=== PATIENT | male | born 1995 | race African-American/Black ===

== ENCOUNTER 2023-08-28 15:26 | Inpatient (IN) | payer OTHER, SELFPAY ==
[2023-08-28 09:14] VITALS: BP 115/60
--- NOTE | 2023-08-28 09:21 | ED.GENMED ---
History of Present Illness
General
Chief Complaint: Chest Pain
Time Seen by Provider: 08/28/23 09:08
History of Present Illness
History of Present Illness:
27-year-old male with history of sickle cell presents to the emergency via [facility] chest pain, back pain, and extremity pain that began last night. He states the symptoms are comparable to past sickle cell crises. He has
been an inmate at the correctional facility for the past 2 weeks, reports he previously been compliant with his hydroxyurea. He is from out of [facility], outside property agent is located in [place]. No recent fevers or chills. Denies any history of IV drug
abuse or illicit substance use
Review of Systems
Review of Systems
Allergies reviewed?: Yes
All Other Systems: ROS reviewed and negative except as documented in HPI and ROS
Phy Exam
Physical Exam
Physical Exam:
GEN: Well appearing, NAD, WDWN
Eyes: PERRLA, EOMs intact, no scleral icterus
HENT: NCAT, oral mucosa moist, no JVD, no cervical adenopathy.
Lungs: CTAB, no wheezes, rales, rhonchi, normal chest wall excursion
Cardiac: RRR, no M/R/G, no peripheral edema. Radial pulses 2+ bilat
Abdomen: S, NT, ND, NABS, no masses or hepatosplenomegaly
Neuro: AO x 3
MSK: Forearm and lower leg compartments soft bilaterally with no tenderness
Skin: No rashes, petechiae. Normal color, no pallor or jaundice.
Psych: Calm, cooperative, proper hygiene
Scores
Heart Score for Chest Pain Patients
STEMI patient?: Not applicable
Course
Orders/Labs/Results
Orders:
Orders
08/28/23 09:17
EKG [Electrocardiogram (*1)] Urgent
Reason for Study: Chest Pain
EKG- Treatment ONCE
08/28/23 09:19
HYDROmorphone [Dilaudid] 1 mg IV NOW STA
08/28/23 09:20
Urinalysis Reflex To Culture Urgent
Date Specimen was Collected: 08/28/23
Time Specimen was Collected: 11:20
CR Chest - 2 Views Urgent
Comment:
Reason For Exam: chest pain
08/28/23 11:48
HYDROmorphone [Dilaudid] 1 mg .ROUTE .STK-MED ONE
08/28/23 12:20
CBC/With Reticulocyte Count Urgent
Comprehensive Metabolic Panel Urgent
Direct Bilirubin Urgent
Haptoglobin [S] Urgent
Comment: ADD ON
LDH Urgent
08/28/23 12:52
HYDROmorphone [Dilaudid] 1 mg IV NOW STA
08/28/23 15:01
Admit/Transfer Patient As Directed
Co-Sign Provider:
Level of Care: Inpatient admission
Assign to:: Telemetry
Physician / Group: hospitalist
Diagnosis: Sickle cell Crises
Reason for Telemetry: Chest Pain syndromes
Date to Stop Telemetry: 08/30/23
Time to Stop Telemetry: 11:00
Reason for Hospitalization: Sickle cell crises
Expected length of stay greater than two midnights?: Yes
ELOS- Estimated Length of Stay in days: 3
I certify the patient meets the requirements for IP care: Yes
08/28/23 15:04
HYDROmorphone [Dilaudid] 2 mg IV NOW STA
08/28/23 15:07
Code Status As Directed
Resuscitation Status: Full Code
08/28/23 15:15
Urine Drug Abuse Screen Routine
08/30/23 11:00
DC Protocol for Telemetry ONCE
Abnormal Lab Results
08/28/23
12:20
WBC 13.1 H 10^3/uL
(4.8-10.8)
RBC 3.44 L 10^6/uL
(4.70-6.10)
Hgb 8.3 L g/dL
(13.0-18.0)
Hct 22.9 L %
(39.0-52.0)
MCV 66.6 L fL
(80.0-94.0)
MCH 24.1 L pg
(27.0-31.0)
RDW 25.8 H %
(11.5-14.5)
Abs Immat Gran (auto) 0.1 H 10^3/uL
(0-0.05)
Absolute Monos (auto) 1.7 H 10^3/uL
(0.1-0.6)
Absolute Eos (auto) 1.4 H 10^3/uL
(0-0.7)
Immature Gran % 0.9 H %
(0-0.5)
Monocytes % 12.8 H %
(1.7-9.3)
Eosinophils % 10.9 H %
(0-6)
Retic Count 7.7 H %
(0.4-2.8)
Carbon Dioxide 21 L mmol/L
(22-30)
BUN 7 L mg/dl
(9-20)
Total Bilirubin 3.9 H mg/dl
(0.2-1.3)
Lactate Dehydrogenase 469 H U/L
(120-246)
08/28/23 12:20
08/28/23 12:20
Vital Signs
Initial and Last Documented VS:
Initial Vital Signs
Temp Pulse Resp Pulse Ox
98.7 F 70 16 95
08/28/23 09:13 08/28/23 09:13 08/28/23 09:13 08/28/23 09:13
Last Documented Vital Signs
Temp Pulse Resp BP Pulse Ox
98.7 F 61 11 116/59 95
08/28/23 09:13 08/28/23 14:00 08/28/23 14:00 08/28/23 12:00 08/28/23 14:00
MDM/Problems Addressed
MDM/Problems Addressed:
Patient was quite challenging IV placement thus there was a delay and obtaining labs. He has anemia with a hemoglobin of 8.3 as well as elevated reticulocyte count and LDH as well as total bilirubin. At this time it is not clear whether this truly
represents an acute crisis as I do not have access to prior labs given that [place]. Given the multiple required doses of IV opioids will admit to the hospitalist service for further management of a presumed acute sickle cell
syndrome, chest x-ray is clear, no evidence for acute chest syndrome
*Critical Care Note
Total Time (30-74mins, 75-104mins- exclusive of procedures): Not Applicable
ED Attending Note
-
Portions of this chart may have been created with voice recognition software.� Occasional wrong word or��sound alike� substitutions may have occurred due to the inherent limitations of voice recognition software.
Discharge Plan
Departure
Patient Disposition: Admit
Date of Disposition: 08/28/23
Time of Disposition: 12:52
Presentation/result/management discussed w/ accepting MD/DO: Hospitalist
Discharge Problem:
Sickle cell anemia with crisis
Interventions
Interventions:
*Risk Screen - Suicide Last Done: 08/28/23 09:08
*General Assessment Last Done: 08/28/23 09:08
*Neglect/Abuse Screening Last Done: 08/28/23 09:08
*ED COVID-19 Vaccine History Last Done: 08/28/23 09:08
ED- Cardiac Assessment Last Done: 08/28/23 09:08
[2023-08-28] MEDS: DILAUDID 1 MG IV ×5 (10:16→22:55)
[2023-08-28 11:00] VITALS: BP 118/58
[2023-08-28 12:00] VITALS: BP 116/59
[2023-08-28 12:36] LABS: % Basophils 0.6 % (0-2); % Eosinophils 10.9 % (0-6); % Immature Granulocytes 0.9 % (0-0.5); % Lymphocytes 25.2 % (20.5-51.1); % Monocytes 12.8 % (1.7-9.3); % Neutrophils 49.6 % (42.2-75.2); Absolute Basophils 0.1 10^3/uL (0-0.2); Absolute Eosinophils 1.4 10^3/uL (0-0.7); Absolute Immature Granulocytes 0.1 10^3/uL (0-0.05); Absolute Lymphocytes 3.3 10^3/uL (1.2-3.4); Absolute Monocytes 1.7 10^3/uL (0.1-0.6); Absolute Neutrophils 6.5 10^3/uL (1.4-6.5); Hematocrit 22.9 % (39.0-52.0); Hemoglobin 8.3 g/dL (13.0-18.0); Mean Corp Hgb Conc. 36.2 g/dL (33.0-37.0); Mean Corpuscular Hgb 24.1 pg (27.0-31.0); Mean Corpuscular Volume 66.6 fL (80.0-94.0); Mean Platelet Volume 9.1 fL (7.4-10.4); Nucleated Red Blood Cells % 2.1 % (-); Platelet Count 192 10^3/uL (130-400); Red Blood Cell Count 3.44 10^6/uL (4.70-6.10); Red Cell Dist. Width 25.8 % (11.5-14.5); Reticulocyte Count 7.7 % (0.4-2.8); White Blood Cell Count 13.1 10^3/uL (4.8-10.8)
[2023-08-28 12:45] LABS: ALT (SGPT) 20 U/L (0-50); AST (SGOT) 58 U/L (17-59); Albumin 4.4 g/dl (3.5-5.0); Alkaline Phosphatase 87 U/L (38-126); Blood Urea Nitrogen 7 mg/dl (9-20); Calcium 9.3 mg/dl (8.4-10.2); Carbon Dioxide 21 mmol/L (22-30); Chloride 105 mmol/L (98-107); Direct Bilirubin 0.2 mg/dl (0.0-0.4); Estimated Creatinine Clearance > 125 ml/min; Glucose 89 mg/dl (70-99); LDH 469 U/L (120-246); Potassium 4.4 mmol/L (3.5-5.1); Sodium 135 mmol/L (135-145); Total Bilirubin 3.9 mg/dl (0.2-1.3); Total Protein 6.9 g/dl (6.3-8.2); eGFR > 60.00
[2023-08-28 13:24] LABS: Anisocytosis 1+; Hypochromasia 2+; Normal RBC Morphology No; Polychromasia 1+; Target Cells 1+
[2023-08-28 13:25] LABS: Acanthocytes 1+; Ovalocytes 2+; Schistocytes FEW; Sickled Red Blood Cells 1+
--- NOTE | 2023-08-28 14:38 | HPS.HSE ---
Addendum entered and electronically signed by Nael Herman MD 08/28/23 22:13:
Attending Addendum-
I performed a history and physical exam of the patient and discussed his management with the resident. I reviewed the resident's note and agree with the documented findings and plan of care CC/HPI-Patient presents from [facility] correction with
correctional officers secondary to severe pain. Per patient state pain has been at its worst today and located on back arm and chest. Has had sickle cell crisis multiple times before. dx @ 5y/old. Patient given diludid with some relief. Full 12
point ROS reviewed and negative except as documented Exam- vitals reviewed in EMR GEN-mild distress heart RRR lungs clear abd soft NT LE no edema back TTP right side back Skin Dry
Plan:
# Sickle Cell Crisis-
- elevated retic and LDH
- no previous records present to confirm dx
- check periph smear
- start IVF
- treat pain aggressively attempt control over next 24 hours
- will need f/u heme as OP
- cont hydroxyurea and folic acid
- start ibuprofen ATC add PPI
# Leukocytosis-
- likely related to SCC
- trend and repeat CBC in am
# Anemia-
- transfuse for HB < 7
- repeat CBC in am
DVT proph- lovenox
Time spent coordinating care, review of plan of care with resident, personally reviewed previous records in EMR, med rec, labs, radiology, d/w nursing, family, correctional officers �- 75 mins
Original Note:
Family Physician
-
Family Physician: Facility [facility]. Correction
Chief Complaint
-
Right Chest pain, Back pain and B/l Hip pain
History of Present Illness
27-year-old male with history of sickle cell disease since procedure for presenting to the emergency from [facility] ( inmate for last 2 weeks) with chest pain, back pain, bilateral hip pain. He had multiple similar episodes
in the past and reported he received IV Dilaudid 2 mg which helped. He reportedly is compliant with the use of hydroxyurea. 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 Reports no recent fever or chills. Denies history of smoking/alcohol
abuse/drug abuse or any other illicit substance. PDMP was queried and confirmed that he was receiving Percocet 10/325 in [place]. He was given 1 mg IV Dilaudid 3 doses in ED and reports minimal benefit, additional dose of 2mg IV was ordered and he
was admitted to medicine floor for further evaluation and treatment.
Medical History
Past Medical History
Past Medical History: Reports Other (Sickle Cell Disease)
Past Surgical History: Reports Cholecystectomy
Social History
Tobacco: Non-smoker
Alcohol: None
Drug: None
Living: Alone
Family History
Family History: Not pertinent (Mother- Breast CA)
Allergies / Home Medications
Allergies reflects when Allergies were last updated in [facility].
Home Medications with original date entered in [facility]
Allergy/Medication List:
Morphine- Hives/ swelling
Review of Systems
-
History Source: Patient
EENT: Denies Sore Throat
Respiratory: Denies Cough
Cardiac: Reports Chest Pain
Abdomen/GI: Denies Abdominal Pain
: Denies Dysuria, Flank Pain or Difficulty Voiding
Musculoskeletal: Reports Joint Pain (B/l Hip pain)
Neurological: Denies Headache, Weakness or Numbness
Endocrine: Denies Polyuria
Hematologic/Lymphatic: Denies Bleeding
Psych: Reports Calm
Physical Exam
Vital Signs
Vital Signs
Temp Pulse Resp BP Pulse Ox
98.7 F 61 11 116/59 95
08/28/23 09:13 08/28/23 14:00 08/28/23 14:00 08/28/23 12:00 08/28/23 14:00
Physical Exam
General: Well Developed, Well Nourished and Comfortable
HEENT: NormoCephalic and Anicteric
Respiratory: Clear; No Wheezes or Rales
Cardiac: S1/S2 and Regular Rhythm
GI: Soft, Non Tender, Non Distended and Normal Bowel Sounds
Skin: Warm and Dry
Neuro: Awake, Alert and Oriented
Psych: Calm
Laboratory Results
-
08/28/23 12:20
08/28/23 12:20
Laboratory Results
Total Bilirubin 3.9 mg/dl (0.2-1.3) H 08/28/23 12:20
AST 58 U/L (17-59) 08/28/23 12:20
ALT 20 U/L (0-50) 08/28/23 12:20
Alkaline Phosphatase 87 U/L (38-126) 08/28/23 12:20
Data Reviewed
-
Diagnostic Radiology: Report Reviewed by me, Discussed with Physician and Discussed with Patient
Lab Data: Labs Reviewed by me, Discussed with Physician and Discussed with Patient
Impression/Plan
-
27 Y.o Male with PmHx of sickle cell disease, presented with severe Right sided Chest pain, Back pain, and B/l Hip pain.
#Sickle Cell Crises
- LDH 469, retic 7.7, hb 8.3
- Iv dialudid 2mg Q4h and 1mg Q6 prn for breakthrough pain
- IVF 125ml/hr
- check Smear
-Check malaria, haptoglobin
# Chest pain
- Check trops
- Ekg normal
- CXR unremarkable
Code: Full
DVT prophylaxis:
[2023-08-28] MEDS: DILAUDID IV (16:06)
--- NOTE | 2023-08-28 16:12 | EDRN ---
Attempted to give patient ordered dose of dilaudid 2mg IVP, upon assessing the IV site found it to be no longer patent and saline flush caused discomfort. Removed the IV with catheter intact, wasted dose of dilaudid per protocol, and contacted VAT
to establish new IV site prior to sending the patient to the inpatient assigned room
[2023-08-28 17:27] LABS: Urine Albumin Negative (Neg - Trace); Urine Bilirubin Negative (Negative); Urine Character Clear (Clear); Urine Color Yellow; Urine Glucose Negative (Negative); Urine Ketone Negative (Negative); Urine Leukocyte Negative (Negative); Urine Nitrite Negative (Negative); Urine Occult Blood Negative (Negative); Urine Urobilinogen Negative (Neg - 1+); Urine pH 6.5 (5.0-9.0)
[2023-08-28 17:40] LABS: Amphetamines Negative (Negative); Barbiturates Negative (Negative); Benzodiazepines Negative (Negative); Buprenorphine Positive (Negative); Cocaine Negative (Negative); Marijuana Negative (Negative); Methadone Negative (Negative); Methamphetamines Negative (Negative); Opiates Positive (Negative); Phencyclidine Negative (Negative); Tricyclic Antidepressants Negative (Negative)
[2023-08-28 17:58] LABS: Fentanyl, Urine Negative (Negative)
[2023-08-28] MEDS: DILAUDID 2 MG IV ×2 (17:59→21:05)
--- NOTE | 2023-08-28 18:08 | VATNOTE ---
Callled by ER for Midline. No accessable veins noted in left arm. Attempted on the rt. basilic vein, able to cannulate vein, but unable to thread wire. Pt. states, 'That always happens with a Midline or Picc.' Attempted peripheral IV's x 3, without
success. Recommend EJ or TLC. party plan sales agent aware.
--- NOTE | 2023-08-28 18:33 | EDRN ---
Vascular access team unable to establish IV on patient. Contacted the ordering physcian via TT without it being read. Then contacted the [facility] hospitalist Mehnaz but not on duty yet. Have now sent the same message to Admitting physcian Hernan
with no response.
[2023-08-28 19:17] VITALS: BP 126/73
[2023-08-28] MEDS: DILAUDID 2 MG IM (19:30)
[2023-08-28 20:46] VITALS: BP 136/72
--- NOTE | 2023-08-28 20:54 | PTCARENOTE ---
Received pt from ED RN. Pt is AAOx3. NSR on the monitor. On RA O2 sat 94%, lungs clear. Pt using the urinal. Pt c/o pain, PRN Dilaudid given (see MAR). ED RN placed IV in right medial ankle, able to push medications through, unable to use this line
for IVF due to occlusion, IVF on standby (DRUG SAFETY DATA MANAGEMENT SPECIALIST [employer] notified). CV PA ED called and visited the pt, pt refusing lines, PA was able to get blood for labs. EKG provided, per order. Two guards @ bedside. Pt is laying comfortable in bed with call
jarvis in reach.
[2023-08-28] MEDS: NSS 1000 IV (21:05)
[2023-08-28] MEDS: ZOFRAN 4 MG PO (21:07)
[2023-08-28] MEDS: COLACE 100 MG PO (21:07)
[2023-08-28] MEDS: TYLENOL 650 MG PO (21:07)
[2023-08-28 23:31] LABS: Hematocrit 22.8 % (39.0-52.0); Hemoglobin 8.2 g/dL (13.0-18.0); Mean Corpuscular Hgb 23.9 pg (27.0-31.0); Mean Corpuscular Volume 66.5 fL (80.0-94.0); Mean Platelet Volume 9.4 fL (7.4-10.4); Platelet Count 241 10^3/uL (130-400); Red Blood Cell Count 3.43 10^6/uL (4.70-6.10); Red Cell Dist. Width 26.6 % (11.5-14.5); White Blood Cell Count 13.8 10^3/uL (4.8-10.8)
[2023-08-28 23:43] LABS: Blood Urea Nitrogen 6 mg/dl (9-20); Calcium 9.5 mg/dl (8.4-10.2); Carbon Dioxide 26 mmol/L (22-30); Chloride 103 mmol/L (98-107); Estimated Creatinine Clearance > 125 ml/min; Glucose 93 mg/dl (70-99); Sodium 138 mmol/L (135-145); eGFR > 60.00
[2023-08-28 23:48] LABS: Troponin I < 0.012 ng/ml
[2023-08-28 23:52] LABS: INR 1.13; PT 14.5 Sec (11.4-14.6)
[2023-08-28 23:55] LABS: APTT 22.8 Sec (23.4-35.0)
[2023-08-29] VITALS (12 sets, daily range): BP systolic 98–131; BP diastolic 46–74; BMI 21.9
[2023-08-29] MEDS: MOTRIN 600 MG PO ×4 (00:30→23:06)
[2023-08-29] MEDS: TYLENOL 650 MG PO ×6 (00:30→23:05)
[2023-08-29] MEDS: DILAUDID 2 MG IV ×6 (01:02→22:00)
[2023-08-29] MEDS: DILAUDID 1 MG IV ×6 (02:48→23:00)
[2023-08-29] MEDS: TYLENOL PO (03:43)
[2023-08-29] MEDS: NSS IV ×2 (07:14→15:06)
[2023-08-29] MEDS: PROTONIX 40 MG PO (07:16)
[2023-08-29] MEDS: ZOFRAN 4 MG PO ×2 (07:16→19:46)
[2023-08-29] MEDS: SENOKOT 8.6 MG PO ×2 (07:17→19:46)
[2023-08-29] MEDS: HYDREA 500 MG PO (07:17)
[2023-08-29] MEDS: COLACE 100 MG PO ×2 (07:17→19:46)
[2023-08-29] MEDS: FOLVITE 1 MG PO (07:17)
--- NOTE | 2023-08-29 10:09 | W.PN.HOSP.TC ---
Addendum entered and electronically signed by Nael Herman MD 08/29/23 22:01:
Attending Addendum-
I saw and evaluated the patient. I reviewed the resident�s note and agree with findings and plan as documented in the resident�s note. S- IV line blew yesterday, patient did not receive pain meds for a period of time. refusing PO meds. IVF line
placed in foot. Feels pain is controlled with IV diladid. 'I feel little better' Full 12 point ROS reviewed and negative except as documented Exam- vitals reviewed in EMR GEN-NAD heart RRR lungs clear abd soft NT LE no edema back TTP right side back
Skin Dry
Plan:
# Sickle Cell Crisis-
- acute hemolysis
- c/s IR to place PICC
- elevated retic and LDH
- diff with sickle cells
- cont IVF
- treat pain aggressively attempt control over next 24 hours, T/C HOLLOW HANDLE BENCH WORKER if needed
- will need f/u heme as OP
- cont hydroxyurea and folic acid
- cont ibuprofen ATC and PPI
- transfuse for < 8
# Hypoxia
- mild
- start o2
# Unconjugated Hyperbilirubinemia
- due to chronic hemolysis
- haptoglobin pend
- elevated retic/elevated LDH
- fractionate
- cont to monitor
# Leukocytosis-
- likely related to SCC
- resolved
- trend and repeat CBC in am
# Anemia-
- transfuse for HB < 7
- repeat CBC in am
DVT proph- lovenox
Dispo- eventual DC back to [facility] facility- c/s CM
Time spent coordinating care, review of plan of care with resident, personally reviewed previous records in EMR, med rec, labs, radiology, d/w nursing, family, correctional officers �- 59 mins
Original Note:
Today's Communication/Plan
-
- Continue IVF
- Continue IV dilaudid
- recheck labs
Assessment / Plan
Assessment / Plan
27 Y.o Male with PmHx of sickle cell disease, presented with severe Right sided Chest pain, Back pain, and B/l Hip pain.
#Sickle Cell Crises
- LDH 469, retic 7.7, hb 8.3- 08/27/23
- Iv dialudid 2mg Q4h and 1mg Q6 prn for breakthrough pain
- IVF 125ml/hr
- IR: LUE PICC placed via prox brachial vein under US and fluoro guidance.
- pending peripheral Smear
- pending haptoglobin
- Will need follow-up heme as outpatient
- Continue hydroxyurea and folic acid
- Continue ibuprofen
# Chest pain
- Check trops
- Ekg normal
- CXR unremarkable
# Anemia
- Transfuse for hemoglobin less than 7
- daily cbc
Code: Full
DVT prophylaxis: Lovenox
Anticipated Discharge: 24 - 48 hours
Subjective/Interval History
-
Date of Service: August 29, 2023
Objective Data
-
Labs:
Laboratory Results
08/28/23 08/28/23 08/29/23
23:15 23:22 06:00
WBC 13.8 H Pending
Hgb 8.2 L Pending
Hct 22.8 L Pending
Plt Count 241 D Pending
PT 14.5
INR 1.13
APTT 22.8 L
Sodium 138 Pending
Potassium 4.0 Pending
Chloride 103 Pending
Carbon Dioxide 26 Pending
BUN 6 L Pending
Creatinine 0.7 Pending
Glucose 93 Pending
Calcium 9.5 Pending
Total Bilirubin Pending
AST Pending
ALT Pending
Alkaline Phosphatase Pending
Vital Signs:
Vital Signs
Temp Pulse Resp BP Pulse Ox
98.0 F 76 12 98/55 92
08/29/23 07:43 08/29/23 06:00 08/29/23 06:00 08/29/23 06:00 08/29/23 06:00
I&O
08/28/23 08/29/23 08/30/23
06:59 06:59 06:59
Intake Total 410 / 410
Output Total 600 / 600
Balance -190 / -190
Review of Systems
-
History Source: Patient
Constitutional: Denies Fever
Respiratory: Denies Cough
Cardiac: Denies Palpitations
Abdomen/GI: Denies Abdominal Pain
Genitourinary: Denies Dysuria
Musculoskeletal: Denies Joint Swelling
Neuro: Denies Dizzy or Headache
Hematologic / Lymphatic: Denies Bleeding
Physical Exam
-
General: Well Developed
Respiratory: Clear to Auscultation
Cardiac: Regular Rhythm and S1/S2
GI: Soft and Nontender
Skin: Warm and Dry
Neuro: Awake, Alert and Oriented
Psych: Calm
Data Reviewed
-
Labs: Labs Reviewed by me, Discussed with Physician and Discussed with Patient
--- NOTE | 2023-08-29 17:32 | W.PN.IRAD.PR ---
Procedure Note
-
LUE PICC placed via prox brachial vein under US and fluoro guidance. The catheter is ready for use. US showed bilat venous abnormalities, initial attempt RUE placement unsuccessful.
[2023-08-29] MEDS: NSS 1000 IV (18:00)
[2023-08-29 18:18] LABS: % Basophils 0.7 % (0-2); % Eosinophils 10.1 % (0-6); % Immature Granulocytes 0.5 % (0-0.5); % Lymphocytes 32.7 % (20.5-51.1); % Monocytes 11.9 % (1.7-9.3); % Neutrophils 44.1 % (42.2-75.2); Absolute Basophils 0.1 10^3/uL (0-0.2); Absolute Immature Granulocytes 0.1 10^3/uL (0-0.05); Absolute Lymphocytes 3.3 10^3/uL (1.2-3.4); Absolute Monocytes 1.2 10^3/uL (0.1-0.6); Absolute Neutrophils 4.4 10^3/uL (1.4-6.5); Mean Corp Hgb Conc. 36.4 g/dL (33.0-37.0); Mean Corpuscular Hgb 24.5 pg (27.0-31.0); Mean Corpuscular Volume 67.3 fL (80.0-94.0); Mean Platelet Volume 9.6 fL (7.4-10.4); Nucleated Red Blood Cells % 2.5 % (-); Platelet Count 233 10^3/uL (130-400); Red Blood Cell Count 3.27 10^6/uL (4.70-6.10); Red Cell Dist. Width 27.2 % (11.5-14.5)
--- NOTE | 2023-08-29 18:34 | PTCARENOTE ---
Pt sent to IR for line placement under fluoroscopy; L PICC placed and placement confirmed before returning to room; Labs drawn and IVF started, as per orders; Will continue to monitor and assess.
[2023-08-29 18:41] LABS: ALT (SGPT) 19 U/L (0-50); AST (SGOT) 49 U/L (17-59); Albumin 4.2 g/dl (3.5-5.0); Alkaline Phosphatase 76 U/L (38-126); Blood Urea Nitrogen 6 mg/dl (9-20); Calcium 9.3 mg/dl (8.4-10.2); Carbon Dioxide 27 mmol/L (22-30); Chloride 102 mmol/L (98-107); Estimated Creatinine Clearance > 125 ml/min; Glucose 96 mg/dl (70-99); Potassium 4.5 mmol/L (3.5-5.1); Sodium 137 mmol/L (135-145); Total Protein 6.7 g/dl (6.3-8.2); eGFR > 60.00
[2023-08-29 18:42] LABS: Anisocytosis 1+; Hypochromasia 2+; Normal RBC Morphology No
[2023-08-29 18:43] LABS: Poikilocytosis 1+; Polychromasia 1+; Target Cells 1+
[2023-08-29 18:44] LABS: Ovalocytes 2+; Schistocytes Slight
[2023-08-29 18:45] LABS: Acanthocytes Slight; Sickled Red Blood Cells 2+
[2023-08-29 18:49] LABS: Microcytosis 1+
--- NOTE | 2023-08-29 20:20 | PTCARENOTE ---
Received pt from gretchen RICCI. Pt is AAOx3, uncooperative/withdrawn. Pt c/o whole body pain, PRN Dilaudid given (see MAR). Pt refusing hygiene. Pt is laying comfortable in bed with call jarvis in reach.
[2023-08-30] VITALS (16 sets, daily range): BP systolic 90–131; BP diastolic 40–81; BMI 22.4
--- NOTE | 2023-08-30 00:59 | PTCARENOTE ---
Addendum entered by Layne Maravilla RN 08/30/23 02:28:
Pt with another run of vtach, ANA Umaña notified. EKG provided. Mag added to AM labs.
Original Note:
Pt with a run of vtach, HR 126 (strip in the chart). ANA Umaña notified, IV Mag ordered.
[2023-08-30] MEDS: NSS 1000 IV ×3 (01:32→18:21)
[2023-08-30] MEDS: MAGNESIUM SULFATE 100 IV (01:32)
[2023-08-30] MEDS: DILAUDID 2 MG IV ×3 (02:00→10:09)
[2023-08-30] MEDS: DILAUDID 1 MG IV ×2 (03:19→07:41)
[2023-08-30] MEDS: TYLENOL 650 MG PO ×5 (03:19→21:05)
[2023-08-30 03:44] LABS: % Basophils 0.9 % (0-2); % Eosinophils 9.2 % (0-6); % Immature Granulocytes 0.6 % (0-0.5); % Lymphocytes 30.4 % (20.5-51.1); % Monocytes 10.8 % (1.7-9.3); % Neutrophils 48.1 % (42.2-75.2); Absolute Basophils 0.1 10^3/uL (0-0.2); Absolute Immature Granulocytes 0.1 10^3/uL (0-0.05); Absolute Lymphocytes 3.2 10^3/uL (1.2-3.4); Absolute Monocytes 1.1 10^3/uL (0.1-0.6); Hematocrit 21.7 % (39.0-52.0); Hemoglobin 7.7 g/dL (13.0-18.0); Mean Corp Hgb Conc. 35.5 g/dL (33.0-37.0); Mean Corpuscular Hgb 24.3 pg (27.0-31.0); Mean Corpuscular Volume 68.5 fL (80.0-94.0); Mean Platelet Volume 9.5 fL (7.4-10.4); Nucleated Red Blood Cells % 2.5 % (-); Platelet Count 228 10^3/uL (130-400); Red Blood Cell Count 3.17 10^6/uL (4.70-6.10); White Blood Cell Count 10.4 10^3/uL (4.8-10.8)
[2023-08-30 04:06] LABS: ALT (SGPT) 22 U/L (0-50); AST (SGOT) 54 U/L (17-59); Albumin 3.9 g/dl (3.5-5.0); Alkaline Phosphatase 76 U/L (38-126); Blood Urea Nitrogen 5 mg/dl (9-20); Carbon Dioxide 27 mmol/L (22-30); Chloride 103 mmol/L (98-107); Estimated Creatinine Clearance > 125 ml/min; Glucose 99 mg/dl (70-99); Potassium 4.6 mmol/L (3.5-5.1); Sodium 136 mmol/L (135-145); Total Bilirubin 3.9 mg/dl (0.2-1.3); Total Protein 6.3 g/dl (6.3-8.2); eGFR > 60.00
[2023-08-30] MEDS: MOTRIN 600 MG PO ×2 (07:40→16:44)
[2023-08-30] MEDS: PROTONIX 40 MG PO (07:41)
[2023-08-30] MEDS: ZOFRAN 4 MG PO ×2 (07:41→21:05)
[2023-08-30] MEDS: COLACE 100 MG PO ×2 (07:41→21:05)
[2023-08-30] MEDS: FOLVITE 1 MG PO (07:41)
[2023-08-30] MEDS: HYDREA 500 MG PO (07:41)
[2023-08-30] MEDS: FLUSH (NSS) 2 FLUSH IV (07:42)
--- NOTE | 2023-08-30 07:51 | CON.CAR ---
Addendum entered and electronically signed by Martin Estrada MD 08/30/23 11:47:
I saw and examined the patient.
The KST OPERATOR or PA's note was reviewed and I agree with the note.
Comment: General: Well developed, well nourished in NAD.
Neck: Supple, no JVD, HJR, carotids +2 B/L, no bruits bilaterally.
Heart: Non displaced PMI, RRR, no murmurs, No S3, S4, no rubs.
Lungs: Clear to auscultation bilaterally, no wheeze, rhonchi, rubs bilaterally,
normal expiratory phase.
Extremities: No clubbing, cyanosis or edema bilaterally.
Neuro: Grossly nonfocal, awake, alert and oriented x3.
Vikram has a history of sickle cell disease with chronic anemia. He is currently incarcerated. He presented with sickle cell crisis. Cardiology is consulted for possible nonsustained V. tach. He denies any chest pain or shortness of breath. He had
palpitations but not correlating with the arrhythmia.
Unclear if this is aberrancy versus nonsustained V. tach. Will check echocardiogram. Will check electrolytes as well as magnesium. No treatment will be needed if ejection fraction is normal.
Original Note:
Consultation
Consultation Request
Date/Time Consultation Requested: 08/30/2023
Date/Time Consultation Performed: 08/30/2023
Requesting Provider: ANA Gallego
Performing Provider: Martita Cates PA-C for Dr. Estrada
Reason for Consultation: NSVT/arrhythmia
Medical History
-
History of Present Illness:
HPI 08/30/2023:
Patient is a 27-year-old male who lives in [place] who is currently incarcerated at [facility] with past medical history significant for sickle cell crisis maintained on hydroxyurea and chronic anemia who presented to
emergency department on 08/28/2023 with complaints of acute severe right-sided chest pain, back pain and hip pain. Symptoms were consistent with his prior sickle cell crisis. ECG showed sinus rhythm without ischemic changes, troponin was negative.
CXR was unremarkable. Patient receiving IV pain medications, IVF and hydroxyurea. Cardiology being asked to see patient after he developed runs of NSVT longest 8 beats on morning of 08/30/2023. Electrolytes stable K+ 4.6, Mag 2.0 on 08/30/23. Admits he
felt palpitations but denied chest pain, SOB or dizziness. Denies history of syncope or prior arrhythmia. Denies family history or cardiac issues, arrhythmia or sudden .
PMH:
Sickle cell disease
Chronic anemia
Cholecystectomy
Past Medical History
Past Medical History: Other (See HPI)
Past Surgical History: Cholecystectomy
Social History
Tobacco: Non-Smoker
Alcohol: None
Drug: None
Personal: Single
Living: Group Home ([facility])
Family History
Family History: Cancer (Mother had breast cancer)
Allergies / Home Medications
Allergy/AdvReac Type Severity Reaction Status Date / Time
morphine Allergy Severe Anaphylaxis Verified 08/28/23 09:19
�Medication �Instructions �Recorded �Confirmed �Type
acetaminophen 325 mg tablet 650 mg PO BIDPRN PRN mild 08/28/23 08/28/23 History
pain/fever
buprenorphine HCl 8 mg sublingual 8 mg sublingual .TAPER JERALD 08/28/23 08/28/23 History
tablet
folic acid 1 mg tablet 1 mg PO DAILY Supplement 08/28/23 08/28/23 History
hydroxyurea 500 mg capsule 500 mg PO DAILY UTI 08/28/23 08/28/23 History
ibuprofen 600 mg tablet 600 mg PO BIDPRN PRN mild pain 08/28/23 08/28/23 History
ondansetron HCl 4 mg tablet 4 mg PO BID NAUSSEA/VOMITING 08/28/23 08/28/23 History
Review of Systems
-
History Source: Patient
All other systems: Negative unless noted
Physical Exam
Vital Signs
Temp Pulse Resp BP Pulse Ox
97.9 F 60 11 90/55 97
08/30/23 03:39 08/30/23 06:00 08/30/23 05:15 08/30/23 06:00 08/29/23 12:35
GEN: No distress, awake, Ox3, lying in bed
HEENT: supple, anicteric, mmm
LUNGS: CTA, no wheezes/rales
CV: Reg, S1/S2, 1/6 murmur at apex
ABD: soft, BS+, NT/ND
EXT: No edema, clubbing or cyanosis
NEURO: Gross non-focal
SKIN: No rash, warm, dry
Lab Results
08/30/23 03:19
08/30/23 03:19
Troponin I Cancelled 08/29/23 06:30
Impression / Plan
-
PCP: Unknown
Dyeing Machine Back Tender: None
Impression:
Presented 08/28/2023 with back and right-sided chest pain
Sickle cell crisis
Leukocytosis
Hyperbilirubinemia
Acute on chronic anemia
NSVT
Sickle cell disease
Chronic anemia
Cholecystectomy
Echo 08/30/2023: ordered
Plan:
-Presented 08/28/2023 with back and right-sided chest pain and found to be in sickle cell crisis
-Troponin negative with non-ischemic ECG
-Runs of NSVT noted on tele 08/30/2023, longest 8 beats
-Electrolytes stable, K+ 4.6, Mag 2.0 on 08/30/23
-Check echocardiogram
-Could consider addition of low dose beta-isreal if BP allows
-Continue to monitor on telemetry
-Sickle cell crisis continue treatment per primary service with IV fluids, pain control, hydroxyurea and folic acid
-Acute on chronic anemia, continue to monitor and trend hgb, transfuse if Hgb <7
HPI 08/30/2023:
Patient is a 27-year-old male who lives in [place] who is currently incarcerated at [facility] with past medical history significant for sickle cell crisis maintained on hydroxyurea and chronic anemia who presented to
emergency department on 08/28/2023 with complaints of acute severe right-sided chest pain, back pain and hip pain. Symptoms were consistent with his prior sickle cell crisis. ECG showed sinus rhythm without ischemic changes, troponin was negative.
CXR was unremarkable. Patient receiving IV pain medications, IVF and hydroxyurea. Cardiology being asked to see patient after he developed runs of NSVT longest 8 beats on morning of 08/30/2023. Electrolytes stable K+ 4.6, Mag 2.0 on 08/30/23. Admits he
felt palpitations but denied chest pain, SOB or dizziness. Denies history of syncope or prior arrhythmia. Denies family history or cardiac issues, arrhythmia or sudden .
Data Reviewed
-
EKG: Report Reviewed by me, Discussed with Physician, Discussed with Nurse and Discussed with Patient
Radiology: Report Reviewed by me, Discussed with Physician, Discussed with Nurse and Discussed with Patient
Labs: Labs Reviewed by me, Discussed with Physician and Discussed with Nurse
Old Records: Reviewed
--- NOTE | 2023-08-30 09:31 | W.PN.HOSP.TC ---
Addendum entered and electronically signed by Wolf Sy MD 08/30/23 18:20:
I saw and evaluated the patient. I reviewed the resident�s note and agree with findings and plan as documented in the resident�s note.
Patient not verbalizing much complaint except having diffuse shoulder/joint ache. At times patient is evasive about answering probing questions and was not interested in providing further history.
1. Sickle cell crisis
-Patient came in with elevated LDH of 469, Hbg 8.3 and retic count of 7.7
-Having some chest discomfort although not hypoxic
-Admission chest x-ray did not show any pulmonary infiltrates.
-Cardiology involved for concern of venoocclusive disease involving heart, echocardiogram did not show any acute wall motion defect. Troponin negative for
-Patient getting high-dose of IV Dilaudid 1 to 2 mg every 4 hour and has been adamant about decreasing pain medication. Had lengthy discussion with patient that patient will not even able to get narcotic as incarcerated at this point and would
benefit with trial of oral narcotic. Patient remains adamant and demanding of being given ' IV Dilaudid as I am having sickle cell crisis'
-Patient have-been in the hospital more than 48 hours and bedside pain and some baseline lab abnormality no other clinical signs showing active sickle cell crisis. I will change patient to oral oxycodone 5/10 mg for moderate-severe pain and later
increased to 10/15 mg.
IV Dilaudid still ordered as a breakthrough use for every 4 hour.
-Repeat CBC/LDH/reticulocyte count to be followed
2. Microcytic anemia
-Reported baseline of 9.5. Currently 7.7, drifted down from 8.3 in ER and component of dilutional anemia there
-Follow-up repeat hemoglobin tomorrow may require transfusion if dips down further
Case discussed with hematology services
Original Note:
Today's Communication/Plan
-
- check iron profile, b12, folate
- continue IVF and start oxy PO for pain
- t/c [employer]
Assessment / Plan
Assessment / Plan
27 Y.o Male with PmHx of sickle cell disease, presented with severe Right sided Chest pain, Back pain, and B/l Hip pain.
#Sickle Cell Crises
- LDH 469, retic 7.7, hb 8.3- 08/27/23
- Oxycodone 10mg Q4H prn for severe pain
- Oxycodone 5 mg every 4 hours for moderate pain
- Hydromorphone 0.5 mg IV every 4 for breakthrough pain
- IVF 115ml/hr
- pending peripheral Smear
- pending haptoglobin
- Will need follow-up heme as outpatient
- Continue hydroxyurea and folic acid
- Continue ibuprofen
# Chest pain
- Check trops
- Ekg normal
- NSVT noted on telemetry 08/30/2023, longest 8 beats
- Echocardiogram: Unremarkable
- Continue to monitor on telemetry
- Consideration of low-dose beta-isreal if blood pressure allows per cardio
- CXR unremarkable
# Anemia
- Transfuse for hemoglobin less than 7 per cardio
- daily cbc
Code: Full
DVT prophylaxis: Lovenox
Anticipated Discharge: 24 - 48 hours
Subjective/Interval History
-
Date of Service: August 30, 2023
Objective Data
-
Labs:
Laboratory Results
08/30/23
03:19
WBC 10.4
Hgb 7.7 L
Hct 21.7 L
Plt Count 228
Sodium 136
Potassium 4.6
Chloride 103
Carbon Dioxide 27
BUN 5 L
Creatinine 0.6 L
Glucose 99
Calcium 9.0
Total Bilirubin 3.9 H
AST 54
ALT 22
Alkaline Phosphatase 76
Vital Signs:
Vital Signs
Temp Pulse Resp BP Pulse Ox
98.1 F 60 11 90/55 95
08/30/23 07:34 08/30/23 06:00 08/30/23 05:15 08/30/23 06:00 08/30/23 07:53
I&O
08/29/23 08/30/23 08/31/23
06:59 06:59 06:59
Intake Total 410 / 410 2280 / 2280 60 / 60
Output Total 600 / 600 2450 / 2450 980 / 980
Balance -190 / -190 -170 / -170 -920 / -920
Review of Systems
-
History Source: Patient
Constitutional: Denies Fever
Respiratory: Denies Trouble Breathing
Cardiac: Reports Palpitations
Abdomen/GI: Denies Abdominal Pain
Musculoskeletal: Denies Joint Pain
Neuro: Denies Dizzy or Headache
Physical Exam
-
General: Well Developed, Well Nourished and Comfortable
HEENT: Normocephalic and Atraumatic
Respiratory: Clear to Auscultation
Cardiac: Regular Rhythm
GI: Soft and Nontender
Skin: Warm and Dry
Neuro: Awake, Alert and Oriented
Psych: Calm
Data Reviewed
-
Labs: Labs Reviewed by me, Discussed with Physician and Discussed with Patient
[2023-08-30] MEDS: SENOKOT 8.6 MG PO ×2 (10:09→21:06)
[2023-08-30 10:27] LABS: Reticulocyte Count 8.7 % (0.4-2.8)
--- NOTE | 2023-08-30 10:34 | CON.ONC ---
Impression
Impression
- Acute vaso-occlusive crisis without alarming features
- atypical chest pain
- acute on chronic anemia
- sickle cell disease
Plan
Plan
- pt presenting with back, hip and chest pain. trop pending and cardiology consulted. EKG, CXR unremarkable and he has no O2 requirements, low suspicion for acute chest syndrome.
- continue standing IV fluids.
- current pain regimen: Diluadid 1-2 mg every 4 hours prn. Agree with restarting home regimen of percocet 10/325 mg every 4 hours standing to wean IV needs.
- monitor CBC daily, transfuse for hgb < 6.5 g/dl or if clinical status with chest pain, O2 requirements, fevers more concerning for acute chest.
- pt usually on Voxelotor at home however unable to get since leaving [place]. Continue Hydrea 500 mg daily (prior dosing per pt).
- pt would benefit from outpt hematology follow up however notes not planning to stay in this area for prolonged period of time.
Patient History
History of Present Illness
Pravin is a 27-year-old male with history of sickle cell disease who presented to the emergency from [facility] ( inmate for last 2 weeks) with chest pain, back pain, bilateral hip pain c/w acute vaso-occlusive crisis. He
notes mild productive cough over for 48 hours preceding pain onset which may have been trigger. He also noted dehydration and warm weather as triggers for crisis. CXR unremarkable. He has no O2 requirements. Troponin pending. He usually resides in
[place], [place] and has registry np there, Dr. Ball, who he last saw 1.5 months ago. He gets admitted ~ 4 times a year with crises. his baseline hgb is ~ 9.5-10.0. He was on hydrea in the past however was switched to Voxelotor ~ 1.5 years ago
however has not been able to get since leaving [place]. He takes folic acid 1 mg daily. He takes Percocet 10/325 every 4 hours prn during crises at home (this was confirmed with PDMP). He usually receives transfusions if hgb < 6.5 g/dl, no known hx of
allo-antibodies/difficulty finding blood products. Hgb today is 7.7 g/dl, retic 7.7, T bili 4.0.
Past-Medical/Surgical History
- Sickle cell anemia
- hx of acute chest syndrome
- hx of hip osteonecrosis
Patient Medication
�Medication �Instructions �Recorded �Confirmed �Last Taken �Type
acetaminophen 325 mg tablet 650 mg PO BIDPRN PRN mild 08/28/23 08/28/23 Unknown History
pain/fever
buprenorphine HCl 8 mg sublingual 8 mg sublingual .TAPER JERALD 08/28/23 08/28/23 Unknown History
tablet
folic acid 1 mg tablet 1 mg PO DAILY Supplement 08/28/23 08/28/23 Unknown History
hydroxyurea 500 mg capsule 500 mg PO DAILY UTI 08/28/23 08/28/23 Unknown History
ibuprofen 600 mg tablet 600 mg PO BIDPRN PRN mild pain 08/28/23 08/28/23 Unknown History
ondansetron HCl 4 mg tablet 4 mg PO BID NAUSSEA/VOMITING 08/28/23 08/28/23 Unknown History
Active Medications
Generic Name Dose Route Start Last Admin
Trade Name Freq PRN Reason Stop Dose Admin
Acetaminophen 650 mg 08/28/23 20:00 08/30/23 07:41
Acetaminophen 325 Mg Tablet PO 09/25/23 19:59 650 mg
Q4HWA SKYLER Administration
Acetaminophen 650 mg 08/28/23 20:41
Acetaminophen 325 Mg Tablet PO 09/25/23 20:40
BIDPRN PRN
mild pain/fever
Docusate Sodium 100 mg 08/28/23 20:00 08/30/23 07:41
Docusate Sodium 100 Mg Capsule PO 09/25/23 19:59 100 mg
BID SKYLER Administration
Enoxaparin Sodium 40 mg 08/28/23 20:41 08/29/23 18:01
Enoxaparin Sodium 40 Mg/0.4 Ml Syringe SC 09/25/23 20:40 Not Given
QPM SKYLER
Folic Acid 1 mg 08/29/23 08:00 08/30/23 07:41
Folic Acid 1 Mg Tablet PO 09/26/23 07:59 1 mg
DAILY SKYLER Administration
Hydromorphone HCl 1 mg 08/28/23 19:55 08/30/23 07:41
Hydromorphone 1 Mg/Ml Carpuject IV 09/11/23 19:50 1 mg
Q2HPRN PRN Administration
For breakthrough pain
Hydromorphone HCl 2 mg 08/28/23 19:55 08/30/23 10:09
Hydromorphone 1 Mg/Ml Carpuject IV 09/11/23 19:59 2 mg
Q4H PRN Administration
Severe Pain
Hydromorphone HCl 1 mg 08/28/23 19:55
Hydromorphone 1 Mg/Ml Carpuject IV 09/11/23 19:54
Q4HPRN PRN
Moderate pain
Hydroxyurea 500 mg 08/29/23 08:00 08/30/23 07:41
Hydroxyurea 500 Mg Capsule PO 09/26/23 07:59 500 mg
DAILY SKYLER Administration
Sodium Chloride 1,000 mls @ 115 mls/hr 08/28/23 20:41 08/30/23 01:32
Nss IV 1,000 mls
.Q8H42M SYKLER Administration
Ibuprofen 600 mg 08/29/23 00:00 08/30/23 07:40
Ibuprofen 600 Mg Tablet PO 09/26/23 00:00 600 mg
Q8 SKYLER Administration
Naloxone HCl 0.4 mg 08/28/23 19:17
Naloxone (0.4 Mg/Ml) 1 Ml Injection IV 09/25/23 19:16
Q4HPRN PRN
For somnolence
Ondansetron HCl 4 mg 08/28/23 20:41 08/30/23 07:41
Ondansetron 4 Mg Tablet PO 09/25/23 20:40 4 mg
BID SKYLER Administration
Pantoprazole Sodium 40 mg 08/29/23 08:00 08/30/23 07:41
Pantoprazole 40 Mg Delayed Release Tablet PO 09/26/23 07:59 40 mg
DAILY SKYLER Administration
Sennosides 8.6 mg 08/29/23 08:00 08/30/23 10:09
Sennosides (Senokot) 8.6 Mg Tablet PO 09/26/23 07:59 8.6 mg
BID SKYLER Administration
Sodium Chloride 0 flush 08/28/23 21:00 08/30/23 07:42
Sodium Chloride 0.9% (Flush) Syringe IV 09/25/23 20:59 2 flush
PER PROTOCOL SKYLER Administration
Sodium Chloride 0 flush 08/28/23 22:00
Sodium Chloride 0.9% (Flush) Syringe IV 09/25/23 21:59
PER PROTOCOL SKYLER
Review of Systems
-
History Source: Patient
Constitutional: Denies Fever
Respiratory: Reports Cough; Denies Trouble Breathing or Wheezing
Cardiac: Reports Chest Pain and Palpitations
GI: Denies Abdominal Pain or Nausea
Musculoskeletal: Reports Joint Pain
Neuro: Denies Headache or Lightheadedness
Physical Exam
-
General: Well Developed, Well Nourished and No Apparent Distress
HEENT: Negative Jaundice
Cardiology: Normal Sinus Rhythm
Pulmonary: Clear
Musculoskeletal: No Clubbing and No Edema
Neurology: Non Focal
Labs
Lab Results
WBC 10.4 10^3/uL (4.8-10.8) 08/30/23 03:19
RBC 3.17 10^6/uL (4.70-6.10) L 08/30/23 03:19
Hgb 7.7 g/dL (13.0-18.0) L 08/30/23 03:19
Hct 21.7 % (39.0-52.0) L 08/30/23 03:19
MCV 68.5 fL (80.0-94.0) L 08/30/23 03:19
MCH 24.3 pg (27.0-31.0) L 08/30/23 03:19
MCHC 35.5 g/dL (33.0-37.0) 08/30/23 03:19
RDW 27.0 % (11.5-14.5) H 08/30/23 03:19
Plt Count 228 10^3/uL (130-400) 08/30/23 03:19
MPV 9.5 fL (7.4-10.4) 08/30/23 03:19
Abs Immat Gran (auto) 0.1 10^3/uL (0-0.05) H 08/30/23 03:19
Absolute Neuts (auto) 5.0 10^3/uL (1.4-6.5) 08/30/23 03:19
Absolute Lymphs (auto) 3.2 10^3/uL (1.2-3.4) 08/30/23 03:19
Absolute Monos (auto) 1.1 10^3/uL (0.1-0.6) H 08/30/23 03:19
Absolute Eos (auto) 1.0 10^3/uL (0-0.7) H 08/30/23 03:19
Absolute Basos (auto) 0.1 10^3/uL (0-0.2) 08/30/23 03:19
Immature Gran % 0.6 % (0-0.5) H 08/30/23 03:19
Neutrophils % 48.1 % (42.2-75.2) 08/30/23 03:19
Lymphocytes % 30.4 % (20.5-51.1) 08/30/23 03:19
Monocytes % 10.8 % (1.7-9.3) H 08/30/23 03:19
Eosinophils % 9.2 % (0-6) H 08/30/23 03:19
Basophils % 0.9 % (0-2) 08/30/23 03:19
Creatinine 0.6 mg/dL (0.7-1.3) L 08/30/23 03:19
Vital Signs
Vital Signs
Temp Pulse Resp BP Pulse Ox
98.1 F 70 9 117/64 95
08/30/23 07:34 08/30/23 10:00 08/30/23 10:00 08/30/23 10:00 08/30/23 07:53
--- NOTE | 2023-08-30 12:04 | PTCARENOTE ---
Patient refusing troponin and ECG. Patient uncooperative and argumentative, giving staff a difficult time. Patient is from [facility] so 2 guards in the room and patient left ankle shackled to bed. Patient complaining of
severe pain throughout whole body. Have been medicating patient with IV dilaudid as ordered. Not clear if this helping patient's pain. Patient is not good at communicating.
[2023-08-30] MEDS: ROXICODONE 10 MG PO ×2 (12:29→16:44)
[2023-08-30] MEDS: DILAUDID 0.5 MG IV ×3 (14:13→22:22)
--- NOTE | 2023-08-30 15:58 | PTCARENOTE ---
Patient demanding MD to come back to room in regards to pain medication change. Dr. Sy notified and to room to see patient. Patient continues to be rude and arguing with staff. Vital signs stable. SR on monitor.
--- NOTE | 2023-08-30 16:48 | CM ---
Addendum entered by Erin Luis RN 08/30/23 17:00:
Spoke with nurse Babatunde
Original Note:
Patient from [facility] with Dx sickle cell crisis, hypoxia, hyperbilirubinemia, anemia. Room air. PICC line. Receiving IVF, IV Dilaudid prn, Roxicodone prn.
Spoke with , nurse [facility]; the phone # for nurse report is [phone], fax [phone] (regular fax [phone] not currently working).
Plan return to [facility] when medically ready.
[2023-08-30] MEDS: ROXICODONE 15 MG PO (21:06)
--- NOTE | 2023-08-30 22:39 | PTCARENOTE ---
Addendum entered by Joslyn Martinez RN 08/31/23 03:41:
Pt had incident with Guard's, code purple called. Pt stating the guards 'wont ring call jarvis' pt got upset, guards got up set situation escalated requiring guards to put pt in more restrains. Pt eventually calmed and able to have short conversation
with RN.
Original Note:
During report a RN noticed Pt's TV appeared to have porn on it. Same RN approached Pt saying ' turn that off'. Guards in room did not see what had been on TV. TV turned off and remote taken away by guards, per their protocol. [facility] vacuum metalizing supervisor aware
of incident.
--- NOTE | 2023-08-30 22:47 | W.PN.UPDATE ---
Update Note
Progress Note Update
Responded to code purple. Patient with 2 guards in room already along with him being shackled x2 limbs to bed. He began screaming, spitting and flailing. Patient eventually settled down after about half our of belligerent behavior. No antipsychotics
administered.
[2023-08-31] VITALS (8 sets, daily range): BP systolic 102–129; BP diastolic 52–70
[2023-08-31] MEDS: TYLENOL 650 MG PO ×5 (00:09→19:57)
[2023-08-31] MEDS: MOTRIN 600 MG PO ×3 (00:09→15:28)
[2023-08-31] MEDS: ROXICODONE 10 MG PO (00:42)
[2023-08-31] MEDS: NSS 1000 IV ×3 (03:18→18:31)
[2023-08-31] MEDS: DILAUDID 0.5 MG IV ×5 (03:18→21:14)
--- NOTE | 2023-08-31 03:36 | PTCARENOTE ---
During report a RN noticed Pt's TV appeared to have porn on it. Same RN approached Pt saying ' turn that off'. Guards in room did not see what had been on TV. TV turned off and remote taken away by guards, per their protocol. [employer] supervisor made
aware of incident.
--- NOTE | 2023-08-31 04:13 | PTCARENOTE ---
Pt appears to be resting comfortably, respiration even, unlabored. Pt remaining respectful with RN and less agitated UNTIL third guard came for check and required 2 remaining guards to shackle Pt to bed in 4 points. Pain medication as needed (see
mar).
[2023-08-31] MEDS: ROXICODONE 15 MG PO ×4 (05:23→19:57)
[2023-08-31 05:28] LABS: Reticulocyte Count 7.8 % (0.4-2.8)
[2023-08-31 05:49] LABS: ALT (SGPT) 30 U/L (0-50); AST (SGOT) 54 U/L (17-59); Albumin 3.6 g/dl (3.5-5.0); Alkaline Phosphatase 80 U/L (38-126); Blood Urea Nitrogen 6 mg/dl (9-20); Calcium 8.9 mg/dl (8.4-10.2); Carbon Dioxide 26 mmol/L (22-30); Chloride 105 mmol/L (98-107); Estimated Creatinine Clearance > 125 ml/min; Glucose 84 mg/dl (70-99); Iron 107 ug/dl (49-181); LDH 419 U/L (120-246); Potassium 4.6 mmol/L (3.5-5.1); Sodium 137 mmol/L (135-145); Total Bilirubin 3.5 mg/dl (0.2-1.3); eGFR > 60.00
[2023-08-31 05:59] LABS: Percent Saturation 37 % (20-50); Total Iron Binding Capacity 283 ug/dl (261-462)
[2023-08-31 06:54] LABS: Folate 13.4 ng/ml (2.76-20); Vitamin B12 531 pg/ml (239-931)
[2023-08-31] MEDS: PROTONIX 40 MG PO (08:51)
[2023-08-31] MEDS: HYDREA 500 MG PO (08:51)
[2023-08-31] MEDS: SENOKOT 8.6 MG PO ×2 (08:51→19:57)
[2023-08-31] MEDS: ZOFRAN 4 MG PO ×2 (08:51→19:57)
[2023-08-31] MEDS: COLACE 100 MG PO ×2 (08:51→19:57)
[2023-08-31] MEDS: FOLVITE 1 MG PO (08:51)
--- NOTE | 2023-08-31 09:16 | W.PN.HOSP.TC ---
Addendum entered and electronically signed by Wolf Sy MD 08/31/23 15:39:
I saw and evaluated the patient. I reviewed the resident�s note and agree with findings and plan as documented in the resident�s note.
Patient not verbalizing much complaint except having diffuse shoulder/joint ache. At times patient is evasive about answering probing questions and was not interested in providing further history.
1. Sickle cell crisis
-Patient came in with elevated LDH of 469, Hbg 8.3 and retic count of 7.7 at admission.
-Having some chest discomfort although not hypoxic, Admission chest x-ray did not show any pulmonary infiltrates.
-Cardiology involved for concern of arterial-occlusive disease involving heart, echocardiogram did not show any acute wall motion defect. Troponin negative.
-Hemoglobin remains stable at 7.7. Reticulocyte count/bilirubin trending down slowly
-Patient pain medication was adjusted to oral pain medication yesterday and patient was agitated and was demanding IV Dilaudid. Clinically not supportive of ongoing severe sickle cell crisis thus transition to oral narcotic nonetheless. Patient
planning to be discharged to correctional facility where patient will not likely able to get any pain medication.
-Hematology reviewed and clinically stable for discharge.
2. Microcytic anemia
-Ferritin 162, Saturation 37%, TIBC 283
-possibly related with sickle cell disease
Patient has a pain medication seeking behavior unfortunately and will not be able to get pain medication in correction facility.
Unfortunately remains high risk for readmission for presumed sickle cell crisis and pain management.
Original Note:
Today's Communication/Plan
-
- continue IVF and oxy PO for pain
- downgrade to med/surg
Assessment / Plan
Assessment / Plan
27 Y.o Male with PmHx of sickle cell disease, presented with severe Right sided Chest pain, Back pain, and B/l Hip pain.
#Sickle Cell Crises
- 08/31/23 LDH 419, retic 7.8( down from 8.7 yesterday)
- Oxycodone 10mg Q4H prn for severe pain
- Oxycodone 5 mg every 4 hours for moderate pain
- Hydromorphone 0.5 mg IV every 4 for breakthrough pain
- Continue IVF 115ml/hr
- Blood parasite smear negative
- pending haptoglobin
- Will need follow-up heme as outpatient
- Continue hydroxyurea and folic acid
- Continue ibuprofen
- MRSA +
# Atypical Chest pain
- 08/28/23 trop negative
- Ekg normal
- NSVT noted on telemetry 08/30/2023, longest 8 beats
- Echocardiogram: Unremarkable
- Continue to monitor on telemetry
- Consideration of low-dose beta-isreal if blood pressure allows per cardio
- CXR unremarkable
# Anemia
- reported baseline 9.5
- Transfuse for hemoglobin less than 6.5 per heme
- daily cbc
Code: Full
DVT prophylaxis: Lovenox
Anticipated Discharge: Within 24 hours
Subjective/Interval History
-
Date of Service: August 31, 2023
Objective Data
-
Labs:
Laboratory Results
08/31/23 08/31/23
04:57 08:59
WBC Pending
Hgb Pending
Hct Pending
Plt Count Pending
Sodium 137
Potassium 4.6
Chloride 105
Carbon Dioxide 26
BUN 6 L
Creatinine 0.8
Glucose 84
Calcium 8.9
Total Bilirubin 3.5 H
AST 54
ALT 30
Alkaline Phosphatase 80
Vital Signs:
Vital Signs
Temp Pulse Resp BP Pulse Ox
98.3 F 71 23 102/64 97
08/31/23 07:30 08/31/23 08:15 08/31/23 08:15 08/31/23 08:15 08/30/23 21:30
I&O
08/30/23 08/31/23 09/01/23
06:59 06:59 06:59
Intake Total 2280 / 2280 5590 / 5590
Output Total 2450 / 2450 3210 / 3210
Balance -170 / -170 2380 / 2380
Review of Systems
-
History Source: Patient
Constitutional: Denies Fever
EENT: Denies Sore Throat
Respiratory: Denies Cough
Cardiac: Denies Palpitations
Abdomen/GI: Denies Abdominal Pain
Musculoskeletal: Denies Joint Pain
Neuro: Denies Headache
Hematologic / Lymphatic: Denies Bleeding
Physical Exam
-
General: Well Developed, Well Nourished and No Apparent Distress
HEENT: Normocephalic and Atraumatic
Respiratory: Clear to Auscultation
Cardiac: Regular Rhythm and S1/S2
GI: Soft and Nontender
Skin: Warm and Dry
Psych: Agitated
Data Reviewed
-
Labs: Labs Reviewed by me, Discussed with Physician and Discussed with Patient
--- NOTE | 2023-08-31 09:27 | W.PN.CARDCBS ---
Today's Communication / Plan
-
Will start Toprol 12.5 mg daily and follow on telemetry
Echo has preserved ejection fraction but still having some nonsustained VT
Continue treatment for sickle cell disease
Impression / Plan
-
PCP: Unknown
[place] [facility]: None
Impression:
Presented 08/28/2023 with back and right-sided chest pain
Sickle cell crisis
Leukocytosis
Hyperbilirubinemia
Acute on chronic anemia
NSVT
Sickle cell disease
Chronic anemia
Cholecystectomy
Echo 08/30/2023: EF 60%, no significant valve abnormalities
Plan:
-Still with some brief nonsustained VT. Echo with preserved ejection fraction. Electrolytes are stable
-Will add low-dose Toprol 12.5 mg daily. Follow on telemetry
-Sickle cell crisis continue treatment per primary service with IV fluids, pain control, hydroxyurea and folic acid
-Acute on chronic anemia, continue to monitor and trend hgb, transfuse if Hgb <7
HPI 08/30/2023:
Patient is a 27-year-old male who lives in [place] who is currently incarcerated [facility] with past medical history significant for sickle cell crisis maintained on hydroxyurea and chronic anemia who presented to
emergency department on 08/28/2023 with complaints of acute severe right-sided chest pain, back pain and hip pain. Symptoms were consistent with his prior sickle cell crisis. ECG showed sinus rhythm without ischemic changes, troponin was negative.
CXR was unremarkable. Patient receiving IV pain medications, IVF and hydroxyurea. Cardiology being asked to see patient after he developed runs of NSVT longest 8 beats on morning of 08/30/2023. Electrolytes stable K+ 4.6, Mag 2.0 on 08/30/23. Admits he
felt palpitations but denied chest pain, SOB or dizziness. Denies history of syncope or prior arrhythmia. Denies family history or cardiac issues, arrhythmia or sudden .
Progress Note - Ferry [facility]
Subjective
Date of Service: August 31, 2023
Still with some brief nonsustained VT overnight. Continues to have sickle cell pain.
Objective
Labs:
08/31/23 04:57
Labs
Hgb 7.7 g/dL (13.0-18.0) L 08/30/23 03:19
Hct 21.7 % (39.0-52.0) L 08/30/23 03:19
Plt Count 228 10^3/uL (130-400) 08/30/23 03:19
PT 14.5 Sec (11.4-14.6) 08/28/23 23:15
INR 1.13 08/28/23 23:15
APTT 22.8 Sec (23.4-35.0) L 08/28/23 23:15
Sodium 137 mmol/L (135-145) 08/31/23 04:57
Potassium 4.6 mmol/L (3.5-5.1) 08/31/23 04:57
BUN 6 mg/dl (9-20) L 08/31/23 04:57
Creatinine 0.8 mg/dL (0.7-1.3) 08/31/23 04:57
Glucose 84 mg/dl (70-99) 08/31/23 04:57
Troponins
08/28/23 08/28/23 08/29/23
20:41 23:15 06:30
Troponin I Cancelled < 0.012 Cancelled
08/30/23
09:30
Troponin I Cancelled
Vital Signs and I&O:
Vital Signs
Temp Pulse Resp BP Pulse Ox
98.3 F 71 23 102/64 97
08/31/23 07:30 08/31/23 08:15 08/31/23 08:15 08/31/23 08:15 08/30/23 21:30
Vital Signs
Temp Pulse Resp BP Pulse Ox
98.3 F 71 23 102/64 97
08/31/23 07:30 08/31/23 08:15 08/31/23 08:15 08/31/23 08:15 08/30/23 21:30
Intake & Output
08/29/23 08/30/23 08/31/23 09/01/23
06:59 06:59 06:59 06:59
Intake Total 410 / 410 2280 / 2280 5590 / 5590
Output Total 600 / 600 2450 / 2450 3210 / 3210
Balance -190 / -190 -170 / -170 2380 / 2380
Physical Exam
Physical Exam
GEN: No distress, awake, Ox3
HEENT: supple, anicteric, mmm
LUNGS: CTA, no wheezes/rales
CV: Reg, S1/S2, no murmur
ABD: soft, BS+, NT/ND
EXT: No edema
NEURO: Gross non-focal
SKIN: No rash
[2023-08-31 09:33] LABS: % Basophils 0.6 % (0-2); % Immature Granulocytes 0.7 % (0-0.5); % Lymphocytes 37.6 % (20.5-51.1); % Monocytes 11.3 % (1.7-9.3); % Neutrophils 36.8 % (42.2-75.2); Absolute Basophils 0.1 10^3/uL (0-0.2); Absolute Eosinophils 1.3 10^3/uL (0-0.7); Absolute Immature Granulocytes 0.1 10^3/uL (0-0.05); Absolute Lymphocytes 3.7 10^3/uL (1.2-3.4); Absolute Monocytes 1.1 10^3/uL (0.1-0.6); Absolute Neutrophils 3.6 10^3/uL (1.4-6.5); Hematocrit 21.5 % (39.0-52.0); Hemoglobin 7.7 g/dL (13.0-18.0); Mean Corp Hgb Conc. 35.8 g/dL (33.0-37.0); Mean Corpuscular Hgb 25.2 pg (27.0-31.0); Mean Corpuscular Volume 70.3 fL (80.0-94.0); Nucleated Red Blood Cells % 2.1 % (-); Platelet Count 270 10^3/uL (130-400); Red Blood Cell Count 3.06 10^6/uL (4.70-6.10); Red Cell Dist. Width 26.8 % (11.5-14.5); White Blood Cell Count 9.8 10^3/uL (4.8-10.8)
[2023-08-31] MEDS: TOPROL XL 12.5 MG PO (10:52)
--- NOTE | 2023-08-31 12:40 | W.PN.ONC ---
Today's Communication / Plan
-
Clinically stable. Pain management as per primary service. Would avoid transfusion unless he really drops significantly below 7 g.
Impression
Impression
- Acute vaso-occlusive crisis without alarming features
- atypical chest pain
- acute on chronic anemia
- sickle cell disease
Plan
Plan
- pt presenting with back, hip and chest pain. trop pending and cardiology consulted. EKG, CXR unremarkable and he has no O2 requirements, low suspicion for acute chest syndrome.
- continue standing IV fluids.
- current pain regimen: Diluadid 1-2 mg every 4 hours prn. Agree with restarting home regimen of percocet 10/325 mg every 4 hours standing to wean IV needs.
- monitor CBC daily, transfuse for hgb < 6.5 g/dl or if clinical status with chest pain, O2 requirements, fevers more concerning for acute chest.
- pt usually on Voxelotor at home however unable to get since leaving [place]. Continue Hydrea 500 mg daily (prior dosing per pt).
- pt would benefit from outpt hematology follow up however notes not planning to stay in this area for prolonged period of time.
Subjective/Objective
Subjective/Objective
He is still having right-sided chest and back pain. Physical examination is unchanged.
Vital Signs:
Vital Signs
Temp Pulse Resp BP Pulse Ox
98 F 74 23 129/70 97
08/31/23 11:18 08/31/23 10:52 08/31/23 08:15 08/31/23 10:52 08/30/23 21:30
Lab Results:
Laboratory Data
WBC 9.8 10^3/uL (4.8-10.8) 08/31/23 08:59
Hgb 7.7 g/dL (13.0-18.0) L 08/31/23 08:59
Plt Count 270 10^3/uL (130-400) 07/09/24 08:59
PT 14.5 Sec (11.4-14.6) 08/28/23 23:15
INR 1.13 08/28/23 23:15
APTT 22.8 Sec (23.4-35.0) L 08/28/23 23:15
eGFR > 60.00 08/31/23 04:57
--- NOTE | 2023-08-31 13:15 | PTCARENOTE ---
Pt rec'd this am from [facility]en[facility] admin, no issues with RN, care ongoing. Requesting PRN and breakthrough pain meds frequently stating 'it's not helping'. Plan discussed with care team. Pt was downgraded to , VSS, safe environment maintained. No
behavior issues so far, DON updated by this RN.
--- NOTE | 2023-08-31 15:06 | PTCARENOTE ---
pt assigned room [id number]-attempted to call report but RN busy, will call back when available.
[2023-08-31] MEDS: TYLENOL PO (15:28)
--- NOTE | 2023-08-31 17:36 | W.DCSUMMARY ---
Documented by User: Elvis Becerra MD, Resident 09/01/23 16:28
Discharge Summary
Discharge Data
Date of Admission: 08/28/23
Date of Discharge: 09/01/23
-
Pending Results: No
Hospital Course
Discharging Physician : Elvis Becerra MD ; Wolf Sy MD
Disposition : [facility]
Primary care physician : n/a
Principal Discharge diagnosis : Sickle cell crisis
Chronic Discharge diagnosis : Chronic anemia
Hospital Course : 27-year-old male with known history of sickle cell disease, presented with severe right-sided chest pain, back pain, bilateral hip pain. Further evaluation revealed high reticulocyte count high LDH. EKG came back negative, chest
x-ray was unremarkable. Initially he was given IV fluids, IV Dilaudid as needed every 2-4 for pain control but switched to p.o. oxycodone. Patient reported decrease pain with opioids. Echocardiogram was also done given an episode of and NSVT but
the results were unremarkable. Daily labs showed decrease in hemoglobin. He was given 1 packed RBCs and oral pain medications were discontinued. Patient reported that he is on buprenorphine in [facility]. Patient discharged after blood transfusion.
Important imaging findings : CXR: No acute cardiopulmonary process
Procedure findings : Ultrasound and fluoroscopy-guided PICC placement.
Discharge Plan
-
Patient Disposition: Senior Living
Discharge Diagnosis/Procedures: Sickle Cell Crises
Condition: Good
Diet: No restrictions
Activity: No restrictions
Driving Restrictions: As prior to admission
Bathing Restrictions: OK to Shower
Blood Work: Check CBC in 1 week
Referrals:
[facility],Facility [Family Provider] -
Prescriptions:
Continued
hydroxyurea 500 mg Capsule
500 mg PO DAILY
acetaminophen 325 mg Tablet
650 mg PO BIDPRN PRN (Reason: mild pain/fever)
ondansetron HCl 4 mg Tablet
4 mg PO BID
folic acid 1 mg Tablet
1 mg PO DAILY
ibuprofen 600 mg Tablet
600 mg PO BIDPRN PRN (Reason: mild pain)
buprenorphine HCl 8 mg Tablet, Sublingual
8 mg SUBLINGUAL .TAPER
Patient Comments:
08/28/2023: 8mg Daily from 08/26-08/27; 4mg (2mg x 2 tabs) Daily from 08/28-08/29; 2mg Daily from 08/30-08/31
Discharge Orders:
Discharge Patient (As Directed); Ordered 09/01/23
Ordered By: Zia Estrada
Discharge Date and Time
Print Language: CROATIAN

Documented by User: Zia Estrada MD, Resident 09/01/23 18:01
Discharge Summary
Discharge Data
Date of Admission: 08/28/23
Date of Discharge: 09/01/23
Discharge Plan
-
Patient Disposition: Senior Living
Discharge Diagnosis/Procedures: Sickle Cell Crises
Condition: Good
Diet: No restrictions
Activity: No restrictions
Driving Restrictions: As prior to admission
Bathing Restrictions: OK to Shower
Blood Work: Check CBC in 1 week
Referrals:
[facility],Facility [Family Provider] -
Prescriptions:
Continued
hydroxyurea 500 mg Capsule
500 mg PO DAILY
acetaminophen 325 mg Tablet
650 mg PO BIDPRN PRN (Reason: mild pain/fever)
ondansetron HCl 4 mg Tablet
4 mg PO BID
folic acid 1 mg Tablet
1 mg PO DAILY
ibuprofen 600 mg Tablet
600 mg PO BIDPRN PRN (Reason: mild pain)
buprenorphine HCl 8 mg Tablet, Sublingual
8 mg SUBLINGUAL .TAPER
Patient Comments:
08/28/2023: 8mg Daily from 08/26-08/27; 4mg (2mg x 2 tabs) Daily from 08/28-08/29; 2mg Daily from 08/30-08/31
Discharge Orders:
Discharge Patient (As Directed); Ordered 09/01/23
Ordered By: Zia Estrada
Discharge Date and Time
Print Language: CROATIAN
[2023-08-31 22:36] LABS: Haptoglobin <10 mg/dL (30-200)
[2023-09-01] MEDS: MOTRIN 600 MG PO ×3 (00:03→15:09)
[2023-09-01] MEDS: NSS 1000 IV ×3 (00:04→15:10)
[2023-09-01] MEDS: TYLENOL 650 MG PO ×4 (00:04→15:09)
[2023-09-01] MEDS: ROXICODONE 15 MG PO ×4 (00:04→17:04)
[2023-09-01] MEDS: DILAUDID 0.5 MG IV ×5 (01:21→18:19)
[2023-09-01] MEDS: TYLENOL PO (04:30)
[2023-09-01 06:21] LABS: % Basophils 0.5 % (0-2); % Eosinophils 12.5 % (0-6); % Immature Granulocytes 0.6 % (0-0.5); % Lymphocytes 29.8 % (20.5-51.1); % Monocytes 9.4 % (1.7-9.3); % Neutrophils 47.2 % (42.2-75.2); Absolute Basophils 0.1 10^3/uL (0-0.2); Absolute Eosinophils 1.4 10^3/uL (0-0.7); Absolute Immature Granulocytes 0.1 10^3/uL (0-0.05); Absolute Lymphocytes 3.4 10^3/uL (1.2-3.4); Absolute Monocytes 1.1 10^3/uL (0.1-0.6); Absolute Neutrophils 5.4 10^3/uL (1.4-6.5); Hemoglobin 7.2 g/dL (13.0-18.0); Mean Corp Hgb Conc. 35.5 g/dL (33.0-37.0); Mean Corpuscular Hgb 24.7 pg (27.0-31.0); Mean Corpuscular Volume 69.8 fL (80.0-94.0); Mean Platelet Volume 9.6 fL (7.4-10.4); Nucleated Red Blood Cells % 1.8 % (-); Platelet Count 264 10^3/uL (130-400); Red Blood Cell Count 2.91 10^6/uL (4.70-6.10); Red Cell Dist. Width 27.3 % (11.5-14.5); White Blood Cell Count 11.4 10^3/uL (4.8-10.8)
[2023-09-01 06:35] LABS: Hematocrit 20.3 % (39.0-52.0)
[2023-09-01 06:49] LABS: Blood Urea Nitrogen 5 mg/dl (9-20); Carbon Dioxide 25 mmol/L (22-30); Chloride 105 mmol/L (98-107); Estimated Creatinine Clearance > 125 ml/min; Glucose 88 mg/dl (70-99); Potassium 4.5 mmol/L (3.5-5.1); Sodium 138 mmol/L (135-145); eGFR > 60.00
[2023-09-01 07:05] VITALS: BP 108/54
--- NOTE | 2023-09-01 07:21 | W.PN.HOSP.TC ---
Addendum entered and electronically signed by Wolf Sy MD 09/01/23 15:17:
I saw and evaluated the patient. I reviewed the resident�s note and agree with findings and plan as documented in the resident�s note.
Patient remains uninterested in communicating any true medical concern beside pain. No acute issues reported overnight by nursing staff
Hemoglobin is drifted down to 7.2 today. Hematology recommended transfusion below 7 although with patient ongoing pain symptoms drifting down hemoglobin will provide 1 unit PRBC
I have discussed concern of patient probably will require some pain control patient have stated he is on buprenorphine in nursing home.
No other ongoing acute issues and patient can be discharged after blood transfusion.
Original Note:
Today's Communication/Plan
-
- d/c to correctional facility
- 1 bag PRBC
Assessment / Plan
Assessment / Plan
27 Y.o Male with PmHx of sickle cell disease, presented with severe Right sided Chest pain, Back pain, and B/l Hip pain.
#Sickle Cell Crises
- 08/31/23 LDH 419, retic 7.8( down from 8.7 yesterday)
- Oxycodone 10mg Q4H prn for severe pain
- Oxycodone 5 mg every 4 hours for moderate pain
- Hydromorphone 0.5 mg IV every 4 for breakthrough pain
- Continue IVF 115ml/hr
- Blood parasite smear negative
- haptoglobin <10
- Will need follow-up heme as outpatient
- Continue hydroxyurea and folic acid
- Continue ibuprofen
- MRSA +
- d/c pain medications after transfusion and d/c
# Atypical Chest pain
- 08/28/23 trop negative
- Ekg normal
- NSVT noted on telemetry 08/30/2023, longest 8 beats
- Echocardiogram: Unremarkable
- Continue to monitor on telemetry
- Consideration of low-dose beta-isreal if blood pressure allows per cardio
- CXR unremarkable
# Anemia
- Hb 7.2 on 09/01/2023 (reported baseline 9.5)
- Transfuse 1 PRBC
Code: Full
DVT prophylaxis: Lovenox
Anticipated Discharge: Today
Subjective/Interval History
-
Date of Service: September 01, 2023
Objective Data
-
Labs:
Laboratory Results
09/01/23 09/01/23
05:58 05:59
WBC 11.4 H
Hgb 7.2 L
Hct 20.3 L*
Plt Count 264
Sodium 138
Potassium 4.5
Chloride 105
Carbon Dioxide 25
BUN 5 L
Creatinine 0.7
Glucose 88
Calcium 9.0
Vital Signs:
Vital Signs
Temp Pulse Resp BP Pulse Ox
98 F 62 16 109/56 95
08/31/23 23:59 08/31/23 23:59 08/31/23 23:59 08/31/23 23:59 08/31/23 23:59
I&O
08/31/23 09/01/23 09/02/23
06:59 06:59 06:59
Intake Total 5590 / 5590 4011 / 4011
Output Total 3210 / 3210 2625 / 2625
Balance 2380 / 2380 1386 / 1386
Review of Systems
-
History Source: Patient
Constitutional: Denies Fever
Respiratory: Denies Cough
Cardiac: Denies Chest Pain
Abdomen/GI: Denies Abdominal Pain
Musculoskeletal: Denies Joint Pain
Neuro: Denies Headache
Physical Exam
-
General: Well Developed and Well Nourished
HEENT: Normocephalic and Atraumatic
Respiratory: Clear to Auscultation
Cardiac: Regular Rhythm
GI: Soft and Nontender
Skin: Warm and Dry
Psych: Calm
Data Reviewed
-
Labs: Labs Reviewed by me, Discussed with Physician and Discussed with Patient
[2023-09-01] MEDS: HYDREA 500 MG PO (08:08)
[2023-09-01] MEDS: PROTONIX 40 MG PO (08:08)
[2023-09-01] MEDS: SENOKOT 8.6 MG PO (08:09)
[2023-09-01] MEDS: TOPROL XL 12.5 MG PO (08:09)
[2023-09-01] MEDS: FOLVITE 1 MG PO (08:09)
[2023-09-01] MEDS: ZOFRAN 4 MG PO (08:09)
[2023-09-01] MEDS: COLACE 100 MG PO (08:10)
--- NOTE | 2023-09-01 10:54 | W.PN.CARDCBS ---
Addendum entered and electronically signed by Martin Estrada MD 09/01/23 11:49:
I saw and examined the patient.
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
Comment: General: Well developed, well nourished in NAD.
Neck: Supple, no JVD, HJR, carotids +2 B/L, no bruits bilaterally.
Heart: Non displaced PMI, RRR, no murmurs, No S3, S4, no rubs.
Lungs: Clear to auscultation bilaterally, no wheeze, rhonchi, rubs bilaterally,
normal expiratory phase.
Extremities: No clubbing, cyanosis or edema bilaterally.
Neuro: Grossly nonfocal, awake, alert and oriented x3.
Stable cardiology status for discharge. Continue low-dose Toprol.
Original Note:
Today's Communication / Plan
-
Cont Toprol XL
Impression / Plan
-
PCP: Unknown
Almond Sorter: None
Impression:
Presented 08/28/2023 with back and right-sided chest pain
Sickle cell crisis
Leukocytosis
Hyperbilirubinemia
Acute on chronic anemia
NSVT
Sickle cell disease
Chronic anemia
Cholecystectomy
Echo 08/30/2023: EF 60%, no significant valve abnormalities
Plan:
-Tele was stopped when patient was moved from [facility] to [facility] on 4W. No reports of palpitations.
-BP and HR stable on Toprol XL 12.5 mg daily
-Labs reviewed by me on 09/01/23 and potassium is 4.5, magnesium was 2.0 on 08/30/23
-Will add low-dose Toprol 12.5 mg daily. Follow on telemetry
-EF was normal on echo without significant valve disease.
HPI 08/30/2023:
Patient is a 27-year-old male who lives in [place] who is currently incarcerated at [facility] with past medical history significant for sickle cell crisis maintained on hydroxyurea and chronic anemia who presented to
emergency department on 08/28/2023 with complaints of acute severe right-sided chest pain, back pain and hip pain. Symptoms were consistent with his prior sickle cell crisis. ECG showed sinus rhythm without ischemic changes, troponin was negative.
CXR was unremarkable. Patient receiving IV pain medications, IVF and hydroxyurea. Cardiology being asked to see patient after he developed runs of NSVT longest 8 beats on morning of 08/30/2023. Electrolytes stable K+ 4.6, Mag 2.0 on 08/30/23. Admits he
felt palpitations but denied chest pain, SOB or dizziness. Denies history of syncope or prior arrhythmia. Denies family history or cardiac issues, arrhythmia or sudden .
Progress Note - Almond Sorter
Subjective
Date of Service: September 01, 2023
He feels fine
Objective
Labs:
09/01/23 05:58
09/01/23 05:59
Labs
Hgb 7.2 g/dL (13.0-18.0) L 09/01/23 05:58
Hct 20.3 % (39.0-52.0) L* 09/01/23 05:58
Plt Count 264 10^3/uL (130-400) 09/01/23 05:58
PT 14.5 Sec (11.4-14.6) 08/28/23 23:15
INR 1.13 08/28/23 23:15
APTT 22.8 Sec (23.4-35.0) L 08/28/23 23:15
Sodium 138 mmol/L (135-145) 09/01/23 05:59
Potassium 4.5 mmol/L (3.5-5.1) 09/01/23 05:59
BUN 5 mg/dl (9-20) L 09/01/23 05:59
Creatinine 0.7 mg/dL (0.7-1.3) 09/01/23 05:59
Glucose 88 mg/dl (70-99) 09/01/23 05:59
Troponins
08/29/23 08/30/23
06:30 09:30
Troponin I Cancelled Cancelled
Vital Signs and I&O:
Vital Signs
Temp Pulse Resp BP Pulse Ox
97.9 F 78 18 108/54 95
09/01/23 07:05 09/01/23 07:05 09/01/23 07:05 09/01/23 07:05 09/01/23 07:05
Vital Signs
Temp Pulse Resp BP Pulse Ox
97.9 F 78 18 108/54 95
09/01/23 07:05 09/01/23 07:05 09/01/23 07:05 09/01/23 07:05 09/01/23 07:05
Intake & Output
08/30/23 08/31/23 09/01/23 09/02/23
06:59 06:59 06:59 06:59
Intake Total 2280 / 2280 5590 / 5590 4011 / 4011
Output Total 2450 / 2450 3210 / 3210 2625 / 2625
Balance -170 / -170 2380 / 2380 1386 / 1386
--- NOTE | 2023-09-01 11:04 | W.PN.ONC2 ---
Addendum entered and electronically signed by Nidia Jason MD 09/01/23 12:07:
agree w/ A&P as outlined below
Original Note:
Today's Communication / Plan
-
Clinically stable.
Pain management as per primary service.
Would avoid transfusion unless he really drops significantly below 7g/dL.
continue Hydrea
Impression
Impression
- Acute vaso-occlusive crisis without alarming features
- atypical chest pain
- acute on chronic anemia
- sickle cell disease
-Echo has preserved ejection fraction but still having some nonsustained VT
Plan
Plan
- pt presenting with back, hip and chest pain. EKG, CXR unremarkable and he has no O2 requirements, low suspicion for acute chest syndrome.
- ensure adequate hydration, if unable to push oral fluids then would utilize IVF
- transition IV pain medications to oral home regimen
- monitor CBC daily, transfuse for hgb < 6.5 g/dl or if clinical status with chest pain, O2 requirements, fevers more concerning for acute chest.
- pt usually on Voxelotor at home however unable to get since leaving [place]. Continue Hydrea 500 mg daily (prior dosing per pt).
- pt would benefit from outpt hematology follow up however notes not planning to stay in this area for prolonged period of time.
-VT per cardiology
Subjective/Objective
Chief Complaint
no new complaints
Subjective
'typical' vaso-occlusive pain unchanged in right-side pf chest and back pain
Vital Signs:
Vital Signs
Temp Pulse Resp BP Pulse Ox
97.9 F 78 18 108/54 95
09/01/23 07:05 09/01/23 07:05 09/01/23 07:05 09/01/23 07:05 09/01/23 07:05
Lab Results:
Laboratory Data
WBC 11.4 10^3/uL (4.8-10.8) H 09/01/23 05:58
Hgb 7.2 g/dL (13.0-18.0) L 09/01/23 05:58
Plt Count 264 10^3/uL (130-400) 09/01/23 05:58
PT 14.5 Sec (11.4-14.6) 08/28/23 23:15
INR 1.13 08/28/23 23:15
APTT 22.8 Sec (23.4-35.0) L 08/28/23 23:15
eGFR > 60.00 09/01/23 05:59
Physical Exam
General: Well Developed, Well Nourished and No Apparent Distress
HEENT: Negative Jaundice
Cardiology: Normal Sinus Rhythm
Pulmonary: Clear
Musculoskeletal: No Clubbing and No Edema
Neurology: Non Focal
Review of Systems
Review of Systems
Review of systems notable for subjective otherwise negative
--- NOTE | 2023-09-01 12:47 | CM ---
Patient from [facility].
Plan; back to [facility] when stable.
[facility]
report is [phone]
fax [phone] (regular fax [phone] not currently working).
Plan return to [facility] when medically ready.
[2023-09-01 15:42] VITALS: BP 117/60
[2023-09-01 16:02] VITALS: BP 117/60
[2023-09-01 18:10] VITALS: BP 120/68
[2023-09-01 18:13] VITALS: BP 120/68
== END 2023-09-01 19:52 | DRG 812 ==
LOC: 4 WEST ACU 15:26
PROVIDERS: Nurse Practitioner Gerontology; Physician Assistant; Radiology Vascular & Interventional Radiology; Student in an Organized Health Care Education/Training Program; ADMITTING PHYSICIAN Family Medicine; ATTENDING PHYSICIAN Hospitalist; CONSULT PHYSICIAN Internal Medicine Hematology & Oncology; EMERGENCY PHYSICIAN Emergency Medicine; OTHER PHYSICIAN Internal Medicine Cardiovascular Disease
PROC: 02HV33Z Insertion of Infusion Device into Superior Vena Cava, Percutaneous Approach (ICD-10-PCS; 2023-08-29)
PROC: 30233N1 Transfusion of Nonautologous Red Blood Cells into Peripheral Vein, Percutaneous Approach (ICD-10-PCS; 2023-09-01)
DX: D57.00 Hb-SS disease with crisis, unspecified (principal); I47.20 Ventricular tachycardia, unspecified; D72.829 Elevated white blood cell count, unspecified; E80.6 Other disorders of bilirubin metabolism; R09.02 Hypoxemia; Z76.5 Malingerer [conscious simulation]
CPT/HCPCS: 36573; 71046; 80048; 80053; 80306; 80307; 81003; 82248; 82607; 82728; 82746; 83010; 83540; 83550; 83615; 83735; 84484; 85025; 85027; 85045; 85610; 85730; 86850; 86900; 86901; 86902; 86920; 87015; 87070; 87147; 87207; 93005; 93306; 96374; 96376; 99285; C1751; C1769; P9016

== ENCOUNTER 2023-09-02 22:27 | Inpatient (IN) | payer OTHER, SELFPAY ==
[2023-09-02 17:28] VITALS: BP 133/77; BMI 22.4
[2023-09-02 18:09] LABS: % Basophils 0.6 % (0-2); % Eosinophils 10.7 % (0-6); % Immature Granulocytes 0.8 % (0-0.5); % Lymphocytes 21.6 % (20.5-51.1); % Monocytes 7.6 % (1.7-9.3); % Neutrophils 58.7 % (42.2-75.2); Absolute Basophils 0.1 10^3/uL (0-0.2); Absolute Eosinophils 1.2 10^3/uL (0-0.7); Absolute Immature Granulocytes 0.1 10^3/uL (0-0.05); Absolute Lymphocytes 2.5 10^3/uL (1.2-3.4); Absolute Monocytes 0.9 10^3/uL (0.1-0.6); Absolute Neutrophils 6.8 10^3/uL (1.4-6.5); Hematocrit 26.4 % (39.0-52.0); Hemoglobin 9.3 g/dL (13.0-18.0); Mean Corp Hgb Conc. 35.2 g/dL (33.0-37.0); Mean Corpuscular Hgb 25.1 pg (27.0-31.0); Mean Corpuscular Volume 71.4 fL (80.0-94.0); Mean Platelet Volume 9.6 fL (7.4-10.4); Nucleated Red Blood Cells % 2.1 % (-); Platelet Count 351 10^3/uL (130-400); Red Cell Dist. Width 27.4 % (11.5-14.5); Reticulocyte Count 5.4 % (0.4-2.8); White Blood Cell Count 11.6 10^3/uL (4.8-10.8)
[2023-09-02 18:34] LABS: Blood Urea Nitrogen 6 mg/dl (9-20); Calcium 9.5 mg/dl (8.4-10.2); Carbon Dioxide 26 mmol/L (22-30); Chloride 102 mmol/L (98-107); Estimated Creatinine Clearance > 125 ml/min; Glucose 92 mg/dl (70-99); Sodium 136 mmol/L (135-145); eGFR > 60.00
[2023-09-02 18:47] LABS: Normal RBC Morphology No
[2023-09-02 18:49] LABS: Polychromasia 1+; Sickled Red Blood Cells 3+; Target Cells 2+
[2023-09-02] MEDS: DILAUDID 2 MG IV (19:40)
[2023-09-02 20:34] VITALS: BP 124/63
--- NOTE | 2023-09-02 21:34 | ED.GENMED ---
History of Present Illness
General
Chief Complaint: Generalized Pain
Source: patient
Exam Limitations: none
Time Seen by Provider: 09/02/23 19:01
History of Present Illness
History of Present Illness:
27-year-old male with history of sickle cell disease who was just released yesterday. Patient presents back complaint chest pain, bilateral hip pain and a little bit of cough. Also feels like he has swollen lymph nodes. Patient states he just
does not feel well. He has been given Subutex and ibuprofen for pain control at the shelter. No vomiting. 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 Patient is from [place]
Past History
Past History
ED Past Medical History: Other (Sickle cell disease)
Phy Exam
Physical Exam
Physical Exam:
CONSTITUTIONAL Patient alert and oriented to person, place and time. Well-appearing. Vital signs reviewed.
HEAD atraumatic, normocephalic.
EYES eyelids normal to inspection, Pupils equally round and reactive to light, Extraocular muscles intact, Conjunctiva normal, Sclera normal.
NECK normal range of motion, Trachea midline, no jugular venous distention.
RESPIRATORY CHEST No respiratory distress noted, Chest expansion equal, few crackles at bilateral bases
CARDIOVASCULAR regular rate and rhythm, Heart sounds normal.
ABDOMEN abdomen nontender, Bowel sounds normal. No distention.
BACK normal inspection, no obvious deformities
UPPER EXTREMITY range of motion normal, Motor strength normal, no cyanosis, no edema.
LOWER EXTREMITY range of motion normal, Motor strength normal, no cyanosis, no edema.
NEURO Speech normal, No focal motor deficits, Willis coma scale 15, Memory normal, Cranial Nerves intact to screening exam.
SKIN skin warm, dry, and normal in color.
PSYCHIATRIC patient oriented to person place and time, Normal affect.
Course
Orders/Labs/Results
Orders:
Orders
09/02/23 18:02
Basic Metabolic Panel Urgent
Complete Blood Count/With Diff Urgent
Reticulocyte Count Urgent
09/02/23 19:23
CR Chest - 2 Views Urgent
Comment:
Reason For Exam: Sickel cell, cp
09/02/23 19:24
HYDROmorphone [Dilaudid] 2 mg IV NOW STA
09/02/23 21:19
Blood Culture Urgent
QUINN Source: Blood/Venous
Specimen Description:
09/02/23 21:20
Blood Culture Urgent
QUINN Source: Blood/Venous
Specimen Description:
Cefepime HCl [Maxipime] 2,000 mg IV NOW STA
Vancomycin 1 Gram/200 ml [Vancocin] 1 gram in 200 ml IV NOW
09/02/23 21:27
Sterile Water [Sterile Water For Injection] 10 ml .ROUTE .K-MED ONE
09/02/23 21:30
Lactic Acid Q4H
Comment: CANCEL 2nd LACTIC ACID IF 1st LACTIC ACID IS LESS THAN 2
09/03/23 01:30
Lactic Acid Q4H
Comment: CANCEL 2nd LACTIC ACID IF 1st LACTIC ACID IS LESS THAN 2
Abnormal Lab Results
09/02/23
18:02
WBC 11.6 H 10^3/uL
(4.8-10.8)
RBC 3.70 L 10^6/uL
(4.70-6.10)
Hgb 9.3 L D g/dL
(13.0-18.0)
Hct 26.4 L %
(39.0-52.0)
MCV 71.4 L fL
(80.0-94.0)
MCH 25.1 L pg
(27.0-31.0)
RDW 27.4 H %
(11.5-14.5)
Abs Immat Gran (auto) 0.1 H 10^3/uL
(0-0.05)
Absolute Neuts (auto) 6.8 H 10^3/uL
(1.4-6.5)
Absolute Monos (auto) 0.9 H 10^3/uL
(0.1-0.6)
Absolute Eos (auto) 1.2 H 10^3/uL
(0-0.7)
Immature Gran % 0.8 H %
(0-0.5)
Eosinophils % 10.7 H %
(0-6)
Retic Count 5.4 H %
(0.4-2.8)
BUN 6 L mg/dl
(9-20)
Creatinine 0.6 L mg/dL
(0.7-1.3)
09/02/23 18:02
09/02/23 18:02
Vital Signs
Initial and Last Documented VS:
Initial Vital Signs
Temp Pulse Resp BP Pulse Ox
99.3 F 71 12 133/77 99
09/02/23 17:28 09/02/23 17:28 09/02/23 17:28 09/02/23 17:28 09/02/23 17:28
Last Documented Vital Signs
Temp Pulse Resp BP Pulse Ox
99.3 F 71 19 124/63 95
09/02/23 17:28 09/02/23 20:00 09/02/23 20:00 09/02/23 20:34 09/02/23 21:30
MDM/Problems Addressed
MDM/Problems Addressed:
Sickle cell disease, pneumonia
*Radiology
Radiology exam reviewed: preliminary read by ED provider and radiology read reviewed
*Pulse Oximetry
Patient hypoxic: no
*Scientific Advisor Interpretation
Rate: normal
Interpretation: normal
Rhythm: sinus
*Critical Care Note
Total Time (30-74mins, 75-104mins- exclusive of procedures): Not Applicable
Data Reviewed
Review of Other/Old Records Reveals: Discharge Summary (Discharge summary reviewed)
Source: patient and police ([facility] nursing)
Prescriptions/Medications Considered But Not Given:
Considered ceftriaxone and azithromycin but recently hospitalized. Cover for hospital-acquired pneumonia
Patient Management
Discussion with other providers: Hospitalist
Escalation/DeEscalation of care consider admission/obs:
Patient does have cough and chest pain. Given his history of sickle cell and recent hospitalization, admit for IV antibiotics
ED Attending Note
-
Portions of this chart may have been created with voice recognition software.� Occasional wrong word or��sound alike� substitutions may have occurred due to the inherent limitations of voice recognition software.
Discharge Plan
Departure
Patient Disposition: Admit
Date of Disposition: 09/02/23
Time of Disposition: 21:36
Admit to: Med/Surg
Presentation/result/management discussed w/ accepting MD/DO: Hospitalist
Discharge Problem:
Pneumonia, Sickle cell disease
Prescriptions:
No Action
hydroxyurea 500 mg Capsule
500 mg PO DAILY
acetaminophen 325 mg Tablet
650 mg PO BIDPRN PRN (Reason: mild pain/fever)
ondansetron HCl 4 mg Tablet
4 mg PO BID
folic acid 1 mg Tablet
1 mg PO DAILY
ibuprofen 600 mg Tablet
600 mg PO BIDPRN PRN (Reason: mild pain)
buprenorphine HCl 8 mg Tablet, Sublingual
8 mg SUBLINGUAL .TAPER
Patient Comments:
08/28/2023: 8mg Daily from 08/26-08/27; 4mg (2mg x 2 tabs) Daily from 08/28-08/29; 2mg Daily from 08/30-08/31
Referrals:
[facility],Facility [Family Provider] -
Interventions
Interventions:
*Risk Screen - Suicide Last Done: 09/02/23 17:28
*General Assessment Last Done: 09/02/23 17:18
*Neglect/Abuse Screening Last Done: 09/02/23 17:28
ED- Fall Risk Assessment Last Done: 09/02/23 17:28
*ED COVID-19 Vaccine History Last Done: 09/02/23 17:28
Discharge Date and Time
Print Language: BENGALI
--- NOTE | 2023-09-02 21:42 | HPS.HSE ---
Family Physician
-
Family Physician: Facility [facility]
Chief Complaint
-
Not feeling well, pain
History of Present Illness
27-year-old man who was recently admitted with right-sided chest pain back pain and bilateral hip pain. Chest x-ray at that time was unremarkable. Patient was treated and discharged . He also got a unit of blood transfusion. Comes back with
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 Has sore throat and also Phlegm when coughs /spits.
Medical History
Past Medical History
Past Medical History: Reports Other
Additional Past Medical History:
Sickle cell disease, H/O Acute chest syndrome before.
Past Surgical History: Reports None
Social History
Tobacco: Non-smoker
Alcohol: None
Drug: None
Living: Half-Way
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
Family History
Family History: Cancer (mom Breast ca)
Allergies / Home Medications
Allergies reflects when Allergies were last updated in [employer]
Home Medications with original date entered in [employer]
Allergy/Medication List:
Allergies
Allergy/AdvReac Type Severity Reaction Status Date / Time
morphine Allergy Anaphylaxis Verified 09/02/23 21:08
Home Medications
acetaminophen 325 mg tablet 650 mg PO BIDPRN PRN mild pain/fever 08/28/23
folic acid 1 mg tablet 1 mg PO DAILY Supplement 08/28/23
hydroxyurea 500 mg capsule 500 mg PO DAILY sickle cell anemia 08/28/23
ibuprofen 600 mg tablet 600 mg PO BIDPRN PRN mild pain 08/28/23
ondansetron HCl 4 mg tablet 4 mg PO BID NAUSSEA/VOMITING 08/28/23
Review of Systems
-
A 12 point ROS was completed and negative except as noted: Yes
Cardiac: Reports Chest Pain (right sided )
Abdomen/GI: Denies Abdominal Pain, Nausea or Vomiting
Musculoskeletal: Denies Muscle Pain
Physical Exam
Vital Signs
Vital Signs
Temp Pulse Resp BP Pulse Ox
99.3 F 71 19 124/63 95
09/02/23 17:28 09/02/23 20:00 09/02/23 20:00 09/02/23 20:34 09/02/23 21:30
Physical Exam
General: Conversant
Respiratory: Clear and Rales (few scattered right base)
Cardiac: S1/S2 and Regular Rhythm
GI: Soft, Non Tender and Normal Bowel Sounds
Skin: Other (scar left calf)
Neuro: AO x 3 and Nonfocal/grossly intact
Psych: Intact Judgment/Insight
Laboratory Results
-
09/02/23 18:02
09/02/23 18:02
Laboratory Results
Total Bilirubin Cancelled 09/02/23 18:02
AST Cancelled 09/02/23 18:02
ALT Cancelled 09/02/23 18:02
Alkaline Phosphatase Cancelled 09/02/23 18:02
Data Reviewed
-
Diagnostic Radiology: Image Personally Visualized and interpreted (Chest x-ray reviewed by me-right lower lobe infiltrate)
Medical Tests (Nuc Med, Echo, EKG etc): Report Reviewed by me (Echo 08/30/2023-normal LV size, wall thickness and systolic function. No regional wall motion abnormalities. Ejection fraction 60%. Normal diastolic function. Normal RV size and
function.)
Impression/Plan
-
IMPRESSION/PLAN:
# Right-sided pneumonia-treat as community-acquired pneumonia with ceftriaxone and doxycycline
Sputum cultures if possible
Await Blood CX
No hypoxia
# Sickle cell disease with recent vaso-occlusive crisis
Patient reports history of acute chest syndrome in the past
Was on Voxelotor while in [place]
Continue hydroxyurea 500 mg daily
Got 1 unit of packed red blood cells last hospitalization
Normal hemoglobin runs in the mid nines per patient
Pain control
Hematology evaluation
# NSVT-started on metoprolol 12.5 mg daily trial if blood pressure-allows
# MRSA colonization
# DVT prophylaxis-Lovenox
# Full code
[2023-09-02] MEDS: DILAUDID 1 MG IV (21:48)
[2023-09-02] MEDS: MAXIPIME 2000 MG IV (21:49)
[2023-09-02] MEDS: VANCOCIN 200 IV (21:55)
[2023-09-02 22:03] LABS: Lactic Acid 1.3 mmol/L (0.7-2.0)
[2023-09-02 22:32] VITALS: BP 119/66
[2023-09-02 23:30] VITALS: BP 119/66
[2023-09-02 23:50] VITALS: BP 137/68; BMI 22.7
--- NOTE | 2023-09-03 | PTCARENOTE ---
Pt arrived to room 432-01. Pt ambulated from stretcher to bed. Pt AAOx3, VSS. Assisted guards in room with pt. Pt c/o 6/10 generalized pain. Pt in no signs of acute distress, respirations regular. Pt oriented to room, call jarvis placed within reach.
[2023-09-03] MEDS: PEPCID 20 MG PO ×3 (00:11→20:59)
[2023-09-03] MEDS: COLACE 100 MG PO ×3 (00:11→20:59)
[2023-09-03] MEDS: SENOKOT 8.6 MG PO ×3 (00:11→20:59)
[2023-09-03] MEDS: VIBRAMYCIN 100 MG PO ×3 (00:11→20:58)
[2023-09-03] MEDS: NSS 1000 IV ×2 (00:12→10:09)
[2023-09-03] MEDS: DILAUDID 1 MG IV ×3 (01:45→10:03)
[2023-09-03 02:59] VITALS: BP 126/71
[2023-09-03 04:38] LABS: % Basophils 0.6 % (0-2); % Eosinophils 9.7 % (0-6); % Immature Granulocytes 0.6 % (0-0.5); % Monocytes 7.4 % (1.7-9.3); % Neutrophils 52.7 % (42.2-75.2); Absolute Basophils 0.1 10^3/uL (0-0.2); Absolute Eosinophils 1.1 10^3/uL (0-0.7); Absolute Immature Granulocytes 0.1 10^3/uL (0-0.05); Absolute Lymphocytes 3.3 10^3/uL (1.2-3.4); Absolute Monocytes 0.8 10^3/uL (0.1-0.6); Absolute Neutrophils 5.9 10^3/uL (1.4-6.5); Hematocrit 24.5 % (39.0-52.0); Hemoglobin 8.7 g/dL (13.0-18.0); Mean Corp Hgb Conc. 35.5 g/dL (33.0-37.0); Mean Corpuscular Hgb 25.8 pg (27.0-31.0); Mean Corpuscular Volume 72.7 fL (80.0-94.0); Mean Platelet Volume 9.6 fL (7.4-10.4); Platelet Count 321 10^3/uL (130-400); Red Blood Cell Count 3.37 10^6/uL (4.70-6.10); Red Cell Dist. Width 26.8 % (11.5-14.5); White Blood Cell Count 11.3 10^3/uL (4.8-10.8)
[2023-09-03 05:03] LABS: Blood Urea Nitrogen 7 mg/dl (9-20); Calcium 9.2 mg/dl (8.4-10.2); Carbon Dioxide 26 mmol/L (22-30); Chloride 103 mmol/L (98-107); Estimated Creatinine Clearance > 125 ml/min; Glucose 110 mg/dl (70-99); Potassium 4.1 mmol/L (3.5-5.1); Sodium 137 mmol/L (135-145); eGFR > 60.00
[2023-09-03 05:14] LABS: Magnesium 1.6 mg/dl (1.6-2.3)
[2023-09-03] MEDS: ROCEPHIN 1000 MG IV (05:41)
[2023-09-03] MEDS: STERILE WATER FOR INJECTION 10 ML IV (05:41)
[2023-09-03 07:35] VITALS: BP 124/72
[2023-09-03] MEDS: MIRALAX 17 GRAMS PO ×2 (08:57→18:02)
[2023-09-03] MEDS: HYDREA 500 MG PO (08:58)
[2023-09-03] MEDS: TOPROL XL 12.5 MG PO (08:58)
[2023-09-03] MEDS: TYLENOL 650 MG PO (09:00)
[2023-09-03 09:44] LABS: Procalcitonin < 0.05 ng/ml (0.0-0.25)
--- NOTE | 2023-09-03 10:13 | CON.ONC ---
Documented by User: ANA Benoit 09/03/23 11:29
Impression
Impression
- a/w PNA
- acute on chronic anemia
- sickle cell disease
Plan
Plan
PNA management per primary service
- no O2 requirements, low suspicion for acute chest syndrome.
- ensure adequate hydration.
- pain management
- monitor CBC daily, transfuse for hgb < 6.5 g/dl or if clinical status with chest pain, O2 requirements, fevers more concerning for acute chest.
- pt usually on Voxelotor at home however unable to get since leaving [place]. Continue Hydrea 500 mg daily (prior dosing per pt) and folic acid 1mg daily
- pt would benefit from outpt hematology follow up however notes not planning to stay in this area for prolonged period of time.
Patient History
History of Present Illness
Pravin is a 27-year-old male with history of sickle cell disease who is readmitted to the emergency from [facility] ( inmate for last 3 weeks) with for sore throat, headache, and productive cough. Prior admission for
vaso-occlusive pain in chest, back, and bilateral hip have improved. He feels crisis earlier this week is much improved and was triggered by dehydration and warm weather. He has no O2 requirements.
He usually resides in [place], [place] and has electronic warfare officer there, Dr. Ball, who he last saw 1.5 months ago. He gets admitted ~ 4 times a year with crises. his baseline hgb is ~ 9.5-10.0. He was on Hydrea in the past however was switched to
Voxelotor ~ 1.5 years ago however has not been able to get since leaving [place]. He takes folic acid 1 mg daily. He takes Percocet 10/325 every 4 hours prn during crises at home (this was confirmed with PDMP).
He usually receives transfusions if hgb < 6.5 g/dl, no known hx of allo-antibodies/difficulty finding blood products. Hgb today is 8.7 g/dl, retic 5.4. He received 1unit prbc 09/01/2023.
CXR 09/02/2023 shows probable mild RLL PNA and mild cardiomegaly. Bcx pending
Afebrile, no hypoxia or hypotension.
Past-Medical/Surgical History
PMH: sickle cell anemia, hx of acute chest syndrome, hx of hip osteonecrosis
Surgical denies
Social denies smoking, ETOH, or recreational drugs. inmate
Family sickle cell
Patient Medication
�Medication �Instructions �Recorded �Confirmed �Last Taken �Type
acetaminophen 325 mg tablet 650 mg PO BIDPRN PRN mild 08/28/23 09/02/23 Unknown History
pain/fever
folic acid 1 mg tablet 1 mg PO DAILY Supplement 08/28/23 09/02/23 09/02/23 08:00 History
hydroxyurea 500 mg capsule 500 mg PO DAILY sickle cell anemia 08/28/23 09/02/23 09/02/23 08:00 History
ibuprofen 600 mg tablet 600 mg PO BIDPRN PRN mild pain 08/28/23 09/02/23 09/02/23 08:00 History
ondansetron HCl 4 mg tablet 4 mg PO BID NAUSSEA/VOMITING 08/28/23 09/02/23 Unknown History
Active Medications
Generic Name Dose Route Start Last Admin
Trade Name Freq PRN Reason Stop Dose Admin
Acetaminophen 650 mg 09/02/23 23:29 09/03/23 09:00
Acetaminophen 325 Mg Tablet PO 09/30/23 23:28 650 mg
BIDPRN PRN Administration
mild pain/fever
Bisacodyl 10 mg 09/02/23 23:29
Bisacodyl 10 Mg Rectal Suppository RECTAL 09/30/23 23:28
[id number] PRN
constipation
Ceftriaxone Sodium 1,000 mg 09/03/23 06:00 09/03/23 05:41
Ceftriaxone 1000 Mg / 10 Ml Vial IV 1,000 mg
Q24H SKYLER Administration
Docusate Sodium 100 mg 09/02/23 23:29 09/03/23 08:59
Docusate Sodium 100 Mg Capsule PO 09/30/23 23:28 100 mg
BID SKYLER Administration
Doxycycline Hyclate 100 mg 09/02/23 23:29 09/03/23 08:58
Doxycycline 100 Mg Capsule PO 100 mg
Q12 SKYLER Administration
Enoxaparin Sodium 40 mg 09/03/23 18:00
Enoxaparin Sodium 40 Mg/0.4 Ml Syringe SC 10/01/23 17:59
QPM SKYELR
Famotidine 20 mg 09/02/23 23:29 09/03/23 08:59
Famotidine 20 Mg Tablet PO 09/30/23 23:28 20 mg
BID SKYLER Administration
Hydromorphone HCl 1 mg 09/02/23 23:37 09/03/23 10:03
Hydromorphone 1 Mg/Ml Carpuject IV 09/16/23 23:36 1 mg
Q4HPRN PRN Administration
severe pain
Hydroxyurea 500 mg 09/03/23 08:00 09/03/23 08:58
Hydroxyurea 500 Mg Capsule PO 10/01/23 07:59 500 mg
DAILY SKYLER Administration
Sodium Chloride 1,000 mls @ 100 mls/hr 09/02/23 23:29 09/03/23 10:09
Nss IV 1,000 mls
.Q10H SKYLER Administration
Ibuprofen 600 mg 09/02/23 23:29
Ibuprofen 600 Mg Tablet PO 09/30/23 23:28
BIDPRN PRN
mild pain
Metoprolol Succinate 12.5 mg 09/03/23 08:00 09/03/23 08:58
Metoprolol 12.5 Mg Extended Release Dose (1/2 Of 25 Mg Xl Tablet) PO 10/01/23 07:59 12.5 mg
DAILY SKYLER Administration
Oxycodone HCl 10 mg 09/02/23 23:29
Oxycodone 5 Mg Regular Release Tablet PO 09/16/23 23:28
Q4HPRN PRN
moderate pain
Polyethylene Glycol 17 grams 09/02/23 23:29
Polyethylene Glycol Powder 17 Grams Packet PO 09/30/23 23:28
DAILYPRN PRN
constipation
Polyethylene Glycol 17 grams 09/03/23 08:00 09/03/23 08:57
Polyethylene Glycol Powder 17 Grams Packet PO 10/01/23 07:59 17 grams
DAILY SKYLER Administration
Senna/Docusate Sodium 1 tablet 09/02/23 23:29
Docusate W/Senna (Lulu-Colace) Tablet PO 09/30/23 23:28
BIDPRN PRN
constipation
Sennosides 8.6 mg 09/02/23 23:29 09/03/23 08:59
Sennosides (Senokot) 8.6 Mg Tablet PO 09/30/23 23:28 8.6 mg
BID SKYLER Administration
Sodium Chloride 0 flush 09/02/23 23:00
Sodium Chloride 0.9% (Flush) Syringe IV 09/30/23 22:59
PER PROTOCOL SKYLER
Sterile Water 10 ml 09/03/23 06:00 09/03/23 05:41
Sterile Water For Injection 10 Ml Vial IV 10/01/23 05:59 10 ml
Q24H SKYLER Administration
Review of Systems
-
Review of systems notable for subjective, otherwise negative
Physical Exam
-
General: Well Developed, Well Nourished and No Apparent Distress
HEENT: Negative Jaundice
Cardiology: Normal Sinus Rhythm
Pulmonary: Clear
Musculoskeletal: No Clubbing and No Edema
Neurology: Non Focal
Labs
Lab Results
WBC 11.3 10^3/uL (4.8-10.8) H 09/03/23 04:06
RBC 3.37 10^6/uL (4.70-6.10) L 09/03/23 04:06
Hgb 8.7 g/dL (13.0-18.0) L 09/03/23 04:06
Hct 24.5 % (39.0-52.0) L 09/03/23 04:06
MCV 72.7 fL (80.0-94.0) L 09/03/23 04:06
MCH 25.8 pg (27.0-31.0) L 09/03/23 04:06
MCHC 35.5 g/dL (33.0-37.0) 09/03/23 04:06
RDW 26.8 % (11.5-14.5) H 09/03/23 04:06
Plt Count 321 10^3/uL (130-400) 09/03/23 04:06
MPV 9.6 fL (7.4-10.4) 09/03/23 04:06
Abs Immat Gran (auto) 0.1 10^3/uL (0-0.05) H 09/03/23 04:06
Absolute Neuts (auto) 5.9 10^3/uL (1.4-6.5) 09/03/23 04:06
Absolute Lymphs (auto) 3.3 10^3/uL (1.2-3.4) 09/03/23 04:06
Absolute Monos (auto) 0.8 10^3/uL (0.1-0.6) H 09/03/23 04:06
Absolute Eos (auto) 1.1 10^3/uL (0-0.7) H 09/03/23 04:06
Absolute Basos (auto) 0.1 10^3/uL (0-0.2) 09/03/23 04:06
Immature Gran % 0.6 % (0-0.5) H 09/03/23 04:06
Neutrophils % 52.7 % (42.2-75.2) 09/03/23 04:06
Lymphocytes % 29.0 % (20.5-51.1) 09/03/23 04:06
Monocytes % 7.4 % (1.7-9.3) 09/03/23 04:06
Eosinophils % 9.7 % (0-6) H 09/03/23 04:06
Basophils % 0.6 % (0-2) 09/03/23 04:06
Creatinine 0.7 mg/dL (0.7-1.3) 09/03/23 04:06
Vital Signs
Vital Signs
Temp Pulse Resp BP Pulse Ox
98.4 F 65 18 124/72 98
09/03/23 07:35 09/03/23 07:35 09/03/23 07:35 09/03/23 07:35 09/03/23 07:35

Documented by User: Martin Tobar MD 09/03/23 12:25
Plan
Plan
PNA management per primary service
- no O2 requirements, low suspicion for acute chest syndrome.
- ensure adequate hydration.
- pain management
- monitor CBC daily, transfuse for hgb < 6.5 g/dl or if clinical status with chest pain, O2 requirements, fevers more concerning for acute chest.
- pt usually on Voxelotor at home however unable to get since leaving [place]. Continue Hydrea 500 mg daily (prior dosing per pt) and folic acid 1mg daily
- pt would benefit from outpt hematology follow up however notes not planning to stay in this area for prolonged period of time.
Hematology Addendum:
Patient seen and evaluated and agree w/ INFORMATION MANAGEMENT SPECIALIST note and plan as outlined
-cont supportive care for sickle cell - hydration/hydrea
-cont current analgesia for pain
-monitor CBC
-pneumonia - antibiotics as per primary service
will continue to follow with you
[2023-09-03 11:20] VITALS: BP 109/62
--- NOTE | 2023-09-03 11:52 | CM ---
product management manager reviewed patient's chart and patient was admitted from [facility], guards are present and plan is for patient to return to [facility] at discharger.
[facility]
Report [phone]
[2023-09-03 15:30] VITALS: BP 116/65
[2023-09-03] MEDS: ROXICODONE 15 MG PO ×2 (16:09→20:58)
--- NOTE | 2023-09-03 17:38 | W.PN.HOSP.TC ---
Today's Communication/Plan
-
Adjusted pain medication
Maintain on Rocephin/doxycycline
Assessment / Plan
Assessment / Plan
1. Community acquired pneumonia
-Chest x-ray showing mild right lower lobe infiltrate
-Minimal chronic leukocytosis. Afebrile
-Procal is negative
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
-Check urinary strep antigen
-Maintain on rocephin and doxycycline
2. Sickle cell disease with recent vaso-occlusive crisis
-Patient reports history of acute chest syndrome in the past
-Was on Voxelotor while in [place]
-Continue hydroxyurea 500 mg daily
-Got 1 unit of packed red blood cells last hospitalization
3. chronic pain narcotic dependent
-Patient continued to have chronic pain despite being out of sickle cell crisis
-At times manipulative and demanding high-dose of IV Dilaudid
-Maintain on oral [place] with small dose of Dilaudid only
4. NSVT
-started on metoprolol 12.5 mg daily trial if blood pressure-allows
MRSA colonization
DVT prophylaxis-Lovenox
Full code
Anticipated Discharge: Within 24 hours
Subjective/Interval History
-
Date of Service: September 03, 2023
Has some dry cough
Afebrile overnight
Objective Data
-
Vital Signs:
Vital Signs
Temp Pulse Resp BP Pulse Ox
98.1 F 69 18 116/65 96
09/03/23 15:30 09/03/23 15:30 09/03/23 15:30 09/03/23 15:30 09/03/23 15:30
I&O
09/02/23 09/03/23 09/04/23
06:59 06:59 06:59
Intake Total 500 / 500
Output Total 500 / 500 1400 / 1400
Balance -500 / -500 -900 / -900
Review of Systems
-
Respiratory: Reports Cough
Cardiac: Reports No Symptoms
Abdomen/GI: Reports No Symptoms
Physical Exam
-
General: Well Developed and Well Nourished; Negative Obese
HEENT: Negative Oxygen
Respiratory: Clear to Auscultation
Cardiac: Regular Rhythm and S1/S2; Negative Murmur
GI: Soft, Nontender and Nondistended
Neuro: Awake, Alert, Oriented and No Motor Deficits
Psych: Calm
[2023-09-03] MEDS: DILAUDID 0.5 MG IV ×2 (17:55→22:34)
--- NOTE | 2023-09-03 19:30 | PTCARENOTE ---
Pt tele seen to be off, upon entering room pt told leads have to be adjusted as it was not showing up on monitor. Pt refused to have tele placed back on. Pt educated on need to have tele on and that it is important to be able to view heart activity.
Pt continued to refuse and pulled sheets up over torso. ASSISTANT CENTER DIRECTOR Sandra Castro made aware- told to educate pt- no further orders.
[2023-09-03 19:34] VITALS: BP 101/55
[2023-09-03] MEDS: COMPAZINE 5 MG IV (23:02)
[2023-09-03 23:11] VITALS: BP 111/53
[2023-09-04] MEDS: ROXICODONE 15 MG PO ×4 (00:58→14:10)
[2023-09-04] MEDS: DILAUDID 0.5 MG IV ×3 (03:52→12:08)
[2023-09-04 04:00] VITALS: BP 110/59
[2023-09-04] MEDS: STERILE WATER FOR INJECTION 10 ML IV (05:39)
[2023-09-04] MEDS: ROCEPHIN 1000 MG IV (05:39)
[2023-09-04 07:51] VITALS: BP 131/48
[2023-09-04] MEDS: VIBRAMYCIN 100 MG PO (08:36)
[2023-09-04] MEDS: MIRALAX 17 GRAMS PO (08:36)
[2023-09-04] MEDS: HYDREA 500 MG PO (08:37)
[2023-09-04] MEDS: SENOKOT 8.6 MG PO (08:37)
[2023-09-04] MEDS: TOPROL XL 12.5 MG PO (08:37)
[2023-09-04] MEDS: PEPCID 20 MG PO (08:38)
[2023-09-04] MEDS: COLACE 100 MG PO (08:38)
[2023-09-04 11:57] VITALS: BP 106/58
--- NOTE | 2023-09-04 12:01 | W.PN.HOSP.TC ---
Today's Communication/Plan
-
d/c [facility]
Assessment / Plan
Assessment / Plan
1. Community acquired pneumonia
-Chest x-ray showing mild right lower lobe infiltrate
-Minimal chronic leukocytosis. Afebrile
-Procal is negative
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
-Urine strep antigen neg
-Patient to get 3 more days of Omnicef and doxycycline
2. Sickle cell disease with recent vaso-occlusive crisis
-Patient reports history of acute chest syndrome in the past
-Was on Voxelotor while in [place]
-Continue hydroxyurea 500 mg daily
-Got 1 unit of packed red blood cells last hospitalization
3. chronic pain narcotic dependent
-Patient continued to have chronic pain despite being out of sickle cell crisis
-At times manipulative and demanding high-dose of IV Dilaudid
-Maintain on oral [place] with small dose of Dilaudid only
4. NSVT
-started on metoprolol 12.5 mg daily trial if blood pressure-allows
5. Narcotic induced constipation
-Provide 1 dose of milk of magnesia
MRSA colonization
DVT prophylaxis-Lovenox
Full code
More than 30 minutes spent in discharge including
Final examination of the patient
Summarizing hospital stay
Instructions for continuing care to all relevant caregivers
Preparation of discharge records, prescriptions, and referral forms
Total time spent (in minutes): 38 mins
Anticipated Discharge: Today
Subjective/Interval History
-
Date of Service: September 04, 2023
Denies of having any excessive shortness of breath/productive cough
No new issues overnight
Remains vitally stable
Objective Data
-
Vital Signs:
Vital Signs
Temp Pulse Resp BP Pulse Ox
98.0 F 72 16 106/58 94
09/04/23 11:57 09/04/23 11:57 09/04/23 11:57 09/04/23 11:57 09/04/23 11:57
I&O
09/03/23 09/04/23 09/05/23
06:59 06:59 06:59
Intake Total 980 / 980
Output Total 500 / 500 3750 / 3750
Balance -500 / -500 -2770 / -2770
Review of Systems
-
Respiratory: Reports No Symptoms
Cardiac: Reports No Symptoms
Abdomen/GI: Reports No Symptoms
Physical Exam
-
General: No Apparent Distress
HEENT: Negative Oxygen
Neuro: Awake, Alert, Oriented and No Motor Deficits
[2023-09-04] MEDS: MILK OF MAGNESIA 30 ML PO (12:08)
--- NOTE | 2023-09-04 14:26 | CM ---
Plan: Back to [facility] today.
[facility]
Report [phone]
--- NOTE | 2023-09-05 15:55 | W.DCSUMMARY ---
Discharge Summary
Discharge Data
Date of Admission: 09/02/23
Date of Discharge: 09/04/23
-
Pending Results: No
Hospital Course
Discharging Physician : Dr Wolf Sy
Disposition : [facility]
Primary care physician : [facility]
Principal Discharge diagnosis :
Community-acquired pneumonia
Narcotic induced constipation
Chronic Discharge diagnosis :
Sickle cell disease
Chronic pain and narcotic dependence
Nonsustained ventricular tachycardia
Hospital Course :
Patient is a 27-year-old male with above-mentioned past medical history came to ER with new right-sided chest tightness and some dry cough. Chest x-ray showing a new right lower lobe infiltrate. Patient has some minimal chronic leukocytosis and
was afebrile. Patient Pro-Luis is negative. Although patient have history of sickle cell disease and at risk of increased infection with capsulated organism. Urinary strep antigen was checked and is negative. Patient was transitioned to Omnicef
and doxycycline 3 days after discharge.
Important imaging findings :
None
Procedure findings :
None
Discharge Plan
-
Patient Disposition: Assisted
Discharge Diagnosis/Procedures: Right lower lobe pneumonia
Condition: Fair
Diet: Regular
Activity: As tolerated
Driving Restrictions: No driving
Bathing Restrictions: OK to Shower
Referrals:
[facility] [Family Provider] -
Prescriptions:
New
polyethylene glycol 3350 [Gavilax] 17 gram powder in packet
17 g PO DAILY PRN (Reason: Constipation) Qty: 30 0RF
cefdinir 300 mg capsule
300 mg PO BID Qty: 6 0RF
Rx Instructions:
Last dose 7/15 Evening
doxycycline hyclate 100 mg capsule
100 mg PO BID Qty: 6 0RF
Rx Instructions:
Last dose 7/15 Evening
Continued
hydroxyurea 500 mg Capsule
500 mg PO DAILY
acetaminophen 325 mg Tablet
650 mg PO BIDPRN PRN (Reason: mild pain/fever)
folic acid 1 mg Tablet
1 mg PO DAILY
ibuprofen 600 mg Tablet
600 mg PO BIDPRN PRN (Reason: mild pain)
Discontinued
ondansetron HCl 4 mg Tablet
4 mg PO BID
Discharge Orders:
Discharge Patient (As Directed); Ordered 09/04/23
Ordered By: Wolf Sy
Discharge Date and Time
Discharge Date/Time: 09/04/23 14:45
Print Language: BRAZILIAN
== END 2023-09-04 14:45 | DRG 194 ==
LOC: 4 WEST ACU 22:27
PROVIDERS: Nurse Practitioner; ADMITTING PHYSICIAN Hospitalist; ATTENDING PHYSICIAN Hospitalist; CONSULT PHYSICIAN Internal Medicine Hematology & Oncology; EMERGENCY PHYSICIAN Emergency Medicine
DX: J18.9 Pneumonia, unspecified organism (principal); I47.20 Ventricular tachycardia, unspecified; K59.03 Drug induced constipation; T40.605A Adverse effect of unspecified narcotics, initial encounter; D57.1 Sickle-cell disease without crisis; G89.29 Other chronic pain
CPT/HCPCS: 71046; 80048; 83605; 83735; 84145; 85025; 85045; 87040; 87899; 96365; 96375; 96376; 99285

== ENCOUNTER 2023-09-25 15:32 | Emergency (ER) | payer OTHER, SELFPAY ==
[2023-09-25] VITALS (9 sets, daily range): BP systolic 96–130; BP diastolic 50–71; BMI 23.0
--- NOTE | 2023-09-25 16:48 | ED.GENMED ---
Addendum entered and electronically signed by Murali Avila DO 09/25/23 21:57:
Update, signout pending D-dimer show getting labs test, thus a delay, D-dimer up CT noted patient appears comfortable eating a turkey sandwich
Troponin noted, I do not believe this represents acute coronary syndrome,
Original Note:
History of Present Illness
General
Chief Complaint: Generalized Pain
Time Seen by Provider: 09/25/23 16:30
History of Present Illness
History of Present Illness:
Patient is a 27-year-old male with history of sickle cell disease presenting to the emergency department with pain. Per chart review it appears that patient was admitted for pneumonia in August. Patient states that he is having his typical crisis
pain that is in his hip as well as in his back. Is also had a residual cough since pneumonia though now it has changed color and the sputum is more green. Denies any fevers or chills. No shortness of breath. He does state that he is having chest
pain that is pleuritic in nature. He has had history of DVT but he is not on any blood thinners anymore. He is unsure if he was supposed to stop it. No nausea vomiting. No diarrhea. He is compliant with his hydroxyurea. Unfortunately he is
incarcerated so is unable to receive oxycodone but he is on Subutex. He has had acute chest before but this does not feel similar. He denies any leg swelling hemoptysis.
Past History
Past History
ED Past Medical History: Other (Sickle cell disease)
Phy Exam
Physical Exam
Physical Exam:
GENERAL: in no acute distress
HEENT: normocephalic, extraocular movements intact, moist oral mucosa
NECK: normal inspection
RESPIRATORY: no respiratory distress, clear to auscultation bilaterally
CARDIOVASCULAR: regular rate and rhythm
ABDOMEN/: soft, non-distended, non-tender to palpation, no rebound or guarding
EXTREMITIES: non-tender, no edema/swelling
NEUROLOGIC: awake and alert, moves all extremities
SKIN: warm
Course
Orders/Labs/Results
Orders:
Orders
09/25/23 15:40
Electrocardiogram (*1) Urgent
Reason for Study: Chest Pain
EKG- Treatment ONCE
09/25/23 16:34
CMP [Comprehensive Metabolic Panel] Urgent
Complete Blood Count/With Diff Urgent
Reticulocyte Count Urgent
Troponin I Urgent
09/25/23 16:48
CR Chest - 2 Views Urgent
Comment:
Reason For Exam: cough
09/25/23 16:49
HYDROmorphone [Dilaudid] 2 mg IV NOW STA
Ondansetron Injectable [Zofran] 4 mg IV NOW STA
09/25/23 16:50
Diphenhydramine [Benadryl] 25 mg IV NOW STA
09/25/23 17:38
CT Chest Pe Study Urgent
Comment:
Reason For Exam: pleuritic chest pain, hx of dvt
09/25/23 17:39
HYDROmorphone [Dilaudid] 1 mg IV NOW STA
09/25/23 17:45
HYDROmorphone [Dilaudid] 1 mg IM NOW ONE
09/25/23 18:30
Troponin I Routine
Abnormal Lab Results
09/25/23
16:34
WBC 14.2 H 10^3/uL
(4.8-10.8)
RBC 3.02 L 10^6/uL
(4.70-6.10)
Hgb 8.3 L g/dL
(13.0-18.0)
Hct 22.7 L %
(39.0-52.0)
MCV 75.2 L fL
(80.0-94.0)
RDW 24.0 H %
(11.5-14.5)
Abs Immat Gran (auto) 0.1 H 10^3/uL
(0-0.05)
Absolute Neuts (auto) 7.5 H 10^3/uL
(1.4-6.5)
Absolute Monos (auto) 1.4 H 10^3/uL
(0.1-0.6)
Absolute Eos (auto) 1.9 H 10^3/uL
(0-0.7)
Immature Gran % 0.8 H %
(0-0.5)
Monocytes % 9.7 H %
(1.7-9.3)
Eosinophils % 13.5 H %
(0-6)
Retic Count 3.6 H %
(0.4-2.8)
BUN 7 L mg/dl
(9-20)
Total Bilirubin 3.8 H mg/dl
(0.2-1.3)
09/25/23 16:34
09/25/23 16:34
Vital Signs
Initial and Last Documented VS:
Initial Vital Signs
Pulse Ox
95
09/25/23 15:44
Last Documented Vital Signs
Temp Pulse Resp BP Pulse Ox
99.6 F 114 42 115/64 95
09/25/23 15:46 09/25/23 16:15 09/25/23 16:15 09/25/23 16:00 09/25/23 16:15
MDM/Problems Addressed
Differential Diagnosis Includes:
27-year-old male with history of sickle cell disease presenting to the emergency department with body wide pain as well as a change in his cough. Vitals here are notable for tachycardia and exam does show clear breath sounds bilaterally. Concern
for vaso-occlusive crisis. Given the cough could be acute chest especially given his recent pneumonia. Doubt splenic sequestration stroke or other emergent complications of his sickle cell disease. The body wide pain is likely to be fractures or
MSK pain or infections. Will obtain blood work including reticulocyte count, EKG chest x-ray. Given the pleuritic chest pain and tachycardia and history of DVT will obtain dimer given wells of 3. Per chart it appears the patient was receiving 2
mg of Dilaudid. Will give that to him here. He does state that he has had history of anaphylaxis to morphine so he does receive Benadryl. Will also give Zofran
*Critical Care Note
Total Time (30-74mins, 75-104mins- exclusive of procedures): Not Applicable
Update Note
Update Note:
On reevaluation patient states that his ultrasound-guided IV has infiltrated. It was confirmed. Will reach out to IR for PICC placement as it appears as what occurred last time.
Blood work is notable for white count of 14.2. Hemoglobin is 8.3. He does get transfuse for hemoglobin less than 8 so we will hold off at this time. Reticulocyte blood cell count is elevated. BMP otherwise shows an elevated total bilirubin which
is similar to prior.
Chest x-ray per my interpretation is similar to prior. Repeat troponin pending. Patient signed out to oncoming attending for follow-up on delta troponin, dimer, as well as pain reassessment.
ED Attending Note
-
Portions of this chart may have been created with voice recognition software.� Occasional wrong word or��sound alike� substitutions may have occurred due to the inherent limitations of voice recognition software.
Discharge Plan
Departure
Prescriptions:
No Action
hydroxyurea 500 mg Capsule
500 mg PO DAILY
acetaminophen 325 mg Tablet
650 mg PO BIDPRN PRN (Reason: mild pain/fever)
folic acid 1 mg Tablet
1 mg PO DAILY
ibuprofen 600 mg Tablet
600 mg PO BIDPRN PRN (Reason: mild pain)
cyclobenzaprine 10 mg Tablet
10 mg PO BIDPRN PRN (Reason: muscle spasms)
azithromycin 250 mg Tablet
250 mg PO HS
guaifenesin 200 mg Tablet
400 mg PO BID
tolnaftate [Antifungal (tolnaftate)] 1 % Cream
1 applic TOPICAL BID
Patient Comments:
09/25/2023: mix with Hydrocortisone 1% and apply to tip of penis
famotidine 20 mg Tablet
20 mg PO BIDPRN PRN (Reason: acid reflux/heartburn/gi issues)
hydrocortisone 1 % Cream
1 applic TOPICAL BID
Patient Comments:
09/25/2023: mix with Antifungal 1% and apply to tip of penis
mirtazapine 15 mg Tablet
15 mg PO HS
buprenorphine HCl 8 mg Tablet, Sublingual
16 mg SUBLINGUAL DAILY
polyethylene glycol 3350 [Gavilax] 17 gram powder in packet
17 g PO DAILYPRN PRN (Reason: Constipation)
Referrals:
[facility] [Family Provider] -
Interventions
Interventions:
*Risk Screen - Suicide Last Done: 09/25/23 15:40
*General Assessment Last Done: 09/25/23 15:39
*Neglect/Abuse Screening Last Done: 09/25/23 15:40
ED- Fall Risk Assessment Last Done: 09/25/23 15:36
*ED COVID-19 Vaccine History Last Done: 09/25/23 15:39
Discharge Date and Time
Print Language: LAO
[2023-09-25 16:49] LABS: Hematocrit 22.7 % (39.0-52.0); Hemoglobin 8.3 g/dL (13.0-18.0); Mean Corp Hgb Conc. 36.6 g/dL (33.0-37.0); Mean Corpuscular Hgb 27.5 pg (27.0-31.0); Mean Corpuscular Volume 75.2 fL (80.0-94.0); Mean Platelet Volume 9.7 fL (7.4-10.4); Platelet Count 284 10^3/uL (130-400); Red Blood Cell Count 3.02 10^6/uL (4.70-6.10); White Blood Cell Count 14.2 10^3/uL (4.8-10.8)
[2023-09-25 16:53] LABS: ALT (SGPT) 24 U/L (0-50); AST (SGOT) 55 U/L (17-59); Albumin 4.4 g/dl (3.5-5.0); Alkaline Phosphatase 67 U/L (38-126); Blood Urea Nitrogen 7 mg/dl (9-20); Calcium 9.5 mg/dl (8.4-10.2); Carbon Dioxide 28 mmol/L (22-30); Chloride 104 mmol/L (98-107); Estimated Creatinine Clearance > 125 ml/min; Glucose 91 mg/dl (70-99); Potassium 4.6 mmol/L (3.5-5.1); Sodium 137 mmol/L (135-145); Total Bilirubin 3.8 mg/dl (0.2-1.3); Total Protein 6.8 g/dl (6.3-8.2); eGFR > 60.00
[2023-09-25 17:01] LABS: % Basophils 0.7 % (0-2); % Eosinophils 13.5 % (0-6); % Immature Granulocytes 0.8 % (0-0.5); % Lymphocytes 22.4 % (20.5-51.1); % Monocytes 9.7 % (1.7-9.3); % Neutrophils 52.9 % (42.2-75.2); Absolute Basophils 0.1 10^3/uL (0-0.2); Absolute Eosinophils 1.9 10^3/uL (0-0.7); Absolute Immature Granulocytes 0.1 10^3/uL (0-0.05); Absolute Lymphocytes 3.2 10^3/uL (1.2-3.4); Absolute Monocytes 1.4 10^3/uL (0.1-0.6); Absolute Neutrophils 7.5 10^3/uL (1.4-6.5); Nucleated Red Blood Cells % 1.4 % (-)
[2023-09-25 17:02] LABS: Anisocytosis 3+; Normal RBC Morphology No; Sickled Red Blood Cells 2+
[2023-09-25] MEDS: ZOFRAN 4 MG IV (17:02)
[2023-09-25 17:03] LABS: Target Cells 1+
[2023-09-25] MEDS: DILAUDID 2 MG IV ×2 (17:03→20:39)
[2023-09-25] MEDS: BENADRYL 25 MG IV ×2 (17:03→20:37)
[2023-09-25 17:04] LABS: Poikilocytosis 2+; Polychromasia Slight
[2023-09-25 17:08] LABS: Reticulocyte Count 3.6 % (0.4-2.8)
[2023-09-25] MEDS: DILAUDID 1 MG IM (18:30)
--- NOTE | 2023-09-25 19:25 | EDRN ---
VAT unable to obtain PICC access which they say is same thing happened with pt's last visit. VAT member reports pt is agreeable to EJ insertion. Dr Avila informed of IV access issues and said will wait for d-dimer result to determine plan of care.
--- NOTE | 2023-09-25 19:30 | VATNOTE ---
Called by staff interpreter for a Midline. The US guided IV placed in the ER, infiltrated. Prior visit to ER, with failed midline attempt, unable to thread wire. Pt. was sent to IR. This visit attempted brachial and basilic access, able to cannulate veins,
unable to thread wires. plater printed circuit board panels aware, will need IR.
[2023-09-25 19:47] LABS: D-Dimer 1.87 ug/mlFEU (0.00-0.50)
--- NOTE | 2023-09-25 20:24 | EDRN ---
Alex ESPINOSA inserted #20g upper L arm using US guidance. Pt argumentative with this RN about ordered pain medication 'She ordered it' Explained to pt that the previous physician is no longer here and he will be seen by Dr Avila going forward.
Explained there are no pain medications ordered by Dr De Santiago that were not given. Pt argumentative insisting the medication was ordered and he needed it. After three repeated explanations, this RN informed pt will not argue with him about this.
Austin will be in to see him kalpesh. Explained this RN sending repeat troponin, then will wrap IV site. Troponin sent. Alex ESPINOSA asked that pt keep his arm straight, do not flex his arm at all and asked that moiz wrap be applied. This RN went in
with Dr Avila. He explained plan of care to pt. This RN applied moiz wrap to pt's iv site and tried to explain why however pt repeatedly spoke over this RN saying he has had a lot of ivs and knows what to do not wanting to listen to this RN.
--- NOTE | 2023-09-25 20:30 | EDRN ---
Called and confirmed with pharmacy that it is alright to administer 2mg IV dilaudid
[2023-09-25 20:46] LABS: Troponin I 0.021 ng/ml
--- NOTE | 2023-09-25 20:51 | ED.GENMED ---
History of Present Illness
General
Chief Complaint: Generalized Pain
Time Seen by Provider: 09/25/23 16:30
Past History
Past History
ED Past Medical History: Other (Sickle cell disease)
Course
Orders/Labs/Results
Orders:
Orders
09/25/23 15:40
Electrocardiogram (*1) Urgent
Reason for Study: Chest Pain
EKG- Treatment ONCE
09/25/23 16:34
CMP [Comprehensive Metabolic Panel] Urgent
Complete Blood Count/With Diff Urgent
Reticulocyte Count Urgent
Troponin I Urgent
09/25/23 16:48
CR Chest - 2 Views Urgent
Comment:
Reason For Exam: cough
09/25/23 16:49
HYDROmorphone [Dilaudid] 2 mg IV NOW STA
Ondansetron Injectable [Zofran] 4 mg IV NOW STA
09/25/23 16:50
Diphenhydramine [Benadryl] 25 mg IV NOW STA
09/25/23 17:39
HYDROmorphone [Dilaudid] 1 mg IV NOW STA
09/25/23 17:45
HYDROmorphone [Dilaudid] 1 mg IM NOW ONE
09/25/23 19:14
DDimer [D-Dimer] Urgent
09/25/23 20:15
Diphenhydramine [Benadryl] 25 mg IV NOW STA
HYDROmorphone [Dilaudid] 2 mg IV NOW STA
09/25/23 20:16
CT Chest Pe Study Urgent
Comment:
Reason For Exam: cpddimer up
09/25/23 20:17
Troponin I Routine
Abnormal Lab Results
09/25/23 09/25/23
16:34 19:14
WBC 14.2 H 10^3/uL
(4.8-10.8)
RBC 3.02 L 10^6/uL
(4.70-6.10)
Hgb 8.3 L g/dL
(13.0-18.0)
Hct 22.7 L %
(39.0-52.0)
MCV 75.2 L fL
(80.0-94.0)
RDW 24.0 H %
(11.5-14.5)
Abs Immat Gran (auto) 0.1 H 10^3/uL
(0-0.05)
Absolute Neuts (auto) 7.5 H 10^3/uL
(1.4-6.5)
Absolute Monos (auto) 1.4 H 10^3/uL
(0.1-0.6)
Absolute Eos (auto) 1.9 H 10^3/uL
(0-0.7)
Immature Gran % 0.8 H %
(0-0.5)
Monocytes % 9.7 H %
(1.7-9.3)
Eosinophils % 13.5 H %
(0-6)
Retic Count 3.6 H %
(0.4-2.8)
D-Dimer 1.87 H ug/mlFEU
(0.00-0.50)
BUN 7 L mg/dl
(9-20)
Total Bilirubin 3.8 H mg/dl
(0.2-1.3)
09/25/23 16:34
09/25/23 16:34
Vital Signs
Initial and Last Documented VS:
Initial Vital Signs
Pulse Ox
95
09/25/23 15:44
Last Documented Vital Signs
Temp Pulse Resp BP Pulse Ox
99.6 F 99 20 96/71 97
09/25/23 15:46 09/25/23 21:02 09/25/23 21:02 09/25/23 21:02 09/25/23 21:02
Update Note
Update Note:
Update evening ER physician signout pending D-dimer results with IV access earlier PA was able to place a ultrasound
INT, D-dimer result, will send for CT scan to try to get comfortable troponin noted, I believe ACS is not likely
[address] noted no PE
Patient appears comfortable eating a turkey sandwich
ED Attending Note
-
Portions of this chart may have been created with voice recognition software.� Occasional wrong word or��sound alike� substitutions may have occurred due to the inherent limitations of voice recognition software.
Discharge Plan
Departure
Patient Disposition: Skilled Nursing
Date of Disposition: 09/25/23
Time of Disposition: 21:55
Patient with high blood pressure during this ER visit?: No
Condition: Good
Discharge Problem:
Sickle cell anemia with crisis, Sickle cell disease
Instructions: Sickle Cell Disease Pain ED, Sickle cell disease pain in adults - Discharge instructions
Prescriptions:
No Action
hydroxyurea 500 mg Capsule
500 mg PO DAILY
acetaminophen 325 mg Tablet
650 mg PO BIDPRN PRN (Reason: mild pain/fever)
folic acid 1 mg Tablet
1 mg PO DAILY
ibuprofen 600 mg Tablet
600 mg PO BIDPRN PRN (Reason: mild pain)
cyclobenzaprine 10 mg Tablet
10 mg PO BIDPRN PRN (Reason: muscle spasms)
azithromycin 250 mg Tablet
250 mg PO HS
guaifenesin 200 mg Tablet
400 mg PO BID
tolnaftate [Antifungal (tolnaftate)] 1 % Cream
1 applic TOPICAL BID
Patient Comments:
09/25/2023: mix with Hydrocortisone 1% and apply to tip of penis
famotidine 20 mg Tablet
20 mg PO BIDPRN PRN (Reason: acid reflux/heartburn/gi issues)
hydrocortisone 1 % Cream
1 applic TOPICAL BID
Patient Comments:
09/25/2023: mix with Antifungal 1% and apply to tip of penis
mirtazapine 15 mg Tablet
15 mg PO HS
buprenorphine HCl 8 mg Tablet, Sublingual
16 mg SUBLINGUAL DAILY
polyethylene glycol 3350 [Gavilax] 17 gram powder in packet
17 g PO DAILYPRN PRN (Reason: Constipation)
Referrals:
[facility] [Family Provider] -
Interventions
Interventions:
*Risk Screen - Suicide Last Done: 09/25/23 15:40
*General Assessment Last Done: 09/25/23 15:39
*Neglect/Abuse Screening Last Done: 09/25/23 15:40
ED- Fall Risk Assessment Last Done: 09/25/23 15:36
*ED COVID-19 Vaccine History Last Done: 09/25/23 15:39
Discharge Date and Time
Print Language: GEORGIAN
--- NOTE | 2023-09-25 22:15 | EDRN ---
Pt requested PO pain medication - informed Dr Avila who denied pt request - [facility] and [facility] informed and are preparing pt for discharge - wheelchair in pt room
== END 2023-09-25 22:18 ==
LOC: EMR 15:32
PROVIDERS: Student in an Organized Health Care Education/Training Program; EMERGENCY PHYSICIAN Emergency Medicine
DX: R05.9 Cough, unspecified (principal); D57.1 Sickle-cell disease without crisis; Z86.718 Personal history of other venous thrombosis and embolism
CPT/HCPCS: 99284; 96374; 96375; 96376; 71046; 71275; 80053; 84484; 85025; 85045; 85379; 93005; Q9967

== ENCOUNTER 2023-10-02 18:51 | Emergency (ER) | payer OTHER, SELFPAY ==
[2023-10-02 18:58] VITALS: BP 120/69; BMI 22.8
[2023-10-02] MEDS: BENADRYL 12.5 MG IV (20:11)
[2023-10-02] MEDS: NSS 1000 IV (20:11)
[2023-10-02] MEDS: DILAUDID 1 MG IV ×2 (20:12→22:18)
--- NOTE | 2023-10-02 20:14 | ED.GENMED ---
History of Present Illness
General
Chief Complaint: Generalized Pain
Source: patient
Time Seen by Provider: 10/02/23 19:27
Nursing documentation reviewed up to this point in time: agreed with
History of Present Illness
History of Present Illness:
Patient with history of sickle cell disease, from [facility] presents to ED secondary to ongoing generalized body ache, despite taking medications consisting of hydroxyurea, Tylenol, Motrin, and Subutex. Prior to entering
alf, patient has been taking oxycodone as well as Percocet, as prescribed by his loss prevention lead in [place]. Patient states that he was driving through [place], when he was arrested. He does not know how long he will be in alf.
Unfortunately, patient has been seen in ED on multiple occasions recently for similar pain complaint. Denies fever or chills. Denies chest pain or shortness of breath. However, patient is complaining of ongoing cough, despite finishing
antibiotics for 'pneumonia'. Denies loss of appetite. Denies vomiting.
Past History
Past History
ED Past Medical History: Other (Sickle cell disease)
Review of Systems
Review of Systems
Allergies reviewed?: Yes
All Other Systems: ROS reviewed and negative except as documented in HPI and ROS
Constitutional: Reports no symptoms; Denies fever
EENT: Reports no symptoms
Respiratory: Reports cough; Denies trouble breathing
Cardiac: Reports no symptoms; Denies chest pain
ABD/GI: Reports no symptoms
: Reports no symptoms
Musculoskeletal: Reports muscle pain
Skin: Reports no symptoms
Neurological: Reports no symptoms
Phy Exam
Physical Exam
Physical Exam:
Physical Exam
General: no apparent distress, not acutely ill. afebrile
Head: nc/at. eomi
Neck: supple. no meningeal signs.
Heart: s1/s2 regular rate and rhythm, no murmur. equal radial pulses.
Lungs: no acute respiratory distress. clear bilaterally
Abdomen: normal bowel sounds. not tender.
Neuro: alert and oriented. no focal neurological deficits
Skin: no rash
Psychiatric: well kept. interactive and cooperative
Extremities: no edema. no calf tenderness
Course
Orders/Labs/Results
Orders:
Orders
10/02/23 19:26
0.9% Sodium Chloride 1000 ml [Nss] 1,000 ml IV BOLUS
Diphenhydramine [Benadryl] 12.5 mg IV NOW STA
HYDROmorphone [Dilaudid] 1 mg IV NOW STA
10/02/23 20:14
CBC/With Reticulocyte Count Urgent
10/02/23 22:08
Acetaminophen [Tylenol] 1,000 mg PO NOW STA
HYDROmorphone [Dilaudid] 1 mg IV NOW STA
Ketorolac [Toradol] 15 mg IV NOW STA
Abnormal Lab Results
10/02/23
20:14
WBC 11.5 H 10^3/uL
(4.8-10.8)
RBC 2.85 L 10^6/uL
(4.70-6.10)
Hgb 7.9 L g/dL
(13.0-18.0)
Hct 21.3 L %
(39.0-52.0)
MCV 74.7 L fL
(80.0-94.0)
MCHC 37.1 H g/dL
(33.0-37.0)
RDW 23.2 H %
(11.5-14.5)
Absolute Lymphs (auto) 3.5 H 10^3/uL
(1.2-3.4)
Absolute Monos (auto) 1.5 H 10^3/uL
(0.1-0.6)
Absolute Eos (auto) 1.2 H 10^3/uL
(0-0.7)
Monocytes % 13.1 H %
(1.7-9.3)
Eosinophils % 10.8 H %
(0-6)
Retic Count 4.6 H %
(0.4-2.8)
10/02/23 20:14
Vital Signs
Initial and Last Documented VS:
Initial Vital Signs
Temp Pulse Resp BP Pulse Ox
98.8 F 84 16 120/69 95
10/02/23 18:58 10/02/23 18:58 10/02/23 18:58 10/02/23 18:58 10/02/23 18:58
Last Documented Vital Signs
Temp Pulse Resp BP Pulse Ox
98.8 F 78 20 114/66 95
10/02/23 18:58 10/02/23 22:00 10/02/23 22:00 10/02/23 22:00 10/02/23 22:00
MDM/Problems Addressed
MDM/Problems Addressed:
Reviewed patient's admission records from last month, including hematology consultation note which recommended at that patient only received blood transfusion if hemoglobin is less than 6.5.
Blood work reviewed today, including hemoglobin 7.9 as well as appropriate reticulocyte count. Otherwise, patient remains afebrile, hemodynamically stable, and nontoxic-appearing.
Patient given pain medication with mild improvement in symptoms. Discussed with infirmary at [facility], in regards to patient's frequent return trip to ED for pain management. Provider at [facility]
will have discussion with patient upon discharge, to formulate different treatment plan for his ongoing pain.
*Critical Care Note
Total Time (30-74mins, 75-104mins- exclusive of procedures): Not Applicable
ED Attending Note
-
Portions of this chart may have been created with voice recognition software.� Occasional wrong word or��sound alike� substitutions may have occurred due to the inherent limitations of voice recognition software.
Discharge Plan
Departure
Patient Disposition: Home (Routine Discharge)
Date of Disposition: 10/02/23
Time of Disposition: 22:09
Patient with high blood pressure during this ER visit?: Yes
Discharge Problem:
Sickle cell pain crisis
Instructions: Sickle Cell Disease Pain ED
Prescriptions:
No Action
hydroxyurea 500 mg Capsule
500 mg PO DAILY
acetaminophen 325 mg Tablet
650 mg PO BIDPRN PRN (Reason: mild pain/fever)
folic acid 1 mg Tablet
1 mg PO DAILY
ibuprofen 600 mg Tablet
600 mg PO BIDPRN PRN (Reason: mild pain)
cyclobenzaprine 10 mg Tablet
10 mg PO BIDPRN PRN (Reason: muscle spasms)
azithromycin 250 mg Tablet
250 mg PO HS
guaifenesin 200 mg Tablet
400 mg PO BID
tolnaftate [Antifungal (tolnaftate)] 1 % Cream
1 applic TOPICAL BID
Patient Comments:
09/25/2023: mix with Hydrocortisone 1% and apply to tip of penis
famotidine 20 mg Tablet
20 mg PO BIDPRN PRN (Reason: acid reflux/heartburn/gi issues)
hydrocortisone 1 % Cream
1 applic TOPICAL BID
Patient Comments:
09/25/2023: mix with Antifungal 1% and apply to tip of penis
mirtazapine 15 mg Tablet
15 mg PO HS
buprenorphine HCl 8 mg Tablet, Sublingual
16 mg SUBLINGUAL DAILY
polyethylene glycol 3350 [Gavilax] 17 gram powder in packet
17 g PO DAILYPRN PRN (Reason: Constipation)
Referrals:
[facility] [Family Provider] -
Activity Restrictions/Additional Instructions:
As discussed, you are being discharged back to [facility] for continual evaluation and treatment.
Interventions
Interventions:
*Risk Screen - Suicide Last Done: 10/02/23 18:58
*General Assessment Last Done: 10/02/23 18:58
*Neglect/Abuse Screening Last Done: 10/02/23 18:58
ED- Fall Risk Assessment Last Done: 10/02/23 22:56
*ED COVID-19 Vaccine History Last Done: 10/02/23 18:58
*Nursing Disposition Last Done: 10/02/23 22:56
Discharge Date and Time
Discharge Date/Time: 10/02/23 22:57
Print Language: FRENCH
[2023-10-02 20:27] LABS: % Basophils 0.6 % (0-2); % Eosinophils 10.8 % (0-6); % Immature Granulocytes 0.3 % (0-0.5); % Lymphocytes 30.2 % (20.5-51.1); % Monocytes 13.1 % (1.7-9.3); Absolute Basophils 0.1 10^3/uL (0-0.2); Absolute Eosinophils 1.2 10^3/uL (0-0.7); Absolute Lymphocytes 3.5 10^3/uL (1.2-3.4); Absolute Monocytes 1.5 10^3/uL (0.1-0.6); Absolute Neutrophils 5.2 10^3/uL (1.4-6.5); Hematocrit 21.3 % (39.0-52.0); Hemoglobin 7.9 g/dL (13.0-18.0); Mean Corp Hgb Conc. 37.1 g/dL (33.0-37.0); Mean Corpuscular Hgb 27.7 pg (27.0-31.0); Mean Corpuscular Volume 74.7 fL (80.0-94.0); Mean Platelet Volume 9.5 fL (7.4-10.4); Nucleated Red Blood Cells % 2.2 % (-); Platelet Count 274 10^3/uL (130-400); Red Blood Cell Count 2.85 10^6/uL (4.70-6.10); Red Cell Dist. Width 23.2 % (11.5-14.5); Reticulocyte Count 4.6 % (0.4-2.8); White Blood Cell Count 11.5 10^3/uL (4.8-10.8)
[2023-10-02 20:44] LABS: Anisocytosis 2+; Hypochromasia 1+; Microcytosis 2+; Normal RBC Morphology No; Ovalocytes 1+; Polychromasia Slight
[2023-10-02 22:00] VITALS: BP 114/66
[2023-10-02] MEDS: TYLENOL 1000 MG PO (22:18)
[2023-10-02] MEDS: TORADOL 15 MG IV (22:18)
== END 2023-10-02 22:57 | disposition home or self-care (01) ==
LOC: EMR 18:51
PROVIDERS: EMERGENCY PHYSICIAN Emergency Medicine
DX: D57.00 Hb-SS disease with crisis, unspecified (principal); Z65.3 Problems related to other legal circumstances
CPT/HCPCS: 99282; 96374; 96375; 96376; 96361; 85025; 85045

== ENCOUNTER 2023-10-13 05:42 | Inpatient (IN) | payer OTHER, SELFPAY ==
[2023-10-13] VITALS (8 sets, daily range): BP systolic 116–164; BP diastolic 63–95; BMI 22.4
[2023-10-13] MEDS: DILAUDID 1 MG IM (04:26)
--- NOTE | 2023-10-13 04:26 | ED.GENMED ---
History of Present Illness
<WILLIAM Mcnulty - Last Filed: 10/13/23 06:00>
General
Chief Complaint: Generalized Pain
Source: patient
Time Seen by Provider: 10/13/23 04:14
History of Present Illness
History of Present Illness:
Patient is a 28 y/o male with PMHx of sickle cell disease presenting from [facility] due to generalized pain. Exam is limited due to patient moaning in pain. He states he has pain everywhere. He states he has been taking his
hydroxyurea as prescribed. He states pain started a couple hours ago. He states pain is worse in his legs and chest. He also admits to subjective fever. He denies any cough or shortness of breath.
Past History
<Bandar Marvin DO - Last Filed: 10/13/23 05:51>
Past History
ED Past Medical History: Other (Sickle cell disease)
Phy Exam
<WILLIAM Mcnulty - Last Filed: 10/13/23 06:00>
Physical Exam
Physical Exam:
GENERAL: Alert , in distress
EYE: pupils equal and reactive
Throat: Airway intact, no exudates
NECK: Supple, no significant adenopathy.
CARDIAC: Tachycardic. Regular rhythm . Pain with palpitation to the chest wall.
LUNGS: Clear breath sounds bilaterally, no acute respiratory distress, no wheezes/rales/rhonchi
ABDOMEN: Soft, nondistended, nontender,
: Mild discomfort to mid suprapubic region. Bladder is nondistended.
NEUROLOGICAL: Alert and oriented, no focal neuro deficits
SKIN: Warm and dry, skin intact.
MUSCULOSKELETAL: Patient is moving all extremities. No edema, well perfused.
PSYCH: Normal and appropriate interaction.
Course
<WILLIAM Mcnulty - Last Filed: 10/13/23 06:00>
Orders/Labs/Results
Orders:
Orders
10/13/23 04:26
HYDROmorphone [Dilaudid] 1 mg IV NOW STA
10/13/23 04:32
CMP [Comprehensive Metabolic Panel] Urgent
10/13/23 04:33
CBC/With Diff [Complete Blood Count/With Diff] Urgent
Reticulocyte Count Urgent
10/13/23 04:53
HYDROmorphone [Dilaudid] 1 mg IM NOW STA
10/13/23 04:54
Type+Screen Urgent
10/13/23 04:59
0.9% Sodium Chloride 1000 ml [Nss] 1,000 ml IV BOLUS
10/13/23 05:00
HYDROmorphone [Dilaudid] 1 mg IV NOW STA
CR Chest - 2 Views Urgent
Comment:
Reason For Exam: cp
10/13/23 05:12
O2 Therapy [RESP] Urgent
Nasal Cannula Liter Flow: 2 LPM
Titrate/Wean O2 to maintain O2 sat greater than (%): 92
10/13/23 05:16
Procalcitonin Urgent
PCT Algorithmm Indication: Sepsis
10/13/23 05:27
Admit/Transfer Patient As Directed
Co-Sign Provider:
Level of Care: Inpatient admission
Assign to:: Telemetry
Physician / Group: htay
Diagnosis: Acute sickle cell pain crisis
Reason for Telemetry: Other
Other Reason for Telemetry: tachycardia , HX NSVT
Date to Stop Telemetry: 10/15/23
Time to Stop Telemetry: 11:00
Reason for Hospitalization: Acute sickle cell pain crisis
Expected length of stay greater than two midnights?: Yes
ELOS- Estimated Length of Stay in days: 4
I certify the patient meets the requirements for IP care: Yes
10/13/23 05:29
Code Status As Directed
Resuscitation Status: Full Code
10/15/23 11:00
DC Protocol for Telemetry ONCE
Abnormal Lab Results
10/13/23 10/13/23
04:32 04:33
WBC 23.4 H 10^3/uL
(4.8-10.8)
RBC 3.41 L 10^6/uL
(4.70-6.10)
Hgb 9.0 L g/dL
(13.0-18.0)
Hct 25.9 L %
(39.0-52.0)
MCV 76.0 L fL
(80.0-94.0)
MCH 26.4 L pg
(27.0-31.0)
RDW 19.7 H %
(11.5-14.5)
Plt Count 578 H 10^3/uL
(130-400)
BUN 8 L mg/dl
(9-20)
Creatinine 0.6 L mg/dL
(0.7-1.3)
Total Bilirubin 2.5 H mg/dl
(0.2-1.3)
10/13/23 04:33
10/13/23 04:32
Vital Signs
Initial and Last Documented VS:
Initial Vital Signs
Temp Pulse Resp BP Pulse Ox
99.4 F 101 22 164/95 97
10/13/23 04:17 10/13/23 04:17 10/13/23 04:17 10/13/23 04:17 10/13/23 04:17
Last Documented Vital Signs
Temp Pulse Resp BP Pulse Ox
99.9 F 89 20 164/95 100
10/13/23 04:56 10/13/23 05:45 10/13/23 05:45 10/13/23 04:23 10/13/23 05:45
Gladyslt;Bandar Marvin, - Last Filed: 10/13/23 05:51>
Orders/Labs/Results
Orders:
Orders
10/13/23 04:26
HYDROmorphone [Dilaudid] 1 mg IV NOW STA
10/13/23 04:32
CMP [Comprehensive Metabolic Panel] Urgent
10/13/23 04:33
CBC/With Diff [Complete Blood Count/With Diff] Urgent
Reticulocyte Count Urgent
10/13/23 04:53
HYDROmorphone [Dilaudid] 1 mg IM NOW STA
10/13/23 04:54
Type+Screen Urgent
10/13/23 04:59
0.9% Sodium Chloride 1000 ml [Nss] 1,000 ml IV BOLUS
10/13/23 05:00
HYDROmorphone [Dilaudid] 1 mg IV NOW STA
CR Chest - 2 Views Urgent
Comment:
Reason For Exam: cp
10/13/23 05:12
O2 Therapy [RESP] Urgent
Nasal Cannula Liter Flow: 2 LPM
Titrate/Wean O2 to maintain O2 sat greater than (%): 92
10/13/23 05:16
Procalcitonin Urgent
PCT Algorithmm Indication: Sepsis
10/13/23 05:27
Admit/Transfer Patient As Directed
Co-Sign Provider:
Level of Care: Inpatient admission
Assign to:: Telemetry
Physician / Group: htay
Diagnosis: Acute sickle cell pain crisis
Reason for Telemetry: Other
Other Reason for Telemetry: tachycardia , HX NSVT
Date to Stop Telemetry: 10/15/23
Time to Stop Telemetry: 11:00
Reason for Hospitalization: Acute sickle cell pain crisis
Expected length of stay greater than two midnights?: Yes
ELOS- Estimated Length of Stay in days: 4
I certify the patient meets the requirements for IP care: Yes
10/13/23 05:29
Code Status As Directed
Resuscitation Status: Full Code
10/15/23 11:00
DC Protocol for Telemetry ONCE
Abnormal Lab Results
10/13/23 10/13/23
04:32 04:33
WBC 23.4 H 10^3/uL
(4.8-10.8)
RBC 3.41 L 10^6/uL
(4.70-6.10)
Hgb 9.0 L g/dL
(13.0-18.0)
Hct 25.9 L %
(39.0-52.0)
MCV 76.0 L fL
(80.0-94.0)
MCH 26.4 L pg
(27.0-31.0)
RDW 19.7 H %
(11.5-14.5)
Plt Count 578 H 10^3/uL
(130-400)
BUN 8 L mg/dl
(9-20)
Creatinine 0.6 L mg/dL
(0.7-1.3)
Total Bilirubin 2.5 H mg/dl
(0.2-1.3)
10/13/23 04:33
10/13/23 04:32
Vital Signs
Initial and Last Documented VS:
Initial Vital Signs
Temp Pulse Resp BP Pulse Ox
99.4 F 101 22 164/95 97
10/13/23 04:17 10/13/23 04:17 10/13/23 04:17 10/13/23 04:17 10/13/23 04:17
Last Documented Vital Signs
Temp Pulse Resp BP Pulse Ox
99.9 F 89 20 164/95 100
10/13/23 04:56 10/13/23 05:45 10/13/23 05:45 10/13/23 04:23 10/13/23 05:45
<WILLIAM Mcnulty - Last Filed: 10/13/23 06:00>
*Pulse Oximetry
Patient hypoxic: no
*EKG
Interpreted by ED Provider?: NA
*Continuing Education Dean Interpretation
Rate: Continuing Education Dean- N/A
*Critical Care Note
Total Time (30-74mins, 75-104mins- exclusive of procedures): Not Applicable
ED Attending Note
<Bandar Marvin DO - Last Filed: 10/13/23 05:51>
ED Attending Note
Patient seen and examined by attending physician: Yes
I performed the substantive portion of visit, reviewed & personally made and approve the management plan that is documented in note by myself or SIENNA.: Yes
ED Attending Note:
28-year-old male from [facility] with acute sickle cell crisis. Patient complaining of generalized pain. He does have a history of sickle cell. Symptoms began around 4 AM. He does take hydroxyurea and has not missed any
doses. History is limited due to patient condition. Patient was seen in conjunction with the PA student. I have reviewed and agree with the history and treatment plan presented. On my independent physical exam, patient is awake in severe pain.
He is tearful and crying out in pain. Heart is tachycardic. Lungs are clear to auscultation bilaterally without wheezes rales or rhonchi present. Patient is curled in the position. Skin is warm dry and as shaped. Abdomen is not
accessible. Patient is moving all 4 extremities. Good distal pulses in the upper extremities.
Patient was given multiple doses of pain medication as well as fluids and oxygen. Given his elevated white blood cell count, severe pain, patient to be admitted for continued observation. Discussed with hospitalist who is aware.
10/13/2023 0551 AM: Patient in moderate to severe distress despite 2 previous doses of pain medication. Will give another dose of Dilaudid.
-
Portions of this chart may have been created with voice recognition software.� Occasional wrong word or��sound alike� substitutions may have occurred due to the inherent limitations of voice recognition software.
Discharge Plan
Departure
Patient Disposition: Admit
Date of Disposition: 10/13/23
Time of Disposition: 05:15
Admit to: Telemetry
Presentation/result/management discussed w/ accepting MD/DO: Hospitalist
Condition: Serious
Discharge Problem:
Sickle cell anemia with crisis, Sickle cell disease
Interventions
Interventions:
*Risk Screen - Suicide Last Done: 10/13/23 04:17
*General Assessment Last Done: 10/13/23 04:17
*Neglect/Abuse Screening Last Done: 10/13/23 04:17
*ED COVID-19 Vaccine History Last Done: 10/13/23 04:17
[2023-10-13 04:51] LABS: Hematocrit 25.9 % (39.0-52.0); Mean Corp Hgb Conc. 34.7 g/dL (33.0-37.0); Mean Corpuscular Hgb 26.4 pg (27.0-31.0); Mean Platelet Volume 9.7 fL (7.4-10.4); Platelet Count 578 10^3/uL (130-400); Red Blood Cell Count 3.41 10^6/uL (4.70-6.10); Red Cell Dist. Width 19.7 % (11.5-14.5); White Blood Cell Count 23.4 10^3/uL (4.8-10.8)
[2023-10-13 04:59] LABS: ALT (SGPT) 31 U/L (0-50); AST (SGOT) 51 U/L (17-59); Albumin 4.6 g/dl (3.5-5.0); Alkaline Phosphatase 74 U/L (38-126); Blood Urea Nitrogen 8 mg/dl (9-20); Calcium 9.4 mg/dl (8.4-10.2); Carbon Dioxide 25 mmol/L (22-30); Chloride 103 mmol/L (98-107); Glucose 93 mg/dl (70-99); Potassium 4.1 mmol/L (3.5-5.1); Sodium 138 mmol/L (135-145); Total Bilirubin 2.5 mg/dl (0.2-1.3); Total Protein 7.2 g/dl (6.3-8.2); eGFR > 60.00
[2023-10-13] MEDS: DILAUDID 1 MG IV ×2 (05:03→08:27)
[2023-10-13] MEDS: NSS 1000 IV ×3 (05:08→17:31)
--- NOTE | 2023-10-13 05:21 | HPS.HSE ---
Addendum entered and electronically signed by Rah Soria MD 10/13/23 12:26:
Laboratory Tests
08/28/23
17:07
Urine Clarity Clear
Urine Nitrite (Reflex) Negative
Leukocyte Esterase Rfl Negative
CXR:
Stable mild cardiomegaly. No acute pulmonary process.
Original Note:
Family Physician
-
Family Physician: Facility [facility]
Chief Complaint
-
sickle cell pain
History of Present Illness
28AAM from [facility] HX sickle cell disease pw generalized severe pain.
- a couple of hrs since onset
- compliance with hydroxyurea as prescribed.
- pain is worse in his legs and chest.
- subjective fever.
He denies any cough or shortness of breath
Medical History
Past Medical History
Past Medical History: Reports Other
Additional Past Medical History:
Sickle cell disease, H/O Acute chest syndrome before.
Past Surgical History: Reports None
Social History
Tobacco: Non-smoker
Alcohol: None
Drug: None
Living: [facility]
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
Family History
Family History: Cancer (mom Breast ca) and Other (sickle cell )
Allergies / Home Medications
Allergies reflects when Allergies were last updated in [facility].
Home Medications with original date entered in [facility]
Allergy/Medication List:
Allergies
Allergy/AdvReac Type Severity Reaction Status Date / Time
morphine Allergy Anaphylaxis Verified 09/02/23 21:08
Home Medications
acetaminophen 325 mg tablet 650 mg PO BIDPRN PRN mild pain/fever 08/28/23
folic acid 1 mg tablet 1 mg PO DAILY Supplement 08/28/23
hydroxyurea 500 mg capsule 500 mg PO DAILY sickle cell anemia 08/28/23
ibuprofen 600 mg tablet 600 mg PO BIDPRN PRN mild pain 08/28/23
ondansetron HCl 4 mg tablet 4 mg PO BID NAUSSEA/VOMITING 08/28/23
Review of Systems
-
Constitutional: Reports No Symptoms
EENT: Reports No Symptoms
Respiratory: Reports No Symptoms
Cardiac: Reports No Symptoms
Abdomen/GI: Reports No Symptoms
: Reports No Symptoms
Musculoskeletal: Reports See HPI
Skin: Reports No Symptoms
Neurological: Reports No Symptoms
Endocrine: Reports No Symptoms
Hematologic/Lymphatic: Reports No Symptoms
Psych: Reports No Symptoms
Physical Exam
Vital Signs
Vital Signs
Temp Pulse Resp BP Pulse Ox
99.9 F 101 22 164/95 97
10/13/23 04:56 10/13/23 04:17 10/13/23 04:17 10/13/23 04:17 10/13/23 04:17
Physical Exam
General: Conversant
Respiratory: Clear and Rales (few scattered right base)
Cardiac: S1/S2 and Regular Rhythm
GI: Soft, Non Tender and Normal Bowel Sounds
Skin: Other (scar left calf)
Neuro: AO x 3 and Nonfocal/grossly intact
Psych: Intact Judgment/Insight
Laboratory Results
-
10/13/23 04:33
10/13/23 04:32
Laboratory Results
Total Bilirubin 2.5 mg/dl (0.2-1.3) H 10/13/23 04:32
AST 51 U/L (17-59) 10/13/23 04:32
ALT 31 U/L (0-50) 10/13/23 04:32
Alkaline Phosphatase 74 U/L (38-126) 10/13/23 04:32
Data Reviewed
-
Diagnostic Radiology: Other (pending )
Lab Data: Labs Reviewed by me
Old Records: Reviewed
Impression/Plan
-
Vital Signs
Temp Pulse Resp BP Pulse Ox
99.9 F 101 22 164/95 97
10/13/23 04:56 10/13/23 04:17 10/13/23 04:17 10/13/23 04:17 10/13/23 04:17
Data
Laboratory Tests
09/25/23 10/02/23 10/13/23
16:34 20:14 04:32
WBC 11.5 H 23.4
Hgb 7.9 L 9.0
MCV
Creatinine 0.6 L
Total Bilirubin 3.8 H 2.5 H
Last hospitalist admission: 09/02/23 - 09/04/23 PDX : CAP, Narc associate constipation
ASSESSMENT & PLAN
Pending Rx reconciliation
Acute sickle cell pain crisis
- TB is less than last admission : less likely hemolytic crisis
- POx at hi 90s on RA : low suspicion for acute chest syndrome
- Eval for acute infection: CXR, UA
- check Retic count
- Adequate hydration with IVF
- Narcotic analgesia PRN
- O2 PRN if POx is less than 94
- daily CBC: , transfuse for hgb < 6.5 g/dl or if clinical status with chest pain, O2 requirements, fevers
- Continue Hydrea 500 mg daily (prior dosing per pt) and folic acid 1mg daily
- Heme consult
HX NSVT
HX MRSA colonization
DVT Px: LMWH
Code: Full
IP TLM
[2023-10-13] MEDS: DILAUDID 0.5 MG IV (05:54)
[2023-10-13 06:07] LABS: Procalcitonin < 0.05 ng/ml (0.0-0.25)
[2023-10-13 06:14] LABS: % Basophils 0.3 % (0-2); % Eosinophils 1.1 % (0-6); % Immature Granulocytes 0.6 % (0-0.5); % Lymphocytes 29.4 % (20.5-51.1); % Monocytes 11.4 % (1.7-9.3); % Neutrophils 57.2 % (42.2-75.2); Absolute Basophils 0.1 10^3/uL (0-0.2); Absolute Eosinophils 0.3 10^3/uL (0-0.7); Absolute Immature Granulocytes 0.1 10^3/uL (0-0.05); Absolute Lymphocytes 6.9 10^3/uL (1.2-3.4); Absolute Monocytes 2.7 10^3/uL (0.1-0.6); Absolute Neutrophils 13.4 10^3/uL (1.4-6.5); Nucleated Red Blood Cells % 1.4 % (-)
[2023-10-13] MEDS: FOLVITE 1 MG PO (07:46)
[2023-10-13] MEDS: HYDREA 500 MG PO (07:46)
[2023-10-13] MEDS: DILAUDID 2 MG IV ×5 (11:24→23:39)
--- NOTE | 2023-10-13 13:21 | CON.ONC ---
Impression
Impression
sickle cell disease
sickle cell pain crisis
anemia
Plan
Plan
1. Sickle cell disease w/ pain crisis
-hemoglobin is holding at 9g/dl today w/ retic count 6
-check CBC and retic count daily
-cont supportive care w/ oxygen / hydration
-cont analgesia - dilaudid - 2mg q3 prn
-hydrea/ folic acid
-monitor respiratory symptoms closely
Will continue to follow with you.
Patient History
History of Present Illness
28y/o male seen in hematology consultation today regarding sickle cell disease, now w/ pain crisis.
He usually resides in [place], [place] but is curerntly incarcerated in [facility]. He last saw his librarian in [place], Dr. Ball, about 3-4 months ago. He apparently gets admitted about 4 times a year with crises, w/ his baseline hgb is ~
9.5-10.0. He is currently on hydrea; however, was on Voxelotor in the past, while resding in [place]. he has not been able to get Voxelotor since leaving [place]. He takes folic acid 1 mg daily.
He presented yesterday to the [facility] acute pain crisis. He notes pain is slightly better controlled today on dilaudid 2mg every 3 hours.
He denies SOB at rest or chest pain. His pain is primarily in his legs and hips/ back. CXR in the ER was unremarkable. No fevers or chills.
Past-Medical/Surgical History
PMH:
sickle cell disease
DVT - not on anticoagulation
pneumonia - DH 09/14
SH: no tobacco, no ETOH
FH: sickle cell
Allergies: morphine
Patient Medication
�Medication �Instructions �Recorded �Confirmed �Last Taken �Type
folic acid 1 mg tablet 1 mg PO DAILY Supplement 08/28/23 10/13/23 09/02/23 08:00 History
hydroxyurea 500 mg capsule 500 mg PO DAILY sickle cell anemia 08/28/23 10/13/23 09/02/23 08:00 History
ibuprofen 600 mg tablet 600 mg PO BIDPRN PRN mild pain 08/28/23 10/13/23 09/02/23 08:00 History
buprenorphine HCl 8 mg sublingual 16 mg sublingual DAILY 09/25/23 10/13/23 Unknown History
tablet
cyclobenzaprine 10 mg tablet 10 mg PO BIDPRN PRN muscle spasms 09/25/23 10/13/23 Unknown History
famotidine 20 mg tablet 20 mg PO BIDPRN PRN acid 09/25/23 10/13/23 Unknown History
reflux/heartburn/gi issues
hydrocortisone 1 % topical cream 1 applic topical BID 09/25/23 10/13/23 Unknown History
mirtazapine 15 mg tablet 15 mg PO HS 09/25/23 10/13/23 Unknown History
polyethylene glycol 3350 17 gram 17 g PO DAILYPRN PRN Constipation 09/25/23 10/13/23 Unknown History
oral powder packet (Gavilax)
tolnaftate 1 % topical cream 1 applic topical BID 09/25/23 10/13/23 Unknown History
(Antifungal (tolnaftate))
acetaminophen 500 mg tablet 1,000 mg PO TID PRN pain 10/13/23 10/13/23 Unknown History
bisacodyl 10 mg rectal suppository 10 mg OR DAILY PRN constipation 10/13/23 10/13/23 Unknown History
(Dulcolax (bisacodyl))
fluconazole 150 mg tablet 150 mg PO HS 10/13/23 10/13/23 Unknown History
omeprazole 20 mg tablet,delayed 20 mg PO BID 10/13/23 10/13/23 Unknown History
release
prednisone 10 mg tablet 10 mg PO DAILY 10/13/23 10/13/23 Unknown History
triamcinolone acetonide 0.1 % 1 applic topical BID 10/13/23 10/13/23 Unknown History
topical ointment
Active Medications
Generic Name Dose Route Start Last Admin
Trade Name Freq PRN Reason Stop Dose Admin
Acetaminophen 1,000 mg 10/13/23 06:29
Acetaminophen 500 Mg Tablet PO 11/10/23 06:28
TID PRN
pain
Acetaminophen 650 mg 10/13/23 06:29
Acetaminophen 325 Mg Tablet PO 11/10/23 06:28
Q4HPRN PRN
mild pain/BRYANT/temp> 100.4F
Bisacodyl 10 mg 10/13/23 06:29
Bisacodyl 10 Mg Rectal Suppository RECTAL 11/10/23 06:28
[id number] PRN
constipation
Enoxaparin Sodium 40 mg 10/13/23 18:00
Enoxaparin Sodium 40 Mg/0.4 Ml Syringe SC 11/10/23 17:59
QPM SKYLER
Folic Acid 1 mg 10/13/23 08:00 10/13/23 07:46
Folic Acid 1 Mg Tablet PO 11/10/23 07:59 1 mg
DAILY SKYLER Administration
Hydromorphone HCl 2 mg 10/13/23 09:30 10/13/23 11:24
Hydromorphone 1 Mg/Ml Carpuject IV 10/27/23 06:28 2 mg
Q3HPRN PRN Administration
severe pain
Hydroxyurea 500 mg 10/13/23 08:00 10/13/23 07:46
Hydroxyurea 500 Mg Capsule PO 11/10/23 07:59 500 mg
DAILY SKYLER Administration
Sodium Chloride 1,000 mls @ 100 mls/hr 10/13/23 06:29 10/13/23 06:44
Nss IV 1,000 mls
.Q10H SKYLER Administration
Ibuprofen 600 mg 10/13/23 06:29
Ibuprofen 600 Mg Tablet PO 11/10/23 06:28
BIDPRN PRN
mild pain
Mirtazapine 15 mg 10/13/23 22:00
Mirtazapine 15 Mg Regular Release Tablet PO 11/10/23 21:59
HS SKYLER
Ondansetron HCl 4 mg 10/13/23 06:29
Ondansetron 4 Mg/2 Ml Vial IV 11/10/23 06:28
Q6HPRN PRN
nausea and vomiting
Polyethylene Glycol 17 grams 10/13/23 06:29
Polyethylene Glycol Powder 17 Grams Packet PO 11/10/23 06:28
DAILYPRN PRN
constipation
Senna/Docusate Sodium 1 tablet 10/13/23 06:29
Docusate W/Senna (Lulu-Colace) Tablet PO 11/10/23 06:28
BIDPRN PRN
constipation
Sodium Chloride 0 flush 10/13/23 06:00
Sodium Chloride 0.9% (Flush) Syringe IV 11/10/23 05:59
PER PROTOCOL SKYLER
Review of Systems
-
A ROS was performed w/ pertinent findings as per HPI.
Physical Exam
-
General: Well Developed and No Apparent Distress
HEENT: Negative Jaundice
Cardiology: Normal Sinus Rhythm
Pulmonary: Clear
Extremities: Negative Edema
Neurology: Non Focal
Labs
Lab Results
WBC 23.4 10^3/uL (4.8-10.8) H 10/13/23 04:33
RBC 3.41 10^6/uL (4.70-6.10) L 10/13/23 04:33
Hgb 9.0 g/dL (13.0-18.0) L 10/13/23 04:33
Hct 25.9 % (39.0-52.0) L 10/13/23 04:33
MCV 76.0 fL (80.0-94.0) L 10/13/23 04:33
MCH 26.4 pg (27.0-31.0) L 10/13/23 04:33
MCHC 34.7 g/dL (33.0-37.0) 10/13/23 04:33
RDW 19.7 % (11.5-14.5) H 10/13/23 04:33
Plt Count 578 10^3/uL (130-400) H 10/13/23 04:33
MPV 9.7 fL (7.4-10.4) 10/13/23 04:33
Abs Immat Gran (auto) 0.1 10^3/uL (0-0.05) H 10/13/23 04:33
Absolute Neuts (auto) 13.4 10^3/uL (1.4-6.5) H 10/13/23 04:33
Absolute Lymphs (auto) 6.9 10^3/uL (1.2-3.4) H 10/13/23 04:33
Absolute Monos (auto) 2.7 10^3/uL (0.1-0.6) H 10/13/23 04:33
Absolute Eos (auto) 0.3 10^3/uL (0-0.7) 10/13/23 04:33
Absolute Basos (auto) 0.1 10^3/uL (0-0.2) 10/13/23 04:33
Immature Gran % 0.6 % (0-0.5) H 10/13/23 04:33
Neutrophils % 57.2 % (42.2-75.2) 10/13/23 04:33
Lymphocytes % 29.4 % (20.5-51.1) 10/13/23 04:33
Monocytes % 11.4 % (1.7-9.3) H 10/13/23 04:33
Eosinophils % 1.1 % (0-6) 10/13/23 04:33
Basophils % 0.3 % (0-2) 10/13/23 04:33
Creatinine 0.6 mg/dL (0.7-1.3) L 10/13/23 04:32
Vital Signs
Vital Signs
Temp Pulse Resp BP Pulse Ox
99.0 F 75 18 124/63 100
10/13/23 11:05 10/13/23 11:05 10/13/23 11:05 10/13/23 11:05 10/13/23 11:05
--- NOTE | 2023-10-13 13:49 | W.PN.HOSP.TC ---
Addendum entered and electronically signed by Priya Liriano MD 10/13/23 14:37:
Patient is a poor IV access and currently abnormalities foot, and he is calvin be for few days requiring more IV fluid and IV medication therefore we will try to put a PICC or central line, IV team they said they try midline before they could not do a
midline, we will ask for PICC line.
Original Note:
Today's Communication/Plan
-
All discussed with the patient and
Assessment / Plan
Assessment / Plan
Physical exam: 2 money manager at the bed
General: Awake, alert and oriented x3, in pain, but not in any acute distress and holds appropriate conversation. His right leg splint To the bed
HEENT: No active discharge, ecchymosis or bruising, moist lips, tongue and mucous membrane.
Eyes: No discharge or red conjunctiva, no nystagmus, pupils are reactive and equal
Neck:Supple, no JVD no bruit no goiter.
Respiratory: Normal AP contour and diameter, normal chest wall movement, normal respiratory effort, no respiratory distress,
Lungs: Good air entry bilaterally, no wheezing or rhonchi, no rales or crackles
Heart: S1, S2 regular, normal rate, no added sound.
Gastrointestinal: Positive bowel sounds, soft, nontender, no guarding or rigidity or organomegaly
Musculoskeletal: , no chest wall abnormality or tenderness. All joints and extremities have good range of motion, no muscle tenderness or any joint swelling or tenderness.
Extremities: No pitting edema, good peripheral pulses
Neurological: Awake, alert and oriented x3, speech clear and comprehensive, good muscle tone, moves extremities freely,
Psychiatric: Normal mood, normal thought and judgment, normal affect,
28-year-old male with history of sickle cell anemia presented to the hospital with sickle cell painful crisis, spinal well-controlled on 1 mg Dilaudid.
Sickle cell painful crisis:
Hemoglobin around 9 and reticulocyte around 6,
Hematology consulted but appreciated
Continue IV fluid
Increase Dilaudid to 2 mg every 3 hour
Continue hydroxyurea
Folic acid
Recheck lab
Supportive care with oxygen.
Leukocytosis: Likely reactive no evidence of infection.
Will get a chest x-ray, UA and blood culture
Monitor off antibiotic
Recheck labs
Mood disorder:
On Remeron 50 mg at the bedside will continue
Discussed with the patient in detail expressed understanding
Discussed with the nurse
CODE STATUS full code
DVT prophylaxis: Lovenox
Anticipated Discharge: > 48 hours
Subjective/Interval History
-
Date of Service: October 13, 2023
Seen and examined, awake and alert, his legs cuffed to the bed and he is in police custody and there is a tube placement in the room.
Still complaining of excruciating and severe pain in the both leg and pelvis area, denied any nausea vomiting fever or chill or any chest pain or shortness of breath, no bleeding event or change in stool or urine color, he is on IV fluid and
Dilaudid.
Objective Data
-
Labs:
Laboratory Results
10/13/23 10/13/23
04:32 04:33
WBC 23.4 H
Hgb 9.0 L
Hct 25.9 L
Plt Count 578 H
Sodium 138
Potassium 4.1
Chloride 103
Carbon Dioxide 25
BUN 8 L
Creatinine 0.6 L
Glucose 93
Calcium 9.4
Total Bilirubin 2.5 H
AST 51
ALT 31
Alkaline Phosphatase 74
Vital Signs:
Vital Signs
Temp Pulse Resp BP Pulse Ox
99.0 F 75 18 124/63 100
10/13/23 11:05 10/13/23 11:05 10/13/23 11:05 10/13/23 11:05 10/13/23 11:05
Review of Systems
-
All other systems: Reviewed and negative
Data Reviewed
-
Labs: Labs Reviewed by me and Discussed with Patient
Old Records: Reviewed
--- NOTE | 2023-10-13 14:47 | CM ---
Patient was admitted from [facility], guards are present and plan is for patient to return to [facility] at discharge.
[facility]
Report [phone]
--- NOTE | 2023-10-13 14:55 | VATNOTE ---
10/12 [address] order [address] by dr Liriano. Based on previous admission notes and report, we recommend PICC to be placed in IR. prior attempt failed d/t unable to advance wire in right arm & lack of viable access in the left arm. Patient had IR place PICC
in left arm prior admission after they were unsuccessful in the right. aware.
[2023-10-13 15:04] LABS: Urine Albumin Negative (Neg - Trace); Urine Bilirubin Negative (Negative); Urine Character Clear (Clear); Urine Color Yellow; Urine Glucose Negative (Negative); Urine Ketone Negative (Negative); Urine Leukocyte Negative (Negative); Urine Nitrite Negative (Negative); Urine Occult Blood Negative (Negative); Urine Specific Gravity 1.005 (<1.030); Urine Urobilinogen Negative (Neg - 1+)
--- NOTE | 2023-10-13 16:53 | VATNOTE ---
10/12 Left single lumen 4fr picc placed at bedside under sterile procedure. brachial vein accessed after 2 attempts. TCL 38cm ECL 0. x-ray pending for tip placement.
--- NOTE | 2023-10-13 17:16 | PTCARENOTE ---
Consent received from patient on source patient testing for possible blood exposure to an RN. SPT blood work ordered.
[2023-10-13] MEDS: REMERON 15 MG PO (20:43)
--- NOTE | 2023-10-13 23:53 | PTCARENOTE ---
Spoke with correction RN [phone] for update. patient is receiving Subutex 16mg daily at the skilled nursing, provider notified.
[2023-10-14] VITALS (7 sets, daily range): BP systolic 105–141; BP diastolic 62–91
[2023-10-14] MEDS: MOTRIN 600 MG PO (00:33)
[2023-10-14] MEDS: NSS 1000 IV ×3 (04:09→22:51)
[2023-10-14] MEDS: DILAUDID 2 MG IV ×7 (04:14→21:11)
[2023-10-14 04:58] LABS: % Basophils 0.4 % (0-2); % Eosinophils 3.2 % (0-6); % Immature Granulocytes 0.5 % (0-0.5); % Lymphocytes 27.9 % (20.5-51.1); % Monocytes 13.5 % (1.7-9.3); % Neutrophils 54.5 % (42.2-75.2); Absolute Basophils 0.1 10^3/uL (0-0.2); Absolute Eosinophils 0.4 10^3/uL (0-0.7); Absolute Immature Granulocytes 0.1 10^3/uL (0-0.05); Absolute Lymphocytes 3.8 10^3/uL (1.2-3.4); Absolute Monocytes 1.8 10^3/uL (0.1-0.6); Absolute Neutrophils 7.4 10^3/uL (1.4-6.5); Hematocrit 24.5 % (39.0-52.0); Hemoglobin 8.5 g/dL (13.0-18.0); Mean Corp Hgb Conc. 34.7 g/dL (33.0-37.0); Mean Corpuscular Hgb 27.2 pg (27.0-31.0); Mean Corpuscular Volume 78.5 fL (80.0-94.0); Mean Platelet Volume 9.7 fL (7.4-10.4); Nucleated Red Blood Cells % 1.7 % (-); Platelet Count 469 10^3/uL (130-400); Red Blood Cell Count 3.12 10^6/uL (4.70-6.10); Red Cell Dist. Width 18.8 % (11.5-14.5); White Blood Cell Count 13.6 10^3/uL (4.8-10.8)
[2023-10-14 05:25] LABS: ALT (SGPT) 35 U/L (0-50); AST (SGOT) 51 U/L (17-59); Albumin 3.7 g/dl (3.5-5.0); Alkaline Phosphatase 86 U/L (38-126); Blood Urea Nitrogen 5 mg/dl (9-20); Calcium 9.3 mg/dl (8.4-10.2); Carbon Dioxide 30 mmol/L (22-30); Chloride 102 mmol/L (98-107); Estimated Creatinine Clearance > 125 ml/min; Glucose 88 mg/dl (70-99); LDH 374 U/L (120-246); Potassium 4.1 mmol/L (3.5-5.1); Sodium 140 mmol/L (135-145); Total Bilirubin 1.9 mg/dl (0.2-1.3); Total Protein 6.2 g/dl (6.3-8.2); eGFR > 60.00
[2023-10-14 05:56] LABS: Hepatitis B Surface Antigen Negative (Negative)
[2023-10-14 06:05] LABS: HIV Combo Negative (Negative)
[2023-10-14 06:13] LABS: Hepatitis C Antibody Negative (Negative)
[2023-10-14] MEDS: HYDREA 500 MG PO (07:20)
[2023-10-14] MEDS: FOLVITE 1 MG PO (07:20)
--- NOTE | 2023-10-14 08:45 | W.PN.ONC ---
Today's Communication / Plan
-
10/13 WBC 13.6, Hgb 8.5, Hct 24.5, PLT 469
Monitor CBC and retic count daily
Transfuse PRN to maintain Hgb >7.5
Reticulocyte count is pending this AM
Supportive care: oxygen, hydration
Pain management: Dilaudid - 2mg q3 prn
Continue Hydrea 500mg daily
Continue folic acid 1mg daily
Monitor respiratory symptoms closely
We will follow.
Impression
Impression
sickle cell disease
sickle cell pain crisis
anemia
tachycardia
Subjective/Objective
Subjective/Objective
patient is resting in bed. he appears visibly uncomfortable and reports pain in his legs. he notes he can feel his heart racing at times. denies chest pain or short of breath. guard at bedside.
Vital Signs:
Vital Signs
Temp Pulse Resp BP Pulse Ox
98.4 F 78 18 117/62 100
10/14/23 03:55 10/14/23 03:55 10/14/23 03:55 10/14/23 03:55 10/14/23 03:55
physical exam:
aaox3, scleral icterus
oxygen via nasal cannula
tachycardia HRR ~106
Lab Results:
Laboratory Data
WBC 13.6 10^3/uL (4.8-10.8) H 10/14/23 04:21
Hgb 8.5 g/dL (13.0-18.0) L 10/14/23 04:21
Plt Count 469 10^3/uL (130-400) H 10/14/23 04:21
eGFR > 60.00 10/14/23 04:20
10/13/23 CXR: No acute disease of the chest. Mild cardiomegaly. Improved.
[2023-10-14 10:05] LABS: Reticulocyte Count 5.5 % (0.4-2.8)
--- NOTE | 2023-10-14 11:49 | W.PN.HOSP.TC ---
Today's Communication/Plan
-
All discussed with the patient
Discussed with the nurse
Assessment / Plan
Assessment / Plan
Physical exam: 2 call worker person at the bed
General: Awake, alert and oriented x3, in pain, but not in any acute distress and holds appropriate conversation. His right leg splint To the bed
HEENT: No active discharge, ecchymosis or bruising, moist lips, tongue and mucous membrane.
Eyes: No discharge or red conjunctiva, no nystagmus, pupils are reactive and equal
Neck:Supple, no JVD no bruit no goiter.
Respiratory: Normal AP contour and diameter, normal chest wall movement, normal respiratory effort, no respiratory distress,
Genitourinary: No active discharge
Depigmentation of the part of the glans penis with no ulceration or discharge or pain or tenderness,
Lungs: Good air entry bilaterally, no wheezing or rhonchi, no rales or crackles
Heart: S1, S2 regular, normal rate, no added sound.
Gastrointestinal: Positive bowel sounds, soft, nontender, no guarding or rigidity or organomegaly
Musculoskeletal: , no chest wall abnormality or tenderness. All joints and extremities have good range of motion, no muscle tenderness or any joint swelling or tenderness.
Extremities: No pitting edema, good peripheral pulses
Neurological: Awake, alert and oriented x3, speech clear and comprehensive, good muscle tone, moves extremities freely,
28-year-old male with history of sickle cell anemia presented to the hospital with sickle cell painful crisis, spinal well-controlled on 1 mg Dilaudid.
Sickle cell painful crisis:
Hemoglobin around 9 yesterday and today is 8.5
Hematology input appreciated
Continue IV fluid
Continue Dilaudid to 2 mg every 3 hour for severe and moderate pain
Tylenol as
Continue hydroxyurea
Folic acid
Recheck lab
Supportive care
Oxygen.
Leukocytosis: Improving down to 13,000, yesterday was 20 likely reactive no evidence of infection.Chest x-ray showed no evidence of infection, UA clear and cultures are pending
Will get a chest x-ray, UA and blood culture
Monitor off antibiotic
Recheck labs
Depigmentation of glans penis, likely secondary to prior infection, no signs symptom of active infection or ulceration, patient follow with dermatology
Mood disorder:
Continue Remeron 50 mg at the bedside
Discussed with the patient in detail expressed understanding
Discussed with the nurse
CODE STATUS full code
DVT prophylaxis: Lovenox
Anticipated Discharge: > 48 hours
Subjective/Interval History
-
Date of Service: October 14, 2023
Seen and examined, awake and alert, still complaining of generalized body ache mostly in the in his leg and pelvis area, reveals same but looks calm and comfortable, not in distress. No fever or chill cough or congestion, denies any bleeding event
or change in stool or urine color, no shortness of breath.
Complaining of chronic skin demarcation of his glans penis which has been treated before with oral and local antifungal which does not look like active fungal infection just skin demarcation. No ulceration no active discharge or pain or burning
He has 2 call worker person in his room and he is left leg has been cuffed to the bed.
Objective Data
-
Labs:
Laboratory Results
10/14/23 10/14/23
04:20 04:21
WBC 13.6 H
Hgb 8.5 L
Hct 24.5 L
Plt Count 469 H
Sodium 140
Potassium 4.1
Chloride 102
Carbon Dioxide 30
BUN 5 L
Creatinine 0.7
Glucose 88
Calcium 9.3
Total Bilirubin 1.9 H
AST 51
ALT 35
Alkaline Phosphatase 86
Vital Signs:
Vital Signs
Temp Pulse Resp BP Pulse Ox
98.3 F 91 16 110/64 100
10/14/23 07:05 10/14/23 07:05 10/14/23 07:05 10/14/23 07:05 10/14/23 07:05
I&O
10/13/23 10/14/23 10/15/23
07:59 07:59 07:59
Intake Total 2400 / 2400
Output Total 3550 / 3550
Balance -1150 / -1150
Review of Systems
-
All other systems: Reviewed and negative
--- NOTE | 2023-10-14 12:29 | CM ---
Addendum entered by Chelsea Castillo 10/14/23 12:30:
[facility]
NURSE TO NURSE REPORT # [phone]
FAX # [phone]
Original Note:
Monitoring labs daily, managing pain. Discharge Plan of Care: Return to correctional facility.
[2023-10-14] MEDS: FLUSH (NSS) 2 FLUSH IV (13:28)
--- NOTE | 2023-10-14 15:38 | PTCARENOTE ---
Pt having c/o of chest tightness/ heaviness radiating to back. Pt. c.o of SOB. 100% on 2 L. Bp is 141/91. Patient ST on tele monitor, HR going up to 150s. Cross coverage made aware. EKG completed in chart, troponin drawn, 2 mg IV dilaudid ordered
and administered.
[2023-10-14] MEDS: TYLENOL 650 MG PO (15:48)
[2023-10-14 16:01] LABS: Troponin I < 0.012 ng/ml
[2023-10-14] MEDS: SENOKOT-S 1 TABLET PO (16:49)
[2023-10-14] MEDS: REMERON 15 MG PO (21:08)
[2023-10-14] MEDS: TYLENOL 1000 MG PO (22:52)
[2023-10-15] MEDS: DILAUDID 2 MG IV ×8 (00:15→23:14)
[2023-10-15 03:46] VITALS: BP 98/57
[2023-10-15 05:09] LABS: % Basophils 0.3 % (0-2); % Eosinophils 6.7 % (0-6); % Immature Granulocytes 0.5 % (0-0.5); % Lymphocytes 24.1 % (20.5-51.1); % Monocytes 18.9 % (1.7-9.3); % Neutrophils 49.5 % (42.2-75.2); Absolute Eosinophils 0.8 10^3/uL (0-0.7); Absolute Immature Granulocytes 0.1 10^3/uL (0-0.05); Absolute Lymphocytes 2.9 10^3/uL (1.2-3.4); Absolute Monocytes 2.2 10^3/uL (0.1-0.6); Absolute Neutrophils 5.9 10^3/uL (1.4-6.5); Hematocrit 24.5 % (39.0-52.0); Hemoglobin 8.6 g/dL (13.0-18.0); Mean Corp Hgb Conc. 35.1 g/dL (33.0-37.0); Mean Corpuscular Hgb 26.4 pg (27.0-31.0); Mean Corpuscular Volume 75.2 fL (80.0-94.0); Mean Platelet Volume 9.6 fL (7.4-10.4); Nucleated Red Blood Cells % 1.1 % (-); Platelet Count 538 10^3/uL (130-400); Red Blood Cell Count 3.26 10^6/uL (4.70-6.10); Red Cell Dist. Width 18.4 % (11.5-14.5); White Blood Cell Count 11.8 10^3/uL (4.8-10.8)
[2023-10-15 05:30] LABS: Magnesium 1.9 mg/dl (1.6-2.3)
[2023-10-15 07:05] VITALS: BP 112/74
[2023-10-15] MEDS: FOLVITE 1 MG PO (08:38)
[2023-10-15] MEDS: HYDREA 500 MG PO (08:38)
[2023-10-15] MEDS: NSS 1000 IV ×3 (09:39→23:20)
--- NOTE | 2023-10-15 11:44 | W.PN.HOSP.TC ---
Addendum entered and electronically signed by Priya Liriano MD 10/15/23 11:48:
Did not move his bowels in the last few day but passes gas,
Getting a dose of MiraLAX and have Colace and MiraLAX as needed. If not moves his bowel then may consider make those medications scheduled
Original Note:
Today's Communication/Plan
-
All discussed with the patient
Discussed with the nurse
Assessment / Plan
Assessment / Plan
Physical exam: 2 cert pharmacy tech at the bed
General: Awake, alert and oriented x3, in pain, but not in any acute distress and holds appropriate conversation. His right leg splint To the bed
HEENT: No active discharge, ecchymosis or bruising, moist lips, tongue and mucous membrane.
Eyes: No discharge or red conjunctiva, no nystagmus, pupils are reactive and equal
Neck:Supple, no JVD no bruit no goiter.
Respiratory: Normal AP contour and diameter, normal chest wall movement, normal respiratory effort, no respiratory distress,
Genitourinary: No active discharge
Depigmentation of the part of the glans penis with no ulceration or discharge or pain or tenderness,
Lungs: Good air entry bilaterally, no wheezing or rhonchi, no rales or crackles
Heart: S1, S2 regular, normal rate, no added sound.
Gastrointestinal: Positive bowel sounds, soft, nontender, no guarding or rigidity or organomegaly
Musculoskeletal: , no chest wall abnormality or tenderness. All joints and extremities have good range of motion, no muscle tenderness or any joint swelling or tenderness.
Extremities: No pitting edema, good peripheral pulses
28-year-old male with history of sickle cell anemia presented to the hospital with sickle cell painful crisis, spinal well-controlled on 1 mg Dilaudid.
Sickle cell painful crisis:
Hemoglobin around 9 yesterday and today is 8.6, stable
Hematology input appreciated
Continue IV fluid
Continue Dilaudid to 2 mg every 3 hour for severe and moderate pain
Tylenol as needed
Continue hydroxyurea
Folic acid
Recheck lab
Supportive care
Oxygen.
PT
Leukocytosis: Improving down to 11,000, yesterday was 20 likely reactive no evidence of infection.Chest x-ray showed no evidence of infection, UA clear and cultures are pending
Will get a chest x-ray, UA and blood culture
Monitor off antibiotic
Recheck labs
Depigmentation of glans penis, likely secondary to prior infection, no signs symptom of active infection or ulceration, patient follow with dermatology
Mood disorder:
Continue Remeron 50 mg at the bedside
Discussed with the patient in detail expressed understanding
Discussed with the nurse
CODE STATUS full code
DVT prophylaxis: Lovenox
Anticipated Discharge: > 48 hours
Subjective/Interval History
-
Date of Service: October 15, 2023
Seen and examined, awake and alert, feels his leg and back pain better but still requiring Dilaudid frequently, denies any nausea or vomiting passing gas but no bowel movement yet.
He asked for physical therapy to help him to get around and go to the bathroom. No bleeding event, no fever or chill or cough or congestion, denies shortness of breath.
He is still in police custody.
Objective Data
-
Labs:
Laboratory Results
10/15/23
04:57
WBC 11.8 H
Hgb 8.6 L
Hct 24.5 L
Plt Count 538 H
Vital Signs:
Vital Signs
Temp Pulse Resp BP Pulse Ox
100 F 102 16 112/74 100
10/15/23 07:05 10/15/23 07:05 10/15/23 07:05 10/15/23 07:05 10/15/23 07:05
I&O
10/14/23 10/15/23 10/16/23
07:59 07:59 07:59
Intake Total 2400 / 2400 2940 / 2940
Output Total 3550 / 3550 4995 / 4995
Balance -1149 / -1149 -2054 /
Review of Systems
-
All other systems: Reviewed and negative
[2023-10-15 11:52] VITALS: BP 125/81
[2023-10-15] MEDS: MIRALAX 17 GRAMS PO (12:05)
[2023-10-15 14:00] VITALS: BP 119/75; PULSE 101; O2SAT 100
[2023-10-15 15:05] VITALS: BP 110/73
[2023-10-15] MEDS: TYLENOL 650 MG PO (15:38)
[2023-10-15 19:00] VITALS: BP 118/66
--- NOTE | 2023-10-15 20:11 | PTCARENOTE ---
Patient admittedly refusing nursing assessment, becoming increasingly agitated and verbally abusive to this RN and guards. [facility] made aware.
--- NOTE | 2023-10-15 21:20 | PTCARENOTE ---
IV notified that patient pulled Left PICC.
--- NOTE | 2023-10-15 21:36 | PTCARENOTE ---
Patient requested a different RN. Patient transferred to Pod 2, Room 2131 under the care of KEIRY Greer.
[2023-10-15] MEDS: REMERON 15 MG PO (23:13)
--- NOTE | 2023-10-15 23:33 | VATNOTE ---
called to assess picc line removal. This VAT RN noted that when arrived, left picc line out 37 cm. Removed rest of picc line per protocol. Total removed catheter length was 38cm which was same length inserted. Left midline placed by this VAT RN as
pt. stated right arm could not be used since wire would not thread in that arm. 3 guards at bedside while midline placed.
--- NOTE | 2023-10-15 23:40 | PTCARENOTE ---
With security, two [facility] half-way guards, and nursing supervisor last model department at bedside, pt became increasingly violent and agitated. Pt ultimately restrained by security and two [facility] half-way guards. Per [facility]
Corrections supervisor last model department, would like pt to be remained four point restraint at least through this shift. Per MD order, Pt will be transferred to ICU for appropriate restraint monitoring.
[2023-10-16] VITALS (11 sets, daily range): BP systolic 107–133; BP diastolic 62–80
--- NOTE | 2023-10-16 00:24 | PTCARENOTE ---
pt transferred from 2121 to ICU for 4 point restraints. 3 nursing home guards and security at bedside to transport pt over to ICU. pt AAOx3, c/o generalized discomfort, denies chest pain and SOB, pt ST on the monitor, RA 99%, L upper arm midline, PRN pain
meds given before arrival, see APR.
[2023-10-16] MEDS: DILAUDID 2 MG IV ×3 (02:19→08:26)
--- NOTE | 2023-10-16 03:50 | PTCARENOTE ---
on reassessment of 4 point restraints pt unable to give reassurance of good behavior, high risk for continued violent behavior, no remorse for the aggressive and assaultive actions shown towards hospital staff, avoiding chemical restraints if
possible, will continue with violent restraints at this time per [employer] order, offered PRN medications and repositioning to alleviate pain, pt appears to be resting comfortably at this time.
[2023-10-16 05:04] LABS: % Basophils 0.3 % (0-2); % Eosinophils 8.9 % (0-6); % Immature Granulocytes 0.6 % (0-0.5); % Lymphocytes 22.8 % (20.5-51.1); % Monocytes 17.2 % (1.7-9.3); % Neutrophils 50.2 % (42.2-75.2); Absolute Eosinophils 0.9 10^3/uL (0-0.7); Absolute Immature Granulocytes 0.1 10^3/uL (0-0.05); Absolute Lymphocytes 2.3 10^3/uL (1.2-3.4); Absolute Monocytes 1.8 10^3/uL (0.1-0.6); Absolute Neutrophils 5.1 10^3/uL (1.4-6.5); Hematocrit 24.5 % (39.0-52.0); Hemoglobin 8.5 g/dL (13.0-18.0); Mean Corp Hgb Conc. 34.7 g/dL (33.0-37.0); Mean Corpuscular Hgb 25.8 pg (27.0-31.0); Mean Corpuscular Volume 74.5 fL (80.0-94.0); Mean Platelet Volume 9.6 fL (7.4-10.4); Nucleated Red Blood Cells % 0.8 % (-); Platelet Count 505 10^3/uL (130-400); Red Blood Cell Count 3.29 10^6/uL (4.70-6.10); White Blood Cell Count 10.2 10^3/uL (4.8-10.8)
[2023-10-16] MEDS: NSS 1000 IV (05:11)
[2023-10-16 05:14] LABS: INR 1.19; PT 14.9 Sec (11.4-14.6)
[2023-10-16 05:15] LABS: APTT 42.2 Sec (23.4-35.0)
[2023-10-16 05:28] LABS: Blood Urea Nitrogen 9 mg/dl (9-20); Calcium 9.8 mg/dl (8.4-10.2); Carbon Dioxide 28 mmol/L (22-30); Chloride 100 mmol/L (98-107); Estimated Creatinine Clearance > 125 ml/min; Glucose 107 mg/dl (70-99); Magnesium 1.9 mg/dl (1.6-2.3); Phosphorus 4.4 mg/dl (2.5-4.5); Potassium 4.8 mmol/L (3.5-5.1); Sodium 139 mmol/L (135-145); eGFR > 60.00
[2023-10-16] MEDS: HYDREA 500 MG PO (08:26)
[2023-10-16] MEDS: FOLVITE 1 MG PO (08:26)
--- NOTE | 2023-10-16 08:37 | CON.INTV ---
Consultation
Consultation Request
Date/Time Consultation Requested: 10/16/2023113
Date/Time Consultation Performed: 10/16/2023832
Requesting Provider: ANA Niño
Performing Provider: Nils Mooney MD
Reason for Consultation: Worsening agitation/need for 4 point restraints
Medical History
-
Chief Complaint: Whole body pain
History of Present Illness:
28-year-old male with a past medical history of sickle cell disease complicated by acute chest syndrome who presents with generalized body pain. Pain worse in the legs and chest. He endorses subjective fever. Pain started a few hours prior to
coming to the hospital. Patient currently a prisoner. Initially he was afebrile to 99.4 �F, slightly tachycardic to 101 bpm, initially tachypneic to 22 b/min, BP 164/95 and saturating 97% on room air. Initial labs showed leukocytosis to 23.4,
anemia to 9, platelet count 578, elevated T. bili of 2.5, negative procalcitonin <0.05, and urinalysis negative for UTI. Blood cultures were collected. CXR showed no acute cardiopulmonary process. He was given Dilaudid 1 mg in the ER +1 L bolus
of NS 0.9% and admitted to the hospitalist service. He was given hydroxyurea + folic acid. Hematology/oncology consulted. Of note, reticulocyte index was adequate at 2.47 on beginning of admission. On the evening of 10/14, patient became
increasingly violent and agitated and was transferred to ICU with 4 point restraints. Critical care services consulted for additional management/recommendations.
When I saw the patient this morning he was in no acute distress, still endorsing generalized body pain, hemodynamically stable with BP 115/64, tachycardic to 104 bpm, breathing at 17 breaths/min and saturating 98% on room air. Requesting pain
medications. He is interested in leaving AMA.
PMHx: Sickle cell disease, history of acute chest syndrome
PSHx: Noncontributory
Past Medical History
Past Medical History: Other (Above as per HPI)
Past Surgical History: Other (Above as per HPI)
Social History
Tobacco: Non-smoker
Alcohol: None
Drug: None
Living: [facility]
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
Family History
Family History: Cancer (Mother: Breast cancer) and Other (Family history of sickle cell disease)
Allergies / Home Medications
Allergies
Allergy/AdvReac Type Severity Reaction Status Date / Time
morphine Allergy Anaphylaxis Verified 09/25/23 15:35
Home Medications
�Medication �Instructions �Recorded �Confirmed �Last Taken �Type
folic acid 1 mg tablet 1 mg PO DAILY Supplement 08/28/23 10/13/23 09/02/23 08:00 History
hydroxyurea 500 mg capsule 500 mg PO DAILY sickle cell anemia 08/28/23 10/13/23 09/02/23 08:00 History
ibuprofen 600 mg tablet 600 mg PO BIDPRN PRN mild pain 08/28/23 10/13/23 09/02/23 08:00 History
buprenorphine HCl 8 mg sublingual 16 mg sublingual DAILY OPIATE 09/25/23 10/13/23 Unknown History
tablet MANAGEMENT
cyclobenzaprine 10 mg tablet 10 mg PO BIDPRN PRN muscle spasms 09/25/23 10/13/23 Unknown History
famotidine 20 mg tablet 20 mg PO BIDPRN PRN acid 09/25/23 10/13/23 Unknown History
reflux/heartburn/gi issues
hydrocortisone 1 % topical cream 1 applic topical BID Skin Issues 09/25/23 10/13/23 Unknown History
mirtazapine 15 mg tablet 15 mg PO HS Mental Health/Anxiety 09/25/23 10/13/23 Unknown History
polyethylene glycol 3350 17 gram 17 g PO DAILYPRN PRN Constipation 09/25/23 10/13/23 Unknown History
oral powder packet (Gavilax)
tolnaftate 1 % topical cream 1 applic topical BID Skin Issues 09/25/23 10/13/23 Unknown History
(Antifungal (tolnaftate))
acetaminophen 500 mg tablet 1,000 mg PO TID PRN pain 10/13/23 10/13/23 Unknown History
bisacodyl 10 mg rectal suppository 10 mg MD DAILY PRN constipation 10/13/23 10/13/23 Unknown History
(Dulcolax (bisacodyl))
fluconazole 150 mg tablet 150 mg PO HS Infection 10/13/23 10/13/23 Unknown History
omeprazole 20 mg tablet,delayed 20 mg PO BID Gastrointestinal Issue 10/13/23 10/13/23 Unknown History
release
prednisone 10 mg tablet 10 mg PO DAILY Anti-Inflammatory 10/13/23 10/13/23 Unknown History
triamcinolone acetonide 0.1 % 1 applic topical BID Skin Issues 10/13/23 10/13/23 Unknown History
topical ointment
buprenorphine HCl 8 mg sublingual 16 mg sublingual DAILY 10/14/23 10/14/23 Unknown History
tablet
Review of Systems
-
History Source: Patient
All other systems: Negative unless noted (12 point ROS performed and is negative unless mentioned above.)
Vitals / Labs / Diagnostic Testing
Vital Signs
Temp Pulse Resp BP Pulse Ox
99.4 F 104 19 121/72 95
10/15/23 19:00 10/16/23 06:00 10/16/23 06:00 10/16/23 06:00 10/16/23 06:00
Lab Data
10/16/23 04:49
10/16/23 04:49
Laboratory Results
10/16/23
04:49
PT 14.9 H
INR 1.19
APTT 42.2 H
Microbiology
10/13/23 16:42 Blood/Venous Blood Culture - Preliminary
No Growth in 48 hours- Final report to follow
Diagnostic Testing:
Physical Exam
-
HEENT: Normocephalic and Anicteric
Cardiovascular: S1/S2 and Peripheral Edema (negative)
Respiratory: Clear, Wheeze (negative), Rales (negative), Rhonchi (negative) and Non-Labored Respirations
GI: Soft, Non Distended, Non Tender and Normal Bowel Sounds
Neurology: Awake, Alert and Tremors (negative)
Skin: Warm and Dry
General: Respiratory Distress (negative), Comfortable, Chills (negative) and Sweats (negative)
Assessment
-
Assessment: 28-year-old male with a past medical history of sickle cell disease complicated by acute chest syndrome who presents with generalized body pain. Pain worse in the legs and chest. He endorses subjective fever. Pain started a few hours
prior to coming to the hospital. Patient currently a prisoner. Initially he was afebrile to 99.4 �F, slightly tachycardic to 101 bpm, initially tachypneic to 22 b/min, BP 164/95 and saturating 97% on room air. Initial labs showed leukocytosis to
23.4, anemia to 9, platelet count 578, elevated T. bili of 2.5, negative procalcitonin <0.05, and urinalysis negative for UTI. Blood cultures were collected. CXR showed no acute cardiopulmonary process. He was given Dilaudid 1 mg in the ER +1 L
bolus of NS 0.9% and admitted to the hospitalist service. He was given hydroxyurea + folic acid. Hematology/oncology consulted. Of note, reticulocyte index was adequate at 2.47 on beginning of admission. On the evening of 10/14, patient became
increasingly violent and agitated and was transferred to ICU with 4 point restraints. Critical care services consulted for additional management/recommendations.
Chronic conditions PROCUREMENT ANALYST: Sickle cell disease, history of acute chest syndrome
Impression:
#Generalized body pain suspicious for sickle cell crisis
#Chronic anemia (baseline Hb 7.5-9g/dL)
#Transaminitis with elevated T. bili + LDH
#Hx of sickle cell disease c/b acute chest syndrome (no current concern for ACS at this time)
#Inadequate IV access s/p PICC line
Plan:
- Pain control with prn dilaudid
- Continue with hydroxyurea + IV fluids with NS 0.9% at 150cc/hr
- Maintain SpO2 >90-94%
- Bowel regimen while on narcotics
- Remeron with sleep
- Folic acid
- Continue restraints and remove if pt calms down; 1:1 at bedside
- Maintain MAP>65
- Replete electrolytes with K>4, Mg>2
- Maintain euglycemia with goal BG 140-180
- prn nebulized bronchodilators
- Incentive spirometer encouraged
- DVT ppx: LMWH
Patient wants to leave the hospital AMA. He understands the risks involved with leaving against medical advice including inadequate pain control, possible escalation of his sickle cell crisis, and worsening tachycardia with development of
hemodynamic instability. This was also reviewed with the primary hospitalist, Dr. Jurado.
Total time spent today was 75 minutes for this encounter. Time includes reviewing laboratory test/imaging results, reviewing pertinent medical records, obtaining and reviewing medical history, performing an appropriate exam, ordering medications,
tests and procedures. Time also includes documentation of this encounter, coordinating patient care and communicating with other healthcare professionals. Total time does not include separately billed tests performed on this date of service.
Data:
CXR 10/13/2023:
No acute disease of the chest.
Mild cardiomegaly. Improved.
--- NOTE | 2023-10-16 08:45 | PTCARENOTE ---
Assumed care of pt at 0715 following shift report. Pt received in bed, 4 point locked neoprene restraints per order for violent behavior. Keyon noted from pt to bed frame. Two correction officers in room w/ pt in addition to PCT providing 1:1
supervision. Pt awake and oriented x3. Physical assessment completed as documented. PO meds administered as ordered. Pt increasingly agitated during interaction and demanding restraints be removed 'I was told they were coming off at 7:00'. Pt
argumentative and even more agitated when this RN attempted to explain rationale for restraints and criteria for removal. Pt demanding to speak to hospital supervisor spring up- notified of pt request. IVF increased to 150ml/hr per order. Pt refusing to have
ordered COVID test completed. Call jarvis remains w/in pt reach and comfort care provided as much as allowed by pt. Breakfast tray at bedside- PCT in room assisted pt w/ eating breakfast.
--- NOTE | 2023-10-16 10:15 | PTCARENOTE ---
Addendum entered by Rajani Melo RN 10/16/23 10:33:
Hospital security to bedside w/ pt increased agitation and assisting w/ providing secure environment
Original Note:
Hospital utilities and maintenance supervisor to room to talk w/ pt. Pt agitated and argumentative. After utilities and maintenance supervisor left room, pt began thrashing in bed and managed to loosen left wrist restraint. Upon attempting to resecure restraint, pt began verbally threatening staff
and attempting to strike staff and spit at staff. Spit isaac applied. Pt yelling and demanding to leave AMA, continuing to thrash around in bed. 'I have rights' 'I demand to leave AMA'. Dr Rhiannon vega texted to come to room. Correction officers
stating that pt has ability to leave AMA and transport back to correction facility has been arranged. Pt refusing to sign AMA paperwork.
--- NOTE | 2023-10-16 10:52 | W.PN.HOSP.TC ---
Today's Communication/Plan
-
patient requested to leave AMA. Great deal of time was spent explaining his condition, consequences of him leaving without finalizing the treatment and explaining further plans, but he was persistent in his choice. AAOx3 and appropriate cognition.
Can leave AMA - paper will be provided for signature. Discussed by nurse payroll accounting manager with loan administrator bessemer converter operator
Assessment / Plan
Assessment / Plan
28yo M with P<Mhx of opiod dependency on Subutex, Hx of sickle cell disease, curently incarcerated sent from [facility] with concern for worsening pain and development of sickle cell crisis. In the hospital found with fevers, however chest XR was clear.
Managed with IVF and pain control. Became violent and threatening staff, so was placed in restraints. WHen restraints were extended due to perisstent violence - he demanded to leave hospital and declined alloffered treatment such as IVF, repeated
chest XR or COVID-19 swab. Patient was not in distress, however on admission had mild bilirubinemia, that pointed toward sickle cell flare.
As per further conversation with AOD - patient is able to decline treatment and leave AMA. Risks were explained in details. Patient himself is knowleagable of them and accepting them. Hemodynamically stable with stable Hgb
A/P:
#Sickle cell crisis
#Anemia 2/2 SSD
#Thrombocytosis 2/2 SSD
#
IVF
Pain mgmt
Hem consult
cont Hydroxyurea
#Fever
possible viral infection
no pneumonia on XR
Procal neg
#mood d/o
cont home meds
DVT ppx lovenox
Fulkl code
I have spent at least 58min reviewing chart, test results and providing direct patient care
Anticipated Discharge: Within 24 hours
Subjective/Interval History
-
Date of Service: October 16, 2023
Objective Data
-
Labs:
Laboratory Results
10/16/23
04:49
WBC 10.2
Hgb 8.5 L
Hct 24.5 L
Plt Count 505 H
PT 14.9 H
INR 1.19
APTT 42.2 H
Sodium 139
Potassium 4.8
Chloride 100
Carbon Dioxide 28
BUN 9
Creatinine 0.7
Glucose 107 H
Calcium 9.8
Vital Signs:
Vital Signs
Temp Pulse Resp BP Pulse Ox
99.4 F 104 19 121/72 95
10/15/23 19:00 10/16/23 06:00 10/16/23 06:00 10/16/23 06:00 10/16/23 06:00
I&O
10/15/23 10/16/23 10/17/23
06:59 06:59 06:59
Intake Total 2940 / 2940 2172 / 2172
Output Total 4995 / 4995 2525 / 2525
Balance -2054 / -2054 -353 / -353
Review of Systems
-
History Source: Patient
All other systems: Reviewed and negative
Physical Exam
-
General: No Apparent Distress
HEENT: Normocephalic and Atraumatic
Respiratory: Clear to Auscultation
Cardiac: Regular Rhythm
GI: Soft, Nontender and Nondistended
Neuro: Awake, Alert, Oriented and AO x 3
Psych: Agitated
--- NOTE | 2023-10-16 10:56 | W.DCSUMMARY ---
Discharge Summary
Discharge Data
Date of Admission: 10/13/23
Date of Discharge: 10/16/23
-
Pending Results: No
Hospital Course
28yo M with P<Mhx of opiod dependency on Subutex, Hx of sickle cell disease, curently incarcerated sent from correction with concern for worsening pain and development of sickle cell crisis. In the hospital found with fevers, however chest XR was clear.
Managed with IVF and pain control. Became violent and threatening staff, so was placed in restraints. WHen restraints were extended due to perisstent violence - he demanded to leave hospital and declined alloffered treatment such as IVF, repeated
chest XR or COVID-19 swab. Patient was not in distress, however on admission had mild bilirubinemia, that pointed toward sickle cell flare.
As per further conversation with AOD - patient is able to decline treatment and leave AMA. Risks were explained in details. Patient himself is knowleagable of them and accepting them. Hemodynamically stable with stable Hgb. Patient has a capacity
to make decisions about his medical care
A/P:
#Sickle cell crisis
#Anemia 2/2 SSD
#Thrombocytosis 2/2 SSD
#Mood d/o
#Fever
Discharge Plan
-
Patient Disposition: Against Medical Advice
Referrals:
[facility] [Family Provider] -
Prescriptions:
No Action
hydroxyurea 500 mg Capsule
500 mg PO DAILY
folic acid 1 mg Tablet
1 mg PO DAILY
ibuprofen 600 mg Tablet
600 mg PO BIDPRN PRN (Reason: mild pain)
cyclobenzaprine 10 mg Tablet
10 mg PO BIDPRN PRN (Reason: muscle spasms)
tolnaftate [Antifungal (tolnaftate)] 1 % Cream
1 applic TOPICAL BID
Patient Comments:
09/25/2023: mix with Hydrocortisone 1% and apply to tip of penis
famotidine 20 mg Tablet
20 mg PO BIDPRN PRN (Reason: acid reflux/heartburn/gi issues)
hydrocortisone 1 % Cream
1 applic TOPICAL BID
Patient Comments:
09/25/2023: mix with Antifungal 1% and apply to tip of penis
mirtazapine 15 mg Tablet
15 mg PO HS
buprenorphine HCl 8 mg Tablet, Sublingual
16 mg SUBLINGUAL DAILY
polyethylene glycol 3350 [Gavilax] 17 gram powder in packet
17 g PO DAILYPRN PRN (Reason: Constipation)
prednisone 10 mg Tablet
10 mg PO DAILY
fluconazole 150 mg Tablet
150 mg PO HS
acetaminophen 500 mg Tablet
1,000 mg PO TID PRN (Reason: pain)
triamcinolone acetonide 0.1 % Ointment
1 applic TOPICAL BID
omeprazole 20 mg Tablet,Delayed Release (Dr/Ec)
20 mg PO BID
bisacodyl [Dulcolax (bisacodyl)] 10 mg Suppository
10 mg WI DAILY PRN (Reason: constipation)
buprenorphine HCl [Subutex] 8 mg Tablet, Sublingual
16 mg SUBLINGUAL DAILY
Discharge Date and Time
Discharge Date/Time: 10/16/23 11:01
Print Language: YI
--- NOTE | 2023-10-16 11:00 | PTCARENOTE ---
Toñito Jurado and Lu in room to see pt. Longterm transport arrived to provide transportation back to correctional facility. Nursing security supervisor in contact w/ hospital administration re: pt leaving AMA. I asked the pt repeatedly at different times
to sign AMA paperwork and pt refused. Telemetry and Midline IV removed. Pt cooperative w/ guards in dressing into jail garb. Hospital security provided assistance w/ transporting pt to discharge area. Pt left via WC. No changes from previous
assessment findings or new complaints received prior to pt departure. Transport report called to 'Angie' at [phone]. Angie reported having already been notified of pt's imminent return to [facility].
[2023-10-16 13:02] LABS: ALT (SGPT) 81 U/L (0-50); AST (SGOT) 69 U/L (17-59); Albumin 4.3 g/dl (3.5-5.0); Alkaline Phosphatase 180 U/L (38-126); Direct Bilirubin 0.8 mg/dl (0.0-0.4); Total Bilirubin 4.2 mg/dl (0.2-1.3); Total Protein 7.2 g/dl (6.3-8.2)
== END 2023-10-16 11:01 | disposition left against medical advice (07) | DRG 812 ==
LOC: ICU 05:42
PROVIDERS: Internal Medicine; Nurse Practitioner Family; ADMITTING PHYSICIAN Internal Medicine; ATTENDING PHYSICIAN Internal Medicine; CONSULT PHYSICIAN Internal Medicine Critical Care Medicine; EMERGENCY PHYSICIAN Student in an Organized Health Care Education/Training Program; OTHER PHYSICIAN Internal Medicine Hematology & Oncology
PROC: 02HV33Z Insertion of Infusion Device into Superior Vena Cava, Percutaneous Approach (ICD-10-PCS; 2023-10-13)
DX: D57.00 Hb-SS disease with crisis, unspecified (principal); F11.20 Opioid dependence, uncomplicated; Z53.29 Procedure and treatment not carried out because of patient's decision for other reasons; F39 Unspecified mood [affective] disorder; R45.6 Violent behavior; R45.1 Restlessness and agitation; R74.01 Elevation of levels of liver transaminase levels; D72.829 Elevated white blood cell count, unspecified; D75.838 Other thrombocytosis; R50.81 Fever presenting with conditions classified elsewhere; Z78.1 Physical restraint status; Z86.14 Personal history of Methicillin resistant Staphylococcus aureus infection; Z83.2 Family history of diseases of the blood and blood-forming organs and certain disorders involving the immune mechanism; Z79.899 Other long term (current) drug therapy
CPT/HCPCS: 71045; 71046; 80053; 81003; 82248; 83615; 83735; 84100; 84145; 84484; 85025; 85045; 85610; 85730; 86803; 86850; 86900; 86901; 87040; 87340; 87389; 93005; 96361; 96372; 96374; 97162; 99285

== ENCOUNTER 2023-11-02 13:23 | Emergency (ER) | payer OTHER, SELFPAY ==
[2023-11-02 13:29] VITALS: BMI 22.4
[2023-11-02 13:30] VITALS: BP 137/110
[2023-11-02 14:00] VITALS: BP 127/64
[2023-11-02] MEDS: NSS 1000 IV (14:08)
[2023-11-02] MEDS: DILAUDID 1 MG IV ×2 (14:08→15:12)
--- NOTE | 2023-11-02 14:19 | ED.GENMED ---
History of Present Illness
General
Chief Complaint: Generalized Pain
Source: patient and records
Exam Limitations: none
Time Seen by Provider: 11/02/23 13:41
Nursing documentation reviewed up to this point in time: agreed with
History of Present Illness
History of Present Illness:
28-year-old male presents emergency room complaining of generalized pain from sickle cell. No fevers. He has left-sided chest pain, but no difficulty breathing.
Past History
Past History
ED Past Medical History: Other (Sickle cell disease)
ED Past Surgical History: Cholecystectomy
Social History
Tobacco: Non-smoker
Alcohol: None
Drug: None
Living: detention
Review of Systems
Review of Systems
Allergies reviewed?: Yes
All Other Systems: Not applicable
Constitutional: Reports no symptoms; Denies fever
EENT: Reports no symptoms
Respiratory: Reports no symptoms
Cardiac: Reports chest pain
ABD/GI: Reports no symptoms
: Reports no symptoms
Musculoskeletal: Reports joint pain
Skin: Reports no symptoms
Neurological: Reports no symptoms
Endocrine: Reports no symptoms
Hematologic/Lymphatic: Reports no symptoms
Psychiatric: Reports no symptoms
Phy Exam
Physical Exam
Physical Exam:
Physical Exam
General: no apparent distress, not acutely ill
Neck: supple. no meningeal signs. normal posterior pharynx
Heart: s1/s2 regular rate and rhythm, no murmur. equal radial
pulses.
HEENT: Pupils equal round reactive to light, EOMI
Lungs: no acute respiratory distress. clear bilaterally
Abdomen: normal bowel sounds. not tender. no CVAT
Neuro: alert and oriented. no focal neurological deficits cranial nerves II through XII intact
Skin: no rash
Psychiatric: well kept. interactive and cooperative
Extremities: no edema. no calf tenderness. negative homans. good distal pulses
Course
Orders/Labs/Results
Orders:
Orders
11/02/23 13:55
IV Insert/Care/Rem.- Treatment PRN
0.9% Sodium Chloride 1000 ml [Nss] 1,000 ml IV BOLUS
HYDROmorphone [Dilaudid] 1 mg IV NOW STA
11/02/23 14:03
CR Chest - 2 Views Urgent
Comment:
Reason For Exam: left side chest pain
11/02/23 14:04
CBC/With Reticulocyte Count Urgent
Comprehensive Metabolic Panel Urgent
11/02/23 15:11
HYDROmorphone [Dilaudid] 1 mg IV NOW STA
Abnormal Lab Results
11/02/23
14:04
RBC 3.66 L 10^6/uL
(4.70-6.10)
Hgb 9.5 L g/dL
(13.0-18.0)
Hct 27.2 L %
(39.0-52.0)
MCV 74.3 L fL
(80.0-94.0)
MCH 26.0 L pg
(27.0-31.0)
RDW 19.8 H %
(11.5-14.5)
Plt Count 615 H 10^3/uL
(130-400)
Absolute Monos (auto) 0.9 H 10^3/uL
(0.1-0.6)
Monocytes % 9.9 H %
(1.7-9.3)
Eosinophils % 8.4 H %
(0-6)
Retic Count 5.3 H %
(0.4-2.8)
BUN 6 L mg/dl
(9-20)
Glucose 105 H mg/dl
(70-99)
Total Bilirubin 2.4 H mg/dl
(0.2-1.3)
11/02/23 14:04
11/02/23 14:04
Vital Signs
Initial and Last Documented VS:
Initial Vital Signs
BP
137/110
11/02/23 13:30
Last Documented Vital Signs
Temp Pulse Resp BP Pulse Ox
99.0 F 76 18 127/64 97
11/02/23 13:35 11/02/23 14:00 11/02/23 14:00 11/02/23 14:00 11/02/23 14:00
MDM/Problems Addressed
Differential Diagnosis Includes:
Aplastic pain crisis, chest syndrome
MDM/Problems Addressed:
28-year-old male with sickle cell pain. No signs of chest syndrome or aplastic crisis. Stable for discharge.
Chronic conditions affecting care: Other (Sickle cell)
Acute Exacerbation and/or Progression of Chronic Illness: Other (Sickle cell)
*Radiology
Radiology exam reviewed: preliminary read by ED provider (Chest x-ray no acute findings)
*Pulse Oximetry
Patient hypoxic: no
*First Aid Teacher Interpretation
Rate: normal
Interpretation: normal
Heart Rate: 75
Rhythm: sinus
*Critical Care Note
Total Time (30-74mins, 75-104mins- exclusive of procedures): Not Applicable
Data Reviewed
Review of Other/Old Records Reveals: Labs
Patient Management
Social determinants of health affecting care: Living situation
Escalation/DeEscalation of care consider admission/obs:
admit not indicated
ED Attending Note
-
Portions of this chart may have been created with voice recognition software.� Occasional wrong word or��sound alike� substitutions may have occurred due to the inherent limitations of voice recognition software.
Discharge Plan
Departure
Patient Disposition: Residential
Date of Disposition: 11/02/23
Time of Disposition: 15:37
Patient with high blood pressure during this ER visit?: Yes
Condition: Good
Discharge Problem:
Sickle cell pain crisis
Instructions: Chronic Pain (DC), BLOOD PRESSURE
Prescriptions:
No Action
hydroxyurea 500 mg Capsule
500 mg PO DAILY
folic acid 1 mg Tablet
1 mg PO DAILY
ibuprofen 600 mg Tablet
600 mg PO BIDPRN PRN (Reason: mild pain)
cyclobenzaprine 10 mg Tablet
10 mg PO BIDPRN PRN (Reason: muscle spasms)
tolnaftate [Antifungal (tolnaftate)] 1 % Cream
1 applic TOPICAL BID
Patient Comments:
09/25/2023: mix with Hydrocortisone 1% and apply to tip of penis
famotidine 20 mg Tablet
20 mg PO BIDPRN PRN (Reason: acid reflux/heartburn/gi issues)
hydrocortisone 1 % Cream
1 applic TOPICAL BID
Patient Comments:
09/25/2023: mix with Antifungal 1% and apply to tip of penis
mirtazapine 15 mg Tablet
15 mg PO HS
buprenorphine HCl 8 mg Tablet, Sublingual
16 mg SUBLINGUAL DAILY
polyethylene glycol 3350 [Gavilax] 17 gram powder in packet
17 g PO DAILYPRN PRN (Reason: Constipation)
prednisone 10 mg Tablet
10 mg PO DAILY
fluconazole 150 mg Tablet
150 mg PO HS
acetaminophen 500 mg Tablet
1,000 mg PO TID PRN (Reason: pain)
triamcinolone acetonide 0.1 % Ointment
1 applic TOPICAL BID
omeprazole 20 mg Tablet,Delayed Release (Dr/Ec)
20 mg PO BID
bisacodyl [Dulcolax (bisacodyl)] 10 mg Suppository
10 mg MD DAILY PRN (Reason: constipation)
buprenorphine HCl [Subutex] 8 mg Tablet, Sublingual
16 mg SUBLINGUAL DAILY
Referrals:
[facility] [Family Provider] - Call in 1-3 days for appt
Interventions
Interventions:
*Risk Screen - Suicide Last Done: 11/02/23 13:29
*General Assessment Last Done: 11/02/23 13:29
*Neglect/Abuse Screening Last Done: 11/02/23 13:29
ED- Fall Risk Assessment Last Done: 11/02/23 13:29
*ED COVID-19 Vaccine History Last Done: 11/02/23 13:29
Discharge Date and Time
Print Language: ARABIC
[2023-11-02 14:26] LABS: % Basophils 0.6 % (0-2); % Eosinophils 8.4 % (0-6); % Immature Granulocytes 0.3 % (0-0.5); % Lymphocytes 30.7 % (20.5-51.1); % Monocytes 9.9 % (1.7-9.3); % Neutrophils 50.1 % (42.2-75.2); Absolute Basophils 0.1 10^3/uL (0-0.2); Absolute Eosinophils 0.7 10^3/uL (0-0.7); Absolute Lymphocytes 2.7 10^3/uL (1.2-3.4); Absolute Monocytes 0.9 10^3/uL (0.1-0.6); Absolute Neutrophils 4.4 10^3/uL (1.4-6.5); Hematocrit 27.2 % (39.0-52.0); Hemoglobin 9.5 g/dL (13.0-18.0); Mean Corp Hgb Conc. 34.9 g/dL (33.0-37.0); Mean Corpuscular Volume 74.3 fL (80.0-94.0); Mean Platelet Volume 9.1 fL (7.4-10.4); Nucleated Red Blood Cells % 0.6 % (-); Platelet Count 615 10^3/uL (130-400); Red Blood Cell Count 3.66 10^6/uL (4.70-6.10); Red Cell Dist. Width 19.8 % (11.5-14.5); Reticulocyte Count 5.3 % (0.4-2.8); White Blood Cell Count 8.7 10^3/uL (4.8-10.8)
[2023-11-02 14:38] LABS: ALT (SGPT) 28 U/L (0-50); AST (SGOT) 53 U/L (17-59); Albumin 4.3 g/dl (3.5-5.0); Alkaline Phosphatase 105 U/L (38-126); Blood Urea Nitrogen 6 mg/dl (9-20); Calcium 9.7 mg/dl (8.4-10.2); Carbon Dioxide 27 mmol/L (22-30); Chloride 102 mmol/L (98-107); Estimated Creatinine Clearance > 125 ml/min; Glucose 105 mg/dl (70-99); Potassium 4.6 mmol/L (3.5-5.1); Sodium 138 mmol/L (135-145); Total Bilirubin 2.4 mg/dl (0.2-1.3); Total Protein 7.1 g/dl (6.3-8.2); eGFR > 60.00
== END 2023-11-02 16:04 ==
LOC: EMR 13:23
PROVIDERS: EMERGENCY PHYSICIAN Emergency Medicine
DX: D57.00 Hb-SS disease with crisis, unspecified (principal); Z90.49 Acquired absence of other specified parts of digestive tract
CPT/HCPCS: 99284; 96374; 96376; 96361; 71046; 80053; 85025; 85045

== ENCOUNTER 2023-11-04 16:22 | Emergency (ER) | payer OTHER, SELFPAY ==
[2023-11-04 16:25] VITALS: BMI 21.1
[2023-11-04 16:27] VITALS: BP 132/68
[2023-11-04 16:29] VITALS: BP 132/68
[2023-11-04 17:00] VITALS: BP 125/67
[2023-11-04] MEDS: NSS 1000 IV (17:23)
[2023-11-04] MEDS: DILAUDID 1 MG IV ×2 (17:23→18:58)
[2023-11-04 17:33] LABS: ALT (SGPT) 26 U/L (0-50); AST (SGOT) 51 U/L (17-59); Albumin 4.8 g/dl (3.5-5.0); Alkaline Phosphatase 114 U/L (38-126); Blood Urea Nitrogen 7 mg/dl (9-20); Carbon Dioxide 23 mmol/L (22-30); Chloride 104 mmol/L (98-107); Estimated Creatinine Clearance > 125 ml/min; Glucose 110 mg/dl (70-99); Potassium 4.7 mmol/L (3.5-5.1); Sodium 142 mmol/L (135-145); Total Bilirubin 2.6 mg/dl (0.2-1.3); Total Protein 7.9 g/dl (6.3-8.2); eGFR > 60.00
[2023-11-04 17:35] LABS: % Basophils 0.7 % (0-2); % Eosinophils 1.9 % (0-6); % Immature Granulocytes 0.4 % (0-0.5); % Lymphocytes 21.1 % (20.5-51.1); % Monocytes 7.4 % (1.7-9.3); % Neutrophils 68.5 % (42.2-75.2); Absolute Basophils 0.1 10^3/uL (0-0.2); Absolute Eosinophils 0.2 10^3/uL (0-0.7); Absolute Lymphocytes 1.9 10^3/uL (1.2-3.4); Absolute Monocytes 0.7 10^3/uL (0.1-0.6); Absolute Neutrophils 6.2 10^3/uL (1.4-6.5); Hematocrit 28.6 % (39.0-52.0); Hemoglobin 9.8 g/dL (13.0-18.0); Mean Corp Hgb Conc. 34.3 g/dL (33.0-37.0); Mean Corpuscular Hgb 24.5 pg (27.0-31.0); Mean Corpuscular Volume 71.5 fL (80.0-94.0); Nucleated Red Blood Cells % 0.4 % (-); Platelet Count 618 10^3/uL (130-400); Red Cell Dist. Width 19.9 % (11.5-14.5); Reticulocyte Count 4.4 % (0.4-2.8)
[2023-11-04 18:00] VITALS: BP 125/63
--- NOTE | 2023-11-04 23:34 | ED.GENMED ---
History of Present Illness
General
Chief Complaint: Generalized Pain
Source: patient and police
Exam Limitations: none
Time Seen by Provider: 11/04/23 16:29
Nursing documentation reviewed up to this point in time: agreed with
History of Present Illness
History of Present Illness:
Patien to ED for complaint of sickle cell crisis. Symptoms started today. Denies fever/chills. reports pain to chest, back and extremities. Currently incarcerated. Reports complaince with his meds. Has been seen in ED in past for same. He is
awake and alert, cooperative. In no distress.
Past History
Past History
ED Past Medical History: Other (Sickle cell disease)
ED Past Surgical History: Cholecystectomy
Social History
Tobacco: Non-smoker
Alcohol: None
Drug: None
Living: nursing home
Review of Systems
Review of Systems
Allergies reviewed?: Yes
All Other Systems: ROS reviewed and negative except as documented in HPI and ROS
Constitutional: Reports no symptoms
EENT: Reports no symptoms
Respiratory: Reports no symptoms
Cardiac: Reports no symptoms
ABD/GI: Reports no symptoms
: Reports no symptoms
Musculoskeletal: Reports other (Pain to extremities, back and chest.)
Skin: Reports no symptoms
Neurological: Reports no symptoms
Psychiatric: Reports no symptoms
Phy Exam
General Physical Exam
General Presentation: well appearing and no apparent distress
General age: appears stated age
General Skin: warm and dry
General Habitus: normal
General Mental: alert
General Hydration: appears well hydrated
Cardiovascular Exam
Cardiovascular Exam: regular rate/rhythm
Pulmonary Exam
Pulmonary Exam: lungs clear, no respiratory distress and chest non tender
Musculoskeletal Exam
Musculoskeletal Exam: full ROM
Skin Exam
Skin Exam: normal color, warm/dry and no rash
Psychiatric Exam
Psychiatric Exam: normal mood/affect
Course
Orders/Labs/Results
Orders:
Orders
11/04/23 16:28
Electrocardiogram (*1) Urgent
Reason for Study: Chest Pain
EKG- Treatment ONCE
11/04/23 17:00
Complete Blood Count/With Diff Urgent
Comprehensive Metabolic Panel Urgent
Reticulocyte Count Urgent
11/04/23 17:19
HYDROmorphone [Dilaudid] 1 mg IV NOW STA
11/04/23 17:20
0.9% Sodium Chloride 1000 ml [Nss] 1,000 ml IV BOLUS
11/04/23 18:00
CR Chest - 2 Views Urgent
Comment:
Reason For Exam: cough
11/04/23 18:49
HYDROmorphone [Dilaudid] 1 mg IV NOW STA
Abnormal Lab Results
11/04/23
17:00
RBC 4.00 L 10^6/uL
(4.70-6.10)
Hgb 9.8 L g/dL
(13.0-18.0)
Hct 28.6 L %
(39.0-52.0)
MCV 71.5 L fL
(80.0-94.0)
MCH 24.5 L pg
(27.0-31.0)
RDW 19.9 H %
(11.5-14.5)
Plt Count 618 H 10^3/uL
(130-400)
Absolute Monos (auto) 0.7 H 10^3/uL
(0.1-0.6)
Retic Count 4.4 H %
(0.4-2.8)
BUN 7 L mg/dl
(9-20)
Glucose 110 H mg/dl
(70-99)
Total Bilirubin 2.6 H mg/dl
(0.2-1.3)
11/04/23 17:00
11/04/23 17:00
Vital Signs
Initial and Last Documented VS:
Initial Vital Signs
Pulse Ox
100
11/04/23 16:25
Last Documented Vital Signs
Temp Pulse Resp BP Pulse Ox
99.2 F 71 22 125/63 100
11/04/23 16:29 11/04/23 18:00 11/04/23 18:00 11/04/23 18:00 11/04/23 17:45
*Radiology
Radiology exam reviewed: radiology read reviewed
*Pulse Oximetry
Patient hypoxic: no
*Critical Care Note
Total Time (30-74mins, 75-104mins- exclusive of procedures): Not Applicable
Update Note
Update Note:
Improved iwth IVF, pain medications. CXR improved from prior. No infiltrates noted. Pulse ox 98% RA. Will discharge back to nursing home, will follow up with [facility] there.
ED Attending Note
-
Portions of this chart may have been created with voice recognition software.� Occasional wrong word or��sound alike� substitutions may have occurred due to the inherent limitations of voice recognition software.
Discharge Plan
Departure
Patient Disposition: Long-Term
Date of Disposition: 11/04/23
Time of Disposition: 18:50
Patient with high blood pressure during this ER visit?: No
Condition: Good
Covid-19: Not Applicable
Discharge Problem:
Sickle cell pain crisis
Instructions: Chronic Pain (DC), Sickle Cell Disease Pain ED
Prescriptions:
No Action
hydroxyurea 500 mg Capsule
500 mg PO DAILY
folic acid 1 mg Tablet
1 mg PO DAILY
ibuprofen 600 mg Tablet
600 mg PO BIDPRN PRN (Reason: mild pain)
cyclobenzaprine 10 mg Tablet
10 mg PO BIDPRN PRN (Reason: muscle spasms)
tolnaftate [Antifungal (tolnaftate)] 1 % Cream
1 applic TOPICAL BID
Patient Comments:
09/25/2023: mix with Hydrocortisone 1% and apply to tip of penis
famotidine 20 mg Tablet
20 mg PO BIDPRN PRN (Reason: acid reflux/heartburn/gi issues)
hydrocortisone 1 % Cream
1 applic TOPICAL BID
Patient Comments:
09/25/2023: mix with Antifungal 1% and apply to tip of penis
mirtazapine 15 mg Tablet
15 mg PO HS
buprenorphine HCl 8 mg Tablet, Sublingual
16 mg SUBLINGUAL DAILY
polyethylene glycol 3350 [Gavilax] 17 gram powder in packet
17 g PO DAILYPRN PRN (Reason: Constipation)
prednisone 10 mg Tablet
10 mg PO DAILY
fluconazole 150 mg Tablet
150 mg PO HS
acetaminophen 500 mg Tablet
1,000 mg PO TID PRN (Reason: pain)
triamcinolone acetonide 0.1 % Ointment
1 applic TOPICAL BID
omeprazole 20 mg Tablet,Delayed Release (Dr/Ec)
20 mg PO BID
bisacodyl [Dulcolax (bisacodyl)] 10 mg Suppository
10 mg [place] DAILY PRN (Reason: constipation)
buprenorphine HCl [Subutex] 8 mg Tablet, Sublingual
16 mg SUBLINGUAL DAILY
Referrals:
[facility] [Family Provider] -
Interventions
Interventions:
*Risk Screen - Suicide Last Done: 11/04/23 16:25
*General Assessment Last Done: 11/04/23 16:25
*Neglect/Abuse Screening Last Done: 11/04/23 16:25
ED- Fall Risk Assessment Last Done: 11/04/23 16:25
*ED COVID-19 Vaccine History Last Done: 11/04/23 16:25
*Nursing Disposition Last Done: 11/04/23 18:59
Discharge Date and Time
Discharge Date/Time: 11/04/23 19:09
Print Language: SOMALI
== END 2023-11-04 19:09 ==
LOC: EMR 16:22
PROVIDERS: Nurse Practitioner; EMERGENCY PHYSICIAN Emergency Medicine
DX: D57.00 Hb-SS disease with crisis, unspecified (principal); Z90.49 Acquired absence of other specified parts of digestive tract
CPT/HCPCS: 96374; 96376; 96361; 99284; 71046; 80053; 85025; 85045; 93005

== ENCOUNTER 2023-11-15 05:06 | Inpatient (IN) | payer OTHER, SELFPAY ==
[2023-11-15] VITALS (12 sets, daily range): BP systolic 116–136; BP diastolic 52–74; BMI 22.4; BMI 22.3
--- NOTE | 2023-11-15 01:40 | ED.GENMED ---
History of Present Illness
<WILLIAM Grady - Last Filed: 11/15/23 01:55>
General
Chief Complaint: Generalized Pain
Source: patient and other ([facility])
Exam Limitations: none
Time Seen by Provider: 11/15/23 01:18
Nursing documentation reviewed up to this point in time: agreed with
History of Present Illness
History of Present Illness:
Pt is a 28 y/o M with pmhx of Sickle cell anemia from [facility] presents with complaints of generalized pain x1 day. The pt reports that he is compliant with Hydroxyurea and he has not missed any doses. His main sources of
pain are in his hips and back. The pt reports SOB, pain with exhalation, and mildly productive cough with phlegm. Denies abdominal pain. He has been seen here 3 times in the past month for similar episodes of pain and is usually controlled on
opioids.
Past History
<WILLIAM Grady - Last Filed: 11/15/23 01:55>
Past History
ED Past Medical History: Other (Sickle cell disease)
ED Past Surgical History: Cholecystectomy
Social History
Tobacco: Non-smoker
Alcohol: None
Drug: None
Living: fdc
Review of Systems
<WILLIAM Grady - Last Filed: 11/15/23 01:55>
Review of Systems
Constitutional: Reports no symptoms
EENT: Reports no symptoms
Respiratory: Reports trouble breathing
Cardiac: Reports no symptoms
ABD/GI: Reports no symptoms
: Reports no symptoms
Musculoskeletal: Reports joint pain and muscle pain
Skin: Reports no symptoms
Neurological: Reports no symptoms
Endocrine: Reports no symptoms
Hematologic/Lymphatic: Reports no symptoms
Psychiatric: Reports no symptoms
Phy Exam
<WILLIAM Grady - Last Filed: 11/15/23 01:55>
Physical Exam
Physical Exam:
2 [facility] guards at bedside. Handcuff on left ankle attached to bed.
General Physical Exam
General Presentation: moderate distress
General age: appears stated age
General Skin: warm
General Habitus: normal
General Mental: alert
General Hydration: appears well hydrated
ENT Exam
ENT Exam: neck supple
Eye Exam
Eye Exam: cornea clear and conjunctiva normal
Cardiovascular Exam
Cardiovascular Exam: regular rate/rhythm and normal peripheral pulses
Pulmonary Exam
Pulmonary Exam: lungs clear, no respiratory distress and chest non tender
Gastrointestinal Exam
Gastrointestinal Exam: soft and non distended
Neurological Exam
Neurological Exam: alert and oriented x3
Musculoskeletal Exam
Musculoskeletal Exam: full ROM, back pain and neuro vasc intact
Skin Exam
Skin Exam: normal color and warm/dry
Psychiatric Exam
Psychiatric Exam: normal mood/affect
Course
<WILLIAM Grady - Last Filed: 11/15/23 01:55>
Orders/Labs/Results
Orders:
Orders
11/15/23 01:21
0.9% Sodium Chloride 1000 ml [Nss] 1,000 ml IV BOLUS
11/15/23 01:25
HYDROmorphone [Dilaudid] 1 mg IV NOW STA
11/15/23 01:40
Complete Blood Count/With Diff Urgent
Comprehensive Metabolic Panel Urgent
Lipase Urgent
Manual Differential Urgent
Prothrombin Time Urgent
Reticulocyte Count Urgent
11/15/23 02:12
CR Chest - 2 Views Urgent
Comment:
Reason For Exam: shortness of breath
11/15/23 02:56
HYDROmorphone [Dilaudid] 0.5 mg IV NOW STA
11/15/23 04:02
HYDROmorphone [Dilaudid] 1 mg IV NOW STA
NSS 1000mL Bolus WIDE OPEN 0.9% Sodium Chloride 1000 ml [Nss] 1,000 ml IV BOLUS
Abnormal Lab Results
11/15/23
01:40
WBC 11.1 H 10^3/uL
(4.8-10.8)
RBC 3.78 L 10^6/uL
(4.70-6.10)
Hgb 9.6 L g/dL
(13.0-18.0)
Hct 27.1 L %
(39.0-52.0)
MCV 71.7 L fL
(80.0-94.0)
MCH 25.4 L pg
(27.0-31.0)
RDW 22.3 H %
(11.5-14.5)
Retic Count 6.5 H %
(0.4-2.8)
Potassium 5.5 H mmol/L
(3.5-5.1)
Carbon Dioxide 20 L mmol/L
(22-30)
BUN 7 L mg/dl
(9-20)
Total Bilirubin 3.5 H mg/dl
(0.2-1.3)
AST 70 H U/L
(17-59)
11/15/23 01:40
11/15/23 01:40
Vital Signs
Initial and Last Documented VS:
Initial Vital Signs
Temp Pulse Resp BP Pulse Ox
98.7 F 77 24 136/61 100
11/15/23 01:12 11/15/23 01:12 11/15/23 01:12 11/15/23 01:12 11/15/23 01:12
Last Documented Vital Signs
Temp Pulse Resp BP Pulse Ox
98.7 F 77 24 118/59 96
11/15/23 01:12 11/15/23 01:12 11/15/23 01:12 11/15/23 02:00 11/15/23 02:00
<Bandar Marvin, DO - Last Filed: 11/15/23 04:07>
Orders/Labs/Results
Orders:
Orders
11/15/23 01:21
0.9% Sodium Chloride 1000 ml [Nss] 1,000 ml IV BOLUS
11/15/23 01:25
HYDROmorphone [Dilaudid] 1 mg IV NOW STA
11/15/23 01:40
Complete Blood Count/With Diff Urgent
Comprehensive Metabolic Panel Urgent
Lipase Urgent
Manual Differential Urgent
Prothrombin Time Urgent
Reticulocyte Count Urgent
11/15/23 02:12
CR Chest - 2 Views Urgent
Comment:
Reason For Exam: shortness of breath
11/15/23 02:56
HYDROmorphone [Dilaudid] 0.5 mg IV NOW STA
11/15/23 04:02
HYDROmorphone [Dilaudid] 1 mg IV NOW STA
NSS 1000mL Bolus WIDE OPEN 0.9% Sodium Chloride 1000 ml [Nss] 1,000 ml IV BOLUS
Abnormal Lab Results
11/15/23
01:40
WBC 11.1 H 10^3/uL
(4.8-10.8)
RBC 3.78 L 10^6/uL
(4.70-6.10)
Hgb 9.6 L g/dL
(13.0-18.0)
Hct 27.1 L %
(39.0-52.0)
MCV 71.7 L fL
(80.0-94.0)
MCH 25.4 L pg
(27.0-31.0)
RDW 22.3 H %
(11.5-14.5)
Retic Count 6.5 H %
(0.4-2.8)
Potassium 5.5 H mmol/L
(3.5-5.1)
Carbon Dioxide 20 L mmol/L
(22-30)
BUN 7 L mg/dl
(9-20)
Total Bilirubin 3.5 H mg/dl
(0.2-1.3)
AST 70 H U/L
(17-59)
11/15/23 01:40
11/15/23 01:40
Vital Signs
Initial and Last Documented VS:
Initial Vital Signs
Temp Pulse Resp BP Pulse Ox
98.7 F 77 24 136/61 100
11/15/23 01:12 11/15/23 01:12 11/15/23 01:12 11/15/23 01:12 11/15/23 01:12
Last Documented Vital Signs
Temp Pulse Resp BP Pulse Ox
98.7 F 77 24 118/59 96
11/15/23 01:12 11/15/23 01:12 11/15/23 01:12 11/15/23 02:00 11/15/23 02:00
<WILLIAM Grady - Last Filed: 11/15/23 01:55>
MDM/Problems Addressed
Differential Diagnosis Includes:
Sickle Cell Pain Crisis
<WILLIAM Grady - Last Filed: 11/15/23 01:55>
*Critical Care Note
Total Time (30-74mins, 75-104mins- exclusive of procedures): Not Applicable
<Bandar Marvin DO - Last Filed: 11/15/23 04:07>
Update Note
Update Note:
Patient complaining of increased pain. Will get another dose of pain medicine.
ED Attending Note
<WILLIAM Grady - Last Filed: 11/15/23 01:55>
-
Portions of this chart may have been created with voice recognition software.� Occasional wrong word or��sound alike� substitutions may have occurred due to the inherent limitations of voice recognition software.
<Bandar Marvin DO - Last Filed: 11/15/23 04:07>
ED Attending Note
Patient seen and examined by attending physician: Yes
I performed the substantive portion of visit, reviewed & personally made and approve the management plan that is documented in note by myself or SIENNA.: Yes
ED Attending Note:
Pleasant 28-year-old male prisoner with a history of sickle cell anemia presents with acute sickle cell crisis. Patient states the pain has been present for the last day. When his pain started to flareup, the present nurse gave him hydroxyurea,
Tylenol, and Motrin. Patient states that his left hip and back are causing him discomfort. He states he typically has pain in those areas. Today he also reports left-sided chest wall pain. He reports productive cough. Denies hematuria. Patient
was seen in conjunction with the PA student. I have reviewed and agree with the history and treatment plan presented. On my independent physical exam, patient is awake, alert, and oriented x3, moderate acute distress. Heart is regular rate and
rhythm. Lungs are clear to auscultation bilateral without wheezes rales or rhonchi present. Abdomen is soft and nontender.
Discharge Plan
Departure
Patient Disposition: Admit
Date of Disposition: 11/15/23
Time of Disposition: 04:05
Admit to: Telemetry
Presentation/result/management discussed w/ accepting MD/DO: Hospitalist
Condition: Fair
Discharge Problem:
Sickle cell pain crisis
Prescriptions:
No Action
hydroxyurea 500 mg Capsule
500 mg PO DAILY
folic acid 1 mg Tablet
1 mg PO DAILY
ibuprofen 600 mg Tablet
600 mg PO BIDPRN PRN (Reason: mild pain)
cyclobenzaprine 10 mg Tablet
10 mg PO BIDPRN PRN (Reason: muscle spasms)
tolnaftate [Antifungal (tolnaftate)] 1 % Cream
1 applic TOPICAL BID
Patient Comments:
09/25/2023: mix with Hydrocortisone 1% and apply to tip of penis
famotidine 20 mg Tablet
20 mg PO BIDPRN PRN (Reason: acid reflux/heartburn/gi issues)
hydrocortisone 1 % Cream
1 applic TOPICAL BID
Patient Comments:
09/25/2023: mix with Antifungal 1% and apply to tip of penis
mirtazapine 15 mg Tablet
15 mg PO HS
buprenorphine HCl 8 mg Tablet, Sublingual
16 mg SUBLINGUAL DAILY
polyethylene glycol 3350 [Gavilax] 17 gram powder in packet
17 g PO DAILYPRN PRN (Reason: Constipation)
prednisone 10 mg Tablet
10 mg PO DAILY
fluconazole 150 mg Tablet
150 mg PO HS
acetaminophen 500 mg Tablet
1,000 mg PO TID PRN (Reason: pain)
triamcinolone acetonide 0.1 % Ointment
1 applic TOPICAL BID
omeprazole 20 mg Tablet,Delayed Release (Dr/Ec)
20 mg PO BID
bisacodyl [Dulcolax (bisacodyl)] 10 mg Suppository
10 mg [place] DAILY PRN (Reason: constipation)
buprenorphine HCl [Subutex] 8 mg Tablet, Sublingual
16 mg SUBLINGUAL DAILY
Referrals:
[facility] [Family Provider] -
Interventions
Interventions:
*Risk Screen - Suicide Last Done: 11/15/23 01:16
*General Assessment Last Done: 11/15/23 02:07
*Neglect/Abuse Screening Last Done: 11/15/23 02:07
*ED COVID-19 Vaccine History Last Done: 11/15/23 02:07
Discharge Date and Time
Print Language: YORUBA
[2023-11-15] MEDS: DILAUDID 1 MG IV ×7 (01:43→23:14)
[2023-11-15] MEDS: NSS 1000 IV ×5 (01:44→22:15)
[2023-11-15 01:50] LABS: Hematocrit 27.1 % (39.0-52.0); Hemoglobin 9.6 g/dL (13.0-18.0); Mean Corp Hgb Conc. 35.4 g/dL (33.0-37.0); Mean Corpuscular Hgb 25.4 pg (27.0-31.0); Mean Corpuscular Volume 71.7 fL (80.0-94.0); Mean Platelet Volume 8.9 fL (7.4-10.4); Platelet Count 242 10^3/uL (130-400); Red Blood Cell Count 3.78 10^6/uL (4.70-6.10); Red Cell Dist. Width 22.3 % (11.5-14.5); White Blood Cell Count 11.1 10^3/uL (4.8-10.8)
[2023-11-15 01:59] LABS: INR 1.15; PT 14.5 Sec (11.4-14.6)
[2023-11-15 02:02] LABS: ALT (SGPT) 24 U/L (0-50); AST (SGOT) 70 U/L (17-59); Alkaline Phosphatase 88 U/L (38-126); Blood Urea Nitrogen 7 mg/dl (9-20); Calcium 9.7 mg/dl (8.4-10.2); Carbon Dioxide 20 mmol/L (22-30); Chloride 105 mmol/L (98-107); Estimated Creatinine Clearance > 125 ml/min; Glucose 91 mg/dl (70-99); Lipase 43 U/L (23-300); Potassium 5.5 mmol/L (3.5-5.1); Sodium 142 mmol/L (135-145); Total Bilirubin 3.5 mg/dl (0.2-1.3); Total Protein 7.9 g/dl (6.3-8.2); eGFR > 60.00
[2023-11-15 02:19] LABS: Absolute Neutrophils -Man Diff 5.7 10^3/uL (1.4-6.5); Anisocytosis 2+; Band Neutrophils 1 % (0-3); Eosinophils 5 % (0-6); Lymphocytes 36 % (20-51); Monocytes 7 % (2-9); Normal RBC Morphology No; Nucleated Red Blood Cells 6 (-); Reticulocyte Count 6.5 % (0.4-2.8); Segmented Neutrophils 51 % (42-75); Total Cells Counted 100
[2023-11-15 02:20] LABS: Microcytosis 1+
[2023-11-15 02:26] LABS: Poikilocytosis 2+; Sickled Red Blood Cells 2+
[2023-11-15 02:28] LABS: Ovalocytes 1+
[2023-11-15 02:29] LABS: Polychromasia 1+
[2023-11-15 02:30] LABS: Howell Jolly Bodies Occasional; Target Cells 2+
[2023-11-15 02:33] LABS: Tear Drop Red Blood Cells Occasional
[2023-11-15 02:34] LABS: Platelets Checked Yes
[2023-11-15] MEDS: DILAUDID 0.5 MG IV (02:59)
--- NOTE | 2023-11-15 04:52 | HPS.HSE ---
Family Physician
-
Family Physician: Facility [facility]
Chief Complaint
-
Diffuse pain
History of Present Illness
Patient is a 28y M with PMH significant for sickle cell disease who presents to ED complaining of diffuse pain that started this evening. Patient states that he has had mild cough for the past 3-4 days productive of white mucus. No noted fevers
/ chills. No SOB. No N/V/D or urinary complaints. Patient started with pain this evening. He notes that pain is all over - but most bothersome area is the L hip. No injury or trauma.
He was last hospitalized here 10/12 - 10/15 for similar presentation.
Medical History
Past Medical History
Past Medical History: Reports Other
Additional Past Medical History:
Sickle Cell Disease
Mood Disorder
Past Surgical History: Reports Other
Additional Past Surgical History:
Cholecystectomy
Social History
Tobacco: Non-smoker
Alcohol: None
Drug: None
Family History
Family History: CAD and Diabetes
Allergies / Home Medications
Allergies reflects when Allergies were last updated in [facility].
Home Medications with original date entered in [facility]
Allergy/Medication List:
Allergies
Allergy/AdvReac Type Severity Reaction Status Date / Time
morphine Allergy Anaphylaxis Verified 11/15/23 01:10
Home Medications
folic acid 1 mg tablet 1 mg PO DAILY Supplement 08/28/23
hydroxyurea 500 mg capsule 500 mg PO DAILY sickle cell anemia 08/28/23
ibuprofen 600 mg tablet 600 mg PO BIDPRN PRN mild pain 08/28/23
famotidine 20 mg tablet 20 mg PO BIDPRN PRN acid reflux/heartburn/gi issues 09/25/23
hydrocortisone 1 % topical cream 1 applic topical BID Skin Issues 09/25/23
mirtazapine 15 mg tablet 15 mg PO HS Mental Health/Anxiety 09/25/23
polyethylene glycol 3350 17 gram oral powder packet (Gavilax) 17 g PO DAILYPRN PRN Constipation 09/25/23
tolnaftate 1 % topical cream (Antifungal (tolnaftate)) 1 applic topical BID Skin Issues 09/25/23
acetaminophen 500 mg tablet 1,000 mg PO TID PRN pain 10/13/23
bisacodyl 10 mg rectal suppository (Dulcolax (bisacodyl)) 10 mg [place] DAILY PRN constipation 10/13/23
omeprazole 20 mg tablet,delayed release 20 mg PO BID Gastrointestinal Issue 10/13/23
prednisone 10 mg tablet 10 mg PO DAILY Anti-Inflammatory 10/13/23
triamcinolone acetonide 0.1 % topical ointment 1 applic topical BID Skin Issues 10/13/23
buprenorphine HCl 8 mg sublingual tablet 16 mg sublingual DAILY 10/14/23
mirtazapine 15 mg tablet 15 mg PO HS 11/15/23
Review of Systems
-
History Source: Patient
A 12 point ROS was completed and negative except as noted: Yes
Constitutional: Denies Fever or Chills
EENT: Reports Sore Throat
Respiratory: Reports Cough; Denies Trouble Breathing
Cardiac: Reports Chest Pain; Denies Palpitations
Abdomen/GI: Reports Abdominal Pain; Denies Nausea, Vomiting or Diarrhea
: Reports Flank Pain; Denies Dysuria or Frequency
Musculoskeletal: Reports Joint Pain and Muscle Pain; Denies Edema
Neurological: Denies Dizzy or Headache
Psych: Denies Depression or Anxiety
Physical Exam
Vital Signs
Vital Signs
Temp Pulse Resp BP Pulse Ox
98.7 F 77 24 118/59 96
11/15/23 01:12 11/15/23 01:12 11/15/23 01:12 11/15/23 02:00 11/15/23 02:00
Physical Exam
General: Other (28y M in no acute distress.)
HEENT: Moist mucous membranes and PERRLA
Respiratory: Clear; No Wheezes, Rales or Rhonchi
Cardiac: S1/S2 and Regular Rhythm; No Murmur
GI: Soft, Non Tender, Non Distended and Normal Bowel Sounds
Musculoskeletal: No Clubbing, No Cyanosis and No Edema
Neuro: AO x 3
Laboratory Results
-
11/15/23 01:40
11/15/23 01:40
Laboratory Results
PT 14.5 Sec (11.4-14.6) 11/15/23 01:40
INR 1.15 11/15/23 01:40
Total Bilirubin 3.5 mg/dl (0.2-1.3) H 11/15/23 01:40
AST 70 U/L (17-59) H 11/15/23 01:40
ALT 24 U/L (0-50) 11/15/23 01:40
Alkaline Phosphatase 88 U/L (38-126) 11/15/23 01:40
Lipase 43 U/L (23-300) 11/15/23 01:40
Impression/Plan
-
A/P: Patient is a 28y M with PMH significant fro sickle cell disease who presents to ED complaining of diffuse pain that started this evening.
Sickle Cell Disease with Acute Pain Episode
- Admit for further evaluation and treatment.
- IVFs, IV narcotic pain medications and follow for clinical improvement.
- Continue outpatient buprenorphine dosing - change / divide to BID dosing to assist with management of acute pain.
- Hgb is stable / at baseline. Retic somewhat elevated from prior - but within expected range for his degree of anemia.
- No hypoxemia, chest symptoms, etc.
- Follow for adequate pain control.
- Hold further NSAIDs / steroids - not clear on the indication for his current prednisone dosing.
- Follow H&H / cell counts for any changes - no role for transfusion at present.
Mood Disorder
- Continue current med regimen including mirtazapine.
- PRN quetiapine or Haldol for agitation.
DVT Prophylaxis: Lovenox
Code Status: Full
[2023-11-15 05:15] LABS: COVID-19 Antigen Negative (Negative)
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
[2023-11-15] MEDS: TYLENOL 1000 MG PO ×3 (07:27→22:12)
[2023-11-15] MEDS: SUBUTEX 8 MG SL (07:27)
[2023-11-15] MEDS: FOLVITE 1 MG PO (07:27)
[2023-11-15] MEDS: HYDREA 500 MG PO (07:27)
[2023-11-15] MEDS: PROTONIX 40 MG PO ×2 (07:27→19:22)
--- NOTE | 2023-11-15 10:29 | CM ---
natural resource manager reviewed patient's chart and patient was admitted from [facility], guards are present and plan is for patient to return to [facility] at discharge.
Of note- pt listed in [facility] Port under bed ED-9
Discharge Disposition- return [facility]
Report [phone]
--- NOTE | 2023-11-15 10:45 | W.PN.HOSP.TC ---
Addendum entered and electronically signed by Marino Sy MD 11/15/23 17:29:
this note should not be billed as the hnp was written after 12am on 11/14
scd with acute pain crises
-Outpt scroll machine operator located in [facility], Dr. Shane
-ivf
-analgesics
-incentive dea
-peripheral smear
at this time without evidnece of acute chest syndrome, denies new cva symptoms and no pripasim.
- - no indication for exchange transfusion
- - -last transfusion needs was couple of months ago
hyperK
-low K diet
-lokelma
-can consider hem consult
Original Note:
Today's Communication/Plan
-
Mr. Pravin Guzman is a 28yo M pmh PSVT and sickle cell disease admitted today for a sickle cell crisis.
Microcytic Anemia
Sickle Cell Disease hx Acute Chest Syndrome w Acute Pain Episode
- Continue IV fluids, analgesia, antiemetics
- Ordered 2mg decadron for breakthrough nausea
- Monitor Hb
- Repeat CBC
- Heme consulted. Will see pt tomorrow
- Attempted calling pt's scroll machine operator Dr. Ball, but his office was closed for the day.
Hyperkalemia
- K 5.5
- Could be secondary to RBC shearing
- Ordered lokelma
- Low potassium diet
- Repeat BMP
Mood Disorder
- Continue current medications
- PRN seroquel or haldol for agitation
DVT Prophylaxis
- subq enoxaparin
Code Status: Full
Diet: low potassium
Assessment / Plan
Assessment / Plan
Mr. Pravin Guzman is a 28yo M pmh PSVT and sickle cell disease admitted today for a sickle cell crisis.
Microcytic Anemia
Sickle Cell Disease hx Acute Chest Syndrome w Acute Pain Episode
- Hb 9.6, reticulocytes 6.5%
- OCC giant platelets
- PBS: polychromasia, poikilocytosis, anisocytosis, sickle cells, target cells, tear drop cells, ovalocytes, Krishnamurthy[place] bodies
- PT 14.5s, INR 1.15
- Continue IV fluids, analgesia, antiemetics
- Ordered 2mg decadron for breakthrough nausea
- CXR: no acute cardiopulmonary processes
- ECG by my interpretation: NSR, looks similar to ECG from 11/04/23
- Monitor Hb
- Repeat CBC
- Heme consulted. Will see pt tomorrow
Hyperkalemia
- K 5.5
- Could be secondary to RBC shearing
- Ordered lokelma
- Low potassium diet
- Repeat BMP
Mood Disorder
- Continue current medications
- PRN seroquel or haldol for agitation
DVT Prophylaxis
- subq enoxaparin
Code Status: Full
Diet: low potassium
Anticipated Discharge: > 48 hours
Subjective/Interval History
-
Date of Service: November 15, 2023
Mr. Pravin Guzman is a 28yo M h PSVT and sickle cell disease complicated by ACS from [facility] admitted today for a sickle cell crisis. On admission, he reported L hip and back pain as well as L chest wall pain. He is feeling
better, but is complaining of nausea causing stomach pain. -V, +cough, -SOB, -palpitations, -paraesthesias, -numbness. The chest pain is located over the L anterior superior chest wall. It is a 7/10 throbbing pain on exhalation.
His scroll machine operator is Dr. Alla Ball at [facility]. Reports not seeing him for several months.
Objective Data
-
Labs:
Laboratory Results
11/15/23
01:40
WBC 11.1 H
Hgb 9.6 L
Hct 27.1 L
Plt Count 242
PT 14.5
INR 1.15
Sodium 142
Potassium 5.5 H
Chloride 105
Carbon Dioxide 20 L
BUN 7 L
Creatinine 0.8
Glucose 91
Calcium 9.7
Total Bilirubin 3.5 H
AST 70 H
ALT 24
Alkaline Phosphatase 88
Vital Signs:
Vital Signs
Temp Pulse Resp BP Pulse Ox
98.3 F 68 17 129/69 96
11/15/23 07:33 11/15/23 07:33 11/15/23 07:33 11/15/23 07:33 11/15/23 07:33
Review of Systems
-
History Source: Patient
All other systems: Reviewed and negative
Physical Exam
-
General: Well Developed and Well Nourished
HEENT: Normocephalic and Atraumatic
Respiratory: Clear to Auscultation and Non Labored Respirations; Negative Rales, Rhonchi or Crackles
Cardiac: Regular Rhythm, S1/S2 and Other (no tenderness to palpation over chest pain in L anterior chest); Negative Murmur, Rub or Gallop
GI: Normal Bowel Sounds, Tender and Other (Pt declined any further examination after attempting to palpate his abdomen.)
Musculoskeletal: No Edema
Skin: Warm and Dry
Neuro: Awake and AO x 3
Psych: Agitated
[2023-11-15] MEDS: DECADRON 2 MG IV (10:51)
[2023-11-15] MEDS: LOKELMA 5 GRAM PO (11:55)
[2023-11-15] MEDS: SUBUTEX SL ×2 (19:22→19:31)
[2023-11-15] MEDS: REMERON 15 MG PO (22:12)
[2023-11-16] VITALS (7 sets, daily range): BP systolic 87–132; BP diastolic 49–79; BMI 22.4
[2023-11-16] MEDS: DILAUDID 1 MG IV ×5 (03:07→22:25)
--- NOTE | 2023-11-16 05:03 | W.PN.HOSP.TC ---
Addendum entered and electronically signed by Marino Sy MD 11/17/23 17:56:
States he did not get enough sleep.
NAD, resting comfortably in bed
Scleral anicteric
Moist mucous membranes
No JVD
CTA bilateral
Normal S1-S2 no murmurs
Soft nontender nondistended bowel sounds active
No peripheral pitting edema
Moves extremities spontaneously
AAOx3
scd with acute pain crises
-Outpt business project manager located in [facility], Dr. Shane
-ivf
-analgesics
- -Notified him that pain meds will be decreased today verbalized understanding
-incentive dea
-peripheral smear with 2+ sickling, hyperbilirubinemia and retic count high both higher then previous
at this time without evidnece of acute chest syndrome, denies new cva symptoms and no pripasim.
- - no indication for exchange transfusion
- - -last transfusion needs was couple of months ago
Hem consulted and following
hyperK
-low K diet
Original Note:
Today's Communication/Plan
-
Assessment / Plan
Assessment / Plan
12:00
Pt bp 87/49, HR 104, T 98.2F. Evaluated for hypotension. Pt afebrile, but concerned for possible progression to shock. Decreased breath sounds, likely from poor effort. Pt not happy about being 'asked the same questions from a few hours ago.'
Ordered 1L fluid bolus. After 500mL, pt's bp 122/50 and HR 76 improved
Mr. Pravin Guzman is a 28yo M pmh PSVT and sickle cell disease admitted 11/14 for a sickle cell crisis.
Microcytic Anemia
Sickle Cell Disease hx Acute Chest Syndrome w Acute Pain Crisis
- 9.6 Hb on 11/14, today is pending
- 6.5% reticulocytes on 11/14, today is pending
- pt refused to give blood this AM, contacted phlebotomy for assistance
- OCC giant platelets
- PBS: polychromasia, poikilocytosis, anisocytosis, sickle cells, target cells, tear drop cells, ovalocytes, Krishnamurthy-[place] bodies
- PT 14.5s, INR 1.15
- CXR: no acute cardiopulmonary processes
- ECG: NSR, nonspecific T wave abnormality
- No evidence of acute chest syndrome at this time, denies CVA sx, no priapism
- No indication for transfusion at this time. Last transfusion 09/01/23 w PRBCs.
- Continue IV fluids, analgesia, antiemetics
- decadron for breakthrough nausea
- Incentive spirometry
- Monitor Hb
- Repeat CBC
- Heme consulted: supportive care, encourage buprenorphine, incentive spirometer, continue hydroxyurea
Hyperkalemia
- K 5.5 on 11/15, today is pending
- Could be secondary to RBC shearing
- Lokelma given 11/14
- Low potassium diet
- Repeat CMP
Mood Disorder
- Continue current medications
- PRN seroquel or haldol for agitation
DVT Prophylaxis
- enoxaparin
Code Status: Full
Diet: low potassium
Anticipated Discharge: 24 - 48 hours
Subjective/Interval History
-
Date of Service: November 16, 2023
Mr. Prvain Guzman is a 28yo M pmh PSVT and sickle cell disease complicated by ACS from [facility] admitted 11/14 for a sickle cell crisis. Reports being unable to sleep until 08:00 today. Concern of not being in pain, but asking for
pain meds based on 'smirking' after administration, laughing at TV, the pain is consistently a generalized 8/10 pain, and past medical records. No signs of aggression overnight. Today, pt reports LBP and L hip pain. Refused to characterize it beyond
constant and 8/10. -N/V/D/C, -BRYANT, -fever, -chills, -SOB, -cough, -CP, -palpitations.
Pt refused to give blood this morning. Refused last two doses of buprenorphine. Refused enoxaparin.
Objective Data
-
Labs:
Laboratory Results
11/16/23
06:00
WBC Pending
Hgb Pending
Hct Pending
Plt Count Pending
Sodium Pending
Potassium Pending
Chloride Pending
Carbon Dioxide Pending
BUN Pending
Creatinine Pending
Glucose Pending
Calcium Pending
Vital Signs:
Vital Signs
Temp Pulse Resp BP Pulse Ox
99.2 F 76 16 123/70 97
11/15/23 23:33 11/15/23 23:33 11/15/23 23:33 11/15/23 23:33 11/15/23 23:33
I&O
11/14/23 11/15/23 11/16/23
06:59 06:59 06:59
Intake Total 1050 / 1050
Output Total 1500 / 1500
Balance -450 / -450
Review of Systems
-
History Source: Patient
All other systems: Reviewed and negative
Physical Exam
-
General: Well Developed
HEENT: Normocephalic and Atraumatic
Respiratory: Non Labored Respirations and Decreased Breath Sounds; Negative Rales, Rhonchi or Crackles
Cardiac: Regular Rhythm and S1/S2; Negative Murmur, Rub or Gallop
GI: Other (hypoactive bowel sounds. Patient refused further exam.)
Skin: Warm and Dry
[2023-11-16] MEDS: SUBUTEX SL ×2 (07:54→08:04)
[2023-11-16] MEDS: TYLENOL 1000 MG PO ×3 (07:54→21:51)
[2023-11-16] MEDS: PROTONIX 40 MG PO ×2 (07:54→20:14)
[2023-11-16] MEDS: HYDREA 500 MG PO (07:54)
[2023-11-16] MEDS: FOLVITE 1 MG PO (07:54)
[2023-11-16] MEDS: NSS 1000 IV ×2 (07:56→12:49)
--- NOTE | 2023-11-16 09:15 | CON.ONC ---
Addendum entered and electronically signed by Marino Sy MD 11/16/23 13:40:
States he did not get enough sleep.
NAD, resting comfortably in bed
Scleral anicteric
Moist mucous membranes
No JVD
CTA bilateral
Normal S1-S2 no murmurs
Soft nontender nondistended bowel sounds active
No peripheral pitting edema
Moves extremities spontaneously
AAOx3
scd with acute pain crises
-Outpt emt intermediate located in [facility], Dr. Shane
-ivf
-analgesics
- -Notified him that pain meds will be decreased today verbalized understanding
-incentive dea
-peripheral smear with 2+ sickling, hyperbilirubinemia and retic count high both higher then previous
at this time without evidnece of acute chest syndrome, denies new cva symptoms and no pripasim.
- - no indication for exchange transfusion
- - -last transfusion needs was couple of months ago
Hem consulted and following
hyperK
-low K diet
Original Note:
Impression
Impression
Sickle cell disease
Pain
?recent URI
Plan
Plan
Supportive care
Encourage po fluid intake, can d/c IVF if drinking
Continue prn pain medications, encourage buprenorphine
Encourage OOB, incentive spirometry
Monitor CBC
Continue Hydrea
Outpatient f/u with emt intermediate in [place] when able
Patient History
History of Present Illness
28yo M with sickle cells disease, presented from [facility] c/o increased pain, 'all over' but mostly in hip. He's had URI symptoms for a few days prior to presentation. He denies chest pain, dyspnea. He's had multiple
admissions/ER visits for the same. He's needed prbcs in the past, denies h/o prior exchange transfusion. His emt intermediate is in [place]. He takes Hydrea for his SCD and buprenorphine for pain mgmt as outpatient.
He was getting Hydromorphone 1mg ~q3-4h overnight, now dose reduced to 0.5mg q3h prn.
Past-Medical/Surgical History
Past Medical History
Past Medical History: Reports Other
Additional Past Medical History:
Sickle Cell Disease
Mood Disorder
Past Surgical History: Reports Other
Additional Past Surgical History:
Cholecystectomy
Social History
Currently incarcerated
Tobacco: Non-smoker
Alcohol: None
Drug: None
Family History
Family History: CAD and Diabetes
Patient Medication
�Medication �Instructions �Recorded �Confirmed �Last Taken �Type
folic acid 1 mg tablet 1 mg PO DAILY Supplement 08/28/23 11/15/23 09/02/23 08:00 History
hydroxyurea 500 mg capsule 500 mg PO DAILY sickle cell anemia 08/28/23 11/15/23 09/02/23 08:00 History
ibuprofen 600 mg tablet 600 mg PO BIDPRN PRN mild pain 08/28/23 11/15/23 09/02/23 08:00 History
famotidine 20 mg tablet 20 mg PO BIDPRN PRN acid 09/25/23 11/15/23 Unknown History
reflux/heartburn/gi issues
hydrocortisone 1 % topical cream 1 applic topical BID Skin Issues 09/25/23 11/15/23 Unknown History
polyethylene glycol 3350 17 gram 17 g PO DAILYPRN PRN Constipation 09/25/23 11/15/23 Unknown History
oral powder packet (Gavilax)
tolnaftate 1 % topical cream 1 applic topical BID Skin Issues 09/25/23 11/15/23 Unknown History
(Antifungal (tolnaftate))
acetaminophen 500 mg tablet 1,000 mg PO TID PRN pain 10/13/23 11/15/23 Unknown History
bisacodyl 10 mg rectal suppository 10 mg HI DAILY PRN constipation 10/13/23 11/15/23 Unknown History
(Dulcolax (bisacodyl))
omeprazole 20 mg tablet,delayed 20 mg PO BID Gastrointestinal Issue 10/13/23 11/15/23 Unknown History
release
prednisone 10 mg tablet 10 mg PO DAILY Anti-Inflammatory 10/13/23 11/15/23 Unknown History
triamcinolone acetonide 0.1 % 1 applic topical BID Skin Issues 10/13/23 11/15/23 Unknown History
topical ointment
buprenorphine HCl 8 mg sublingual 16 mg sublingual DAILY withdrawal 10/14/23 11/15/23 Unknown History
tablet
mirtazapine 15 mg tablet 15 mg PO HS Depression 11/15/23 11/15/23 Unknown History
Active Medications
Generic Name Dose Route Start Last Admin
Trade Name Freq PRN Reason Stop Dose Admin
Acetaminophen 1,000 mg 11/15/23 08:00 11/16/23 07:54
Acetaminophen 500 Mg Tablet PO 12/13/23 07:59 1,000 mg
TID SKYLER Administration
Albuterol/Ipratropium 3 ml 11/15/23 06:13
Ipratropium 0.5/Albuterol 3 Mg (3 Ml Ampul) INH
R Q4HPRN PRN
SOB
Protocol
Buprenorphine 8 mg 11/15/23 08:00 11/16/23 08:04
Buprenorphine 8 Mg Sl Tablet SL 11/29/23 07:59 Not Given
BID SKYLER
Enoxaparin Sodium 40 mg 11/15/23 18:00 11/15/23 17:09
Enoxaparin Sodium 40 Mg/0.4 Ml Syringe SC 12/13/23 17:59 Not Given
QPM SKYLER
Folic Acid 1 mg 11/15/23 08:00 11/16/23 07:54
Folic Acid 1 Mg Tablet PO 12/13/23 07:59 1 mg
DAILY SKYLER Administration
Haloperidol Lactate 1 mg 11/15/23 06:13
Haloperidol 5 Mg/Ml 1 Ml Vial IV 12/13/23 06:12
Q6HPRN PRN
Agitation
Hydromorphone HCl 0.5 mg 11/15/23 06:13
Hydromorphone 1 Mg/Ml Carpuject IV 11/29/23 06:12
Q3HPRN PRN
Moderate Pain
Hydroxyurea 500 mg 11/15/23 08:00 11/16/23 07:54
Hydroxyurea 500 Mg Capsule PO 12/13/23 07:59 500 mg
DAILY SKYLER Administration
Sodium Chloride 1,000 mls @ 125 mls/hr 11/15/23 06:13 11/16/23 07:56
Nss IV 1,000 mls
.Q8H SKYLER Administration
Mirtazapine 15 mg 11/15/23 22:00 11/15/23 22:12
Mirtazapine 15 Mg Regular Release Tablet PO 12/13/23 21:59 15 mg
HS SKYLER Administration
Ondansetron HCl 4 mg 11/15/23 06:13
Ondansetron 4 Mg/2 Ml Vial IV 12/13/23 06:12
Q6HPRN PRN
nausea and vomiting
Pantoprazole Sodium 40 mg 11/15/23 08:00 11/16/23 07:54
Pantoprazole 40 Mg Delayed Release Tablet PO 12/13/23 07:59 40 mg
BID SKYLER Administration
Quetiapine Fumarate 12.5 mg 11/15/23 06:13
Quetiapine 25 Mg Tablet PO 12/13/23 06:12
Q8HPRN PRN
Agitation
Sodium Chloride 0 flush 11/15/23 07:00
Sodium Chloride 0.9% (Flush) Syringe IV 12/13/23 06:59
PER PROTOCOL SKYLER
Sodium Chloride 0 flush 11/15/23 08:00
Sodium Chloride 0.9% (Flush) Syringe IV 12/13/23 07:59
PER PROTOCOL SKYLER
Review of Systems
-
Unable to obtain full review of systems at this time due to: Other (minimally interactive, sleepy)
History Source: Patient
All Other Systems: Not reviewed unless documented
Constitutional: Denies Fever
Respiratory: Denies Trouble Breathing
Cardiac: Denies Chest Pain
GI: Denies Abdominal Pain
Physical Exam
-
General: Well Developed, Well Nourished, No Apparent Distress and Comfortable
HEENT: Moist Mucous Membranes
Cardiology: Normal Sinus Rhythm
Pulmonary: Clear
GI: Soft
Musculoskeletal: No Clubbing, No Cyanosis and No Edema
Extremities: No C/C/E
Neurology: Non Focal and No Lateralizing Symptoms
Skin: Warm and Dry
Psych: Calm
Labs
Lab Results
WBC 11.1 10^3/uL (4.8-10.8) H 11/15/23 01:40
RBC 3.78 10^6/uL (4.70-6.10) L 11/15/23 01:40
Hgb 9.6 g/dL (13.0-18.0) L 11/15/23 01:40
Hct 27.1 % (39.0-52.0) L 11/15/23 01:40
MCV 71.7 fL (80.0-94.0) L 11/15/23 01:40
MCH 25.4 pg (27.0-31.0) L 11/15/23 01:40
MCHC 35.4 g/dL (33.0-37.0) 11/15/23 01:40
RDW 22.3 % (11.5-14.5) H 11/15/23 01:40
Plt Count 242 10^3/uL (130-400) 11/15/23 01:40
MPV 8.9 fL (7.4-10.4) 11/15/23 01:40
Creatinine 0.8 mg/dL (0.7-1.3) 11/15/23 01:40
Vital Signs
Vital Signs
Temp Pulse Resp BP Pulse Ox
98.1 F 72 18 111/53 95
11/16/23 07:00 11/16/23 07:00 11/16/23 07:00 11/16/23 07:00 11/16/23 07:00
[2023-11-16] MEDS: DILAUDID 0.5 MG IV (12:48)
--- NOTE | 2023-11-16 12:51 | CM ---
Patient from [facility].
Plan: back to [facility] once medically stable.
Discharge Disposition- return [facility]
Report [phone]
[2023-11-16 15:59] LABS: Hematocrit 23.8 % (39.0-52.0); Hemoglobin 8.4 g/dL (13.0-18.0); Mean Corp Hgb Conc. 35.3 g/dL (33.0-37.0); Mean Corpuscular Hgb 25.7 pg (27.0-31.0); Mean Corpuscular Volume 72.8 fL (80.0-94.0); Mean Platelet Volume 9.6 fL (7.4-10.4); Platelet Count 252 10^3/uL (130-400); Red Blood Cell Count 3.27 10^6/uL (4.70-6.10); Red Cell Dist. Width 21.8 % (11.5-14.5); Reticulocyte Count 5.2 % (0.4-2.8); White Blood Cell Count 12.5 10^3/uL (4.8-10.8)
[2023-11-16 16:24] LABS: ALT (SGPT) 20 U/L (0-50); AST (SGOT) 39 U/L (17-59); Albumin 4.2 g/dl (3.5-5.0); Alkaline Phosphatase 82 U/L (38-126); Blood Urea Nitrogen 6 mg/dl (9-20); Calcium 9.4 mg/dl (8.4-10.2); Carbon Dioxide 24 mmol/L (22-30); Chloride 107 mmol/L (98-107); Direct Bilirubin 0.1 mg/dl (0.0-0.4); Estimated Creatinine Clearance > 125 ml/min; Glucose 96 mg/dl (70-99); Potassium 4.1 mmol/L (3.5-5.1); Sodium 140 mmol/L (135-145); Total Bilirubin 2.7 mg/dl (0.2-1.3); Total Protein 6.8 g/dl (6.3-8.2); eGFR > 60.00
[2023-11-16] MEDS: SUBUTEX 8 MG SL (20:14)
[2023-11-16] MEDS: REMERON 15 MG PO (21:52)
[2023-11-16] MEDS: DECADRON 2 MG IV (21:52)
[2023-11-16] MEDS: TORADOL 15 MG IV (21:52)
[2023-11-17] MEDS: DILAUDID 1 MG IV ×3 (01:27→07:30)
[2023-11-17 03:37] VITALS: BP 143/72
[2023-11-17] MEDS: TORADOL 15 MG IV ×4 (05:03→22:31)
--- NOTE | 2023-11-17 05:41 | W.PN.HOSP.TC ---
Addendum entered and electronically signed by Marino Sy MD 11/17/23 18:02:
States he did not get enough sleep.
NAD, resting comfortably in bed
Scleral anicteric
Moist mucous membranes
No JVD
CTA bilateral
Normal S1-S2 no murmurs
Soft nontender nondistended bowel sounds active
No peripheral pitting edema
Moves extremities spontaneously
AAOx3
scd with acute pain crises
-Outpt events intern located in [facility], Dr. Shane
-ivf
-analgesics
- -Notified him that pain meds will be decreased today verbalized understanding
-incentive dea
-peripheral smear with 2+ sickling, hyperbilirubinemia and retic count high both higher then previous
at this time without evidnece of acute chest syndrome, denies new cva symptoms and no pripasim.
- - no indication for exchange transfusion
- - -last transfusion needs was couple of months ago
Hem consulted and following
hyperK
-low K diet
Original Note:
Today's Communication/Plan
-
.
Assessment / Plan
Assessment / Plan
Mr. Pravin Guzman is a 28yo M h PSVT and sickle cell disease admitted 11/14 for a sickle cell crisis.
Microcytic Anemia
Sickle Cell Disease hx Acute Chest Syndrome w Acute Pain Crisis
- 9.6 Hb on 11/14, today is 8.7
- 24.5% hematocrit on 11/14, today is 24.5%
- 6.5% reticulocytes on 11/14, today is 5.8%
- OCC giant platelets
- PBS: polychromasia, poikilocytosis, anisocytosis, sickle cells, target cells, tear drop cells, ovalocytes, Krishnamurthy-[place] bodies
- PT 14.5s, INR 1.15
- CXR: no acute cardiopulmonary processes
- ECG: NSR, nonspecific T wave abnormality
- No evidence of acute chest syndrome at this time, denies CVA sx, no priapism
- No indication for transfusion at this time. Last transfusion 09/01/23 w PRBCs.
- Continue IV fluids, analgesia, antiemetics
- IV dilaudid d/c, started percocet. Gave 0.5mg dilaudid for break thru pain
- decadron for breakthrough nausea
- Heme consulted: supportive care, encourage buprenorphine, incentive spirometer, continue hydroxyurea
- Incentive spirometry
- Monitor Hb & reticulocytes
- Repeat CBC
Hyperkalemia
- K 5.5 on 11/15, today is 4.3
- Resolved
- Could be secondary to RBC shearing
- Lokelma given 11/14
- monitor K on CMP
Mood Disorder
- Continue current medications
- PRN seroquel or haldol for agitation
- No events of agitations or aggression thus far
DVT Prophylaxis
- enoxaparin
Code Status: FULL CODE
Diet: regular diet
Anticipated Discharge: > 48 hours
Subjective/Interval History
-
Date of Service: November 17, 2023
Mr. Pravin Guzman is a 28yo M pmh PSVT and sickle cell disease complicated by ACS from [facility] admitted 11/14 for a sickle cell crisis. Taking subutex now after encouragement last night. States his pain episodes usually last 1 week.
No acute events overnight. Not happy with medication change from IV to PO this morning.
Objective Data
-
Labs:
Laboratory Results
11/17/23
06:00
WBC Pending
Hgb Pending
Hct Pending
Plt Count Pending
Sodium Pending
Potassium Pending
Chloride Pending
Carbon Dioxide Pending
BUN Pending
Creatinine Pending
Glucose Pending
Calcium Pending
Total Bilirubin Pending
AST Pending
ALT Pending
Alkaline Phosphatase Pending
Vital Signs:
Vital Signs
Temp Pulse Resp BP Pulse Ox
98.7 F 86 18 143/72 96
11/17/23 03:37 11/17/23 03:37 11/17/23 03:37 11/17/23 03:37 11/17/23 03:37
I&O
11/15/23 11/16/23 11/17/23
06:59 06:59 06:59
Intake Total 2967 / 2967 3257 / 3257
Output Total 3700 / 3700 1200 / 1200
Balance -733 / -733 2056
Review of Systems
-
History Source: Patient
Constitutional: Reports No Symptoms
Respiratory: Reports No Symptoms
Cardiac: Reports No Symptoms
Abdomen/GI: Reports No Symptoms
Musculoskeletal: Reports Muscle Pain and Muscle Stiffness
Skin: Reports No Symptoms
Physical Exam
-
General: Well Developed and Well Nourished
HEENT: Normocephalic and Atraumatic
Respiratory: Clear to Auscultation and Non Labored Respirations; Negative Wheezes, Rales or Rhonchi
Cardiac: Regular Rhythm and S1/S2; Negative Murmur, Rub or Gallop
GI: Normal Bowel Sounds
Psych: Other
[2023-11-17] MEDS: FOLVITE 1 MG PO (07:31)
[2023-11-17] MEDS: SUBUTEX 8 MG SL ×2 (07:31→19:36)
[2023-11-17] MEDS: TYLENOL 1000 MG PO ×2 (07:31→21:21)
[2023-11-17] MEDS: PROTONIX 40 MG PO ×2 (07:31→19:36)
[2023-11-17] MEDS: HYDREA 500 MG PO (07:31)
[2023-11-17 07:50] VITALS: BP 122/63
[2023-11-17] MEDS: DECADRON 2 MG IV ×2 (10:24→21:22)
[2023-11-17] MEDS: PERCOCET 5/325 1 TABLET PO ×3 (10:24→22:31)
[2023-11-17 10:38] LABS: % Basophils 0.4 % (0-2); % Eosinophils 0.1 % (0-6); % Immature Granulocytes 1.6 % (0-0.5); % Lymphocytes 14.8 % (20.5-51.1); % Monocytes 11.7 % (1.7-9.3); % Neutrophils 71.4 % (42.2-75.2); Absolute Basophils 0.1 10^3/uL (0-0.2); Absolute Immature Granulocytes 0.3 10^3/uL (0-0.05); Absolute Lymphocytes 2.5 10^3/uL (1.2-3.4); Absolute Neutrophils 11.9 10^3/uL (1.4-6.5); Hematocrit 24.5 % (39.0-52.0); Hemoglobin 8.7 g/dL (13.0-18.0); Mean Corp Hgb Conc. 35.5 g/dL (33.0-37.0); Mean Corpuscular Hgb 26.4 pg (27.0-31.0); Mean Corpuscular Volume 74.5 fL (80.0-94.0); Mean Platelet Volume 9.8 fL (7.4-10.4); Nucleated Red Blood Cells % 3.4 % (-); Platelet Count 259 10^3/uL (130-400); Red Blood Cell Count 3.29 10^6/uL (4.70-6.10); Red Cell Dist. Width 21.4 % (11.5-14.5); Reticulocyte Count 5.8 % (0.4-2.8); White Blood Cell Count 16.6 10^3/uL (4.8-10.8)
[2023-11-17 10:49] LABS: ALT (SGPT) 24 U/L (0-50); AST (SGOT) 49 U/L (17-59); Albumin 4.5 g/dl (3.5-5.0); Alkaline Phosphatase 81 U/L (38-126); Blood Urea Nitrogen 7 mg/dl (9-20); Calcium 9.2 mg/dl (8.4-10.2); Carbon Dioxide 18 mmol/L (22-30); Chloride 105 mmol/L (98-107); Estimated Creatinine Clearance > 125 ml/min; Glucose 118 mg/dl (70-99); Potassium 4.3 mmol/L (3.5-5.1); Sodium 142 mmol/L (135-145); Total Bilirubin 2.3 mg/dl (0.2-1.3); Total Protein 7.3 g/dl (6.3-8.2); eGFR > 60.00
[2023-11-17 11:08] VITALS: BP 112/54
[2023-11-17] MEDS: DILAUDID 0.5 MG IV (11:18)
[2023-11-17] MEDS: TYLENOL 500 MG PO (15:48)
[2023-11-17] MEDS: FLEXERIL 5 MG PO ×2 (15:50→21:21)
[2023-11-17] MEDS: REMERON 15 MG PO (21:21)
[2023-11-17 23:40] VITALS: BP 120/62
[2023-11-18] MEDS: DILAUDID 0.5 MG IV ×3 (02:04→17:44)
--- NOTE | 2023-11-18 02:23 | PTCARENOTE ---
Throughout shift, pt has been verbalizing his unhappiness with the change to his pain medications today.
At approx 0200, pt rang call matheus asking if there was anything this nurse could do.. saying, 'what do you want me to do, sit here and suffer?'
NAA Fields notified, received x1 dose of 0.5mg Dilaudid - refer to [facility] for administration.
L ankle remains shackled to the bed, 2 [employer] guards present. Call jarvis within reach.
[2023-11-18] MEDS: TORADOL 15 MG IV ×2 (04:37→19:31)
[2023-11-18] MEDS: PERCOCET 5/325 1 TABLET PO ×2 (04:37→10:43)
--- NOTE | 2023-11-18 06:00 | W.PN.HOSP.TC ---
Addendum entered and electronically signed by Marino Sy MD 11/19/23 15:35:
States he did not get enough sleep.
NAD, resting comfortably in bed
Scleral anicteric
Moist mucous membranes
No JVD
CTA bilateral
Normal S1-S2 no murmurs
Soft nontender nondistended bowel sounds active
No peripheral pitting edema
Moves extremities spontaneously
AAOx3
scd with acute pain crises
-Outpt counterintelligence agent located in [facility], Dr. Shane
-ivf
-analgesics
- -Notified him that pain meds will be decreased today verbalized understanding
-incentive dea
-peripheral smear with 2+ sickling, hyperbilirubinemia and retic count high both higher then previous
at this time without evidnece of acute chest syndrome, denies new cva symptoms and no pripasim.
- - no indication for exchange transfusion
- - -last transfusion needs was couple of months ago
Hem consulted and following
hyperK
-low K diet
constipation
-start aggressive bowel reg
leukocytosis
-likely reactive to sicklign and and constipation
-monitor for fevers
-if noted started abx after bcx obtained
Original Note:
Today's Communication/Plan
-
Assessment / Plan
Assessment / Plan
Structural exam:
Region Element Somatic dysfunction
Head b/l suboccipital mm hypertonicity
Cervical spine b/l paraspinal mm hypertonicity
Thoracic spine trapezius
b/l paraspinal mm hypertonicity, tenderness
hypertonicity
Lumbar spine b/l paraspinal mm
b/l quadratus lumborum
L5 hypertonicity
warmth, tenderness (L>R), hypertonicity
FSLRL
Sacrum sacrum
R sacral sulcus R on L torsion
tenderness, warmth
Pelvis L innominate
L SI joint posterior
tenderness, restricted motion
LE b/l tibia externally rotated
UE
Ribs
Abd fascia restriction
A&P:
Mr. Pravin Guzman is a 28yo M pmh PSVT and sickle cell disease admitted 11/14 for a sickle cell crisis.
Microcytic Anemia
Sickle Cell Disease hx Acute Chest Syndrome w Acute Pain Crisis
- follows w outpt counterintelligence agent Dr. Shane in [place], [place]. outpatient f/u when able
- 9.6 Hb on 11/14, today is 17.4
- 24.5% hematocrit on 11/14, today is 26.6%
- 6.5% reticulocytes on 11/14, today is 6.2%
- OCC giant platelets
- PBS: polychromasia, poikilocytosis, anisocytosis, sickle cells, target cells, tear drop cells, ovalocytes, Krishnamurthy-Daniel bodies - no indication at this time for transfusion
- PT 14.5s, INR 1.15
- CXR: no acute cardiopulmonary processes
- ECG: NSR, nonspecific T wave abnormality
- No evidence of acute chest syndrome at this time, denies CVA sx, no priapism
- No indication for transfusion at this time. Last transfusion 09/01/23 w PRBCs.
- Continue IV fluids, analgesia, antiemetics
- IV dilaudid d/c, started percocet. Gave 0.5mg dilaudid for break thru pain
- decadron for breakthrough nausea
- Heme consulted: supportive care, encourage buprenorphine, incentive spirometer, continue hydroxyurea
- Incentive spirometry
- Monitor Hb & reticulocytes
Muscle tightness, somatic dysfunction
- flexeril
- could consider omt if pain is controlled enough for pt to tolerate. Would start with gentle techniques like MFR
Leukocytosis
- WBC 17.4
- spoke w hematology, likely due to reactive leukocytosis
- monitor w cbc
Constipation
- for 9 days
- likely secondary to slowed gi transit from subutex and other opiates
- miralax, docusate, dulcolax
Hyperkalemia
- K 5.5 on 11/15, today is 4.5
- Resolved
- Could be secondary to RBC shearing
- Lokelma given 11/14
- monitor K on CMP
Mood Disorder
- Continue current medications
- PRN seroquel or haldol for agitation
- No events of agitations or aggression thus far
DVT Prophylaxis
- enoxaparin
Code Status: FULL CODE
Diet: regular diet
Anticipated Discharge: 24 - 48 hours
Subjective/Interval History
-
Date of Service: November 18, 2023
Mr. Pravin Guzman is a 28yo M h PSVT and sickle cell disease complicated by ACS from [facility] admitted 11/14 for a sickle cell crisis. States the medications have not touched his pain. Reports last BM 9 days ago.
Objective Data
-
Labs:
Laboratory Results
11/18/23
06:00
WBC Pending
Hgb Pending
Hct Pending
Plt Count Pending
Sodium Pending
Potassium Pending
Chloride Pending
Carbon Dioxide Pending
BUN Pending
Creatinine Pending
Glucose Pending
Calcium Pending
Total Bilirubin Pending
AST Pending
ALT Pending
Alkaline Phosphatase Pending
Vital Signs:
Vital Signs
Temp Pulse Resp BP Pulse Ox
99.0 F 70 18 120/62 97
11/17/23 23:40 11/17/23 23:40 11/17/23 23:40 11/17/23 23:40 11/17/23 23:40
I&O
11/16/23 11/17/23 11/18/23
06:59 06:59 06:59
Intake Total 2967 / 2967 3497 / 3497 1440 / 1440
Output Total 3700 / 3700 3225 / 3225 1900 / 1900
Balance -733 / -733 272 / 272 -460 / -460
Review of Systems
-
History Source: Patient
All other systems: Reviewed and negative
Constitutional: Reports No Symptoms
Respiratory: Reports No Symptoms
Cardiac: Reports No Symptoms
Abdomen/GI: Reports Abdominal Pain and Constipated
Musculoskeletal: Reports Muscle Pain, Muscle Stiffness and Myalgias
Physical Exam
-
General: Well Developed, Well Nourished and Conversant
HEENT: Normocephalic, Atraumatic and Moist Mucous Membranes
Respiratory: Clear to Auscultation and Non Labored Respirations; Negative Wheezes, Rales or Rhonchi
Cardiac: Regular Rhythm and S1/S2; Negative Murmur, Rub or Gallop
GI: Tender, Distended and Other (hypoactive bowel sounds)
Musculoskeletal: No Clubbing, No Cyanosis and No Edema
[2023-11-18] MEDS: FLEXERIL 5 MG PO ×3 (07:56→22:26)
[2023-11-18 07:58] LABS: % Basophils 0.3 % (0-2); % Immature Granulocytes 1.7 % (0-0.5); % Lymphocytes 10.9 % (20.5-51.1); % Monocytes 10.4 % (1.7-9.3); % Neutrophils 76.7 % (42.2-75.2); Absolute Basophils 0.1 10^3/uL (0-0.2); Absolute Immature Granulocytes 0.3 10^3/uL (0-0.05); Absolute Lymphocytes 1.9 10^3/uL (1.2-3.4); Absolute Monocytes 1.8 10^3/uL (0.1-0.6); Absolute Neutrophils 13.3 10^3/uL (1.4-6.5); Hematocrit 26.6 % (39.0-52.0); Hemoglobin 9.4 g/dL (13.0-18.0); Mean Corp Hgb Conc. 35.3 g/dL (33.0-37.0); Mean Corpuscular Hgb 26.6 pg (27.0-31.0); Mean Corpuscular Volume 75.4 fL (80.0-94.0); Mean Platelet Volume 9.9 fL (7.4-10.4); Nucleated Red Blood Cells % 5.9 % (-); Platelet Count 302 10^3/uL (130-400); Red Blood Cell Count 3.53 10^6/uL (4.70-6.10); Reticulocyte Count 6.2 % (0.4-2.8); White Blood Cell Count 17.4 10^3/uL (4.8-10.8)
[2023-11-18] MEDS: PROTONIX 40 MG PO ×2 (07:58→19:31)
[2023-11-18] MEDS: HYDREA 500 MG PO (07:58)
[2023-11-18] MEDS: FOLVITE 1 MG PO (07:58)
[2023-11-18] MEDS: SUBUTEX 8 MG SL ×2 (07:58→19:31)
[2023-11-18] MEDS: TYLENOL 1000 MG PO ×3 (07:59→22:27)
[2023-11-18 08:00] VITALS: BP 118/68
[2023-11-18 08:36] LABS: ALT (SGPT) 38 U/L (0-50); AST (SGOT) 70 U/L (17-59); Albumin 4.5 g/dl (3.5-5.0); Alkaline Phosphatase 87 U/L (38-126); Blood Urea Nitrogen 10 mg/dl (9-20); Calcium 9.6 mg/dl (8.4-10.2); Carbon Dioxide 27 mmol/L (22-30); Chloride 102 mmol/L (98-107); Estimated Creatinine Clearance > 125 ml/min; Glucose 117 mg/dl (70-99); Potassium 4.5 mmol/L (3.5-5.1); Sodium 141 mmol/L (135-145); Total Bilirubin 2.8 mg/dl (0.2-1.3); Total Protein 7.4 g/dl (6.3-8.2); eGFR > 60.00
[2023-11-18 10:29] LABS: Creatine Phosphokinase 37 U/L (55-170)
[2023-11-18] MEDS: DECADRON 2 MG IV ×2 (10:44→22:28)
[2023-11-18] MEDS: MIRALAX 17 GRAMS PO (14:53)
[2023-11-18] MEDS: SENOKOT-S 1 TABLET PO ×2 (14:54→19:31)
[2023-11-18] MEDS: DULCOLAX 10 MG RECTAL (14:54)
[2023-11-18 16:00] VITALS: BP 114/60
[2023-11-18] MEDS: ROXICODONE 10 MG PO ×2 (17:44→22:26)
[2023-11-18] MEDS: COLACE 100 MG PO (19:31)
[2023-11-18] MEDS: REMERON 15 MG PO (22:27)
[2023-11-18 23:00] VITALS: BP 118/67
[2023-11-19] MEDS: ROXICODONE 10 MG PO ×4 (04:36→18:35)
--- NOTE | 2023-11-19 05:18 | W.PN.HOSP.TC ---
Addendum entered and electronically signed by Marino Sy MD 11/19/23 15:35:
States he did not get enough sleep.
NAD, resting comfortably in bed
Scleral anicteric
Moist mucous membranes
No JVD
CTA bilateral
Normal S1-S2 no murmurs
Soft nontender nondistended bowel sounds active
No peripheral pitting edema
Moves extremities spontaneously
AAOx3
scd with acute pain crises
-Outpt counseling specialist located in [facility], Dr. Shane
-ivf
-analgesics
- -Notified him that pain meds will be decreased today verbalized understanding
-incentive dea
-peripheral smear with 2+ sickling, hyperbilirubinemia and retic count high both higher then previous
at this time without evidnece of acute chest syndrome, denies new cva symptoms and no pripasim.
- - no indication for exchange transfusion
- - -last transfusion needs was couple of months ago
Hem consulted and following
hyperK
-low K diet
constipation
-start aggressive bowel reg
-add enema
leukocytosis
-likely reactive to sicklign and and constipation
-monitor for fevers
-if noted started abx after bcx obtained
Original Note:
Today's Communication/Plan
-
Assessment / Plan
Assessment / Plan
Structural exam:
Region Element Somatic dysfunction
Head b/l suboccipital mm hypertonicity
Cervical spine b/l paraspinal mm hypertonicity
Thoracic spine trapezius
b/l paraspinal mm hypertonicity, tenderness
hypertonicity
Lumbar spine b/l paraspinal mm
b/l quadratus lumborum
L5 hypertonicity
warmth, tenderness (L>R), hypertonicity
FSLRL
Sacrum sacrum
R sacral sulcus R on L torsion
tenderness, warmth
Pelvis L innominate
L SI joint posterior
tenderness, restricted motion
LE b/l tibia externally rotated
UE
Ribs
Abd fascia restriction
A&P:
Mr. Pravin Guzman is a 28yo M h PSVT and sickle cell disease admitted 11/14 for a sickle cell crisis.
Microcytic Anemia
Sickle Cell Disease hx Acute Chest Syndrome w Acute Pain Crisis
- follows w outpt counseling specialist Dr. Shane in [place], [place]. outpatient f/u when able
- 9.6 Hb on 11/14, today is 9.5
- 24.5% hematocrit on 11/14, today is 27.5%
- 6.5% reticulocytes on 11/14, today is 6.1%
- OCC giant platelets
- PBS: polychromasia, poikilocytosis, anisocytosis, sickle cells, target cells, tear drop cells, ovalocytes, Krishnamurthy-Aldine bodies - no indication at this time for transfusion
- PT 14.5s, INR 1.15
- CXR: no acute cardiopulmonary processes
- ECG: NSR, nonspecific T wave abnormality
- No evidence of acute chest syndrome at this time, denies CVA sx, no priapism
- No indication for transfusion at this time. Last transfusion 09/01/23 w PRBCs.
- Continue IV fluids, analgesia, antiemetics
- IV dilaudid d/c, started percocet. Gave 0.5mg dilaudid for break thru pain
- decadron for breakthrough nausea
- Heme consulted: supportive care, encourage buprenorphine, incentive spirometer, continue hydroxyurea
- Incentive spirometry
- Monitor Hb & reticulocytes
Muscle tightness, somatic dysfunction
- flexeril
- could consider omt if pain is controlled enough for pt to tolerate. Would start with gentle techniques like MFR
Leukocytosis
- WBC 14
- spoke w hematology, likely due to reactive leukocytosis. No new recommendations
- monitor w cbc
Constipation
- for 9 days
- likely secondary to slowed gi transit from subutex and other opiates
- miralax, docusate, dulcolax
- milk and molasses enema
Hyperkalemia
- K 5.5 on 11/15, today is 4.8.
- Resolved
- Could be secondary to RBC shearing
- Lokelma given 11/14
- monitor K on CMP
Mood Disorder
- Continue current medications
- PRN seroquel or haldol for agitation
- No events of agitations or aggression thus far
DVT Prophylaxis
- enoxaparin
Code Status: FULL CODE
Diet: regular diet
Anticipated Discharge: 24 - 48 hours
Subjective/Interval History
-
Date of Service: November 19, 2023
Mr. Pravin Guzman is a 28yo M h PSVT and sickle cell disease complicated by ACS from [facility] admitted 11/14 for a sickle cell crisis. States pain is the same, none of the pain medication has touched his pain. No acute events
overnight.
Objective Data
-
Labs:
Laboratory Results
11/19/23
06:00
WBC Pending
Hgb Pending
Hct Pending
Plt Count Pending
Sodium Pending
Potassium Pending
Chloride Pending
Carbon Dioxide Pending
BUN Pending
Creatinine Pending
Glucose Pending
Calcium Pending
Vital Signs:
Vital Signs
Temp Pulse Resp BP Pulse Ox
98.8 F 89 18 118/67 95
11/18/23 23:00 11/18/23 23:00 11/18/23 23:00 11/18/23 23:00 11/18/23 23:00
I&O
11/17/23 11/18/23 11/19/23
06:59 06:59 06:59
Intake Total 3497 / 3497 1440 / 1440 960 / 960
Output Total 3225 / 3225 1900 / 1900 2099 / 2099
Balance 272 / 272 -460 / -460 -1140 / -1140
Review of Systems
-
History Source: Patient
Constitutional: Denies Fever or Chills
Respiratory: Reports No Symptoms
Cardiac: Reports No Symptoms
Abdomen/GI: Reports Constipated; Denies Nausea, Vomiting or Diarrhea
Physical Exam
-
General: Well Developed, Well Nourished and Conversant
Skin: Warm and Dry
Psych: Other (Pt appeared lethargic, started asking orientation questions. Pt's demeaner immediately changed, to defensive/offended. Sat up, spoke clearly, appears judgement is intact.)
[2023-11-19] MEDS: TORADOL 15 MG IV (05:31)
[2023-11-19 07:37] VITALS: BP 110/63
[2023-11-19] MEDS: PROTONIX 40 MG PO ×2 (08:45→19:47)
[2023-11-19] MEDS: SENOKOT-S 1 TABLET PO ×2 (08:45→19:47)
[2023-11-19] MEDS: TYLENOL 1000 MG PO ×2 (08:45→16:34)
[2023-11-19] MEDS: FOLVITE 1 MG PO (08:45)
[2023-11-19] MEDS: COLACE 100 MG PO (08:45)
[2023-11-19] MEDS: MIRALAX 17 GRAMS PO ×2 (08:46→19:47)
[2023-11-19] MEDS: HYDREA 500 MG PO (08:46)
[2023-11-19] MEDS: FLEXERIL 5 MG PO ×2 (08:49→16:34)
[2023-11-19] MEDS: SUBUTEX 8 MG SL ×2 (08:50→19:47)
[2023-11-19 09:27] LABS: % Basophils 0.2 % (0-2); % Immature Granulocytes 0.8 % (0-0.5); % Lymphocytes 21.5 % (20.5-51.1); % Neutrophils 64.5 % (42.2-75.2); Absolute Immature Granulocytes 0.1 10^3/uL (0-0.05); Absolute Monocytes 1.8 10^3/uL (0.1-0.6); Hematocrit 27.5 % (39.0-52.0); Hemoglobin 9.5 g/dL (13.0-18.0); Mean Corp Hgb Conc. 34.5 g/dL (33.0-37.0); Mean Corpuscular Volume 75.1 fL (80.0-94.0); Mean Platelet Volume 9.9 fL (7.4-10.4); Nucleated Red Blood Cells % 6.9 % (-); Platelet Count 321 10^3/uL (130-400); Red Blood Cell Count 3.66 10^6/uL (4.70-6.10); Red Cell Dist. Width 20.4 % (11.5-14.5); Reticulocyte Count 6.1 % (0.4-2.8)
[2023-11-19 10:46] LABS: Blood Urea Nitrogen 12 mg/dl (9-20); Calcium 9.4 mg/dl (8.4-10.2); Carbon Dioxide 27 mmol/L (22-30); Chloride 99 mmol/L (98-107); Estimated Creatinine Clearance > 125 ml/min; Glucose 97 mg/dl (70-99); Potassium 4.8 mmol/L (3.5-5.1); Sodium 139 mmol/L (135-145); eGFR > 60.00
[2023-11-19] MEDS: DECADRON 2 MG IV (11:07)
[2023-11-19] MEDS: FLEET MINERAL OIL ENEMA 133 ML RECTAL (13:28)
[2023-11-19 14:42] VITALS: BP 118/65
--- NOTE | 2023-11-19 17:54 | W.DCSUMMARY ---
Discharge Summary
Discharge Data
Date of Admission: 11/15/23
Date of Discharge: 11/19/23
-
Pending Results: No
Hospital Course
Mr. Pravin Guzman is a 28yo M h PSVT and sickle cell disease and opioid misuse admitted 11/14 for a sickle cell crisis. Hematology consulted on 11/15, recommended continuing hydroxyurea, pain management, and IVF. Pt given dilaudid, percocet,
oxycodone throughout his stay for his pain crises. Refused his subutex, but was convinced to retake it so he would not experience breakthrough pain. Reports his pain did not improve with any of these. Nurse reports of pt smirking after being given
pain medicine, sitting laughing at the TV. Pt appeared lethargic this morning. Began asking orientation questions. Pt's lethargy vanished, and he was confrontational regarding being questioned like this. Had not pooped for 11 days. Miralax,
docusate, senna given. Pt frustrated this did nothing in 1 day, so he requested an enema. Refused milk and molasses enema, stated he would try it after a fleet enema. Upset that the fleet enema did not work and refused the milk and molasses enema.
Spoke with him with Dr. Ackerman and he agreed to the enema if he could do it himself. Dr. Ackerman and I assisted the pt to ensure he took the enema. Had a bowel movement. Pt is stable at this time
Discharge Plan
-
Patient Disposition: Correction
Discharge Diagnosis/Procedures: Sickle Cell Crisis, Constipation
Condition: Good
Additional Diets: High fiber diet
Instructions: Constipation in adults, Dealing with Constipation from the Drugs You Take, High-fiber diet, Sickle cell disease pain in adults - Discharge instructions
Referrals:
[facility] [Family Provider] -
Prescriptions:
Continued
hydroxyurea 500 mg Capsule
500 mg PO DAILY
folic acid 1 mg Tablet
1 mg PO DAILY
ibuprofen 600 mg Tablet
600 mg PO BIDPRN PRN (Reason: mild pain)
tolnaftate [Antifungal (tolnaftate)] 1 % Cream
1 applic TOPICAL BID
Patient Comments:
09/25/2023: mix with Hydrocortisone 1% and apply to tip of penis
famotidine 20 mg Tablet
20 mg PO BIDPRN PRN (Reason: acid reflux/heartburn/gi issues)
hydrocortisone 1 % Cream
1 applic TOPICAL BID
Patient Comments:
09/25/2023: mix with Antifungal 1% and apply to tip of penis
polyethylene glycol 3350 [Gavilax] 17 gram powder in packet
17 g PO DAILYPRN PRN (Reason: Constipation)
prednisone 10 mg Tablet
10 mg PO DAILY
acetaminophen 500 mg Tablet
1,000 mg PO TID PRN (Reason: pain)
triamcinolone acetonide 0.1 % Ointment
1 applic TOPICAL BID
omeprazole 20 mg Tablet,Delayed Release (Dr/Ec)
20 mg PO BID
bisacodyl [Dulcolax (bisacodyl)] 10 mg Suppository
10 mg SD DAILY PRN (Reason: constipation)
buprenorphine HCl 8 mg Tablet, Sublingual
16 mg SUBLINGUAL DAILY
mirtazapine 15 mg Tablet
15 mg PO HS
Discharge Date and Time
Print Language: ZAMBIAN
[2023-11-19] MEDS: NEURONTIN 100 MG PO (18:34)
--- NOTE | 2023-11-19 19:57 | PTCARENOTE ---
Assumed care of patient from previous RN, patient up for discharge back to custodial satinder. 20:00pm medications provided to patient. IV removed from Right foot. Assessment unchanged. DCd with 4 guards present.
== END 2023-11-19 20:09 | DRG 812 ==
LOC: 3 WEST ACU 05:06
PROVIDERS: ADMITTING PHYSICIAN Hospitalist; ATTENDING PHYSICIAN Hospitalist; CONSULT PHYSICIAN Internal Medicine Hematology & Oncology; EMERGENCY PHYSICIAN Student in an Organized Health Care Education/Training Program
DX: D57.00 Hb-SS disease with crisis, unspecified (principal); F39 Unspecified mood [affective] disorder; K59.03 Drug induced constipation; E87.5 Hyperkalemia; D50.9 Iron deficiency anemia, unspecified; T50.915A Adverse effect of multiple unspecified drugs, medicaments and biological substances, initial encounter; Z79.899 Other long term (current) drug therapy; Z79.52 Long term (current) use of systemic steroids; Z88.5 Allergy status to narcotic agent
CPT/HCPCS: 71046; 80048; 80053; 82248; 82550; 83690; 85025; 85027; 85045; 85610; 87811; 93005; 96361; 96374; 96376; 99285

== ENCOUNTER 2023-11-22 01:05 | Inpatient (IN) | payer OTHER, SELFPAY ==
[2023-11-21 20:28] VITALS: BP 126/84
[2023-11-21 20:30] VITALS: BP 126/84
[2023-11-21] MEDS: DILAUDID 1 MG IV ×4 (21:07→23:51)
[2023-11-21] MEDS: NSS 1000 IV ×2 (21:08→23:53)
--- NOTE | 2023-11-21 21:09 | ED.GENMED ---
History of Present Illness
General
Chief Complaint: Back Pain
Source: patient, records and police
Exam Limitations: none
Time Seen by Provider: 11/21/23 20:28
Nursing documentation reviewed up to this point in time: agreed with
History of Present Illness
History of Present Illness:
28-year-old male with past medical history of sickle cell disease who presents to the emergency department from [facility] for evaluation of whole body pain consistent with prior sickle cell pain crises. Patient reports
symptoms have been increasing over the past few days. Notably was just admitted to this hospital and discharged 2 days ago for sickle cell pain crisis. He reports pain in his extremities, back, chest. Much of the pain focused in the left hip and
chest. No fever noted. He says he normally takes oxycodone 20 mg 4 times daily for pain.
Past History
Past History
ED Past Medical History: Other (Sickle cell disease)
ED Past Surgical History: Cholecystectomy
Social History
Tobacco: Non-smoker
Alcohol: None
Drug: None
Living: senior living
Review of Systems
Review of Systems
All Other Systems: ROS reviewed and negative except as documented in HPI and ROS
Constitutional: Denies fever
Respiratory: Denies trouble breathing
Cardiac: Reports chest pain
ABD/GI: Denies abdominal pain or nausea
Musculoskeletal: Reports joint pain and muscle pain
Neurological: Denies headache
Phy Exam
Physical Exam
Physical Exam:
General: Awake, alert, laying in stretcher moaning in pain
Head: Normocephalic, atraumatic
Eyes: Conjunctiva normal, sclera anicteric
Throat: Airway intact, mucous membranes slightly dry
Neck: Trachea midline, no JVD
Lungs: Clear to auscultation bilaterally, no wheezing, rales, rhonchi
Heart: Regular rate and rhythm, no murmurs, gallops, or rubs
Abd: Soft, non distended, nontender
Neuro: No gross deficits
Skin: no rash
Extremities: No edema in extremities, equal pulses in all extremities, distal extremities are warm and well-perfused with brisk capillary refill
Scores
Heart Failure Risk
Heart Failure Risk Score: Not Applicable
Heart Score for Chest Pain Patients
STEMI patient?: Not applicable
Withdrawal Assessment of Alcohol
Withdrawal Assessment Completed?: Not applicable
Course
Orders/Labs/Results
Orders:
Orders
11/21/23 20:31
0.9% Sodium Chloride 1000 ml [Nss] 1,000 ml IV BOLUS
HYDROmorphone [Dilaudid] 1 mg IV NOW STA
11/21/23 21:03
Complete Blood Count/With Diff Urgent
Comprehensive Metabolic Panel Urgent
Reticulocyte Count Urgent
Troponin I Urgent
Comment: ADDON
11/21/23 21:08
HYDROmorphone [Dilaudid] 1 mg IV PRN PRN
11/21/23 21:10
CR Chest Portable - 1 View Urgent
Comment:
Reason For Exam: sickle cell crisis
Reason Study Needs to be Portable: Unable to Transport
11/21/23 22:08
HYDROmorphone [Dilaudid] 1 mg IV NOW STA
11/21/23 22:34
Electrocardiogram (*1) Urgent
Reason for Study: Chest Pain
EKG- Treatment ONCE
11/21/23 22:45
CR Hip - RT w/wo Pel 2-3 Vw* Urgent
Comment:
Reason For Exam: right hip pain, SCC
Include a pelvis x-ray?: Yes
11/21/23 22:48
Add On- LAB Urgent
Tests Added?: troponin
11/21/23 22:54
Ketamine 24 mg 0.9% Sodium Chloride 50 ml [Nss] 50 ml IV NOW
Abnormal Lab Results
11/21/23
21:03
WBC 17.5 H 10^3/uL
(4.8-10.8)
RBC 3.67 L 10^6/uL
(4.70-6.10)
Hgb 9.3 L g/dL
(13.0-18.0)
Hct 26.4 L %
(39.0-52.0)
MCV 71.2 L fL
(80.0-94.0)
MCH 24.8 L pg
(27.0-31.0)
RDW 20.4 H %
(11.5-14.5)
Plt Count 480 H D 10^3/uL
(130-400)
Abs Immat Gran (auto) 0.2 H 10^3/uL
(0-0.05)
Absolute Neuts (auto) 12.9 H 10^3/uL
(1.4-6.5)
Absolute Monos (auto) 2.0 H 10^3/uL
(0.1-0.6)
Immature Gran % 0.9 H %
(0-0.5)
Lymphocytes % 13.3 L %
(20.5-51.1)
Monocytes % 11.2 H %
(1.7-9.3)
Retic Count 5.5 H %
(0.4-2.8)
Chloride 97 L mmol/L
(98-107)
Glucose 102 H mg/dl
(70-99)
Total Bilirubin 3.3 H mg/dl
(0.2-1.3)
AST 107 H U/L
(17-59)
ALT 123 H U/L
(0-50)
Alkaline Phosphatase 199 H U/L
(38-126)
Total Protein 8.3 H g/dl
(6.3-8.2)
11/21/23 21:03
11/21/23 21:03
Vital Signs
Initial and Last Documented VS:
Initial Vital Signs
Temp Pulse Resp BP Pulse Ox
37.2 C 111 20 126/84 97
11/21/23 20:28 11/21/23 20:28 11/21/23 20:28 11/21/23 20:28 11/21/23 20:28
Last Documented Vital Signs
Temp Pulse Resp BP Pulse Ox
37.9 C 116 14 138/67 100
11/21/23 21:54 11/21/23 21:54 11/21/23 21:54 11/21/23 21:54 11/21/23 21:54
Procedures
IV Access
Indication: Emergent access required, RN unable to obtain and Physician skill needed
Performed by:: Navneet Jay MD
Site:: right forearm (radial vein)
Gauge:: 20G
Ultrasound Guidance: Yes
MDM/Problems Addressed
Differential Diagnosis Includes:
Sickle cell pain crisis, acute chest syndrome
MDM/Problems Addressed:
28-year-old male presents with whole body pain consistent with prior sickle cell crises. Admission for similar discharged 2 days ago. Vitals significant for tachycardia otherwise unremarkable. He has no fever. He has a normal pulse ox on room
air. Physical exam as above. IV placed by me in the right forearm. Labs sent off including a CBC and a CMP, reticulocyte count. Will check an EKG and a chest x-ray. Check x-ray of the hip. Treat with fluids, oxygen, pain control. Reassess
after the above.
Labs reviewed: Stable chronic anemia, leukocytosis to 17.5 likely at least in part due to hemoconcentration�platelet count also elevated at 480. He has elevated T. bili to 3.3 which is chronic. Mild transaminitis�he is already status
postcholecystectomy as a teenager, likely related to current vaso-occlusive crisis. He has no fever or upper abdominal tenderness. Fluids are in progress. Chest x-ray shows no acute disease although somewhat rotated�at this point clinical picture
does not support diagnosis of acute chest syndrome. Patient still having pain will repeat Dilaudid.
Patient still having pain, given third dose of Dilaudid.
Patient still having significant pain. Can trial some low-dose ketamine as an adjunct.
Patient declined ketamine, says that it makes him hallucinate and does not work. Redose with Dilaudid. I think he warrants admission for continued treatment of acute vaso-occlusive pain crisis. Case discussed with hospitalist.
Chronic conditions affecting care:
Sickle cell disease
*Radiology
Radiology exam reviewed: preliminary read by ED provider
*Pulse Oximetry
Patient hypoxic: no
*EKG
Interpreted by ED Provider?: Yes
Heart Rate: 118
Rate: tachycardiac
Rhythm: sinus
[place]: normal axis
Interval: normal interval
QRS Pattern: normal QRS
Ischemia: no ischemia
*Critical Care Note
Total Time (30-74mins, 75-104mins- exclusive of procedures): Not Applicable
Data Reviewed
Review of Other/Old Records Reveals: Labs and Records
Source: patient and records
Patient Management
Discussion with other providers: Hospitalist (Discussed with hospitalist)
Escalation/DeEscalation of care consider admission/obs:
Admission indicated
ED Attending Note
-
Portions of this chart may have been created with voice recognition software.� Occasional wrong word or��sound alike� substitutions may have occurred due to the inherent limitations of voice recognition software.
Discharge Plan
Departure
Admit to doctor: Herbert
Presentation/result/management discussed w/ accepting MD/DO: Hospitalist
Patient with high blood pressure during this ER visit?: No
Discharge Problem:
Sickle cell pain crisis
Prescriptions:
No Action
hydroxyurea 500 mg Capsule
500 mg PO DAILY
folic acid 1 mg Tablet
1 mg PO DAILY
ibuprofen 600 mg Tablet
600 mg PO BIDPRN PRN (Reason: mild pain)
tolnaftate [Antifungal (tolnaftate)] 1 % Cream
1 applic TOPICAL BID
Patient Comments:
09/25/2023: mix with Hydrocortisone 1% and apply to tip of penis
famotidine 20 mg Tablet
20 mg PO BIDPRN PRN (Reason: acid reflux/heartburn/gi issues)
hydrocortisone 1 % Cream
1 applic TOPICAL BID
Patient Comments:
09/25/2023: mix with Antifungal 1% and apply to tip of penis
polyethylene glycol 3350 [Gavilax] 17 gram powder in packet
17 g PO DAILYPRN PRN (Reason: Constipation)
prednisone 10 mg Tablet
10 mg PO DAILY
acetaminophen 500 mg Tablet
1,000 mg PO TID PRN (Reason: pain)
triamcinolone acetonide 0.1 % Ointment
1 applic TOPICAL BID
omeprazole 20 mg Tablet,Delayed Release (Dr/Ec)
20 mg PO BID
bisacodyl [Dulcolax (bisacodyl)] 10 mg Suppository
10 mg DC DAILY PRN (Reason: constipation)
buprenorphine HCl 8 mg Tablet, Sublingual
16 mg SUBLINGUAL DAILY
mirtazapine 15 mg Tablet
15 mg PO HS
Referrals:
[facility] [Family Provider] -
Interventions
Interventions:
*Risk Screen - Suicide Last Done: 11/21/23 20:30
*General Assessment Last Done: 11/21/23 20:30
*Neglect/Abuse Screening Last Done: 11/21/23 20:30
ED- Fall Risk Assessment Last Done: 11/21/23 21:45
*ED COVID-19 Vaccine History Last Done: 11/21/23 20:31
ED-Musculoskeletal Assessment Last Done: 11/21/23 21:45
Discharge Date and Time
Print Language: KAZAKH
[2023-11-21 21:25] LABS: % Basophils 0.5 % (0-2); % Eosinophils 0.3 % (0-6); % Immature Granulocytes 0.9 % (0-0.5); % Lymphocytes 13.3 % (20.5-51.1); % Monocytes 11.2 % (1.7-9.3); % Neutrophils 73.7 % (42.2-75.2); Absolute Basophils 0.1 10^3/uL (0-0.2); Absolute Eosinophils 0.1 10^3/uL (0-0.7); Absolute Immature Granulocytes 0.2 10^3/uL (0-0.05); Absolute Lymphocytes 2.3 10^3/uL (1.2-3.4); Absolute Neutrophils 12.9 10^3/uL (1.4-6.5); Hematocrit 26.4 % (39.0-52.0); Hemoglobin 9.3 g/dL (13.0-18.0); Mean Corp Hgb Conc. 34.8 g/dL (33.0-37.0); Mean Corpuscular Hgb 24.8 pg (27.0-31.0); Mean Corpuscular Volume 71.2 fL (80.0-94.0); Mean Platelet Volume 9.8 fL (7.4-10.4); Nucleated Red Blood Cells % 1.8 % (-); Platelet Count 480 10^3/uL (130-400); Red Blood Cell Count 3.67 10^6/uL (4.70-6.10); Red Cell Dist. Width 20.4 % (11.5-14.5); Reticulocyte Count 5.5 % (0.4-2.8); White Blood Cell Count 17.5 10^3/uL (4.8-10.8)
[2023-11-21 21:32] LABS: ALT (SGPT) 123 U/L (0-50); AST (SGOT) 107 U/L (17-59); Albumin 4.9 g/dl (3.5-5.0); Alkaline Phosphatase 199 U/L (38-126); Blood Urea Nitrogen 12 mg/dl (9-20); Calcium 9.9 mg/dl (8.4-10.2); Carbon Dioxide 25 mmol/L (22-30); Chloride 97 mmol/L (98-107); Estimated Creatinine Clearance > 125 ml/min; Glucose 102 mg/dl (70-99); Potassium 4.2 mmol/L (3.5-5.1); Sodium 139 mmol/L (135-145); Total Bilirubin 3.3 mg/dl (0.2-1.3); Total Protein 8.3 g/dl (6.3-8.2); eGFR > 60.00
[2023-11-21 21:50] VITALS: BP 138/67
[2023-11-21 21:54] VITALS: BP 138/67
[2023-11-21 23:21] LABS: Troponin I < 0.012 ng/ml
[2023-11-21 23:32] VITALS: BP 126/61
[2023-11-21 23:55] VITALS: BP 130/68
[2023-11-22] VITALS: BP 118/64
--- NOTE | 2023-11-22 00:43 | HPS.HSE ---
Family Physician
-
Family Physician: Facility [facility]
Chief Complaint
-
Back pain
History of Present Illness
This is a 28-year-old male with past medical history of sickle cell disease who presents to the emergency department from [facility] for evaluation of whole body pain consistent with prior sickle cell pain crises.
Patient admitted to the hospital and discharged 2 days ago for sickle cell pain crisis. He reports pain in his extremities, back, chest. Much of the pain focused in the left hip and chest. He denied any fever chills or shortness of breath. He
denies any palpitations lightheadedness or dizziness. He says he normally takes oxycodone 20 mg 4 times daily for pain.
In the emergency department he was agitated but otherwise hemodynamically stable with a blood pressure of 126/61. He was tachycardic to 116. He was afebrile. Oxygen saturation was 98% on room air. Chest x-ray showed no acute infiltrates. ECG
she ECG shows a sinus tachycardia. Troponin was negative. White count was 70,000 hemoglobin 9.3 and a platelet of 480. His reticulocyte count was 5.5. His total bilirubin was 3.3 AST and ALT slightly increased at 102 and 02/23/1992 respectively.
Electrolytes BUN/creatinine were unchanged from prior and within normal limits.
Medical History
Past Medical History
Past Medical History: Reports Other (Sickle cell anemia)
Past Surgical History: Reports None
Social History
Tobacco: Non-smoker
Alcohol: None
Drug: None
Personal: Single
Living: Assisted
Employment: Not Employed
Family History
Family History: Not pertinent
Allergies / Home Medications
Allergies reflects when Allergies were last updated in [employer].
Home Medications with original date entered in [employer]
Allergy/Medication List:
Allergies
Allergy/AdvReac Type Severity Reaction Status Date / Time
morphine Allergy Anaphylaxis Verified 11/15/23 01:10
Home Medications
folic acid 1 mg tablet 1 mg PO DAILY Supplement 08/28/23
hydroxyurea 500 mg capsule 500 mg PO DAILY sickle cell anemia 08/28/23
ibuprofen 600 mg tablet 600 mg PO BIDPRN PRN mild pain 08/28/23
famotidine 20 mg tablet 20 mg PO BIDPRN PRN acid reflux/heartburn/gi issues 09/25/23
hydrocortisone 1 % topical cream 1 applic topical BID Skin Issues 09/25/23
polyethylene glycol 3350 17 gram oral powder packet (Gavilax) 17 g PO DAILYPRN PRN Constipation 09/25/23
tolnaftate 1 % topical cream (Antifungal (tolnaftate)) 1 applic topical BID Skin Issues 09/25/23
acetaminophen 500 mg tablet 1,000 mg PO TID PRN pain 10/13/23
bisacodyl 10 mg rectal suppository (Dulcolax (bisacodyl)) 10 mg LA DAILY PRN constipation 10/13/23
omeprazole 20 mg tablet,delayed release 20 mg PO BID Gastrointestinal Issue 10/13/23
prednisone 10 mg tablet 10 mg PO DAILY Anti-Inflammatory 10/13/23
triamcinolone acetonide 0.1 % topical ointment 1 applic topical BID Skin Issues 10/13/23
buprenorphine HCl 8 mg sublingual tablet 16 mg sublingual DAILY withdrawal 10/14/23
mirtazapine 15 mg tablet 15 mg PO HS Depression 11/15/23
Review of Systems
-
History Source: Patient
Constitutional: Reports No Symptoms
EENT: Reports No Symptoms
Respiratory: Reports No Symptoms
Cardiac: Reports Chest Pain
Abdomen/GI: Reports Abdominal Pain
: Reports No Symptoms
Musculoskeletal: Reports Joint Pain
Skin: Reports No Symptoms
Neurological: Reports No Symptoms
Endocrine: Reports No Symptoms
Hematologic/Lymphatic: Reports No Symptoms
Psych: Reports No Symptoms
Physical Exam
Vital Signs
Vital Signs
Temp Pulse Resp BP Pulse Ox
100.2 F 116 14 126/61 98
11/21/23 21:54 11/21/23 21:54 11/21/23 21:54 11/21/23 23:32 11/21/23 23:32
Physical Exam
General: Appears in Distress
HEENT: NormoCephalic, Anicteric, Moist mucous membranes and Atraumatic
Respiratory: Clear
Cardiac: S1/S2, Regular Rhythm and Tachycardia
Breast: Deferred by me
GI: Soft, Non Distended, Normal Bowel Sounds and Tender
Rectal: Deferred by Provider
Genito-urinary: Deferred by me
Musculoskeletal: No Clubbing and No Edema
Skin: Warm
Neuro: AO x 3
Hematologic/Lymphatic: No Lymphadenopathy
Psych: Agitated
Laboratory Results
-
11/21/23 21:03
11/21/23 21:03
Laboratory Results
Total Bilirubin 3.3 mg/dl (0.2-1.3) H 11/21/23 21:03
AST 107 U/L (17-59) H 11/21/23 21:03
ALT 123 U/L (0-50) H 11/21/23 21:03
Alkaline Phosphatase 199 U/L (38-126) H 11/21/23 21:03
Troponin I < 0.012 ng/ml 11/21/23 21:03
Data Reviewed
-
Diagnostic Radiology: Image Personally Visualized and interpreted
Medical Tests (Nuc Med, Echo, EKG etc): Image Personally Visualized and interpreted
Lab Data: Labs Reviewed by me
Old Records: Reviewed
Impression/Plan
-
IMPRESSION:
Patient is a 28y M with PMH significant fro sickle cell disease who presents with diffuse generalized pain that started this evening. No shortness of breath, hypoxia.
Plan -
Sickle Cell Disease with Acute Pain Episode - Sickle cell crises without acute chest syndrome. Recently discharged.
- Admit to med surg.
- IVFs, IV narcotic pain medications and follow for clinical improvement.
- Continue outpatient buprenorphine
- Hgb is stable / at baseline. Retic within expected range for his degree of anemia.
- Follow H&H / cell counts for any changes - no role for transfusion at present.
- hematology consult
Mood Disorder
- Continue current med regimen including mirtazapine.
- PRN quetiapine or Haldol for agitation.
DVT Prophylaxis: Lovenox
Code Status: Full
[2023-11-22] MEDS: NSS IV ×4 (01:12→20:50)
[2023-11-22 02:29] VITALS: BP 116/61
[2023-11-22] MEDS: DILAUDID 1 MG IV ×7 (02:52→23:17)
--- NOTE | 2023-11-22 03:24 | EDRN ---
[facility],meds confirmed,but no info on last taken.
[2023-11-22] MEDS: TYLENOL 650 MG PO ×6 (04:04→23:16)
[2023-11-22] MEDS: NSS 1000 IV ×3 (06:02→20:16)
[2023-11-22 07:43] VITALS: BP 127/76
[2023-11-22 09:16] LABS: Hematocrit 26.2 % (39.0-52.0); Hemoglobin 9.2 g/dL (13.0-18.0); Mean Corp Hgb Conc. 35.1 g/dL (33.0-37.0); Mean Corpuscular Hgb 24.6 pg (27.0-31.0); Mean Corpuscular Volume 70.1 fL (80.0-94.0); Mean Platelet Volume 9.7 fL (7.4-10.4); Platelet Count 378 10^3/uL (130-400); Red Blood Cell Count 3.74 10^6/uL (4.70-6.10)
[2023-11-22] MEDS: PROTONIX 40 MG PO ×2 (09:24→20:18)
[2023-11-22] MEDS: FOLVITE 1 MG PO (09:24)
[2023-11-22] MEDS: HYDREA 500 MG PO (09:38)
[2023-11-22 09:56] LABS: Blood Urea Nitrogen 10 mg/dl (9-20); Calcium 9.7 mg/dl (8.4-10.2); Carbon Dioxide 22 mmol/L (22-30); Chloride 99 mmol/L (98-107); Estimated Creatinine Clearance > 125 ml/min; Glucose 100 mg/dl (70-99); Potassium 4.6 mmol/L (3.5-5.1); Sodium 137 mmol/L (135-145); eGFR > 60.00
[2023-11-22 11:35] LABS: INR 1.19; PT 14.9 Sec (11.4-14.6)
[2023-11-22] MEDS: DILAUDID 2 MG PO ×3 (12:45→23:17)
--- NOTE | 2023-11-22 14:24 | CON.ONC ---
Impression
Impression
sickle cell disease
sickle cell pain crisis
anemia
Plan
Plan
Sickle cell disease w/ pain crisis
-hemoglobin > 9g/dl today
-check CBC and retic count daily
-cont supportive care w/ oxygen / hydration
-cont analgesia
-hydrea/ folic acid
-monitor respiratory symptoms closely
-consider MRI hip to further suspected avascular necrosis noted on xray -may need ortho consult
Patient History
History of Present Illness
28y/o male seen in hematology consultation today regarding sickle cell disease. He presented from [facility] with report of 'whole body pain.' He tells me that these symptoms are consistent with typical vaso-occlusive
crisis. He is using hydromorphone IV prn pain. He is unable to identify any triggering events leading up to this crisis.
He usually resides in [place], [place] but is currently incarcerated in [facility]. He last saw his [employer] in [place], Dr. Ball, about 3-4 months ago. He apparently gets admitted about 4 times a year with crises, w/ his baseline hgb is ~
9.5-10.0. He is currently on hydrea; however, was on Voxelotor in the past, while residing in [place]. he has not been able to get Voxelotor since leaving [place]. He takes folic acid 1 mg daily.
He presented yesterday to the [facility] acute pain crisis. He notes pain is slightly better controlled today on dilaudid 2mg every 3 hours.
He denies SOB at rest or chest pain. His pain is primarily in his legs and hips/ back. CXR in the ER was unremarkable. Only a single view of the right hip be obtained due to severe pain. No fracture or dislocation is appreciated. Sclerosis is seen
within the right femoral head, which may related to avascular necrosis.
Tmax 100.2F, no hypotension or hypoxia
Past-Medical/Surgical History
PMH:
sickle cell disease
DVT - not on anticoagulation
pneumonia - 09/14
SH: no tobacco, no ETOH
FH: sickle cell
Patient Medication
�Medication �Instructions �Recorded �Confirmed �Last Taken �Type
folic acid 1 mg tablet 1 mg PO DAILY Supplement 08/28/23 11/22/23 09/02/23 08:00 History
hydroxyurea 500 mg capsule 500 mg PO DAILY sickle cell anemia 08/28/23 11/22/23 09/02/23 08:00 History
ibuprofen 600 mg tablet 600 mg PO BIDPRN PRN mild pain 08/28/23 11/22/23 09/02/23 08:00 History
famotidine 20 mg tablet 20 mg PO BIDPRN PRN acid 09/25/23 11/22/23 Unknown History
reflux/heartburn/gi issues
hydrocortisone 1 % topical cream 1 applic topical BID Skin Issues 09/25/23 11/22/23 Unknown History
polyethylene glycol 3350 17 gram 17 g PO DAILYPRN PRN Constipation 09/25/23 11/22/23 Unknown History
oral powder packet (Gavilax)
tolnaftate 1 % topical cream 1 applic topical BID Skin Issues 09/25/23 11/22/23 Unknown History
(Antifungal (tolnaftate))
acetaminophen 500 mg tablet 1,000 mg PO TID PRN pain 10/13/23 11/22/23 Unknown History
bisacodyl 10 mg rectal suppository 10 mg AK DAILY PRN constipation 10/13/23 11/22/23 Unknown History
(Dulcolax (bisacodyl))
omeprazole 20 mg tablet,delayed 20 mg PO BID Gastrointestinal Issue 10/13/23 11/22/23 Unknown History
release
prednisone 10 mg tablet 10 mg PO DAILY Anti-Inflammatory 10/13/23 11/22/23 Unknown History
triamcinolone acetonide 0.1 % 1 applic topical BID Skin Issues 10/13/23 11/22/23 Unknown History
topical ointment
buprenorphine HCl 8 mg sublingual 16 mg sublingual DAILY withdrawal 10/14/23 11/22/23 Unknown History
tablet
mirtazapine 15 mg tablet 15 mg PO HS Depression 11/15/23 11/22/23 Unknown History
Active Medications
Generic Name Dose Route Start Last Admin
Trade Name Freq PRN Reason Stop Dose Admin
Acetaminophen 650 mg 11/22/23 04:00 11/22/23 12:45
Acetaminophen 325 Mg Tablet PO 12/20/23 03:59 650 mg
Q4HWA SKYLER Administration
Bisacodyl 10 mg 11/22/23 00:40
Bisacodyl 10 Mg Rectal Suppository RECTAL 12/20/23 00:39
[id number] PRN
constipation
Buprenorphine 16 mg 11/22/23 08:00 11/22/23 09:25
Buprenorphine 8 Mg Sl Tablet SL 12/06/23 07:59 Not Given
DAILY SKYLER
Enoxaparin Sodium 40 mg 11/22/23 18:00
Enoxaparin Sodium 40 Mg/0.4 Ml Syringe SC 12/20/23 17:59
QPM SKYLER
Famotidine 20 mg 11/22/23 00:39
Famotidine 20 Mg Tablet PO 12/20/23 00:38
BIDPRN PRN
acid reflux/heartburn/gi issue
Folic Acid 1 mg 11/22/23 08:00 11/22/23 09:24
Folic Acid 1 Mg Tablet PO 12/20/23 07:59 1 mg
DAILY SKYLER Administration
Hydromorphone HCl 1 mg 11/22/23 00:40 11/22/23 13:58
Hydromorphone 0.5 Mg/0.5 Ml Syringe IV 12/06/23 00:39 1 mg
Q3HPRN PRN Administration
severe pain
Hydromorphone HCl 2 mg 11/22/23 12:00 11/22/23 12:45
Hydromorphone 2 Mg Tablet PO 12/06/23 11:59 2 mg
Q6H SKYLER Administration
Hydroxyurea 500 mg 11/22/23 08:00 11/22/23 09:38
Hydroxyurea 500 Mg Capsule PO 12/20/23 07:59 500 mg
DAILY SKYLER Administration
Sodium Chloride 1,000 mls @ 150 mls/hr 11/21/23 23:45 11/22/23 12:47
Nss IV 1,000 mls
.Q6H40M SKYLER Administration
Sodium Chloride 1,000 mls @ 150 mls/hr 11/22/23 00:45 11/22/23 14:07
Nss IV Not Given
.Q6H40M SKYLER
Mirtazapine 15 mg 11/22/23 22:00
Mirtazapine 15 Mg Regular Release Tablet PO 12/20/23 21:59
HS SKYLER
Ondansetron HCl 4 mg 11/22/23 00:40
Ondansetron 4 Mg/2 Ml Vial IV 12/20/23 00:39
Q6HPRN PRN
nausea and vomiting
Pantoprazole Sodium 40 mg 11/22/23 08:00 11/22/23 09:24
Pantoprazole 40 Mg Delayed Release Tablet PO 12/20/23 07:59 40 mg
BID SKYLER Administration
Polyethylene Glycol 17 grams 11/22/23 00:40
Polyethylene Glycol Powder 17 Grams Packet PO 12/20/23 00:39
DAILYPRN PRN
constipation
Senna/Docusate Sodium 1 tablet 11/22/23 20:00
Docusate W/Senna (Lulu-Colace) Tablet PO 12/20/23 19:59
BID SKYLER
Sodium Chloride 0 flush 11/22/23 02:00
Sodium Chloride 0.9% (Flush) Syringe IV 12/20/23 01:59
PER PROTOCOL SKYLER
Review of Systems
-
Review of systems notable for HPI, otherwise negative
Physical Exam
-
General: Well Developed and Pain; Negative Respiratory Distress, Fever or Chills
HEENT: Moist Mucous Membranes; Negative Jaundice
Cardiology: Normal Sinus Rhythm
Pulmonary: Clear
GI: Soft
Extremities: Pulses Present; Negative Edema
Neurology: Non Focal
Skin: Warm
Psych: Calm
Labs
Lab Results
WBC 13.0 10^3/uL (4.8-10.8) H 11/22/23 09:05
RBC 3.74 10^6/uL (4.70-6.10) L 11/22/23 09:05
Hgb 9.2 g/dL (13.0-18.0) L 11/22/23 09:05
Hct 26.2 % (39.0-52.0) L 11/22/23 09:05
MCV 70.1 fL (80.0-94.0) L 11/22/23 09:05
MCH 24.6 pg (27.0-31.0) L 11/22/23 09:05
MCHC 35.1 g/dL (33.0-37.0) 11/22/23 09:05
RDW 20.0 % (11.5-14.5) H 11/22/23 09:05
Plt Count 378 10^3/uL (130-400) D 11/22/23 09:05
MPV 9.7 fL (7.4-10.4) 11/22/23 09:05
Abs Immat Gran (auto) 0.2 10^3/uL (0-0.05) H 11/21/23 21:03
Absolute Neuts (auto) 12.9 10^3/uL (1.4-6.5) H 11/21/23 21:03
Absolute Lymphs (auto) 2.3 10^3/uL (1.2-3.4) 11/21/23 21:03
Absolute Monos (auto) 2.0 10^3/uL (0.1-0.6) H 11/21/23 21:03
Absolute Eos (auto) 0.1 10^3/uL (0-0.7) 11/21/23 21:03
Absolute Basos (auto) 0.1 10^3/uL (0-0.2) 11/21/23 21:03
Immature Gran % 0.9 % (0-0.5) H 11/21/23 21:03
Neutrophils % 73.7 % (42.2-75.2) 11/21/23 21:03
Lymphocytes % 13.3 % (20.5-51.1) L 11/21/23 21:03
Monocytes % 11.2 % (1.7-9.3) H 11/21/23 21:03
Eosinophils % 0.3 % (0-6) 11/21/23 21:03
Basophils % 0.5 % (0-2) 11/21/23 21:03
Creatinine 0.6 mg/dL (0.7-1.3) L 11/22/23 09:05
Vital Signs
Vital Signs
Temp Pulse Resp BP Pulse Ox
99.0 F 77 20 127/76 97
11/22/23 09:25 11/22/23 07:43 11/22/23 07:43 11/22/23 07:43 11/22/23 07:43
--- NOTE | 2023-11-22 16:25 | W.PN.HOSP.TC ---
Today's Communication/Plan
-
See plan
Assessment / Plan
Assessment / Plan
Impression:
Sickle cell disease
Sickle cell pain crisis
Abnormal LFTs
Mood disorder
Plan:
Sickle cell disease with sickle cell pain crisis.
Patient complains of pain everywhere
Limited examination given patient position and severe pain
Had prior complaints of right hip pain.
X-ray of the right hip without fracture and dislocation. Sclerosis of the right femoral head could be related to avascular necrosis.
No evidence of acute chest syndrome, no focal neurologic complaints or findings. No priapism
Abnormal LFTs with hyperbilirubinemia and mild transaminase elevation. No evidence for coagulopathy.
Chronic hemolytic anemia with hemoglobin at the baseline with appropriate reticulocyte count.
Continue IV hydration.
Adjust analgesic regimen. Unclear for how long patient has been on buprenorphine, although currently with no reasonable pain control bouncing back to the hospital
Hold buprenorphine for now.
Start oral Dilaudid 2 mg every 6 hours. Continue IV Dilaudid 1 mg every 3 hours as needed for breakthrough pain
Continue aggressive bowel regimen.
Consider MRI of the right hip if pain persistent and localized to that area.
Continue hydroxyurea and folate.
Monitor daily CBC
Follow LFT
Anticipated Discharge: 24 - 48 hours
Subjective/Interval History
-
Date of Service: November 22, 2023
Objective Data
-
Labs:
Laboratory Results
11/22/23 11/22/23
09:05 11:11
WBC 13.0 H
Hgb 9.2 L
Hct 26.2 L
Plt Count 378 D
PT 14.9 H
INR 1.19
Sodium 137
Potassium 4.6
Chloride 99
Carbon Dioxide 22
BUN 10
Creatinine 0.6 L
Glucose 100 H
Calcium 9.7
Vital Signs:
Vital Signs
Temp Pulse Resp BP Pulse Ox
99.0 F 77 20 127/76 97
11/22/23 09:25 11/22/23 07:43 11/22/23 07:43 11/22/23 07:43 11/22/23 07:43
I&O
11/21/23 11/22/23 11/23/23
06:59 06:59 06:59
Output Total 700 / 700 1650 / 1650
Balance -700 / -700 -1650 / -1650
Physical Exam
-
General: Well Developed and No Apparent Distress
HEENT: Normocephalic, Atraumatic and Moist Mucous Membranes
Respiratory: Clear to Auscultation
Cardiac: Regular Rhythm and S1/S2; Negative Murmur, Rub or Gallop
GI: Soft, Nontender, Nondistended and Normal Bowel Sounds; Negative Organomegaly
Rectal: Deferred by Provider
Musculoskeletal: No Clubbing, No Cyanosis and No Edema
Skin: Negative Rash
Neuro: Nonfocal/Grossly Intact
--- NOTE | 2023-11-22 16:45 | PTCARENOTE ---
11/21- Patient transferred and oriented to unit without issue. AAOX3 but lethargic, flat affect, withdrawan. Skin Warm/Intact but mildly diaphoretic with chills currently observed. VSS except mild fever=99.7 oral. Tylenol and PO Dilaudid
administered as ordered- tylenol can serve as antipyretic as well. PRN Dilaudid will be administered as ordered once he is due for it again. Warm blankets applied as well.
[2023-11-22 16:49] VITALS: BMI 22.7
[2023-11-22 16:57] VITALS: BP 131/68
[2023-11-22] MEDS: SENOKOT-S 1 TABLET PO (20:33)
[2023-11-22] MEDS: SKELAXIN 800 MG PO (20:33)
[2023-11-22 22:58] VITALS: BP 125/60
[2023-11-23] MEDS: DILAUDID 1 MG IV ×8 (02:12→23:52)
[2023-11-23] MEDS: NSS 1000 IV (02:51)
[2023-11-23] MEDS: TYLENOL 650 MG PO ×3 (04:02→23:51)
[2023-11-23] MEDS: SKELAXIN 800 MG PO ×3 (04:03→20:54)
[2023-11-23] MEDS: DILAUDID 2 MG PO ×4 (05:16→23:52)
[2023-11-23 07:00] VITALS: BP 130/75
[2023-11-23] MEDS: FOLVITE 1 MG PO (08:16)
[2023-11-23] MEDS: PROTONIX 40 MG PO ×2 (08:16→20:18)
[2023-11-23] MEDS: SENOKOT-S 1 TABLET PO ×2 (08:16→20:18)
[2023-11-23] MEDS: HYDREA 500 MG PO (08:16)
[2023-11-23] MEDS: TYLENOL PO ×3 (08:17→15:19)
--- NOTE | 2023-11-23 09:47 | W.PN.ONC2 ---
Today's Communication / Plan
-
Pt establish care with us if anticipated to be in the [facility] area for longer.
Pt without evidence of end-organ damage currently -labs pending today
daily CBC, retic
continue supportive care and pain management
bowel regimen prn constipation
consider ortho consult for management of suspected right hip avascular necrosis
Impression
Impression
sickle cell disease
sickle cell pain crisis
anemia
suspected avascular necrosis right hip
RLE pain
Plan
Plan
Sickle cell disease w/ pain crisis
-check CBC and retic count daily
-cont supportive care w/ oxygen / hydration
-cont analgesia, skelaxin
-hydrea/ folic acid
-monitor respiratory symptoms closely
-consider ortho consult for suspected right hip avascular necrosis
-check RLE US
Subjective/Objective
Chief Complaint
continues with vaso-occlusive pain, using dilaudid prn and skelaxin prn
Pain mostly in his RLE from calf through groin
He tells me that he has known right hip avascular necrosis but was non-compliant with steroid injections into joint when evaluated in [place]
constipation
Subjective
labs pending
afebrile, no hypoxia or hypotension
Vital Signs:
Vital Signs
Temp Pulse Resp BP Pulse Ox
98.5 F 85 16 130/75 100
11/23/23 07:00 11/23/23 07:00 11/23/23 07:00 11/23/23 07:00 11/23/23 07:00
Lab Results:
Laboratory Data
WBC 13.0 10^3/uL (4.8-10.8) H 11/22/23 09:05
Hgb 9.2 g/dL (13.0-18.0) L 11/22/23 09:05
Plt Count 378 10^3/uL (130-400) D 11/22/23 09:05
PT 14.9 Sec (11.4-14.6) H 11/22/23 11:11
INR 1.19 11/22/23 11:11
eGFR > 60.00 11/22/23 09:05
Physical Exam
General: Well Developed and Pain; Negative Respiratory Distress, Fever or Chills
HEENT: Moist Mucous Membranes; Negative Jaundice
Cardiology: Normal Sinus Rhythm
Pulmonary: Clear
GI: Soft
Extremities: Pulses Present; Negative Edema
Neurology: Non Focal
Skin: Warm
Psych: Calm
Review of Systems
Review of Systems
ROS notable for subjective, otherwise negative
Orders
Orders
Orders From Last 24 Hours
11/23/23 09:23
Reticulocyte Count IN AM
11/24/23 06:00
LFT [Kowzy-Vfyt-Dzsepen] IN AM
Reticulocyte Count IN AM
11/25/23 06:00
LFT [Cqodb-Haff-Tsfqquw] IN AM
Reticulocyte Count IN AM
11/26/23 06:00
LFT [Jaquu-Lzgf-Dqmwvcl] IN AM
Reticulocyte Count IN AM
11/27/23 06:00
LFT [Qzzas-Mbhp-Kowaxqs] IN AM
Reticulocyte Count IN AM
[2023-11-23 09:52] LABS: % Basophils 0.4 % (0-2); % Immature Granulocytes 0.6 % (0-0.5); % Lymphocytes 18.6 % (20.5-51.1); % Monocytes 12.5 % (1.7-9.3); % Neutrophils 65.9 % (42.2-75.2); Absolute Basophils 0.1 10^3/uL (0-0.2); Absolute Eosinophils 0.3 10^3/uL (0-0.7); Absolute Immature Granulocytes 0.1 10^3/uL (0-0.05); Absolute Lymphocytes 2.4 10^3/uL (1.2-3.4); Absolute Monocytes 1.6 10^3/uL (0.1-0.6); Absolute Neutrophils 8.4 10^3/uL (1.4-6.5); Hematocrit 24.4 % (39.0-52.0); Hemoglobin 8.4 g/dL (13.0-18.0); Mean Corp Hgb Conc. 34.4 g/dL (33.0-37.0); Mean Corpuscular Hgb 24.4 pg (27.0-31.0); Mean Corpuscular Volume 70.9 fL (80.0-94.0); Mean Platelet Volume 9.9 fL (7.4-10.4); Platelet Count 565 10^3/uL (130-400); Red Blood Cell Count 3.44 10^6/uL (4.70-6.10); Red Cell Dist. Width 19.5 % (11.5-14.5); Reticulocyte Count 5.2 % (0.4-2.8); White Blood Cell Count 12.7 10^3/uL (4.8-10.8)
[2023-11-23 10:45] LABS: AST (SGOT) 76 U/L (17-59); Albumin 4.3 g/dl (3.5-5.0); Alkaline Phosphatase 214 U/L (38-126); Blood Urea Nitrogen 9 mg/dl (9-20); Calcium 9.7 mg/dl (8.4-10.2); Carbon Dioxide 24 mmol/L (22-30); Chloride 100 mmol/L (98-107); Direct Bilirubin 0.5 mg/dl (0.0-0.4); Estimated Creatinine Clearance > 125 ml/min; Glucose 146 mg/dl (70-99); Potassium 4.4 mmol/L (3.5-5.1); Sodium 136 mmol/L (135-145); Total Bilirubin 2.4 mg/dl (0.2-1.3); Total Protein 7.3 g/dl (6.3-8.2); eGFR > 60.00
[2023-11-23 10:55] LABS: ALT (SGPT) 82 U/L (0-50)
--- NOTE | 2023-11-23 14:28 | CM ---
CM reviewed chart, patient from [facility]. CM will continue to follow for all discharge planning needs.
Plan; return to [facility] when stable.
Report: [phone]
[2023-11-23 15:25] VITALS: BP 131/80
--- NOTE | 2023-11-23 15:37 | W.PN.HOSP.TC ---
Today's Communication/Plan
-
Continue current analgesic regimen with IV/p.o. hydromorphone
Bowel regimen.
Follow CBC/LFT
Orthopedic evaluation for right hip pain and concern for vascular necrosis
Assessment / Plan
Assessment / Plan
Impression:
Sickle cell disease
Sickle cell pain crisis
Abnormal LFTs
Mood disorder
Plan:
Sickle cell disease with sickle cell pain crisis.
Patient complains of pain everywhere
Limited examination given patient position and severe pain
Had prior complaints of right hip pain.
X-ray of the right hip without fracture and dislocation. Sclerosis of the right femoral head could be related to avascular necrosis.
No evidence of acute chest syndrome, no focal neurologic complaints or findings. No priapism
Abnormal LFTs with hyperbilirubinemia and mild transaminase elevation. No evidence for coagulopathy.
Chronic hemolytic anemia with hemoglobin at the baseline with appropriate reticulocyte count.
Adjust analgesic regimen. Patient had been on buprenorphine since increasing, although currently with suboptimal pain control
Hold buprenorphine for now.
Initiated on oral Dilaudid 2 mg every 6 hours. Continue IV Dilaudid 1 mg every 3 hours as needed for breakthrough pain. May need to be introduced long-acting opiates.
Continue hydroxyurea
Continue aggressive bowel regimen.
Follow LFT.
Pain mostly localized to the right hip femur area
As above x-ray suggesting of a vascular necrosis.
Consult orthopedics
Consider additional imaging MRI (currently unavailable due to technical issues) versus bone scan, versus CT scan
Anticipated Discharge: 24 - 48 hours
Subjective/Interval History
-
Date of Service: November 23, 2023
Objective Data
-
Labs:
Laboratory Results
11/23/23
09:23
WBC 12.7 H
Hgb 8.4 L
Hct 24.4 L
Plt Count 565 H D
Sodium 136
Potassium 4.4
Chloride 100
Carbon Dioxide 24
BUN 9
Creatinine 0.5 L
Glucose 146 H
Calcium 9.7
Total Bilirubin 2.4 H
AST 76 H
ALT 82 H
Alkaline Phosphatase 214 H
Vital Signs:
Vital Signs
Temp Pulse Resp BP Pulse Ox
99.4 F 103 22 131/80 98
11/23/23 15:25 11/23/23 15:25 11/23/23 15:25 11/23/23 15:25 11/23/23 15:25
I&O
11/22/23 11/23/23 11/24/23
06:59 06:59 06:59
Intake Total 3840 / 3840
Output Total 700 / 700 3700 / 3700
Balance -700 / -700 140 / 140
Physical Exam
-
General: Well Developed and No Apparent Distress
HEENT: Normocephalic, Atraumatic and Moist Mucous Membranes
Respiratory: Clear to Auscultation
Cardiac: Regular Rhythm and S1/S2; Negative Murmur, Rub or Gallop
GI: Soft, Nontender, Nondistended and Normal Bowel Sounds; Negative Organomegaly
Rectal: Deferred by Provider
Musculoskeletal: No Clubbing, No Cyanosis and No Edema
Skin: Negative Rash
Neuro: Nonfocal/Grossly Intact
--- NOTE | 2023-11-23 17:19 | W.PN.UPDATE ---
Addendum entered and electronically signed by Murali Davis MD 11/23/23 17:40:
Full consult dictated into [employer].
Original Note:
Update Note
Progress Note Update
28-year-old -[place] male with history of sickle cell anemia. He says he has had '100s' of sickle cell crisis over many years. He previously resided in [facility]. Approximately 1 year ago, while in [place], he was told he had
avascular necrosis of the right hip. He was subsequently scheduled for right hip steroid injections which he was unable to complete. Also, he was told he had similar disease in the left hip to a lesser extent. Currently, he is a resident at the
[facility]. He has had several days of sickle cell crisis type pain, more significant about the right hip and thigh, making it difficult for him to bear weight. He underwent a single x-ray of the right hip at [place] [facility] which showed sclerotic changes about the right femoral head which may be consistent with avascular necrosis. There is no obvious evidence of collapse.
28-year-old male with sickle cell anemia and bilateral hip avascular necrosis. Patient will need supportive care for his sickle cell crisis. Going forward, MRI examination of the bilateral hips would be helpful for staging the degree of his
avascular necrosis. Unfortunately, it is likely this young man will need to consider total hip replacement at a young age.
[2023-11-24 00:10] VITALS: BP 115/72
[2023-11-24] MEDS: TYLENOL 650 MG PO ×5 (02:59→20:23)
[2023-11-24] MEDS: DILAUDID 1 MG IV ×6 (02:59→21:44)
[2023-11-24] MEDS: DILAUDID 2 MG PO (05:50)
[2023-11-24] MEDS: SKELAXIN 800 MG PO (05:50)
--- NOTE | 2023-11-24 05:50 | PTCARENOTE ---
Unsuccessful x3 to place a new PIV. Primary nurse aware.
[2023-11-24 07:00] VITALS: BP 114/78
[2023-11-24] MEDS: PROTONIX 40 MG PO ×2 (07:46→20:24)
[2023-11-24] MEDS: FOLVITE 1 MG PO (07:46)
[2023-11-24] MEDS: SENOKOT-S 1 TABLET PO ×2 (07:47→20:23)
[2023-11-24] MEDS: HYDREA 500 MG PO (07:48)
--- NOTE | 2023-11-24 08:52 | W.PN.UPDATE ---
Update Note
Progress Note Update
Mr. Guzman is resting comfortably in bed this morning. He endorses continued aching pain about the hip, but does report mild improvement in his symptoms overnight.
Directed exam of the right hip reveals no erythema, ecchymosis, effusion or lesions. Mild tenderness to palpation over the anterior aspect of both hips, R>L. Mild discomfort with hip ROM on the right, ROM limited on the left secondary to cuff in
place, but no pain with log roll. Neurovascularly intact distally bilaterally.
Bilateral hip AVN; sickle cell anemia
Mr. Guzman has noticed slight improvement in his symptoms since yesterday. As he discussed with Dr. Davis yesterday, MRI examination of both hips will he helpful for staging the degree of his AVN. He may require hip replacement surgery in the
future for treatment of his AVN. He will need supportive care for his sickle cell crisis. Continue pain control per primary.
--- NOTE | 2023-11-24 08:52 | W.PN.HOSP.TC ---
Today's Communication/Plan
-
.
Assessment / Plan
Assessment / Plan
Impression:
Sickle cell disease
Sickle cell pain crisis
Abnormal LFTs
Chronic hemolytic anemia
Mood disorder
Plan:
#Sickle cell disease
#sickle cell pain crisis.
-Patient complains of pain everywhere
-Limited examination given patient position and severe pain
-X-ray of the right hip without fracture and dislocation. Sclerosis of the right femoral head could be related to avascular necrosis.
-No evidence of acute chest syndrome, no focal neurologic complaints or findings. No priapism
-Adjust analgesic regimen. Hold buprenorphine for now.
-Initiated on oral Dilaudid 2 mg every 6 hours. Continue IV Dilaudid 1 mg every 3 hours as needed for breakthrough pain. May need to be introduced long-acting opiates.
-Increased Oral Dilaudid to 4 mg every 6 hours today.
-IV fluids
-Continue hydroxyurea
-Continue aggressive bowel regimen.
#Abnormal LFTs with hyperbilirubinemia and mild transaminase elevation. No evidence for coagulopathy.
-Trend levels.
#Chronic hemolytic anemia- Hgb Stable at baseline.
-Hgb is stable / at baseline. Reticulocyte within expected range for his degree of anemia.
-Follow H&H / cell counts for any changes - no role for transfusion at present.
#Pain mostly localized to the right hip femur area
-As above x-ray suggesting of a vascular necrosis.
-Orthopedics consulted, input appreciated.
-Consider additional imaging MRI , ordered today.
#Mood Disorder
- Continue current med regimen including mirtazapine.
- PRN quetiapine or Haldol for agitation.
DVT Prophylaxis: Lovenox
Code Status: Full
Anticipated Discharge: > 48 hours
Subjective/Interval History
-
Patient seen and examined at bedside. Patient reports aching pain in the hip still similar to initial presentation. He reports ' pain everywhere'. Examination limited due to positional difficulty secondary to the pain
Objective Data
-
Labs:
Laboratory Results
11/24/23
08:14
WBC Pending
Hgb Pending
Hct Pending
Plt Count Pending
Total Bilirubin Pending
AST Pending
ALT Pending
Alkaline Phosphatase Pending
Vital Signs:
Vital Signs
Temp Pulse Resp BP Pulse Ox
98.5 F 86 18 114/78 96
11/24/23 07:00 11/24/23 07:00 11/24/23 07:00 11/24/23 07:00 11/24/23 07:00
I&O
11/23/23 11/24/23 11/25/23
06:59 06:59 06:59
Intake Total 3840 / 3840 1800 / 1800
Output Total 3700 / 3700 1800 / 1800
Balance 140 / 140 0 / 0
Review of Systems
-
All other systems: Reviewed and negative (Except as documented)
Physical Exam
-
General: Well Developed and No Apparent Distress
Respiratory: Clear to Auscultation
Cardiac: Regular Rhythm and S1/S2
GI: Soft, Nontender and Nondistended
Neuro: AO x 3
Psych: Calm
[2023-11-24 08:56] LABS: % Basophils 0.7 % (0-2); % Eosinophils 3.2 % (0-6); % Immature Granulocytes 0.7 % (0-0.5); % Lymphocytes 25.7 % (20.5-51.1); % Monocytes 14.2 % (1.7-9.3); % Neutrophils 55.5 % (42.2-75.2); Absolute Basophils 0.1 10^3/uL (0-0.2); Absolute Eosinophils 0.3 10^3/uL (0-0.7); Absolute Immature Granulocytes 0.1 10^3/uL (0-0.05); Absolute Lymphocytes 2.7 10^3/uL (1.2-3.4); Absolute Monocytes 1.5 10^3/uL (0.1-0.6); Absolute Neutrophils 5.9 10^3/uL (1.4-6.5); Hematocrit 28.1 % (39.0-52.0); Hemoglobin 9.5 g/dL (13.0-18.0); Mean Corp Hgb Conc. 33.8 g/dL (33.0-37.0); Mean Corpuscular Hgb 24.4 pg (27.0-31.0); Mean Corpuscular Volume 72.1 fL (80.0-94.0); Mean Platelet Volume 9.9 fL (7.4-10.4); Platelet Count 700 10^3/uL (130-400); Red Cell Dist. Width 19.3 % (11.5-14.5); Reticulocyte Count 4.7 % (0.4-2.8); White Blood Cell Count 10.6 10^3/uL (4.8-10.8)
[2023-11-24 09:19] LABS: ALT (SGPT) 117 U/L (0-50); AST (SGOT) 105 U/L (17-59); Albumin 4.7 g/dl (3.5-5.0); Alkaline Phosphatase 296 U/L (38-126); Direct Bilirubin 0.6 mg/dl (0.0-0.4); Total Bilirubin 2.7 mg/dl (0.2-1.3); Total Protein 7.9 g/dl (6.3-8.2)
[2023-11-24] MEDS: DILAUDID 4 MG PO ×3 (11:04→22:49)
--- NOTE | 2023-11-24 11:30 | CM ---
CM reviewed chart, patient from [facility]. CM will continue to follow for all discharge planning needs.
Plan; return to [facility] when stable.
Report: [phone]
[2023-11-24] MEDS: 0.45%NACL 500 IV (11:32)
[2023-11-24 15:19] VITALS: BP 117/64
[2023-11-24 23:15] VITALS: BP 111/58
[2023-11-24] MEDS: 0.45%NACL IV (23:46)
[2023-11-25] MEDS: TYLENOL 650 MG PO ×6 (00:56→23:39)
[2023-11-25] MEDS: DILAUDID 1 MG IV ×8 (00:56→21:56)
[2023-11-25] MEDS: TYLENOL PO ×2 (04:02→04:12)
[2023-11-25] MEDS: DILAUDID PO (05:52)
[2023-11-25 07:00] VITALS: BP 118/68
--- NOTE | 2023-11-25 08:00 | W.PN.UPDATE ---
Update Note
Progress Note Update
Patient currently has a sickle cell crisis and seems to be improving. Bilateral hip pain persist and exam is unchanged since yesterday. Bilateral MRIs have been ordered. Orthopedics to follow-up once completed.
[2023-11-25] MEDS: 0.45%NACL 1000 IV (08:05)
--- NOTE | 2023-11-25 08:22 | W.PN.HOSP.TC ---
Today's Communication/Plan
-
MRI bilateral hips for staging of avascular necrosis, currently pending
Pain control as needed
Assessment / Plan
Assessment / Plan
Impression:
Sickle cell disease
Sickle cell pain crisis
Abnormal LFTs
Chronic hemolytic anemia
Mood disorder
Plan:
#Sickle cell disease
#sickle cell pain crisis.
-Patient complains of pain everywhere
-Limited examination given patient position and severe pain
-X-ray of the right hip without fracture and dislocation. Sclerosis of the right femoral head could be related to avascular necrosis.
-No evidence of acute chest syndrome, no focal neurologic complaints or findings. No priapism
-Adjust analgesic regimen. Hold buprenorphine for now.
-Initiated on oral Dilaudid 2 mg every 6 hours. Continue IV Dilaudid 1 mg every 3 hours as needed for breakthrough pain. May need to be introduced long-acting opiates.
-Increased Oral Dilaudid to 4 mg every 6 hours today.
-IV fluids
-Continue hydroxyurea
-Continue aggressive bowel regimen.
#Abnormal LFTs with hyperbilirubinemia and mild transaminase elevation. No evidence for coagulopathy.
-Trend levels.
#Chronic hemolytic anemia- Hgb Stable at baseline.
-Hgb is stable / at baseline. Reticulocyte within expected range for his degree of anemia.
-Follow H&H / cell counts for any changes - no role for transfusion at present.
#Pain mostly localized to the right hip femur area
-As above x-ray suggesting of a vascular necrosis.
-Orthopedics consulted, input appreciated.
-Consider additional imaging MRI , ordered yesterday. Currently pending.
#Mood Disorder
- Continue current med regimen including mirtazapine.
- PRN quetiapine or Haldol for agitation.
DVT Prophylaxis: Lovenox
Code Status: Full
Anticipated Discharge: Within 24 hours
Subjective/Interval History
-
Patient seen and examined today. Reports generalized pain crisis stil present.
Objective Data
-
Labs:
Laboratory Results
11/25/23
07:59
WBC Pending
Hgb Pending
Hct Pending
Plt Count Pending
Sodium Pending
Potassium Pending
Chloride Pending
Carbon Dioxide Pending
BUN Pending
Creatinine Pending
Glucose Pending
Calcium Pending
Total Bilirubin Pending
AST Pending
ALT Pending
Alkaline Phosphatase Pending
Vital Signs:
Vital Signs
Temp Pulse Resp BP Pulse Ox
98.2 F 80 16 118/68 96
11/25/23 07:00 11/25/23 07:00 11/25/23 07:00 11/25/23 07:00 11/25/23 07:00
I&O
11/24/23 11/25/23 11/26/23
06:59 06:59 06:59
Intake Total 1800 / 1800 960 / 960
Output Total 1800 / 1800 720 / 720 700 / 700
Balance 0 / 0 240 / 240 -700 / -700
Review of Systems
-
All other systems: Reviewed and negative (except as documented. )
Physical Exam
-
General: Pain
Respiratory: Clear to Auscultation
Cardiac: Regular Rhythm and S1/S2
GI: Soft, Nontender and Nondistended
Neuro: AO x 3
[2023-11-25] MEDS: PROTONIX 40 MG PO ×2 (08:53→19:29)
[2023-11-25] MEDS: FOLVITE 1 MG PO (08:53)
[2023-11-25] MEDS: HYDREA 500 MG PO (08:53)
[2023-11-25] MEDS: SENOKOT-S 1 TABLET PO ×2 (08:53→19:29)
[2023-11-25 09:07] LABS: % Basophils 1.1 % (0-2); % Immature Granulocytes 0.4 % (0-0.5); % Lymphocytes 25.8 % (20.5-51.1); % Monocytes 12.2 % (1.7-9.3); % Neutrophils 55.5 % (42.2-75.2); Absolute Basophils 0.1 10^3/uL (0-0.2); Absolute Eosinophils 0.5 10^3/uL (0-0.7); Absolute Lymphocytes 2.4 10^3/uL (1.2-3.4); Absolute Monocytes 1.1 10^3/uL (0.1-0.6); Absolute Neutrophils 5.2 10^3/uL (1.4-6.5); Hematocrit 25.6 % (39.0-52.0); Hemoglobin 8.7 g/dL (13.0-18.0); Mean Corpuscular Hgb 24.6 pg (27.0-31.0); Mean Corpuscular Volume 72.3 fL (80.0-94.0); Mean Platelet Volume 10.3 fL (7.4-10.4); Nucleated Red Blood Cells % 0.5 % (-); Platelet Count 460 10^3/uL (130-400); Red Blood Cell Count 3.54 10^6/uL (4.70-6.10); Red Cell Dist. Width 19.3 % (11.5-14.5); White Blood Cell Count 9.3 10^3/uL (4.8-10.8)
[2023-11-25 10:10] LABS: ALT (SGPT) 120 U/L (0-50); AST (SGOT) 103 U/L (17-59); Albumin 4.3 g/dl (3.5-5.0); Alkaline Phosphatase 256 U/L (38-126); Blood Urea Nitrogen 11 mg/dl (9-20); Calcium 9.7 mg/dl (8.4-10.2); Carbon Dioxide 25 mmol/L (22-30); Chloride 99 mmol/L (98-107); Direct Bilirubin 0.5 mg/dl (0.0-0.4); Estimated Creatinine Clearance > 125 ml/min; Glucose 88 mg/dl (70-99); Potassium 4.6 mmol/L (3.5-5.1); Sodium 140 mmol/L (135-145); Total Bilirubin 1.5 mg/dl (0.2-1.3); Total Protein 7.4 g/dl (6.3-8.2); eGFR > 60.00
[2023-11-25] MEDS: DILAUDID 4 MG PO ×3 (11:34→23:39)
--- NOTE | 2023-11-25 11:41 | W.PN.ONC2 ---
Today's Communication / Plan
-
follow CBC, retic
pain management per primary service, would benefit from pain management service outpatient upon discharge
apprec ortho input
Impression
Impression
sickle cell disease
sickle cell pain crisis
anemia
suspected avascular necrosis right hip
RLE pain, RLE US negative for DVT. Ortho recommended MRI evaluation to stage avascular necrosis and OP follow pu
Plan
Plan
Sickle cell disease w/ pain crisis
-check CBC and retic count daily
-cont supportive care w/ oxygen / hydration
-cont analgesia, Skelaxin
-hydrea/ folic acid
-monitor respiratory symptoms closely
-agreeable to OP follow up with my office while residing in [place], however, does not plan to stay local after release from [facility]
-I reached out to the primary service to recommend pain management provider outpatient upon discharge, hematology will not be managing his pain upon discharge
RLE pain -Ortho recommended MRI evaluation to stage avascular necrosis and OP follow up
-RLE US negative for DVT
Subjective/Objective
Chief Complaint
no new complaints
Subjective
denies chest pain or SOB
ambulating with walker
Vital Signs:
Vital Signs
Temp Pulse Resp BP Pulse Ox
98.2 F 80 16 118/68 96
11/25/23 07:00 11/25/23 07:00 11/25/23 07:00 11/25/23 07:00 11/25/23 08:00
Lab Results:
Laboratory Data
WBC 9.3 10^3/uL (4.8-10.8) 11/25/23 07:59
Hgb 8.7 g/dL (13.0-18.0) L 11/25/23 07:59
Plt Count 460 10^3/uL (130-400) H D 11/25/23 07:59
PT 14.9 Sec (11.4-14.6) H 11/22/23 11:11
INR 1.19 11/22/23 11:11
eGFR > 60.00 11/25/23 07:59
Physical Exam
General: Well Developed and Pain; Negative Respiratory Distress, Fever or Chills
HEENT: Moist Mucous Membranes; Negative Jaundice
Cardiology: Normal Sinus Rhythm
Pulmonary: Clear
GI: Soft
Extremities: Pulses Present; Negative Edema
Neurology: Non Focal
Skin: Warm
Psych: Calm
Review of Systems
Review of Systems
ROS notable for subjective, otherwise negative
Orders
Orders
Orders From Last 24 Hours
11/25/23 07:59
Direct Bilirubin Routine
Reticulocyte Count IN AM
11/26/23 06:00
LFT [[id number]] IN AM
Reticulocyte Count IN AM
11/27/23 06:00
LFT [[id number]] IN AM
Reticulocyte Count IN AM
--- NOTE | 2023-11-25 12:13 | CM ---
CM reviewed chart, placed call to nurse at [facility] T[place] [phone], discussed patient discharge status, discussed patient inquiring if CM can update trade mark attorney on patient status, per nurse at [facility], not sure this is something CM is able to do.
Patient inquiring to meet with CM, CM met with patient bedside, two guards present. Discussed CM not able to speak with patients trade mark attorney, able to speak with nurse. Guards in room reporting this is not something CM responsible to do. CM will
continue to follow for all discharge planning needs.
Plan; return to [facility] when stable
Report: [phone]
[2023-11-25 15:58] VITALS: BP 124/72
[2023-11-25 23:35] VITALS: BP 113/70
[2023-11-26] MEDS: DILAUDID 1 MG IV ×7 (00:57→21:04)
[2023-11-26] MEDS: TYLENOL PO (05:01)
[2023-11-26] MEDS: DILAUDID 4 MG PO ×4 (05:16→23:13)
[2023-11-26] MEDS: 0.45%NACL 1000 IV (05:16)
--- NOTE | 2023-11-26 07:42 | W.PN.UPDATE ---
Update Note
Progress Note Update
MRI's completed late 11/24, pending radiology read- pending update
Update since radiology report
Evidence of chronic avascular necrosis without articular surface collapse
No urgent operative intervention recommended at this time frame with current staging of AVN.
Continue with palliative management as per hematology/oncology recommendations relative to his sickle cell
He may follow-up with Orthopedic Surgery on an outpatient basis
[2023-11-26 08:00] VITALS: BP 99/64
--- NOTE | 2023-11-26 08:04 | W.PN.HOSP.TC ---
Today's Communication/Plan
-
.
Assessment / Plan
Assessment / Plan
Impression:
Sickle cell disease
Sickle cell pain crisis
Abnormal LFTs
Chronic hemolytic anemia
Mood disorder
Plan:
#Sickle cell disease
#sickle cell pain crisis.
-X-ray of the right hip without fracture and dislocation. Sclerosis of the right femoral head could be related to avascular necrosis.
-No evidence of acute chest syndrome, no focal neurologic complaints or findings. No priapism
-Adjust analgesic regimen. Hold buprenorphine for now.
- Continue IV Dilaudid 1 mg every 3 hours as needed for breakthrough pain.
-Continue oral Dilaudid to 4 mg every 6 hours today.
-Continue hydroxyurea
-Continue aggressive bowel regimen.
-Follow-up with [facility] airbrush [facility]
#Abnormal LFTs with hyperbilirubinemia and mild transaminase elevation. No evidence for coagulopathy.
-Trend levels.
#Chronic hemolytic anemia- Hgb Stable at baseline.
-Hgb is stable / at baseline. Reticulocyte within expected range for his degree of anemia.
-Follow H&H / cell counts for any changes - no role for transfusion at present.
#Pain mostly localized to the right hip femur area
-As above x-ray suggesting of a vascular necrosis.
-Orthopedics consulted, input appreciated.
-Consider additional imaging MRI for staging of avascular necrosis
-Currently waiting for orthopedics recommendation, as MRI done today
#Mood Disorder
- Continue current med regimen including mirtazapine.
- PRN quetiapine or Haldol for agitation.
DVT Prophylaxis: Lovenox
Code Status: Full
Anticipated Discharge: Today
Subjective/Interval History
-
Date of Service: November 26, 2023
Objective Data
-
Labs:
Laboratory Results
11/26/23
06:00
WBC Pending
Hgb Pending
Hct Pending
Plt Count Pending
Sodium Pending
Potassium Pending
Chloride Pending
Carbon Dioxide Pending
BUN Pending
Creatinine Pending
Glucose Pending
Calcium Pending
Total Bilirubin Pending
AST Pending
ALT Pending
Alkaline Phosphatase Pending
Vital Signs:
Vital Signs
Temp Pulse Resp BP Pulse Ox
98.6 F 72 16 113/70 100
11/25/23 23:35 11/25/23 23:35 11/25/23 23:35 11/25/23 23:35 11/25/23 23:35
I&O
11/25/23 11/26/23 11/27/23
06:59 06:59 06:59
Intake Total 960 / 960 1060 / 1060
Output Total 720 / 720 2700 / 2700
Balance 240 / 240 -1640 / -1640
Review of Systems
-
All other systems: Reviewed and negative (Except as documented)
Physical Exam
-
Respiratory: Clear to Auscultation; Negative Wheezes or Rales
Cardiac: Regular Rhythm and S1/S2
GI: Soft, Nontender, Nondistended and Normal Bowel Sounds
Neuro: Awake, Alert, Oriented and AO x 3
[2023-11-26] MEDS: SENOKOT-S 1 TABLET PO ×2 (08:59→20:28)
[2023-11-26] MEDS: TYLENOL 650 MG PO ×5 (08:59→23:13)
[2023-11-26] MEDS: PROTONIX 40 MG PO ×2 (08:59→20:28)
[2023-11-26] MEDS: HYDREA 500 MG PO (08:59)
[2023-11-26] MEDS: FOLVITE 1 MG PO (08:59)
--- NOTE | 2023-11-26 09:36 | VATNOTE ---
Attempts to restart IV unsuccessful another IV nurse to attempt
--- NOTE | 2023-11-26 10:24 | VATNOTE ---
Attempted to establish peripheral IV site and draw bloodwork x2 unsuccessfully. Will discuss Midline possibility with coworker
--- NOTE | 2023-11-26 11:22 | W.PN.ONC2 ---
Today's Communication / Plan
-
pain management
encouraged transition to oral hydration and pain management
continue folic acid/hydrea
OP follow up with pain management/palliative care upon discharge
agreeable to local hematology follow up with [facility] upon discharge
Impression
Impression
sickle cell disease
sickle cell pain crisis
anemia
avascular necrosis b/l femoral heads w/o evidence of articular surface collapse, b/l proximal femurs bone infarcts
right proximal vastus intermedius intramuscular edema and perifascial edema suspicious for myositis
Plan
Plan
Sickle cell disease w/ pain crisis
-check CBC and retic count daily
-cont supportive care w/ oxygen / hydration
-cont analgesia, Skelaxin
-hydrea/ folic acid
-monitor respiratory symptoms closely
-agreeable to OP follow up with my office while residing in [place], however, does not plan to stay local after release from [facility]
-recommend pain management provider outpatient upon discharge, hematology will not be managing his pain upon discharge
b/l femoral heads avascular necrosis- management per Ortho
myositis -consider course of steroids, check CPK
Subjective/Objective
Chief Complaint
improved pain control
encouraged to transition to PO hydration and pain management, however, he refused unless I give him Oxycontin which he tells me that he previously took 'on the streets'
Subjective
afebrile, no hypoxia or hypotension
Vital Signs:
Vital Signs
Temp Pulse Resp BP Pulse Ox
99.1 F 81 18 99/64 97
11/26/23 08:00 11/26/23 08:00 11/26/23 08:00 11/26/23 08:00 11/26/23 08:00
Lab Results:
Laboratory Data
WBC 9.3 10^3/uL (4.8-10.8) 11/25/23 07:59
Hgb 8.7 g/dL (13.0-18.0) L 11/25/23 07:59
Plt Count 460 10^3/uL (130-400) H D 11/25/23 07:59
PT 14.9 Sec (11.4-14.6) H 11/22/23 11:11
INR 1.19 11/22/23 11:11
eGFR > 60.00 11/25/23 07:59
Physical Exam
General: Well Developed and Pain; Negative Respiratory Distress, Fever or Chills
HEENT: Moist Mucous Membranes; Negative Jaundice
Cardiology: Normal Sinus Rhythm
Pulmonary: Clear
GI: Soft
Extremities: Pulses Present; Negative Edema
Neurology: Non Focal
Skin: Warm
Psych: Calm
Review of Systems
Review of Systems
ROS notable for subjective, otherwise negative
Orders
Orders
Orders From Last 24 Hours
11/26/23 11:15
Direct Bilirubin Routine
Reticulocyte Count IN AM
11/27/23 06:00
LFT [[id number]] IN AM
Reticulocyte Count IN AM
[2023-11-26 11:48] LABS: ALT (SGPT) 92 U/L (0-50); AST (SGOT) 55 U/L (17-59); Albumin 4.5 g/dl (3.5-5.0); Alkaline Phosphatase 243 U/L (38-126); Blood Urea Nitrogen 12 mg/dl (9-20); Calcium 10.1 mg/dl (8.4-10.2); Carbon Dioxide 26 mmol/L (22-30); Chloride 100 mmol/L (98-107); Direct Bilirubin 0.2 mg/dl (0.0-0.4); Estimated Creatinine Clearance > 125 ml/min; Glucose 109 mg/dl (70-99); Potassium 4.3 mmol/L (3.5-5.1); Sodium 140 mmol/L (135-145); Total Bilirubin 1.1 mg/dl (0.2-1.3); Total Protein 7.6 g/dl (6.3-8.2); eGFR > 60.00
[2023-11-26 11:49] LABS: % Eosinophils 3.2 % (0-6); % Immature Granulocytes 0.5 % (0-0.5); % Lymphocytes 24.1 % (20.5-51.1); % Monocytes 8.7 % (1.7-9.3); % Neutrophils 62.5 % (42.2-75.2); Absolute Basophils 0.1 10^3/uL (0-0.2); Absolute Eosinophils 0.3 10^3/uL (0-0.7); Absolute Immature Granulocytes 0.1 10^3/uL (0-0.05); Absolute Lymphocytes 2.5 10^3/uL (1.2-3.4); Absolute Monocytes 0.9 10^3/uL (0.1-0.6); Absolute Neutrophils 6.4 10^3/uL (1.4-6.5); Hematocrit 25.5 % (39.0-52.0); Hemoglobin 8.7 g/dL (13.0-18.0); Mean Corp Hgb Conc. 34.1 g/dL (33.0-37.0); Mean Corpuscular Hgb 24.1 pg (27.0-31.0); Mean Corpuscular Volume 70.6 fL (80.0-94.0); Mean Platelet Volume 9.3 fL (7.4-10.4); Nucleated Red Blood Cells % 0.5 % (-); Platelet Count 937 10^3/uL (130-400); Red Blood Cell Count 3.61 10^6/uL (4.70-6.10); Red Cell Dist. Width 19.5 % (11.5-14.5); Reticulocyte Count 3.9 % (0.4-2.8); White Blood Cell Count 10.2 10^3/uL (4.8-10.8)
[2023-11-26 11:55] LABS: Creatine Phosphokinase 49 U/L (55-170)
--- NOTE | 2023-11-26 14:05 | CM ---
CM reviewed chart, patient clear for discharge today. JEANNE placed call to [facility], spoke with nurse Li, updated patient is clear for discharge. Jen requesting discharge paperwork sent upon discharge. CM will continue to follow for all discharge
planning needs.
Plan; Plan; return to [facility]
Report: [phone]
[2023-11-26 16:00] VITALS: BP 114/66
[2023-11-27] MEDS: DILAUDID 1 MG IV ×7 (00:04→21:26)
[2023-11-27 00:29] VITALS: BP 107/67
[2023-11-27] MEDS: TYLENOL 650 MG PO ×4 (03:03→20:00)
[2023-11-27] MEDS: DILAUDID 4 MG PO ×2 (05:17→22:25)
[2023-11-27 07:50] VITALS: BP 120/69
[2023-11-27 07:59] LABS: ALT (SGPT) 70 U/L (0-50); AST (SGOT) 43 U/L (17-59); Albumin 4.1 g/dl (3.5-5.0); Alkaline Phosphatase 201 U/L (38-126); Direct Bilirubin 0.1 mg/dl (0.0-0.4); Total Bilirubin 1.2 mg/dl (0.2-1.3); Total Protein 7.2 g/dl (6.3-8.2)
[2023-11-27 08:00] LABS: Reticulocyte Count 3.5 % (0.4-2.8)
[2023-11-27] MEDS: HYDREA 500 MG PO (08:12)
[2023-11-27] MEDS: FOLVITE 1 MG PO (08:12)
[2023-11-27] MEDS: SENOKOT-S 1 TABLET PO ×2 (08:12→20:01)
[2023-11-27] MEDS: PROTONIX 40 MG PO ×2 (08:12→20:00)
--- NOTE | 2023-11-27 10:36 | W.PN.HOSP.TC ---
Today's Communication/Plan
-
Continue with hydroxyurea
Trend LFTs and reticulocyte count
Discharge Wednesday
Assessment / Plan
Assessment / Plan
#Sickle cell anemia
#Sickle cell pain crisis
-Presented with significant pain that is since improved with IV fluids, oxygen, analgesia
-Initially had elevated LFTs and reticulocyte count which are both downtrending
-Remains on oral Dilaudid 4 mg every 6 hours, pending supply at [facility] [place]
-Remains on hydroxyurea dosing of 500 mg daily
-Continue to trend CBC, LFTs, and reticulocyte count
-Continue with analgesia and bowel regimen
#Avascular necrosis of bilateral femurs
-X-ray suggestive; MRI confirmed and used for staging
-Orthopedics following, recommending outpatient follow-up, no intervention as of now
-Was concern for myositis on MRI though CK level low normal
#Mood Disorder
-Continue current med regimen including mirtazapine.
-PRN quetiapine or Haldol for agitation.
DVT Prophylaxis: Lovenox
Diet: Regular
Code Status: Full
Disposition: Medically stable, discharged to [facility] on Wednesday when Dilaudid arrived
Anticipated Discharge: 24 - 48 hours
Subjective/Interval History
-
Date of Service: November 27, 2023
Seen and examined at the bedside. No acute events overnight. AFVSS this morning.
LFTs and reticulocyte continue to downtrend. Pain currently well-controlled. Concern for myositis on MRI yesterday however CK level was low. Suspect artifactual finding though will continue to monitor
He denies chest pain, shortness of breath, fevers or chills, GI upset, urinary issues, paresthesias or weakness, bleeding or bruise
Objective Data
-
Labs:
Laboratory Results
11/27/23
07:37
Total Bilirubin 1.2
AST 43
ALT 70 H
Alkaline Phosphatase 201 H
Vital Signs:
Vital Signs
Temp Pulse Resp BP Pulse Ox
98 F 66 16 120/69 100
11/27/23 07:50 11/27/23 07:50 11/27/23 07:50 11/27/23 07:50 11/27/23 07:50
I&O
11/26/23 11/27/23 11/28/23
06:59 06:59 06:59
Intake Total 1060 / 1060 1840 / 1840
Output Total 2700 / 2700 1000 / 1000
Balance -1640 / -1640 840 / 840
Review of Systems
-
History Source: Patient
All other systems: Reviewed and negative
Physical Exam
-
General: Well Nourished, No Apparent Distress and Comfortable
HEENT: Normocephalic, Atraumatic and Moist Mucous Membranes
Respiratory: Clear to Auscultation and Non Labored Respirations; Negative Wheezes, Rales or Rhonchi
Cardiac: Regular Rhythm and S1/S2; Negative Murmur, Rub or Gallop
GI: Soft, Nontender, Nondistended and Normal Bowel Sounds
Musculoskeletal: No Clubbing, No Cyanosis, No Edema and Other (Mild tenderness to palpation of hips)
Skin: Warm, Dry and Normal Turgor; Negative Rash
Neuro: AO x 3, Nonfocal/Grossly Intact and Central Nerve's Intact
Data Reviewed
-
MRI: Report Reviewed by me and Discussed with Patient
Labs: Labs Reviewed by me and Discussed with Patient
[2023-11-27] MEDS: DILAUDID PO ×2 (11:24→16:21)
[2023-11-27] MEDS: TYLENOL PO (11:25)
--- NOTE | 2023-11-27 11:30 | PTCARENOTE ---
Patient refusing PO Dilaudid. patient states, 'It does nothing. I only want to IV Dilaudid.' RN asked patient what he was going to take when he returns to longterm. Patient states, 'They give me Subutex.'
[2023-11-27 15:00] VITALS: BP 119/68
[2023-11-27 23:54] VITALS: BP 124/66
[2023-11-28] MEDS: TYLENOL 650 MG PO ×5 (00:25→21:21)
[2023-11-28] MEDS: DILAUDID 1 MG IV ×5 (00:26→13:14)
--- NOTE | 2023-11-28 04:48 | VATNOTE ---
AFTER KNOCKING ON ROOM DOOR AND ENTERING PT ROOM, PT AND TWO ALF GUARDS AWAKE AND HAVING CONVERSATION RELATED TO TV SUBJECT. TOLD PT I WAS HERE TO DRAW HIS LABS FROM HIS MIDLINE. PT STATED,'WHAT ARE YOU DOING HERE AT 4 IN THE MORNING ,BOTHERING
ME'? I STATED TO THE PT IT WAS 0421 AND I WAS HERE TO OBTAIN YOUR LABS THAT THE MD ORDERED FROM YOUR MIDLINE. PT REPEATED THE ABOVE STATEMENT OF BOTHERING HIM AT 0400 IN THE MORNING. LABS NOT OBTAINED AT THIS TIME. PCN AWARE.
[2023-11-28] MEDS: DILAUDID PO ×2 (05:58→13:19)
[2023-11-28 07:52] VITALS: BP 102/49
[2023-11-28 08:11] LABS: % Basophils 1.2 % (0-2); % Eosinophils 5.8 % (0-6); % Immature Granulocytes 0.5 % (0-0.5); % Lymphocytes 32.3 % (20.5-51.1); % Monocytes 8.4 % (1.7-9.3); % Neutrophils 51.8 % (42.2-75.2); ALT (SGPT) 57 U/L (0-50); AST (SGOT) 39 U/L (17-59); Absolute Basophils 0.1 10^3/uL (0-0.2); Absolute Eosinophils 0.6 10^3/uL (0-0.7); Absolute Immature Granulocytes 0.1 10^3/uL (0-0.05); Absolute Lymphocytes 3.5 10^3/uL (1.2-3.4); Absolute Monocytes 0.9 10^3/uL (0.1-0.6); Absolute Neutrophils 5.7 10^3/uL (1.4-6.5); Albumin 4.2 g/dl (3.5-5.0); Alkaline Phosphatase 185 U/L (38-126); Blood Urea Nitrogen 10 mg/dl (9-20); Calcium 10.1 mg/dl (8.4-10.2); Carbon Dioxide 29 mmol/L (22-30); Chloride 102 mmol/L (98-107); Direct Bilirubin 0.1 mg/dl (0.0-0.4); Estimated Creatinine Clearance > 125 ml/min; Glucose 90 mg/dl (70-99); Hematocrit 26.5 % (39.0-52.0); Hemoglobin 8.9 g/dL (13.0-18.0); Mean Corp Hgb Conc. 33.6 g/dL (33.0-37.0); Mean Corpuscular Hgb 24.1 pg (27.0-31.0); Mean Corpuscular Volume 71.8 fL (80.0-94.0); Mean Platelet Volume 9.1 fL (7.4-10.4); Nucleated Red Blood Cells % 0.5 % (-); Platelet Count 1090 10^3/uL (130-400); Potassium 4.7 mmol/L (3.5-5.1); Red Blood Cell Count 3.69 10^6/uL (4.70-6.10); Red Cell Dist. Width 19.6 % (11.5-14.5); Reticulocyte Count 4.2 % (0.4-2.8); Sodium 141 mmol/L (135-145); Total Protein 7.2 g/dl (6.3-8.2); eGFR > 60.00
[2023-11-28] MEDS: 0.45%NACL 1000 IV ×2 (09:29→21:20)
[2023-11-28] MEDS: SENOKOT-S 1 TABLET PO ×2 (09:30→21:21)
[2023-11-28] MEDS: FOLVITE 1 MG PO (09:30)
[2023-11-28] MEDS: PROTONIX 40 MG PO ×2 (09:31→21:21)
[2023-11-28] MEDS: HYDREA 500 MG PO (09:31)
[2023-11-28] MEDS: TYLENOL PO (12:00)
--- NOTE | 2023-11-28 12:30 | PTCARENOTE ---
RN encouraged patient to take PO Dilaudid instead of IV Dilaudid. Patient refused and only wants IV Dilaudid. 90 minutes later patient is demanding PO Dilaudid. Patient made aware of pain medication schedule. RN attempted to explain IV Dilaudid and
PO Dilaudid are not to be given at same time. Patient began yelling at RN stating, 'Everybody else gives me what I want. Just give me what I ask for. Every time RN tried to speak, Patient would speak over RN and not let RN finish sentence.
RN confirmed with physician correct Dilaudid schedule. Physician confirmed he wants patient to receive PO Dilaudid only and that is what he is being discharged with on Wednesday. RN verbalized the pain management plan with the patient. Patient began
yelling at RN stating, 'Why did you have to run your mouth. Why did you mess up my meds.' When RN tried to respond, patient continued to be verbally abusive. Patient is screaming, 'You are gonna give me my medicine.' Patient demanding to speak with
physician, charge nurse and logging crew supervisor. Patient also stating, 'I am leaving AMA.' Physician and logging crew supervisor made aware.
--- NOTE | 2023-11-28 12:54 | W.PN.HOSP.TC ---
Today's Communication/Plan
-
Resume hypotonic fluids
Trend CBC, LFTs, reticulocyte count
Likely discharge to [facility] tomorrow when Dilaudid available
Assessment / Plan
Assessment / Plan
#Sickle cell anemia
#Sickle cell pain crisis
-Presented with significant pain that is since improved with IV fluids, oxygen, analgesia
-Initially had elevated LFTs and reticulocyte count which are both downtrending
-Remains on oral Dilaudid 4 mg every 6 hours, pending supply at [facility] to [place]
-Remains on hydroxyurea dosing of 500 mg daily
-Continue to trend CBC, LFTs, and reticulocyte count
-Continue with analgesia and bowel regimen
-Resume IVF as reticulocyte count slightly higher
#Reactive thrombocytosis
-Platelet count is up trended to near 1100 today
-Likely reactive from sickle cell, hemolytic processes
-Will continue to trend CBC as above
-Resumed on IVF
#Avascular necrosis of bilateral femurs
-X-ray suggestive; MRI confirmed and used for staging
-Orthopedics following, recommending outpatient follow-up, no intervention as of now
-Was concern for myositis on MRI though CK level low normal
-No indication for steroid as of now, will follow-up outpatient with orthopedics
#Mood Disorder
-Continue current med regimen including mirtazapine.
-PRN quetiapine or Haldol for agitation.
DVT Prophylaxis: Lovenox
Diet: Regular
Code Status: Full
Disposition: Medically stable, discharged to [facility] on Wednesday when Dilaudid arrived
Anticipated Discharge: Within 24 hours
Subjective/Interval History
-
Date of Service: November 28, 2023
Seen and examined the bedside. No acute events overnight. AFVSS this morning.
Does have a mild leukocytosis as of this morning. LFTs continue to downtrend, reticulocyte count slightly higher than yesterday as well. No fevers reported. He states that his pain is improved today.
Denies chest pain, dyspnea, fevers or chills, GI issues, urinary issues, paresthesias or weakness bleeding or bruising
Objective Data
-
Labs:
Laboratory Results
11/28/23
07:47
WBC 11.0 H
Hgb 8.9 L
Hct 26.5 L
Plt Count 1090 H
Sodium 141
Potassium 4.7
Chloride 102
Carbon Dioxide 29
BUN 10
Creatinine 0.7
Glucose 90
Calcium 10.1
Total Bilirubin 1.0
AST 39
ALT 57 H
Alkaline Phosphatase 185 H
Vital Signs:
Vital Signs
Temp Pulse Resp BP Pulse Ox
98.4 F 62 16 102/49 99
11/28/23 07:52 11/28/23 07:52 11/28/23 07:52 11/28/23 07:52 11/28/23 07:52
I&O
11/27/23 11/28/23 11/29/23
06:59 06:59 06:59
Intake Total 1840 / 1840 1280 / 1280 1800 / 1800
Output Total 1000 / 1000 1550 / 1550 1100 / 1100
Balance 840 / 840 -270 / -270 700 / 700
Review of Systems
-
History Source: Patient
All other systems: Reviewed and negative
Physical Exam
-
General: Well Nourished, No Apparent Distress and Comfortable
HEENT: Normocephalic, Atraumatic and Moist Mucous Membranes
Respiratory: Clear to Auscultation and Non Labored Respirations; Negative Wheezes, Rales or Rhonchi
Cardiac: Regular Rhythm and S1/S2; Negative Murmur, Rub or Gallop
GI: Soft, Nontender, Nondistended and Normal Bowel Sounds
Genito-urinary: No Costovertebral Tender
Musculoskeletal: No Clubbing, No Cyanosis and No Edema
Skin: Warm, Dry and Normal Turgor; Negative Rash
Neuro: AO x 3, Nonfocal/Grossly Intact and Central Nerve's Intact
Psych: Calm
Data Reviewed
-
Labs: Labs Reviewed by me and Discussed with Patient
[2023-11-28] MEDS: DILAUDID 4 MG PO ×3 (14:22→22:35)
[2023-11-28 15:54] VITALS: BP 110/50
[2023-11-28] MEDS: SKELAXIN 800 MG PO (22:00)
[2023-11-28 23:01] VITALS: BP 113/64
[2023-11-29] MEDS: TYLENOL PO ×2 (01:08→12:00)
[2023-11-29] MEDS: TYLENOL 650 MG PO ×2 (04:21→09:51)
[2023-11-29] MEDS: DILAUDID 4 MG PO ×2 (04:22→10:58)
[2023-11-29 05:58] LABS: Reticulocyte Count 4.3 % (0.4-2.8)
[2023-11-29 06:25] LABS: ALT (SGPT) 48 U/L (0-50); AST (SGOT) 37 U/L (17-59); Albumin 4.1 g/dl (3.5-5.0); Alkaline Phosphatase 183 U/L (38-126); Blood Urea Nitrogen 8 mg/dl (9-20); Calcium 10.1 mg/dl (8.4-10.2); Carbon Dioxide 24 mmol/L (22-30); Chloride 102 mmol/L (98-107); Direct Bilirubin 0.1 mg/dl (0.0-0.4); Estimated Creatinine Clearance > 125 ml/min; Glucose 90 mg/dl (70-99); Potassium 4.6 mmol/L (3.5-5.1); Sodium 139 mmol/L (135-145); Total Bilirubin 1.3 mg/dl (0.2-1.3); Total Protein 7.1 g/dl (6.3-8.2); eGFR > 60.00
--- NOTE | 2023-11-29 07:55 | W.PN.HOSP.TC ---
Addendum entered and electronically signed by Sharlene Soriano MD 11/29/23 18:43:
I saw and evaluated the patient independently. I reviewed the resident�s note and agree with findings and plan as documented by Dr. Aranda.
GENERAL: well developed, well nourished, male in no apparent distress
HEENT: NC/AT
HEART: regular rate and rhythm, +S1, +S2
LUNGS : clear to auscultation bilaterally
ABDOM: soft, nontender, nondistended, + bowel sounds
EXT: no cyanosis, clubbing, or edema
NEUROLOGIC:grossly intact
Sickle cell anemia with pain crisis--finished IVF, O2--provided oral dilaudid/oral dilaudid--pt insisted on IV if possible--explained cannot d/c him on that--patient wanted both IV Dilaudid and Subutex--explained to him that they counteract each
other and he will be discharged on one or the other but not both--he stated he would prefer the Subutex as that works better for him for withdrawal symptoms--will resume his Subutex at 16 mg (not 60 as documented below)--appreciate hematology, they
will not follow him at discharge--he will need to follow-up with his usual flow specialist for his ongoing sickle management--Continue on hydroxyurea dosing of 500 mg daily
Reactive thrombocytosis--Likely reactive from sickle cell, hemolytic processes
Avascular necrosis of bilateral femurs--seen by orthopedics--appreciate input, no in-hospital intervention at this point, follow-up as outpatient--had concern for myositis on MRI though CK level low normal--No indication for steroid
Mood Disorder--Continue current med regimen including mirtazapine--PRN quetiapine or Haldol for agitation.
DVT Prophylaxis: Lovenox
Code Status: Full
Okay for discharge back to the [facility]
Original Note:
Today's Communication/Plan
-
Administer Subutex dose now
Stop Dilaudid
D/C today on Subutex
Assessment / Plan
Assessment / Plan
Assessment
Sickle cell anemia
Sickle cell pain crisis
Reactive thrombocytosis
Avascular necrosis of bilateral femoral
Mood disorder
Plan
#Sickle cell anemia
#Sickle cell pain crisis
-Presented with significant pain that is since improved with IV fluids, oxygen, analgesia
-Initially had elevated LFTs and reticulocyte count which are both downtrending
-Remains on oral Dilaudid 4 mg every 6 hours. Stopped today
-Upon speaking to patient, patient will prefer to continue Subutex 60 mg sublingual daily, as we cannot give both Subutex and dialaudid
-At this time we will DC oral Dilaudid 4 mg every 6 hours, will cancel old order.
-DC back to [facility] on Subutex
-Continue on hydroxyurea dosing of 500 mg daily
-Repeat CBC, LFTs, and reticulocyte count 5 days postdischarge
#Reactive thrombocytosis
-Likely reactive from sickle cell, hemolytic processes
-Will continue to trend CBC as above. Repeat labs after discharge
-Resumed on IVF
#Avascular necrosis of bilateral femurs
-X-ray suggestive; MRI confirmed and used for staging
-Orthopedics following, recommending outpatient follow-up, no intervention as of now
-Was concern for myositis on MRI though CK level low normal
-No indication for steroid as of now, will follow-up outpatient with orthopedics
#Mood Disorder
-Continue current med regimen including mirtazapine.
-PRN quetiapine or Haldol for agitation.
DVT Prophylaxis: Lovenox
Diet: Regular
Code Status: Full
Anticipated Discharge: Today
Objective Data
-
Labs:
Laboratory Results
11/29/23
05:18
Sodium 139
Potassium 4.6
Chloride 102
Carbon Dioxide 24
BUN 8 L
Creatinine 0.7
Glucose 90
Calcium 10.1
Total Bilirubin 1.3
AST 37
ALT 48
Alkaline Phosphatase 183 H
Vital Signs:
Vital Signs
Temp Pulse Resp BP Pulse Ox
98.8 F 84 18 113/64 95
11/28/23 23:01 11/28/23 23:01 11/28/23 23:01 11/28/23 23:01 11/28/23 23:01
I&O
11/28/23 11/29/23 11/30/23
06:59 06:59 06:59
Intake Total 1280 / 1280 3680 / 3680
Output Total 1550 / 1550 4350 / 4350
Balance -270 / -270 -670 / -670
Review of Systems
-
All other systems: Reviewed and negative (Except as documented)
Physical Exam
-
General: No Apparent Distress
HEENT: Normocephalic and Atraumatic
Respiratory: Clear to Auscultation
Cardiac: Regular Rhythm and S1/S2
GI: Soft, Nontender, Nondistended and Normal Bowel Sounds
Musculoskeletal: No Edema
Neuro: AO x 3
[2023-11-29 08:06] VITALS: BP 110/60
[2023-11-29] MEDS: 0.45%NACL 1000 IV (09:50)
[2023-11-29] MEDS: HYDREA 500 MG PO (09:51)
[2023-11-29] MEDS: SENOKOT-S 1 TABLET PO (09:51)
[2023-11-29] MEDS: PROTONIX 40 MG PO (09:51)
[2023-11-29] MEDS: FOLVITE 1 MG PO (09:51)
--- NOTE | 2023-11-29 11:05 | W.PN.ONC ---
Today's Communication / Plan
-
Acute pain/withdrawal management as per primary service. Hematologically stable.
Impression
Impression
sickle cell disease
sickle cell pain crisis
anemia
avascular necrosis b/l femoral heads w/o evidence of articular surface collapse, b/l proximal femurs bone infarcts
right proximal vastus intermedius intramuscular edema and perifascial edema suspicious for myositis
Plan
Plan
Sickle cell disease w/ pain crisis
-check CBC and retic count daily
-cont supportive care w/ oxygen / hydration
-cont analgesia, Skelaxin
-hydrea/ folic acid
-monitor respiratory symptoms closely
-agreeable to OP follow up with my office while residing in [place], however, does not plan to stay local after release from [facility]
-recommend pain management provider outpatient upon discharge, hematology will not be managing his pain upon discharge
b/l femoral heads avascular necrosis- management per Ortho
myositis -consider course of steroids, check CPK
Subjective/Objective
Subjective/Objective
He says he is still going through withdrawal. He is somewhat tremulous. Examination is otherwise unchanged.
Vital Signs:
Vital Signs
Temp Pulse Resp BP Pulse Ox
98.3 F 64 20 110/60 93
11/29/23 08:06 11/29/23 08:06 11/29/23 08:06 11/29/23 08:06 11/29/23 08:06
Lab Results:
Laboratory Data
WBC 11.0 10^3/uL (4.8-10.8) H 11/28/23 07:47
Hgb 8.9 g/dL (13.0-18.0) L 11/28/23 07:47
Plt Count 1090 10^3/uL (130-400) H 11/28/23 07:47
PT 14.9 Sec (11.4-14.6) H 11/22/23 11:11
INR 1.19 11/22/23 11:11
eGFR > 60.00 11/29/23 05:18
--- NOTE | 2023-11-29 11:08 | PTCARENOTE ---
Patient states, 'I am going through withdraw. I want subutex.' Patient with no withdraw symptoms at present. When physician walked in room, patient began shaking that subsided after physician left room. No further shaking noted, patient resting
comfortably in bed.
--- NOTE | 2023-11-29 13:02 | CM ---
Patient seen at bedside with physician and resident. Patient for return to [facility] and halfway guards at bedside. Please call report to [phone]/fax,[phone]. CM called and spoke with Alissa in the dispensary and she is anticipating patient
return. CM will continue to follow for discharge planning needs.
Plan; return to halfway
--- NOTE | 2023-11-29 13:55 | PTCARENOTE ---
Patient verbally abusive again. Patient yelling at nurse to call doctor and call pharmacy. Patient states, 'Call that doctor. it has been an hour. I want leave. Call the pharmacy now! I want my subutex.' 'Why are you a nurse? You don't do anything!'
[2023-11-29] MEDS: SUBUTEX 16 MG SL (14:16)
[2023-11-29 14:29] VITALS: BP 116/68
--- NOTE | 2023-11-29 17:50 | W.DCSUMMARY ---
Addendum entered and electronically signed by Sharlene Soriano MD 11/29/23 18:45:
Read, reviewed, and agree. See same day progress note for additional details. Time spent coordinating care, DC planning, review of DC plan of care with resident, transition of care, review of records in EMR, med rec, consults, notes, d/w
consultants, nursing, family, and CM = 40 minutes.
Original Note:
Discharge Summary
Discharge Data
Date of Admission: 11/22/23
Date of Discharge: 11/29/23
-
Pending Results: No
Hospital Course
BRIEF HOSPITAL COURSE: This is a 28-year-old male with past medical history of sickle cell disease who presented to ED from [facility] for evaluation of generalized pain and sickle cell pain crisis.� Patient was previously
admitted to the hospital 11/14-11/18 for similar complaints.� At this admission, He reports much of his new pain was focused on his HIP and chest.� In the emergency department he was agitated, hemodynamically stable with blood pressure of 126/61.�
He was tachycardic at 116 he was afebrile.� O2 sats was 98% on room air.� Examination with a chest x-ray in the ED showed no acute infiltrates.� His troponin was negative, and his white cell count was 70,000.� X-ray of the right hip withOUT fracture
and dislocation, and presence of sclerosis of the right femoral head which could be related to avascular necrosis.� The patient had no evidence of acute chest syndrome, no focal neurological complaints or findings, he had no priapism.� He was
treated with IV fluids, pain medication and supplemental oxygen.� Orthopedics was consulted concerning his avascular necrosis and it was recommended MRI without contrast of bilateral hips should be gotten for staging of avascular necrosis.� MRI of
bilateral hips showed evidence of chronic avascular necrosis without articular surface collapse.� Per orthopedics recommendation no urgent operative intervention was recommended and he is advised to follow up with orthopedic surgery on an outpatient
basis.� He will be discharged today back to the correctional facility with his usual Subutex dose to 16 mg SL daily, and continued on his previous regimen including hydroxyurea. Dilaudid will be discontinued and it is recommended he follows up with
painting worker a few days after discharge. In addition, Repeat CBC, LFT, reticulocyte 1 week after discharge
Discharge Plan
-
Patient Disposition: Long Term
Discharge Diagnosis/Procedures: Sickle cell anemia
Sickle cell pain crisis
Condition: Fair
Diet: No restrictions
Additional Diets: Patient should stay hydrated, >60 ounces free water intake daily
Activity: As tolerated
Driving Restrictions: Not until seen by your Dr
Bathing Restrictions: None
Blood Work: Repeat CBC, LFT, reticulocyte 1 week after discharge
Others Tests: None
Other Services: PT and OT
Activity Restrictions/Additional Instructions:
After discharge from hospital patient should have evaluation with primary care provider/senior living physician within 1 week
Patient will need follow-up with pain management referral if this is possible at the long term, referral provided if needed
Patient will need to follow-up with orthopedics group in regards to his avascular necrosis, referral below
Referrals:
[facility] [Family Provider] -
(psych specialist follow up within the first few days of discharge
)
Murali Davis MD [Active] - in one to two weeks
Kale Sandoval, DO [Non-Admitting Privileges] - in one to two weeks
Angela Donovan MD [Active] - in one to two weeks
Additional Discharge Medication Instructions: Continue buprenorphine
Stop Dilaudid
Patient should be transition to long-acting regimen with pain management/palliative referral
Continue hydroxyurea at current doses
Prescriptions:
Continued
hydroxyurea 500 mg Capsule
500 mg PO DAILY
folic acid 1 mg Tablet
1 mg PO DAILY
ibuprofen 600 mg Tablet
600 mg PO BIDPRN PRN (Reason: mild pain)
tolnaftate [Antifungal (tolnaftate)] 1 % Cream
1 applic TOPICAL BID
Patient Comments:
09/25/2023: mix with Hydrocortisone 1% and apply to tip of penis
famotidine 20 mg Tablet
20 mg PO BIDPRN PRN (Reason: acid reflux/heartburn/gi issues)
hydrocortisone 1 % Cream
1 applic TOPICAL BID
Patient Comments:
09/25/2023: mix with Antifungal 1% and apply to tip of penis
polyethylene glycol 3350 [Gavilax] 17 gram powder in packet
17 g PO DAILYPRN PRN (Reason: Constipation)
acetaminophen 500 mg Tablet
1,000 mg PO TID PRN (Reason: pain)
triamcinolone acetonide 0.1 % Ointment
1 applic TOPICAL BID
omeprazole 20 mg Tablet,Delayed Release (Dr/Ec)
20 mg PO BID
bisacodyl [Dulcolax (bisacodyl)] 10 mg Suppository
10 mg UT DAILY PRN (Reason: constipation)
buprenorphine HCl 8 mg Tablet, Sublingual
16 mg SUBLINGUAL DAILY
mirtazapine 15 mg Tablet
15 mg PO HS
Discontinued
prednisone 10 mg Tablet
10 mg PO DAILY
Discharge Orders:
Discharge Patient (As Directed); Ordered 11/29/23
Ordered By: Rosa Aranda
Discharge Date and Time
Discharge Date/Time: 11/29/23 15:07
Print Language: TRISTANIAN
== END 2023-11-29 15:07 | DRG 553 ==
LOC: 4 WEST ACU 01:05
PROVIDERS: Internal Medicine; Nurse Practitioner Acute Care; Student in an Organized Health Care Education/Training Program; ADMITTING PHYSICIAN Internal Medicine; ATTENDING PHYSICIAN Internal Medicine; CONSULT PHYSICIAN Internal Medicine Hematology & Oncology; CONSULT PHYSICIAN Specialist; EMERGENCY PHYSICIAN Emergency Medicine
DX: M87.051 Idiopathic aseptic necrosis of right femur (principal); D57.00 Hb-SS disease with crisis, unspecified; D58.9 Hereditary hemolytic anemia, unspecified; F32.A Depression, unspecified; D75.838 Other thrombocytosis; M60.9 Myositis, unspecified
CPT/HCPCS: 71045; 73501; 73721; 80048; 80053; 80076; 82248; 82550; 84484; 85025; 85027; 85045; 85610; 93005; 93971; 96361; 96374; 96376; 99285

== ENCOUNTER 2023-12-20 23:44 | Inpatient (IN) | payer OTHER, SELFPAY ==
[2023-12-20 18:21] VITALS: BP 123/70
[2023-12-20 19:00] VITALS: BP 125/63
[2023-12-20 20:00] VITALS: BP 127/70
--- NOTE | 2023-12-20 20:28 | ED.GENMED ---
History of Present Illness
General
Chief Complaint: Generalized Pain
Source: patient, records and previous hospital records
Time Seen by Provider: 12/20/23 20:08
History of Present Illness
History of Present Illness:
28-year-old male reviewed from [place] has been incarcerated locally for about 4 months sickle cell disease, has been admitted to [facility] a few times, treated with fluids hydromorphone, he has been maintained on his outpatient meds and Suboxone
in long term, past day or so has had some cough upper respiratory infection congestion low-grade fevers, brought about a sickle cell crisis, has pain in his back chest joints, prior records briefly reviewed has been seen by hospital medicine and
oncology, orthopedics,
Past History
Past History
ED Past Medical History: Other (Sickle cell disease)
ED Past Surgical History: Cholecystectomy
Social History
Tobacco: Non-smoker
Alcohol: None
Drug: None
Living: skilled nursing
Phy Exam
Physical Exam
Physical Exam:
Physical Exam
General: 28 [place] male nontoxic afebrile occasionally cough
Neck: No jaundice
Heart: s1/s2 regular rate and rhythm, no murmur. equal radial pulses.
Lungs: no acute respiratory distress. Faint crackles bilateral
Abdomen: Nontender
Neuro: alert and oriented. no focal neurological deficits
Skin: no rash
Psychiatric: cooperative
Extremities: no edema.
Course
Orders/Labs/Results
Orders:
Orders
12/20/23 20:22
Complete Blood Count/With Diff Urgent
Comprehensive Metabolic Panel Urgent
Reticulocyte Count Urgent
Influenza A+B Rapid Molecular Urgent
QUINN Source: Nasal Swab
Specimen Description:
CR Chest - 2 Views Urgent
Comment:
Reason For Exam: ocugh ssd
12/20/23 20:23
HYDROmorphone [Dilaudid] 1 mg IV NOW STA
12/20/23 20:30
COVID-19 Antigen Urgent
Source: Nasal Swab
Lactic Acid Q4H
Comment: CANCEL 2nd LACTIC ACID IF 1st LACTIC ACID IS LESS THAN 2
Blood Culture Q30M
QUINN Source: Blood/Venous
Specimen Description:
12/20/23 21:00
Blood Culture Q30M
QUINN Source: Blood/Venous
Specimen Description:
12/21/23 00:30
Lactic Acid Q4H
Comment: CANCEL 2nd LACTIC ACID IF 1st LACTIC ACID IS LESS THAN 2
Vital Signs
Initial and Last Documented VS:
Initial Vital Signs
Temp
98.9 F
12/20/23 18:17
Last Documented Vital Signs
Temp Pulse Resp BP Pulse Ox
98.9 F 90 15 127/70 98
12/20/23 18:21 12/20/23 20:15 12/20/23 19:15 12/20/23 20:00 12/20/23 18:21
MDM/Problems Addressed
Differential Diagnosis Includes:
Sickle cell pneumonia viral syndrome
MDM/Problems Addressed:
Pain upper respiratory infection
Chronic conditions affecting care:
Sickle cell
Acute Exacerbation and/or Progression of Chronic Illness:
Sickle cell
*Radiology
Radiology exam reviewed: preliminary read by ED provider
*Pulse Oximetry
Patient hypoxic: no
*Critical Care Note
Total Time (30-74mins, 75-104mins- exclusive of procedures): Not Applicable
Update Note
Update Note:
Will check labs CBC retake, viral swabs blood culture due to subjective fevers analgesics
ED Attending Note
-
Portions of this chart may have been created with voice recognition software.� Occasional wrong word or��sound alike� substitutions may have occurred due to the inherent limitations of voice recognition software.
Discharge Plan
Departure
Prescriptions:
No Action
hydroxyurea 500 mg Capsule
500 mg PO DAILY
folic acid 1 mg Tablet
1 mg PO DAILY
ibuprofen 600 mg Tablet
600 mg PO BIDPRN PRN (Reason: mild pain)
tolnaftate [Antifungal (tolnaftate)] 1 % Cream
1 applic TOPICAL BID
Patient Comments:
09/25/2023: mix with Hydrocortisone 1% and apply to tip of penis
famotidine 20 mg Tablet
20 mg PO BIDPRN PRN (Reason: acid reflux/heartburn/gi issues)
hydrocortisone 1 % Cream
1 applic TOPICAL BID
Patient Comments:
09/25/2023: mix with Antifungal 1% and apply to tip of penis
polyethylene glycol 3350 [Gavilax] 17 gram powder in packet
17 g PO DAILYPRN PRN (Reason: Constipation)
acetaminophen 500 mg Tablet
1,000 mg PO TID PRN (Reason: pain)
triamcinolone acetonide 0.1 % Ointment
1 applic TOPICAL BID
omeprazole 20 mg Tablet,Delayed Release (Dr/Ec)
20 mg PO BID
bisacodyl [Dulcolax (bisacodyl)] 10 mg Suppository
10 mg ND DAILY PRN (Reason: constipation)
buprenorphine HCl 8 mg Tablet, Sublingual
16 mg SUBLINGUAL DAILY
mirtazapine 15 mg Tablet
15 mg PO HS
Referrals:
[facility] [Family Provider] -
Interventions
Interventions:
*Risk Screen - Suicide Last Done: 12/20/23 18:21
*General Assessment Last Done: 12/20/23 18:17
*Neglect/Abuse Screening Last Done: 12/20/23 18:17
*ED COVID-19 Vaccine History Last Done: 12/20/23 18:17
Discharge Date and Time
Print Language: SERBIAN
[2023-12-20] MEDS: DILAUDID 1 MG IV ×2 (20:33→22:15)
[2023-12-20 21:09] VITALS: BP 130/69
[2023-12-20 21:26] LABS: COVID-19 Antigen Negative (Negative)
[2023-12-20 21:29] LABS: ALT (SGPT) 30 U/L (0-50); AST (SGOT) 56 U/L (17-59); Albumin 4.9 g/dl (3.5-5.0); Alkaline Phosphatase 94 U/L (38-126); Blood Urea Nitrogen 6 mg/dl (9-20); Calcium 9.5 mg/dl (8.4-10.2); Carbon Dioxide 26 mmol/L (22-30); Chloride 100 mmol/L (98-107); Glucose 84 mg/dl (70-99); Lactic Acid 0.7 mmol/L (0.7-2.0); Potassium 4.3 mmol/L (3.5-5.1); Sodium 138 mmol/L (135-145); Total Bilirubin 3.1 mg/dl (0.2-1.3); Total Protein 7.7 g/dl (6.3-8.2); eGFR > 60.00
[2023-12-20 21:31] LABS: % Basophils 0.6 % (0-2); % Eosinophils 8.7 % (0-6); % Immature Granulocytes 0.5 % (0-0.5); % Lymphocytes 21.7 % (20.5-51.1); % Monocytes 10.1 % (1.7-9.3); % Neutrophils 58.4 % (42.2-75.2); Absolute Basophils 0.1 10^3/uL (0-0.2); Absolute Eosinophils 1.5 10^3/uL (0-0.7); Absolute Immature Granulocytes 0.1 10^3/uL (0-0.05); Absolute Lymphocytes 3.7 10^3/uL (1.2-3.4); Absolute Monocytes 1.7 10^3/uL (0.1-0.6); Absolute Neutrophils 9.9 10^3/uL (1.4-6.5); Hematocrit 27.3 % (39.0-52.0); Hemoglobin 9.7 g/dL (13.0-18.0); Mean Corp Hgb Conc. 35.5 g/dL (33.0-37.0); Mean Corpuscular Volume 70.4 fL (80.0-94.0); Mean Platelet Volume 8.8 fL (7.4-10.4); Nucleated Red Blood Cells % 0.5 % (-); Platelet Count 168 10^3/uL (130-400); Red Blood Cell Count 3.88 10^6/uL (4.70-6.10); Red Cell Dist. Width 21.8 % (11.5-14.5); White Blood Cell Count 16.9 10^3/uL (4.8-10.8)
[2023-12-20 21:43] VITALS: BP 124/73
[2023-12-20 22:00] VITALS: BP 137/78
[2023-12-20 22:06] LABS: Reticulocyte Count 10.5 % (0.4-2.8)
[2023-12-20] MEDS: BENADRYL 25 MG IV (22:15)
[2023-12-20] MEDS: NSS 1000 IV (22:16)
[2023-12-20] MEDS: ROCEPHIN 1000 MG IV (22:16)
--- NOTE | 2023-12-20 22:46 | HPS.HSE ---
Family Physician
-
Family Physician: Facility [facility]
Chief Complaint
-
Diffuse Pain and Cough
History of Present Illness
Patient is a 28 y/o male past medical history of sickle cell disorder and mood disorder who presents with diffuse pain, and cough. Patient reports he initially developed increased nasal congestion, runny nose and cough a few days ago. He reports
cough is sometimes productive of mostly clear mucus. He notes shortly after onset of upper respiratory symptoms he developed diffuse muscle/joint pains consistent with his prior episodes of sickle cell pain crisis. He denies records fevers, but
reports sweats and chills.
Medical History
Past Medical History
Past Medical History: Reports Other
Additional Past Medical History:
Sickle Cell Disease
Mood Disorder
Avascular Necrosis Bilateral Femurs
Past Surgical History: Reports Other
Additional Past Surgical History:
Cholecystectomy
Social History
Tobacco: Non-smoker
Alcohol: None
Drug: None
Family History
Family History: CAD and Diabetes
Allergies / Home Medications
Allergies reflects when Allergies were last updated in [facility].
Home Medications with original date entered in [facility]
Allergy/Medication List:
Allergies
Allergy/AdvReac Type Severity Reaction Status Date / Time
morphine Allergy Anaphylaxis Verified 11/15/23 01:10
Home Medications
folic acid 1 mg tablet 1 mg PO DAILY Supplement 08/28/23
hydroxyurea 500 mg capsule 500 mg PO DAILY sickle cell anemia 08/28/23
ibuprofen 600 mg tablet 600 mg PO BIDPRN PRN mild pain 08/28/23
famotidine 20 mg tablet 20 mg PO BIDPRN PRN acid reflux/heartburn/gi issues 09/25/23
polyethylene glycol 3350 17 gram oral powder packet (Gavilax) 17 g PO DAILYPRN PRN Constipation 09/25/23
acetaminophen 500 mg tablet 1,000 mg PO TID PRN pain 10/13/23
omeprazole 20 mg tablet,delayed release 20 mg PO BID Gastrointestinal Issue 10/13/23
triamcinolone acetonide 0.1 % topical ointment 1 applic topical BIDPRN PRN skin issues 10/13/23
buprenorphine HCl 8 mg sublingual tablet 16 mg sublingual DAILY withdrawal 10/14/23
mirtazapine 15 mg tablet 15 mg PO HS Depression 11/15/23
bisacodyl 5 mg tablet,delayed release (Dulcolax (bisacodyl)) 10 mg PO HSPRN PRN constipation 12/20/23
prednisone 10 mg tablet 10 mg PO DAILY 12/20/23
Review of Systems
-
A 12 point ROS was completed and negative except as noted: Yes
EENT: Reports Runny Nose
Respiratory: Reports Cough
Cardiac: Denies Chest Pain or Palpitations
Physical Exam
Vital Signs
Vital Signs
Temp Pulse Resp BP Pulse Ox
98.9 F 95 15 137/78 98
12/20/23 18:21 12/20/23 22:15 12/20/23 22:15 12/20/23 22:00 12/20/23 18:21
Physical Exam
General: Well Developed and Well Nourished
HEENT: Anicteric and Moist mucous membranes
Respiratory: Clear and Non Labored Respirations
Cardiac: S1/S2 and Regular Rhythm
GI: Soft and Non Tender
Musculoskeletal: No Clubbing, No Cyanosis and No Edema
Skin: Warm and Dry
Neuro: Awake, Alert, Oriented and Nonfocal/grossly intact
Psych: Calm
Laboratory Results
-
12/20/23 20:32
12/20/23 20:32
Laboratory Results
Lactic Acid 0.7 mmol/L (0.7-2.0) 12/20/23 20:32
Total Bilirubin 3.1 mg/dl (0.2-1.3) H 12/20/23 20:32
AST 56 U/L (17-59) 12/20/23 20:32
ALT 30 U/L (0-50) 12/20/23 20:32
Alkaline Phosphatase 94 U/L (38-126) 12/20/23 20:32
Data Reviewed
-
Lab Data: Labs Reviewed by me
Impression/Plan
-
Sickle Cell Disease with Pain Crisis
-Consult Hematology
-Continue IVFs
-Continue Dilaudid prn for pain
-Continue hydroxyurea
Upper Respiratory Infection, possibly pneumonia
-Continue ceftriaxone and azithromycin
-Check Procalcitonin
Mood Disorder
-Continue mirtazapine
DVT proph: Lovenox
Code Status: Full Code
--- NOTE | 2023-12-20 23:05 | W.PN.UPDATE ---
Update Note
Progress Note Update
This note serves as an addendum to the H&P by industrial organization manager SIENNA Ailyn CHANG
HPI
28M from [facility] HX sickel cell dz pw recnt UTI, minimally productive cough and pain crisis of of scikle cell dz.
Vital Signs
Temp Pulse Resp BP Pulse Ox
98.9 F 95 15 137/78 98
12/20/23 18:21 12/20/23 22:15 12/20/23 22:15 12/20/23 22:00 12/20/23 18:21
PE
nontoxic
HEENT : No jaundice
Neck : supple
Cor: s1/s2 regular rate and rhythm, no murmur. equal radial pulses.
Lungs: no acute respiratory distress. Faint crackles bilateral
Abdomen: Nontender
Neuro: alert and oriented. no focal neurological deficits
Skin: no rash
Psychiatric: cooperative
Extremities: no edema.
Data
WCC 16.9
Hgb 9.7 - baseline Hgb 9s
Microcytic
nl eGFR
TB 3.1 - from base line 1.3
CXR: Subtle increased interstitial markings within the left lower lung, probably representing scarring.
ASSESSMENT & PLAN
Sickle cell pain crisis
Precipitated by recent URI and suspect LLL PNA
- IV NS @ 120 H
- Dilaudid 1mg q3H PRN
- Hold Buprenorphine for now
- Empiric IV CFTZ and Doxy
- O2 to keep POx > 94
- Heme consult
HX Avascular necrosis of bilateral femurs
- OP Orthopedics following- no intervention as of now
Mood Disorder
-Continue current med regimen including mirtazapine.
-PRN quetiapine or Haldol for agitation.
DVT Prophylaxis: Lovenox
Code Status: Full
IP TLM
[2023-12-20] MEDS: DILAUDID 0.25 MG IV (23:10)
[2023-12-20] MEDS: TYLENOL 650 MG PO (23:48)
[2023-12-21 02:01] VITALS: BP 104/39
[2023-12-21] MEDS: DILAUDID 1 MG IV ×7 (02:05→21:06)
[2023-12-21] MEDS: NSS 1000 IV (05:06)
[2023-12-21 07:30] VITALS: BP 114/63
[2023-12-21] MEDS: PROTONIX 40 MG PO ×2 (08:06→21:09)
[2023-12-21] MEDS: FOLVITE 1 MG PO (08:07)
[2023-12-21] MEDS: ZITHROMAX 500 MG PO (08:07)
[2023-12-21] MEDS: MUCINEX 600 MG PO ×2 (08:07→21:09)
--- NOTE | 2023-12-21 09:03 | CON.ONC ---
Impression
Impression
sickle cell pain in setting of URI
anemia
bilateral hip AVN, chronic
Plan
Plan
Continue prn dilaudid
Transition back to outpatient buprenophine when able
Empiric abx, though suspect viral infection
Continue Hydrea 500mg/d. Discussed increasing Hydrea dose (ideally, >1000mg/d) to reduce pain episodes, but he's reluctant at this time. Will continue discussions.
Monitor CBC, LFTs, retic count. Will check iron studies with down-trending MCV
Continue folic acid
Encourage oral hydration
Rec. incentive spirometry at bedside - ordered
GI and DVT ppx
Patient History
History of Present Illness
28 yo w/ sickle cell disease and frequent admissions for pain, presents [facility] w/ worsening pain in the setting of URI, with nasal congestion, sore throat, and cough. Afebrile here, but low grade temps [employer] reported.
Pain is in hips and back, no chest pain. Taking Hydrea 500mg/d, and takes outpatient buprenorphine. Retic count elevated to 10.5%, hgb is 9.7. Tbili is 3.1.
Past-Medical/Surgical History
Sickle cell disease
anemia
bilateral femoral head AVN
Patient Medication
�Medication �Instructions �Recorded �Confirmed �Last Taken �Type
folic acid 1 mg tablet 1 mg PO DAILY Supplement 08/28/23 12/20/23 09/02/23 08:00 History
hydroxyurea 500 mg capsule 500 mg PO DAILY sickle cell anemia 08/28/23 12/20/23 09/02/23 08:00 History
ibuprofen 600 mg tablet 600 mg PO BIDPRN PRN mild pain 08/28/23 12/20/23 09/02/23 08:00 History
famotidine 20 mg tablet 20 mg PO BIDPRN PRN acid 09/25/23 12/20/23 Unknown History
reflux/heartburn/gi issues
polyethylene glycol 3350 17 gram 17 g PO DAILYPRN PRN Constipation 09/25/23 12/20/23 Unknown History
oral powder packet (Gavilax)
acetaminophen 500 mg tablet 1,000 mg PO TID PRN pain 10/13/23 12/20/23 Unknown History
omeprazole 20 mg tablet,delayed 20 mg PO BID Gastrointestinal Issue 10/13/23 12/20/23 Unknown History
release
triamcinolone acetonide 0.1 % 1 applic topical BIDPRN PRN skin 10/13/23 12/20/23 Unknown History
topical ointment issues
buprenorphine HCl 8 mg sublingual 16 mg sublingual DAILY withdrawal 10/14/23 12/20/23 Unknown History
tablet
mirtazapine 15 mg tablet 15 mg PO HS Depression 11/15/23 12/20/23 Unknown History
bisacodyl 5 mg tablet,delayed 10 mg PO HSPRN PRN constipation 12/20/23 12/20/23 Unknown History
release (Dulcolax (bisacodyl))
prednisone 10 mg tablet 10 mg PO DAILY 12/20/23 12/20/23 Unknown History
Active Medications
Generic Name Dose Route Start Last Admin
Trade Name Freq PRN Reason Stop Dose Admin
Acetaminophen 650 mg 12/21/23 07:55
Acetaminophen 325 Mg Tablet PO 01/17/24 23:35
Q4HPRN PRN
mild pain/ fever>100.5F
Azithromycin 500 mg 12/21/23 08:00 12/21/23 08:07
Azithromycin 250 Mg Tablet PO 500 mg
DAILY SKYLER Administration
Benzonatate 200 mg 12/21/23 00:06
Benzonatate 100 Mg Capsule PO 01/18/24 00:05
TIDPRN PRN
cough
Ceftriaxone Sodium 1,000 mg 12/21/23 22:00
Ceftriaxone 1000 Mg / 10 Ml Vial IV
Q24H SKYLER
Enoxaparin Sodium 40 mg 12/21/23 18:00
Enoxaparin Sodium 40 Mg/0.4 Ml Syringe SC 01/18/24 17:59
QPM SKYLER
Folic Acid 1 mg 12/21/23 08:00 12/21/23 08:07
Folic Acid 1 Mg Tablet PO 01/18/24 07:59 1 mg
DAILY SKYLER Administration
Guaifenesin 600 mg 12/21/23 08:00 12/21/23 08:07
Guaifenesin 600 Mg Extended Release Tablet PO 01/18/24 07:59 600 mg
Q12 SKYLER Administration
Hydromorphone HCl 1 mg 12/21/23 00:06 12/21/23 08:08
Hydromorphone 1 Mg/Ml Carpuject IV 01/04/24 00:05 1 mg
Q3HPRN PRN Administration
severe pain
Hydroxyurea 500 mg 12/21/23 08:00
Hydroxyurea 500 Mg Capsule PO 01/18/24 07:59
DAILY SKYLER
Sodium Chloride 1,000 mls @ 120 mls/hr 12/21/23 00:06 12/21/23 05:06
Nss IV 1,000 mls
.Q8H20M SKYLER Administration
Mirtazapine 15 mg 12/21/23 22:00
Mirtazapine 15 Mg Regular Release Tablet PO 01/18/24 21:59
HS SKYLER
Ondansetron HCl 4 mg 12/21/23 00:06
Ondansetron 4 Mg/2 Ml Vial IV 01/18/24 00:05
Q6HPRN PRN
NAUSEA/VOMITING
Pantoprazole Sodium 40 mg 12/21/23 08:00 12/21/23 08:06
Pantoprazole 40 Mg Delayed Release Tablet PO 01/18/24 07:59 40 mg
BID SKYLER Administration
Sodium Chloride 0 flush 12/21/23 01:00
Sodium Chloride 0.9% (Flush) Syringe IV 01/18/24 00:59
PER PROTOCOL SKYLER
Sterile Water 10 ml 12/21/23 22:00
Sterile Water For Injection 10 Ml Vial IV 01/18/24 21:59
Q24H SKYLER
Review of Systems
-
History Source: Patient
Constitutional: Reports Fever; Denies No Appetite
EENT: Reports Sore Throat and Runny Nose
Respiratory: Reports Cough; Denies Trouble Breathing
Cardiac: Denies Chest Pain
GI: Denies Abdominal Pain, Nausea, Vomiting or Diarrhea
: Denies Dysuria
Musculoskeletal: Reports Joint Pain; Denies Edema
Skin: Denies Rash
Neuro: Reports Headache
Physical Exam
-
General: Well Developed, Well Nourished and No Apparent Distress; Negative Conversant
Cardiology: Normal Sinus Rhythm
Pulmonary: Clear
GI: Soft
Musculoskeletal: No Clubbing, No Cyanosis and No Edema
Extremities: No C/C/E
Neurology: Non Focal, No Lateralizing Symptoms and No Word Finding Difficulty
Skin: Warm and Dry
Psych: Calm and Intact Judgement/Insight
Labs
Lab Results
WBC 16.9 10^3/uL (4.8-10.8) H 12/20/23 20:32
RBC 3.88 10^6/uL (4.70-6.10) L 12/20/23 20:32
Hgb 9.7 g/dL (13.0-18.0) L 12/20/23 20:32
Hct 27.3 % (39.0-52.0) L 12/20/23 20:32
MCV 70.4 fL (80.0-94.0) L 12/20/23 20:32
MCH 25.0 pg (27.0-31.0) L 12/20/23 20:32
MCHC 35.5 g/dL (33.0-37.0) 12/20/23 20:32
RDW 21.8 % (11.5-14.5) H 12/20/23 20:32
Plt Count 168 10^3/uL (130-400) 10/28/24 20:32
MPV 8.8 fL (7.4-10.4) 12/20/23 20:32
Abs Immat Gran (auto) 0.1 10^3/uL (0-0.05) H 12/20/23 20:32
Absolute Neuts (auto) 9.9 10^3/uL (1.4-6.5) H 12/20/23 20:32
Absolute Lymphs (auto) 3.7 10^3/uL (1.2-3.4) H 12/20/23 20:32
Absolute Monos (auto) 1.7 10^3/uL (0.1-0.6) H 12/20/23 20:32
Absolute Eos (auto) 1.5 10^3/uL (0-0.7) H 12/20/23 20:32
Absolute Basos (auto) 0.1 10^3/uL (0-0.2) 12/20/23 20:32
Immature Gran % 0.5 % (0-0.5) 12/20/23 20:32
Neutrophils % 58.4 % (42.2-75.2) 12/20/23 20:32
Lymphocytes % 21.7 % (20.5-51.1) 12/20/23 20:32
Monocytes % 10.1 % (1.7-9.3) H 12/20/23 20:32
Eosinophils % 8.7 % (0-6) H 12/20/23 20:32
Basophils % 0.6 % (0-2) 12/20/23 20:32
Creatinine 0.6 mg/dL (0.7-1.3) L 12/20/23 20:32
Vital Signs
Vital Signs
Temp Pulse Resp BP Pulse Ox
98.0 F 74 16 114/63 97
12/21/23 07:30 12/21/23 07:30 12/21/23 07:30 12/21/23 07:30 12/21/23 07:30
--- NOTE | 2023-12-21 10:54 | CM ---
CM reviewed medical records. Patient is currently incarcerated. Plan to return to [facility] .
PLAN: [facility] on discharge.
[2023-12-21] MEDS: HYDREA 500 MG PO (10:59)
--- NOTE | 2023-12-21 11:27 | W.PN.HOSP.TC ---
Today's Communication/Plan
-
Continue analgesics
Add Toradol
Continue IV fluids
Await labs
Assessment / Plan
Assessment / Plan
Gen-AAOx3, NAD
HEENT-NC, AT, anicteric, clear oral mm
Neck-supple
CV-reg, no M, +S1/S2
Lungs-clear B/L
Abd-soft, NT, ND
Ext-no edema
Musculoskeletal-no cyanosis, clubbing
Skin-warm and dry
Neuro-grossly non-focal
Psych-calm, cooperative
Sickle cell pain crisis -continue oxygen, IV fluids, analgesics. Add Toradol IV. Continue hydroxyurea. Appreciate hematology input.
Reticulocyte count 10.5%. Elevated total bilirubin noted. Labs for today pending.
I see no obvious bacterial infection. Procalcitonin pending. 2 view chest x-ray shows scarring in the left lower lobe. No findings of sepsis.
Discontinue antibiotics if procalcitonin normal.
Bilateral femoral head avascular necrosis -noted on recent MRI. Follow-up with orthopedics after discharge.
Chronic pain syndrome/chronic opiate dependence -on chronic buprenorphine.
Mood disorder
Full code
Dispo -back to halfway when medically stable.
Anticipated Discharge: > 48 hours
Subjective/Interval History
-
Date of Service: December 21, 2023
Patient seen and examined. Complaining of pain in the lower back, both hips, chest.
Objective Data
-
Labs:
Laboratory Results
12/21/23
06:00
WBC Pending
Hgb Pending
Hct Pending
Plt Count Pending
Sodium Pending
Potassium Pending
Chloride Pending
Carbon Dioxide Pending
BUN Pending
Creatinine Pending
Glucose Pending
Calcium Pending
Total Bilirubin Pending
AST Pending
ALT Pending
Alkaline Phosphatase Pending
Vital Signs:
Vital Signs
Temp Pulse Resp BP Pulse Ox
98.0 F 74 16 114/63 97
12/21/23 07:30 12/21/23 07:30 12/21/23 07:30 12/21/23 07:30 12/21/23 07:30
I&O
12/20/23 12/21/23 12/22/23
06:59 06:59 06:59
Intake Total 900 / 900 440 / 440
Output Total 1000 / 1000 900 / 900
Balance -100 / -100 -460 / -460
Review of Systems
-
History Source: Patient
All other systems: Reviewed and negative
[2023-12-21 11:45] VITALS: BP 116/61
[2023-12-21] MEDS: 0.45%NACL 1000 IV (11:53)
[2023-12-21 12:29] VITALS: BMI 22.4
[2023-12-21 14:04] LABS: Hematocrit 28.1 % (39.0-52.0); Mean Corp Hgb Conc. 35.6 g/dL (33.0-37.0); Mean Corpuscular Hgb 25.6 pg (27.0-31.0); Mean Corpuscular Volume 71.9 fL (80.0-94.0); Platelet Count 155 10^3/uL (130-400); Red Blood Cell Count 3.91 10^6/uL (4.70-6.10); Red Cell Dist. Width 21.8 % (11.5-14.5); White Blood Cell Count 13.3 10^3/uL (4.8-10.8)
[2023-12-21 14:15] LABS: ALT (SGPT) 31 U/L (0-50); AST (SGOT) 50 U/L (17-59); Albumin 4.4 g/dl (3.5-5.0); Alkaline Phosphatase 88 U/L (38-126); Blood Urea Nitrogen 4 mg/dl (9-20); Calcium 9.3 mg/dl (8.4-10.2); Carbon Dioxide 23 mmol/L (22-30); Chloride 104 mmol/L (98-107); Estimated Creatinine Clearance > 125 ml/min; Glucose 103 mg/dl (70-99); Iron 94 ug/dl (49-181); Potassium 4.4 mmol/L (3.5-5.1); Sodium 139 mmol/L (135-145); Total Bilirubin 2.3 mg/dl (0.2-1.3); Total Protein 7.1 g/dl (6.3-8.2); eGFR > 60.00
[2023-12-21 14:24] LABS: Percent Saturation 29 % (20-50); Total Iron Binding Capacity 319 ug/dl (261-462)
[2023-12-21 14:26] LABS: Procalcitonin < 0.05 ng/ml (0.0-0.25)
[2023-12-21 14:48] LABS: Ferritin 32.4 ng/ml (17.9-464.0)
[2023-12-21 15:45] VITALS: BP 117/65
[2023-12-21] MEDS: TORADOL 30 MG IV (16:01)
[2023-12-21] MEDS: LOVENOX 40 MG SC (17:20)
[2023-12-21] MEDS: NSS IV (21:03)
[2023-12-21] MEDS: REMERON 15 MG PO (21:09)
[2023-12-21] MEDS: STERILE WATER FOR INJECTION 10 ML IV (21:09)
[2023-12-21] MEDS: ROCEPHIN 1000 MG IV (21:11)
[2023-12-22] MEDS: DILAUDID 1 MG IV ×3 (00:08→08:59)
[2023-12-22] MEDS: 0.45%NACL 1000 IV (00:11)
--- NOTE | 2023-12-22 01:27 | VATNOTE ---
CALLED TO ASSESS IV SITE IN LF. RN UNABLE TO FLUSH. SITE APPEARS WNL.FLUSHES EASILY AND PT HAS N/C OF DISCOMFORT. IVF RESUMED ORDERED AND INFUSING WELL. PT REFUSES TO HAVE PROTECTIVE GRACIELA AND OR SPANDAGE PLACED OVER IV SITE DEPSITE EXPLAINING TO
PT THE RISKS OF THE IV BEING CAUGHT ON THE BED LINENS AND OR SCHACKLES AND BECOMING DISLODGED. PT VERBALIZING HIS RIGHTS TO REFUSE ANYTHING BEING DONE OR PLACED ON HIS FOOT AND BODY. PCN AWARE OF INTERVETNION AND OUTCOME.
--- NOTE | 2023-12-22 07:23 | W.PN.ONC2 ---
Today's Communication / Plan
-
Continue supportive care and narcotics.
D/C when stable.
Impression
Impression
sickle cell pain in setting of URI
anemia
bilateral hip AVN, chronic
Plan
Plan
Continue prn dilaudid
Transition back to outpatient buprenophine when able
Empiric abx, though suspect viral infection
Continue Hydrea 500mg/d. Discussed increasing Hydrea dose (ideally, >1000mg/d) to reduce pain episodes, but he's reluctant at this time.
Monitor CBC, LFTs, retic count. Will check iron studies with down-trending MCV
Continue folic acid
Encourage oral hydration
Subjective/Objective
Chief Complaint
ACS Heme F/U
Subjective
Describes SS pain as 'okay' rated 10. No CP/SOB. Resting comfortably.
Vital Signs:
Vital Signs
Temp Pulse Resp BP Pulse Ox
98.9 F 79 16 117/65 99
12/21/23 15:45 12/21/23 15:45 12/21/23 15:45 12/21/23 15:45 12/21/23 23:28
Lab Results:
Laboratory Data
WBC 13.3 10^3/uL (4.8-10.8) H 12/21/23 13:42
Hgb 10.0 g/dL (13.0-18.0) L 12/21/23 13:42
Plt Count 155 10^3/uL (130-400) 12/21/23 13:42
eGFR > 60.00 12/21/23 13:42
Physical Exam
Cardiology: S1 and S2
Pulmonary: Clear
GI: Soft
Extremities: No C/C/E
[2023-12-22 08:16] VITALS: BP 99/45
[2023-12-22] MEDS: PROTONIX 40 MG PO (08:58)
[2023-12-22] MEDS: MUCINEX 600 MG PO (08:58)
[2023-12-22] MEDS: FOLVITE 1 MG PO (08:59)
[2023-12-22] MEDS: HYDREA 500 MG PO (08:59)
--- NOTE | 2023-12-22 10:19 | W.PN.HOSP.TC ---
Today's Communication/Plan
-
Discharge
Assessment / Plan
Assessment / Plan
Gen-AAOx3, NAD
HEENT-NC, AT, anicteric, clear oral mm
Neck-supple
CV-reg, no M, +S1/S2
Lungs-clear B/L
Abd-soft, NT, ND
Ext-no edema
Musculoskeletal-no cyanosis, clubbing
Skin-warm and dry
Neuro-grossly non-focal
Psych-calm, cooperative
Sickle cell pain crisis -improved. Likely trigger was viral upper respiratory infection. Procalcitonin normal, antibiotics discontinued. No evidence of pneumonia. Afebrile.
Patient states this pain is much better and is requesting discharge. Does not want to miss court date tomorrow. Resume outpatient analgesics on discharge, folic acid, hydroxyurea. Outpatient hematology follow-up.
Bilateral femoral head avascular necrosis -noted on recent MRI. Follow-up with orthopedics after discharge.
Chronic pain syndrome/chronic opiate dependence -on chronic buprenorphine.
Mood disorder
Full code
Dispo -stable for discharge back to [facility]. Discussed with nursing.
31-minute spent in discharge process.
Anticipated Discharge: Today
Subjective/Interval History
-
Date of Service: December 22, 2023
Patient seen and examined. Pain is controlled. He feels ready for discharge.
Objective Data
-
Vital Signs:
Vital Signs
Temp Pulse Resp BP Pulse Ox
98.2 F 75 16 99/45 100
12/22/23 08:16 12/22/23 08:16 12/22/23 08:16 12/22/23 08:16 12/22/23 08:16
I&O
12/21/23 12/22/23 12/23/23
06:59 06:59 06:59
Intake Total 900 / 900 1959 / 1959
Output Total 1000 / 1000 3300 / 3300
Balance -100 / -100 -1340 / -1340
Review of Systems
-
History Source: Patient
All other systems: Reviewed and negative
--- NOTE | 2023-12-22 10:22 | W.DS.TRANS ---
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
-
Discharge Instructions:
Discharge Diagnosis/Procedures Sickle cell crisis, viral upper respiratory
infection
Diet Regular
Activity As tolerated
Driving Restrictions As prior to admission
Bathing Restrictions None
Instructions:
Stand-Alone Forms:
Changes to Home Medications: No
Discharge Medications:
DC Medications w/original date entered in [employer]
folic acid 1 mg tablet 1 mg PO DAILY Supplement 08/28/23
hydroxyurea 500 mg capsule 500 mg PO DAILY sickle cell anemia 08/28/23
ibuprofen 600 mg tablet 600 mg PO BIDPRN PRN mild pain 08/28/23
famotidine 20 mg tablet 20 mg PO BIDPRN PRN acid reflux/heartburn/gi issues 09/25/23
polyethylene glycol 3350 17 gram oral powder packet (Gavilax) 17 g PO DAILYPRN PRN Constipation 09/25/23
acetaminophen 500 mg tablet 1,000 mg PO TID PRN pain 10/13/23
omeprazole 20 mg tablet,delayed release 20 mg PO BID Gastrointestinal Issue 10/13/23
triamcinolone acetonide 0.1 % topical ointment 1 applic topical BIDPRN PRN skin issues 10/13/23
buprenorphine HCl 8 mg sublingual tablet 16 mg sublingual DAILY withdrawal 10/14/23
mirtazapine 15 mg tablet 15 mg PO HS Depression 11/15/23
bisacodyl 5 mg tablet,delayed release (Dulcolax (bisacodyl)) 10 mg PO HSPRN PRN constipation 12/20/23
guaifenesin 600 mg tablet, extended release 12 hr 600 mg PO Q12 #0 tabs 12/22/23
Home Medication Changes
Pending Results: No
--- NOTE | 2023-12-22 10:26 | CM ---
CM reviewed chart, patient from [facility]. Plan for discharge today.
Please call report to: [phone]

Plan; return to [facility]
[2023-12-22 12:14] VITALS: BP 106/54
== END 2023-12-22 13:10 | DRG 811 ==
LOC: 2 NORTH 23:44
PROVIDERS: Physician Assistant Medical; ADMITTING PHYSICIAN Internal Medicine; ATTENDING PHYSICIAN Hospitalist; EMERGENCY PHYSICIAN Emergency Medicine; OTHER PHYSICIAN Internal Medicine Hematology & Oncology
DX: D57.00 Hb-SS disease with crisis, unspecified (principal); J18.9 Pneumonia, unspecified organism; M87.9 Osteonecrosis, unspecified; F11.20 Opioid dependence, uncomplicated; Z11.52 Encounter for screening for COVID-19; F32.A Depression, unspecified
CPT/HCPCS: 71046; 80053; 82728; 83540; 83550; 83605; 84145; 85025; 85027; 85045; 87040; 87502; 87811; 96361; 96374; 96375; 96376; 99285